=== PATIENT | female | born 1945 | race Caucasian/White ===

== ENCOUNTER 2016-05-06 02:39 | Emergency (ER) | payer OTHER ==
[~2016-05-06] VITALS: Ht 165.1 cm; Wt 82.1 kg
[~2016-05-06 02:39] MED LIST: ASPCH81X PO; BIOT1TAB5 PO; CINN1CAP2 PO; CYAN10005 PO; FLV1 PO; GLC500 PO; INSDGI SC; INSU1INJ7 SC; ISOS60TA25 PO; LISI-729 PO; LPT40 PO; MAGN250T22 PO; METH2.5T PO; METO100T14 PO; MILK150C PO; PLV75 PO; PRD/25 PO; [UNRECOGNIZED DRUG - OTHER] PO
[2016-05-06 02:52] VITALS: TEMP 36.5; Ht 165.1 cm; Wt 82.1 kg
[2016-05-06] MEDS ORDERED: OXYMETAZOLINE HCL 0.05% NA SPR 15 ML BTL ONE (02:58)
[2016-05-06] MEDS ORDERED: SILVER NITR/POTASSIUM NITRATE 10 APPLICATOR PACK ONE (03:01)
--- NOTE | 2016-05-06 05:02 | EMERGENCY ROOM VISIT NOTE ---
History First contact with patient: 02:54 Chief Complaint: NOSE BLEED (MINOR) Stated Complaint: BLOODY NOSE, THROWING UP History of Present Illness The patient is a 70 year old female who presents to the Emergency Room with complaints of left naris epistaxis for the past few hours. Patient is on Plavix. This is a recurrent issue for her. She has not seen ENT in the past. Patient denies chest pain, dyspnea, fever, chills, cough, congestion. Review of Systems See HPI for pertinent positives & negatives. A total of 10 systems reviewed and were otherwise negative. Past Medical/Surgical History Medical Problems: (1) Coronary artery disease (2) History of - coronary artery bypass grafting (3) history of NSTEMI (4) Hypertension Nos (5) RHEUMATOID ARTHRITIS Family History No pertinent family history Social History Smoking Status: Never Smoker Alcohol Use: none Drug Use: none Marital Status: Housing Status: lives with family Current/Historical Medications Scheduled Aspirin (Aspirin Chewable), 81 MG PO DAILY Atorvastatin (Atorvastatin Calcium), 40 MG PO DAILY Biotin (Biotin), 1,000 MCG PO DAILY Cinnamon (Cinnamon), Unknown Dose PO DAILY Clopidogrel Bisulfate (Clopidogrel), 75 MG PO DAILY Cyanocobalamin (Vitamin B-12), 1,500 MCG PO 4XWK Folic Acid (Folvite *), 1 MG PO DAILY EXCEPT MONDAY Insulin Glargine (Lantus), 25 UNITS SC QAM Insulin Glargine (Lantus), 25 UNITS SC QPM Isosorbide Mononitrate Ext Rel (Imdur Ext Rel), 60 MG PO QAM Lisinopril (Zestril), 5 MG PO DAILY Magnesium Oxide (Magnesium), 250 MG PO DAILY Metformin HCL (Glucophage *), 1,000 MG PO BID Methotrexate (Methotrexate), 2 TABS PO FRIDAYS Metoprolol Tartrate (Lopressor) (Lopressor), 100 MG PO BID Milk Thistle (Silybum Marianum (Milk Thistle), Unknown Dose PO DAILY Prednisone (Prednisone), 2.5 TAB PO DAILY [Cromax Plus], 500 MCG PO DAILY Allergies Coded Allergies: No Known Allergies (Verified , `, 05/06/16) Physical Exam Vital Signs Date Time Temp Pulse Resp B/P Pulse Ox O2 Delivery O2 Flow Rate FiO2 05/06/16 04:50 86 18 140/61 97 Room Air 05/06/16 02:52 36.5 79 20 106/69 96 Room Air Physical Exam VITALS: Vitals are noted on the nurse's note and reviewed by myself. Vital signs stable. GENERAL: Pleasant female, in no acute distress, nondiaphoretic, well-developed well-nourished. SKIN: The skin was without rashes, erythema, edema, or bruising. There is no tenting of the skin. Capillary reflex less than 2 seconds. HEAD: Normocephalic atraumatic. EARS: External auditory canals clear, tympanic membranes pearly price without erythema or effusion bilaterally. EYES: Pupils equal round and reactive to light and accommodation. Conjunctivae without injection, sclerae without icterus. Extraocular movements intact. NOSE: Patent, turbinates without inflammation, active bleeding in the Kiesselbach's plexus bilaterally no septal hematoma no sinus tenderness. MOUTH: Mucous membranes moist. No active bleeding in the back of the throat. Pharynx without erythema or exudate. Uvula midline. Airway patent. Tongue does not deviate. NECK: Supple without nuchal rigidity. No lymphadenopathy. No thyromegaly. Cervical spine is nontender. No JVD. HEART: Regular rate and rhythm LUNGS: Clear to auscultation bilaterally without wheezes, rales or rhonchi. No dullness to percussion. No retractions or accessory muscle use. ABDOMEN: Positive bowel sounds x 4. Normal tympanic percussion. Soft, nontender, without masses or organomegaly. Gray sign negative. No guarding or rebound tenderness. MUSCULOSKELETAL: No muscle atrophy, erythema, or edema noted. NEURO: Patient was alert and oriented to person place and time. Normal sensation to light and sharp touch. No focal neurological deficits. Medical Decision & Procedures Medications Administered Medications (Trade) Dose Ordered Sig/Soha Route Start Time Stop Time Status Last Admin Dose Admin Oxymetazoline HCl (Afrin 0.05% Nasal [place]) 75 sprays STK-MED ONCE .ROUTE 05/06/16 02:58 05/06/16 02:59 DC 05/06/16 03:03 75 SPRAYS Procedure Anterior Nasal Packing Indication: left anterior epistaxis Verbal consent obtained. Risks and benefits were explained with the usual customary discussion. A time out was taken. Clots were removed with suction. The left naris was prepped with Afrin and lidocaine. A 5.5-cm nasal balloon was placed in a standard fashion. The patient tolerated this well. Hemostasis was achieved. No complications. ED Course Prior records/ancillary studies reviewed. Triage Nursing notes reviewed. Additional history obtained from family. The patient's history was concerning for epistaxis. Differential diagnosis: Etiologies such as anterior epistaxis, coagulopathy, traumatic injury, fracture , septal hematoma, posterior epistaxis as well as other pathologies were entertained. Physical examination findings: As above. Anterior bleeding source. ER treatment provided: Direct pressure Intranasal phenylephrine Silver nitrate. On reassessment the patient felt better. Diagnostics interpreted by me: This appears to be consistent with anterior epistaxis. Patient was advised follow-up ENT in a few days. She is advised to hold her Plavix for the next few Days. She is advised if rebleeding occurs to apply direct pressure. She is advised to return to the immediate for heavy bleeding, headaches, fevers, confusion, worsening signs or symptoms or as needed. By the evaluation outlined above emergent etiologies such as coagulopathy, traumatic injury, fracture, septal hematoma, posterior epistaxis, as well as others were deemed relatively unlikely. The pt informed about the findings as listed above. All questions were answered and pleased with the treatment. Return instructions were outlined and the patient was discharged in stable condition. Referral: The patient was referred to ENT in 2 days or ER for a recheck of the current condition case reviewed with my Attending Medical Decision as above Impression Primary Impression: Anterior epistaxis Departure Information Dispostion Home / Self-Care Condition GOOD Referrals Aiyana Peck PA-C (PCP) Patient Instructions My [facility] Additional Instructions Hold your Plavix for the next 3 days. Avoid scratching, rubbing, picking, or blowing your nose. The snuff drier your nasal passages the more likely they are to bleed. The following two products are available [id number] at most drug stores/pharmacies. Ashley [place] nasal spray or similar generic saline spray to keep the nose moist 3 to 4 times a day. If bleeding recurs apply direct pressure for an uninterrupted 20 minutes. On and off pressure is much less effective because it will disturb the clots that are forming. If the bleeding is still a problem after 20 minutes or is so heavy despite the pressure return to the emergency department. Continue current medications. For ENT([id number]) follow up call Dr. Kern office at [phone] for an appointment this week. Tell the secretary of state you were referred from the ER. Follow-up family care in 2-3 days.
--- NOTE | 2016-05-06 05:08 | EMERGENCY ROOM VISIT NOTE ---
ED Visit Note First contact with patient: 02:54 I have personally evaluated and examined this patient. I agree with assessment and plan of Chula Gonzales PA-C. Nasal bleed now stopped after cautery. Discussed standard approach to these.
[2016-05-06 05:09] VITALS: BP 140/61; PULSE 86; O2SAT 97
== END 2016-05-06 05:10 | disposition home or self-care (01) ==
LOC: C.EDB 02:40 → C.EDA 05:10
DX: R04.0 Epistaxis (principal); I25.10 Atherosclerotic heart disease of native coronary artery without angina pectoris; I10 Essential (primary) hypertension; M06.9 Rheumatoid arthritis, unspecified; I25.2 Old myocardial infarction; Z95.1 Presence of aortocoronary bypass graft; Z79.82 Long term (current) use of aspirin; Z79.4 Long term (current) use of insulin; Z79.84 Long term (current) use of oral hypoglycemic drugs; Z79.899 Other long term (current) drug therapy

== ENCOUNTER 2016-05-10 01:37 | Observation (INO) | payer OTHER ==
[2016-05-10] VITALS (18 sets, daily range): BP systolic 117–155; BP diastolic 67–84; PULSE 78–92; TEMP 36.5–37.2; O2SAT 91–99; Ht 165.1 cm; Wt 84.4 kg
[~2016-05-10] VITALS: Ht 165.1 cm; Wt 84.4 kg
[2016-05-10 02:13] LABS: BASO % 0.5 %; BASO ABS # 0.02 K/uL (0-0.2); EOS % 1.6 %; HEMATOCRIT 27.7 % (37-47); IG% 0.5 %; LYMPH % 26.1 %; LYMPH ABS # 0.98 K/uL (1.2-3.4); MEAN CELL VOLUME 78.5 fL (80-100); MEAN CORPUSCULAR HEMOGLOBIN 24.6 pg (25-34); MEAN CORPUSCULAR HGB CONC 31.4 g/dl (32-36); MEAN PLATELET VOLUME 10.2 fL (7.4-10.4); MONO % 15.2 %; NEUT % 56.1 %; PLATELET COUNT 234 K/uL (130-400); RED BLOOD COUNT 3.53 M/uL (4.2-5.4); WHITE BLOOD COUNT 3.75 K/uL (4.8-10.8)
--- NOTE | 2016-05-10 02:24 | EMERGENCY ROOM VISIT NOTE ---
History Report prepared by Mariluz: Dena Santana Under the Supervision of: Dr. Courtney Hines D.O. First contact with patient: 01:48 Chief Complaint: CHEST PAIN Stated Complaint: HEART PAIN,LOW HEMOGLOBINS History of Present Illness The patient is a 70 year old female who presents to the Emergency Room with complaints of constant chest pain beginning 1 hour ago. The patient states that she had a bloody nose for 13 hours 3 days ago. They had her stop taking her Plavix. She reports that she began to feel weak and tired over the weekend. Yesterday she went to the doctor she and she had a hemoglobin of 8 and she was told that she would need a transfusion. The patient states that tonight she was asleep and woke up about 1 hour ago with midsternal chest pain. She notes that she had pain like this 4 years ago before her cardiac bypass surgery and stent. She denies any nausea, leg swelling, abdominal pain, sweating, and shortness of breath. The patient states that her chest discomfort is mostly resolved now. She rates her pain as a 1/10 in severity. [facility] 2 [facility] Source of History: patient Onset: 1 hour ago Position: chest Symptom Intensity: 1/10 Timing: constant Associated Symptoms: + SOB, + abdominal pain, + diaphoresis, + weakness, No nausea Note: Pt complains of tiredness. She denies any leg swelling. Review of Systems See HPI for pertinent positives & negatives. A total of 10 systems reviewed and were otherwise negative. Past Medical & Surgical Medical Problems: (1) Blood loss anemia (2) CAD (coronary artery disease) (3) Coronary artery disease (4) History of - coronary artery bypass grafting (5) history of NSTEMI (6) Hypertension Nos (7) RHEUMATOID ARTHRITIS Family History No pertinent family history Social History Smoking Status: Never Smoker Alcohol Use: none Drug Use: none Marital Status: Housing Status: lives with family Current/Historical Medications Scheduled Aspirin (Aspirin Chewable), 81 MG PO DAILY Atorvastatin (Atorvastatin Calcium), 40 MG PO HS Biotin (Biotin), 1,000 MCG PO DAILY Cholecalciferol (Vitamin D3), 1 TAB PO DAILY Cinnamon (Cinnamon), 500 MG PO DAILY Clopidogrel Bisulfate (Clopidogrel), 75 MG PO DAILY Cyanocobalamin (Vitamin B-12), 1,500 MCG PO Q2D Folic Acid (Folvite), 1 MG PO 6XWK Insulin Glargine (Lantus), 25 UNITS SQ BID Isosorbide Mononitrate Ext Rel (Imdur Ext Rel), 60 MG PO QAM Lisinopril (Zestril), 5 MG PO DAILY Magnesium Oxide (Magnesium), 250 MG PO DAILY Metformin Hcl (Glucophage), 1,000 MG PO BID Methotrexate (Methotrexate), 5 MG PO DAILY ON FRIDAYS Metoprolol Tartrate (Lopressor) (Lopressor), 100 MG PO BID Milk Thistle (Silybum Marianum (Milk Thistle), 1 CAP PO DAILY Prednisone (Prednisone), 2.5 MG PO DAILY Allergies Coded Allergies: No Known Allergies (Verified , `, 05/10/16) Physical Exam Vital Signs Date Time Temp Pulse Resp B/P Pulse Ox O2 Delivery O2 Flow Rate FiO2 05/10/16 03:00 75 21 136/78 90 Room Air 05/10/16 02:05 75 20 123/68 91 Room Air 05/10/16 01:54 95 Room Air 05/10/16 01:52 75 05/10/16 01:49 37.0 78 18 144/72 96 Room Air 05/10/16 01:49 94 Room Air Physical Exam HEENT: Head - normocephalic and atraumatic Pupils are equal, round, and reactive to light. Extraocular eye muscles are intact, and sclera are anicteric. Nose - moist nasal mucosa without discharge. Mouth - moist buccal mucosa. Oropharynx is nonerythematous and there is no tonsillar exudate or edema noted. Neck: Supple; no JVD, nuchal rigidity, cervical lymphadenopathy. Heart: Regular rate and rhythm. There is a normal S1 and S2 with no murmurs, clicks, or gallops appreciated. Lungs: Clear to auscultation bilaterally with no wheezes, rales, or rhonchi. Abdomen: Soft, completely nontender, nondistended, with good bowel sounds. There are no palpable pulsatile masses or hepatosplenomegaly. There is no guarding, rigidity, or rebound noted. Extremities: No evidence of cyanosis, clubbing, or edema. There are easily palpable peripheral pulses. Skin: warm and dry with good turgor and no rashes. Medical Decision & Procedures ER Provider Diagnostic Interpretation: X-ray results as stated below per interpretation by me: 2-View Chest: Sternotomy wires noted, there is atelectasis at the left lung base. Laboratory Results 05/10/16 01:55 Red Blood Count 3.53, Mean Corpuscular Volume 78.5, Mean Corpuscular Hemoglobin 24.6, Mean Corpuscular Hemoglobin Concent 31.4, Mean Platelet Volume 10.2, Neutrophils (%) (Auto) 56.1, Lymphocytes (%) (Auto) 26.1, Monocytes (%) (Auto) 15.2, Eosinophils (%) (Auto) 1.6, Basophils (%) (Auto) 0.5, Neutrophils # (Auto ) 2.10, Lymphocytes # (Auto) 0.98, Monocytes # (Auto) 0.57, Eosinophils # (Auto ) 0.06, Basophils # (Auto) 0.02 05/10/16 01:55 Test 05/10/16 01:55 White Blood Count 3.75 K/uL (4.8-10.8) Red Blood Count 3.53 M/uL (4.2-5.4) Hemoglobin 8.7 g/dL (12.0-16.0) Hematocrit 27.7 % (37-47) Mean Corpuscular Volume 78.5 fL (80-100) Mean Corpuscular Hemoglobin 24.6 pg (25-34) Mean Corpuscular Hemoglobin Concent 31.4 g/dl (32-36) Platelet Count 234 K/uL (130-400) Mean Platelet Volume 10.2 fL (7.4-10.4) Neutrophils (%) (Auto) 56.1 % Lymphocytes (%) (Auto) 26.1 % Monocytes (%) (Auto) 15.2 % Eosinophils (%) (Auto) 1.6 % Basophils (%) (Auto) 0.5 % Neutrophils # (Auto) 2.10 K/uL (1.4-6.5) Lymphocytes # (Auto) 0.98 K/uL (1.2-3.4) Monocytes # (Auto) 0.57 K/uL (0.11-0.59) Eosinophils # (Auto) 0.06 K/uL (0-0.5) Basophils # (Auto) 0.02 K/uL (0-0.2) RDW Standard Deviation 44.6 fL (36.4-46.3) RDW Coefficient of Variation 15.5 % (11.5-14.5) Immature Granulocyte % (Auto) 0.5 % Immature Granulocyte # (Auto) 0.02 K/uL (0.00-0.02) Ovalocytes 1+ Prothrombin Time 10.8 SECONDS (9.0-12.0) Prothromb Time International Ratio 1.0 (0.9-1.1) Activated Partial Thromboplast Time 24.2 SECONDS (21.0-31.0) Partial Thromboplastin Ratio 0.9 Anion Gap 11.0 mmol/L (3-11) Est Creatinine Clear Calc Drug Dose 48.1 ml/min Estimated GFR () 53.8 Estimated GFR (Non- 46.4 BUN/Creatinine Ratio 15.9 (10-20) Calcium Level 8.3 mg/dl (8.5-10.1) Total Bilirubin 0.3 mg/dl (0.2-1) Direct Bilirubin 0.1 mg/dl (0-0.2) Aspartate Amino Transf (AST/SGOT) 28 U/L (15-37) Alanine Aminotransferase (ALT/SGPT) 29 U/L (12-78) Alkaline Phosphatase 74 U/L (45-117) Total Creatine Kinase 562 U/L (26-192) Creatine Kinase MB 3.3 ng/ml (0.5-3.6) Creatine Kinase MB Ratio 0.6 (0-3.0) Troponin I 0.025 ng/ml (0-0.045) Total Protein 6.9 gm/dl (6.4-8.2) Albumin 3.1 gm/dl (3.4-5.0) Laboratory results per my review. ECG Indication: chest pain Rate (beats per minute): 74 Rhythm: normal sinus Findings: other (ST segment depressions in inferior leads, 1 in AVL) Comparison ECG Date: 23-DEC-2011 Change: ST segment depressions in inferior leads, 1 in AVL ED Course 0148: Past medical records reviewed. The patient was evaluated in room A10. A complete history and physical exam was performed. A twelve-lead EKG was obtained upon her arrival. An IV lock was initiated and labs were drawn as above. Patient had chest x-ray as described above. 0240: Discussed the patient's case with Dr. Soriano. The patient will be evaluated for further management. 0242: I reevaluated the patient and discussed her test results. She remains chest pain free. 0245: Upon reevaluation, I discussed findings and results with the patient. She verbalized agreement of the treatment plan. I spoke with Dr. Soriano of the [facility]. The patient will be evaluated for further management and care. Medical Decision The patient is a 70 year old female who presents to the ED with chest pain. Differential diagnosis includes cardiac ischemia, GERD, NSTEMI, acute coronary syndrome, anxiety. LABS: Hemoglobin 8.8 Hematocrit 27.7 Platelet Count 22.4 WBC 3.7 BUN 19 Creatinine 1.2 Troponin 0.025 LFT normal Coags are normal This is a 70-year-old female patient who awoke from sleep with midsternal chest pain. The patient was recently diagnosed with anemia secondary to a blood loss from epistaxis. She was typed and screened here in the emergency department. Her blood loss anemia may have lead to her ischemic changes noted on EKG today. She is chest pain-free at this time. She has negative cardiac enzymes I've discussed the case with the [facility]ist and he will evaluate for further management. Consults Time Called: [phone] Consulting Physician: Dr. Christie Overton Returned Call: [phone] Discussed the patient's case with Dr. Soriano. The patient will be evaluated for further management. Impression Primary Impression: Substernal chest pain Additional Impression: Acute electrocardiogram changes Scribe Attestation The scribe's documentation has been prepared under my direction and personally reviewed by me in its entirety. I confirm that the note above accurately reflects all work, treatment, procedures, and medical decision making performed by me. Departure Information Dispostion Being Evaluated By Hospitalist Referrals Lexus Holland DO (PCP) Patient Instructions My [facility] Problem Qualifiers
[2016-05-10 02:30] LABS: PARTIAL THROMBOPLASTIN RATIO 0.9; PROTHROMBIN TIME (PATIENT) 10.8 SECONDS (9.0-12.0)
[2016-05-10 02:31] LABS: BUN/CREATININE RATIO 15.9 (10-20); CALCIUM 8.3 mg/dl (8.5-10.1); CREATININE 1.2 mg/dl (0.60-1.20); POTASSIUM 4.3 mmol/L (3.5-5.1)
[2016-05-10 02:36] LABS: CKMB/CK RATIO 0.6 (0-3.0)
[2016-05-10 02:44] LABS: COMPLETE YES; OVALOCYTES 1+
[2016-05-10] MEDS ORDERED: PRED-301 PO (02:58)
[2016-05-10] MEDS ORDERED: METF-384 PO (02:58)
[2016-05-10] MEDS ORDERED: INSDGI SQ (02:58)
[2016-05-10] MEDS ORDERED: FOLI1TAB7 PO (02:59)
[2016-05-10] MEDS ORDERED: CHOL1000 PO (03:00)
[2016-05-10] MEDS ORDERED: ACETAMINOPHEN 325 MG TAB PO PRN (03:15)
[2016-05-10] MEDS ORDERED: ONDANSETRON INJ 2 MG/ML 2 ML VIAL IV PRN (03:15)
[2016-05-10] MEDS ORDERED: GLUCOSE 10 TABS/TUBE PO PRN (04:00)
[2016-05-10] MEDS ORDERED: DEXTROSE 50% 50 ML SYR IV PRN (04:00)
[2016-05-10] MEDS ORDERED: IV FLUIDS COMPLETED PRN (04:00)
[2016-05-10] MEDS ORDERED: GLUCAGON FOR INJ 1 MG VIAL SQ PRN (04:00)
[2016-05-10] MEDS ORDERED: GLUCOSE 40% GEL 15 GM TUBE PO PRN (04:00)
[2016-05-10] MEDS: HEPARIN SOD 5000 UNIT/0.5 ML CARP SQ SCH ×2 (06:10→13:27)
--- NOTE | 2016-05-10 06:45 | DIAGNOSTIC IMAGING REPORT ---
CHEST 2 VIEWS ROUTINE CLINICAL HISTORY: Atypical chest pain COMPARISON STUDY: November 2011 FINDINGS: There are postsurgical changes of midline sternotomy. The heart is mildly enlarged. Indistinctness left heart border remains unchanged the prior study is felt to be chronic. There are left midlung zone areas of atelectasis/scarring which remain stable. There is no failure. There are no pleural effusions. There is no acute parenchymal consolidation[ IMPRESSION: No active disease in the chest. Electronically signed by: True Nye M.D. 05/10/2016 6:43 AM Dictated Date/Time: 05/10/2016 6:42 AM
--- NOTE | 2016-05-10 06:48 | HISTORY & PHYSICAL EXAMINATION ---
DATE OF ADMISSION: 05/10/2016 PRIMARY CARE PHYSICIAN: Dr. Wilkinson CHIEF COMPLAINT: Woke up with chest pressure around 1 a.m. today. HISTORY OF PRESENT COMPLAINT: She is a 70-year-old female with significant past medical history including type 2 diabetes, CAD status post CABG, history of non-STEMI, hyperlipidemia, history of angioplasty with stent placement, rheumatoid arthritis involving multiple joints with positive rheumatoid factor and also vitamin B12 deficiency. Apparently has had nose bleed on of this month. She was in the ER, she bleed a lot and she is going to see ENT physician for that, but she saw her primary care physician for the nose bleed yesterday and noted to have a hemoglobin of 8.4. She was advised for transfusion because of ongoing heart disease and her Plavix is on hold for the epistaxis. Se had her usual dinner last night and following that she vomited once and she went to sleep, woke up at around 1:00 a.m. with chest pressure/chest pain that lasted half an hour. No associated symptoms of palpitation, sweating, shortness of breath or any radiation of the pain along the jaw or arm. In the ER, she was asymptomatic, but EKG did show new T-wave inversion involving anterolateral leads. From that point, she was admitted to the telemetry unit and also her hemoglobin noted to be 8.7 and she will be transfused. Serial cardiac enzymes and echo and cardiology evaluation. PAST MEDICAL HISTORY: Significant for type 2 diabetes, CAD, status post off-pump CABG x 4 September,, CHEN - LAD, Aorta - OM, Aorta - PDA - PV S/P Angioplasty ALEX of OM1 01/27/12 (SVG to OM occluded on aortogram) diabetes type 2, hyperlipidemia, rheumatoid arthritis with positive rheumatoid factor PAST SURGICAL HISTORY: CABG, coronary angioplasty and total hysterectomy. FAMILY HISTORY: Mother had cirrhosis of liver, but no other significant family history. SOCIAL HISTORY: She is . She has 9 children. She uses alcohol occasionally. She does not smoke and she is reasonably ambulant. ALLERGIES: NKDA. MEDICATIONS: Aspirin 81 mg daily, atorvastatin 40 mg daily, Vitamin D3 1000 units daily, Plavix 75 mg, which is on hold; vitamin B12 1000 mcg daily, folic acid 1 mg daily, insulin Lantus 25 units subQ b.i.d., isosorbide mononitrate 60 mg daily, lisinopril 5 mg daily, metformin 1000 mg b.i.d., methotrexate 5 mg on Fridays, Lopressor 100 mg b.i.d., prednisone 2.5 mg daily, Biotin 1000 mcg daily, senna 500 mcg daily, magnesium oxide 250 mg daily. REVIEW OF SYSTEMS: CENTRAL NERVOUS SYSTEM: No headache, no blurred vision, no numbness or tingling. ENT: Does not have any more epistaxis. RESPIRATORY: No cough or phlegm, shortness of breath. CARDIOVASCULAR: Did have chest pressure/pain, no palpitations. GASTROINTESTINAL: No abdominal pain, nausea, but she vomited once following dinner. GENITOURINARY: No problem with urine and/or bowel habit. MUSCULOSKELETAL: No acute arthritis involving any joint. SKIN: Generally, she did not have any rash. PHYSICAL EXAMINATION: GENERAL: On examination in the Emergency Room, she was not having any acute distress. No chest pain. VITAL SIGNS: Temperature 37.0, pulse is 75, blood pressure 123/68, saturation 91% on room air. HEENT: Unremarkable. NECK: Supple. No JVD, no bruit. CHEST: Clear to auscultation bilaterally. HEART: S1, S2 regular, no murmur. ABDOMEN: Soft, benign, nontender, no organomegaly. Bowel sounds present. EXTREMITIES: Negative for any edema. MUSCULOSKELETAL SYSTEM: Did not show any acute arthritis involving any joint. CENTRAL NERVOUS SYSTEM: She was alert, awake, oriented x3 and no focal sensory and/or motor deficit appreciated. LABORATORY DATA: Noted today white count was 3.75, H\T\H 8.7/27.7, platelet was 234. Sodium 140, potassium 4.3, chloride 104, carbon dioxide 25, BUN 19, creatinine 1.20, random glucose 191. LFTs normal. Total CK was 562, MB 3.3, troponin 0.025, INR 1.0, PTT ratio 0.9. Chest x-ray cardiomegaly, otherwise negative. EKG was in sinus rhythm, rate of 74 per minute and T-wave inversions in I, II, aVL and V4 through V6 compared with prior EKG, the T-wave changes are new on anterolateral leads. IMPRESSION AND PLAN: 1. Chest pain with EKG changes. CAD with s/p CABG and Angioplasty as above S/P negative nuclear stress test in March 2016 Gated SPECT imaging reveals normal myocardial thickening and wall motion. The left ventricular ejection fraction was calculated to be 70%. Will admit to Tele,Serial CE and ECHO No IV Heparin due to Anemia and Epistaxis Cardiology consult 2. Anemia secondary to epistaxis. Her Plavix is on hold. She will get 2 units of blood transfusion for ongoing cardiac symptoms and EKG changes. 3. Diabetes type 2. Continue with her insulin, hold oral hypoglycemic agents, sliding scale coverage while in the hospital. 4. Hypertension. Continue with current medications. 5. Hyperlipidemia. Continue with current medication. 6. Rheumatoid arthritis. No acute arthropathy at this time, continue with usual medication. 7. Gastrointestinal prophylaxis with Protonix. 8. Deep venous thrombosis prophylaxis with subQ heparin. High risk for thrombosis The patient is not having any acute epistaxis at this time. 9. Code status -- She will be full code. In my clinical judgment the beneficiary meets criteria as per CMS for 2 midnight stay in the hospital. [email or web address]
[2016-05-10] MEDS ORDERED: METFORMIN HCL 500 MG TAB PO SCH (08:00)
[2016-05-10] MEDS: INSULIN ASPART 100 UNITS/ML 3 ML PEN SC SCH ×2 (08:47→13:20)
[2016-05-10] MEDS ORDERED: ASPIRIN 81 MG ECTAB PO SCH (09:00)
[2016-05-10] MEDS ORDERED: ISOSORBIDE MONONITRATE 60 MG TABCR PO SCH (09:00)
[2016-05-10] MEDS ORDERED: CYANOCOBALAMIN 500 MCG TAB (VIT B-12) PO SCH (09:00)
[2016-05-10] MEDS ORDERED: MAGNESIUM OXIDE 400 MG TAB PO SCH (09:00)
[2016-05-10] MEDS ORDERED: NON-FORMULARY MEDICATION (Biotin 1,000 MCG) PO SCH (09:00)
[2016-05-10] MEDS ORDERED: METOPROLOL TARTRATE 100 MG TAB PO SCH (09:00)
[2016-05-10] MEDS ORDERED: INSULIN GLARGINE SOLOSTAR 100 UNITS/ML 3 ML PEN SC SCH ×2 (09:00→21:00)
[2016-05-10] MEDS ORDERED: NON-FORMULARY MEDICATION (Cinnamon 500 MG) PO SCH (09:00)
[2016-05-10] MEDS ORDERED: LISINOPRIL 5 MG TAB PO SCH (09:00)
[2016-05-10] MEDS ORDERED: MILK THISTLE PO SCH (09:00)
[2016-05-10] MEDS ORDERED: CHOLECALCIFEROL 1000 INTER.UNIT TAB PO SCH (09:00)
--- NOTE | 2016-05-10 11:28 | CARDIOLOGY CONSULTATION ---
DATE OF CONSULTATION: 05/10/2016 HISTORY OF PRESENT ILLNESS: Francie Baker is a 70-year-old female with a history of rheumatoid arthritis, coronary heart disease, history of CABG as well as PCI to the obtuse marginal, as delineated below. She is seen in cardiology consultation per the request of Dr. Soriano for evaluation of chest discomfort and abnormal EKG. The patient had last been seen by the undersigned as an outpatient in the Fall of 2015 around the when she noted generalized fatigue and symptoms somewhat atypical for angina. She therefore underwent a nuclear stress test on 03/28/2016 during which time she exercised for 4 minutes 50 seconds. She achieved 77% of the age predicted maximum heart rate. It was felt that her heart rate response to exercise was attenuated due to her chronic high dose beta dereje therapy. The patient exercised to a point of near complete exhaustion with the study having been supervised personally by the undersigned. The perfusion study was normal with no evidence of inducible ischemia at the level of exercise achieved. Her medication management was continued including chronic dual antiplatelet therapy with aspirin and clopidogrel due to her significant underlying [place] vessel CAD. The patient reports that 4 days ago on Monday she had a 13-hour nosebleed. This culminated in her going to the Emergency Department and finally receiving treatment there including cauterization with silver nitrate. She was counseled to hold her clopidogrel for 3 days and outpatient follow up with her PCP and ENT was scheduled. In the meantime, she has been off her Plavix, and notes no recurrent bleeding. She had seen her primary care provider yesterday, and was improved. She was referred for blood work; however, and it was noted that she had a newly discovered anemia with hemoglobin of 8.7 yesterday on 05/09/2016, which was down compared to 13.2 grams per deciliter in February 2015. The patient then woke up spontaneously at 1:30 in the morning last night with a brief episode of mild chest discomfort. She came to the Emergency Room and the chest discomfort had persisted. Cardiac enzymes were negative at 1:55 a.m. An EKG performed on presentation on 05/06/2016 at 1:45 a.m. revealed sinus rhythm with ST changes in the inferior and lateral leads with mild ST changes and T-wave, inversions concerning for ischemia. A repeat EKG was performed this morning at 9:25 a.m. per my request and noted normalization of these previously noted ST changes, and she is back to her previous outpatient baseline when compared to the EKG performed on 03/16/2016. At the time of my assessment, the patient was on telemetry. She was feeling well. She had received 1 unit of packed red blood cells, and a second unit was infusing. Her hemoglobin on presentation to the Emergency Room was 11.7, and a repeat is planned after transfusion is completed. The patient notes no recent anginal symptoms other than what occurred last night. PAST MEDICAL HISTORY: 1. CAD, history of type 2 diabetes mellitus. 2. Rheumatoid arthritis. 3. Coronary artery disease came to be recognized in September 2011 when she presented with a non-ST segment elevation myocardial infarction. Coronary angiography at that time demonstrated severe 3-vessel coronary artery disease including a right dominant coronary artery with subtotal stenosis of the mid LAD and a high grade stenosis of the circumflex, obtuse marginal. On followup after her bypass surgery, she had recurrent angina prompting nuclear stress test in 2011 revealing lateral ischemia, repeat cardiac catheterization performed 01/27/2012 revealed the stump occlusion of the vein graft to the obtuse marginal. She therefore underwent PCI with drug-eluting stent deployment to the [place] obtuse marginal 1 with excellent angiographic results. 4. Dyslipidemia. 5. History of epistaxis January 2016 as well as April 2016. PAST SURGICAL HISTORY: 1. Coronary artery bypass grafting x4 in 2011. 2. Cardiac catheterization, prior to CABG, as well as repeat in January 2012 with PCI to the obtuse marginal. FAMILY HISTORY: Father of stroke at age 87. Her mother had a history of liver failure. SOCIAL HISTORY: She is a lifelong nonsmoker. She is and lives with her , [place]. REVIEW OF SYSTEMS: A 10-point review of systems was performed and is negative with the exception of that noted above. HOME MEDICATIONS: 1. Aspirin 81 mg by mouth daily. 2. Atorvastatin 40 mg daily. 3. Isosorbide mononitrate 60 mg by mouth daily. 4. Lantus 25 units subQ 2 times per day. 5. Victoza 0.6 mg subcutaneously daily. 6. Lisinopril 5 mg by mouth daily. 7. Magnesium 200 mg by mouth daily. 8. Metformin 1000 mg by mouth b.i.d. 9. Methotrexate 2.5 mg 2 tablets by mouth once per week. 10. Metoprolol tartrate 100 mg 1 tablet by mouth 2 times per day. 11. Prednisone 5 mg by mouth daily. PHYSICAL EXAMINATION: VITAL SIGNS: Temperature 37.0, heart rate 89, blood pressure 135/75. GENERAL APPEARANCE: Awake and oriented x3, no acute distress. HEENT: Extraocular muscles were intact. Pupils equal and reactive to light. NECK: No bruits or cervical lymphadenopathy. CARDIOVASCULAR: Regular rate. No murmurs, rubs or gallops. ABDOMEN: Positive bowel sounds. Soft, nontender, nondistended. EXTREMITIES: No clubbing, cyanosis or edema. NEUROLOGIC: No focal deficits. PSYCHIATRIC: Appropriate affect and insight. DIAGNOSTIC DATA: EKG as outlined in the HPI. Hemoglobin is as outlined in the HPI. FINAL IMPRESSION: A 70-year-old white female: 1. Significant epistaxis, stating that her nosebleed took place for 13 hours prior to cauterization back on 05/06/2016. 2. Anemia, perhaps due to her recent epistaxis, although other causes may also need to be excluded. 3. Transient EKG abnormalities in the setting of anemia. 4. History of coronary heart disease, with previous coronary artery bypass grafting, and percutaneous coronary intervention to the obtuse marginal. 5. Underlying type 2 diabetes mellitus. 6. Underlying rheumatoid arthritis, on chronic treatment with prednisone and methotrexate. RECOMMENDATIONS: At this time, recommend transfusing the patient to a hemoglobin goal of 10 g per deciliter, given episode of chest discomfort last night and transient EKG changes. Currently, her EKG has returned back to its previous baseline. At this time, I recommend that we proceed of clopidogrel and support her anemia as necessary. MANSOOR
[2016-05-10 11:47] LABS: CKMB/CK RATIO 0.6 (0-3.0)
--- NOTE | 2016-05-10 12:47 | ECHOCARDIOGRAM REPORT ---
*NOTICE TO RECEIVING [employer] [facility] This information is strictly Confidential and protected under [place] law. [place] law prohibits you from making any further disclosure of this information unless further disclosure is expressly permitted by the written consent of the person to whom it pertains or is authorized by law. A general authorization for the release of medical or other information is not sufficient for this purpose. Hospital accepts no responsibility if the information is made available to any other person, INCLUDING THE PATIENT. Interpretation Summary * Name: KANDIS SCOTT Study Date: 05/10/2016 09:59 AM BP: 134/67 mmHg * Patient Location: [facility]\S\N277\S\1 HR: 85 * : 1945 (M/d/yyyy) Gender: Female Height: 65 in * Age: 70 yrs Ethnicity: CA Weight: 186 lb * Ordering Physician: Cy Soriano * Referring Physician: Self, Referred * Performed By: Ivon Mclaughlin RCS * * Reason For Study: CHEST PAIN / CAD * BSA: 1.9 m2 * The study was technically adequate. * -- Conclusions -- * There is severe concentric left ventricular hypertrophy. * The left ventricular cavity is small. * No regional wall motion abnormalities noted. * The calculated left ventricular ejection fraction=61% * The right ventricle is normal in size and function. * There is moderate mitral annular calcification. * Grade I diastolic dysfunction, (abnormal relaxation pattern). Procedure Details * A complete two-dimensional transthoracic echocardiogram was performed (2D, M-mode, Doppler and color flow Doppler). Left Ventricle * The left ventricular cavity is small. * There is severe concentric left ventricular hypertrophy. * Left ventricular systolic function is normal. * The calculated left ventricular ejection fraction=61% * The left ventricular wall motion is normal. * No regional wall motion abnormalities noted. Right Ventricle * The right ventricle is normal in size and function. * The right ventricular systolic function is normal as assessed by tricuspid annular plane systolic excursion (TAPSE) (normal >1.5 cm). Atria * The left atrium is mildly dilated. * Right atrial size is normal. * There is no evidence of atrial septal defect, but resolution does not allow assessment for a patent foramen ovale. Mitral Valve * There is moderate mitral annular calcification. * There is no mitral valve stenosis. * Significant mitral regurgitation is absent. Tricuspid Valve * The tricuspid valve is normal. * There is no tricuspid stenosis. * Significant tricuspid regurgitation is absent. * Doppler findings do not suggest pulmonary hypertension. Aortic Valve * The aortic valve is trileaflet. * Aortic stenosis is absent. * There is no significant aortic regurgitation. Pulmonic Valve * The pulmonary valve is not well seen, but the Doppler examination is normal without significant regurgitation or stenosis. Great Vessels * The aortic root and proximal ascending aorta are normal sized. Pericardium/Pleural * There is no pericardial effusion. Great Vessels * Normal inferior vena cava diameter and respiratory variation suggests normal central venous pressure. * Normal inferior vena cava size and collapsability with sniff indicates a normal right atrial pressure of 3 mmHg Left Ventricular Diastolic Function * Grade I diastolic dysfunction, (abnormal relaxation pattern). MMode 2D Measurements and Calculations IVSd 1.9 cm IVSs 2.1 cm LVIDd 4.2 cm LVIDs 3.0 cm LVPWd 1.3 cm LVPWs 1.4 cm IVS/LVPW 1.5 FS 28.2 % EDV(Teich) 80.0 ml ESV(Teich) 36.2 ml EF(Teich) 54.8 % EDV(cubed) 75.9 ml ESV(cubed) 28.1 ml EF(cubed) 62.9 % % IVS thick 7.4 % % LVPW thick 9.2 % LV mass(C)d 285.0 grams LV mass(C)dI 148.6 grams/m\S\2 LV mass(C)s 210.5 grams LV mass(C)sI 109.8 grams/m\S\2 SV(Teich) 43.9 ml SI(Teich) 22.9 ml/m\S\2 SV(cubed) 47.7 ml SI(cubed) 24.9 ml/m\S\2 Ao root diam 3.5 cm Ao root area 9.4 cm\S\2 LA dimension 3.0 cm LA/Ao 0.88 LVOT diam 1.8 cm LVOT area 2.5 cm\S\2 Doppler Measurements and Calculations MV E max mau 122.5 cm/sec MV A max mau 137.6 cm/sec MV E/A 0.89 MV P1/2t max mau 129.0 cm/sec MV P1/2t 64.3 msec MVA(P1/2t) 3.4 cm\S\2 MV dec slope 587.4 cm/sec\S\2 MV dec time 0.18 sec Ao V2 max 129.0 cm/sec Ao max PG 6.7 mmHg Ao max PG (full) 0.74 mmHg KULDIP(V,A) 2.4 cm\S\2 KULDIP(V,D) 2.4 cm\S\2 LV V1 max PG 5.9 mmHg LV V1 max 121.6 cm/sec PA V2 max 112.7 cm/sec PA max PG 5.1 mmHg
--- NOTE | 2016-05-10 13:50 | Progress Note ---
Subjective Date of Service: May 10, 2016. Subjective Pt evaluation today including: conversation w/ patient, physical exam, lab review, review of studies, review of inpatient medication list Saw/examined the patient in room 277 - doing well, came in to the ER with chest pressure/pain and low Hgb levels due to epistaxis this morning - doing better, no chest pain, s/p transfusion Problem List Medical Problems: (1) Anterior epistaxis Status: Acute (2) Anterior epistaxis Status: Acute (3) Substernal chest pain Status: Acute Review of Systems Constitutional: No chills, No fever Respiratory: No cough, No dyspnea on exertion, No shortness of breath, No sputum, No wheezing Cardiac: No chest pain Heme: No abnormal bleeding/bruising Medications Current Inpatient Medications Medications (Trade) Dose Ordered Sig/Soha Route Start Time Stop Time Status Last Admin Dose Admin Heparin Sodium (Porcine) (Heparin Sq 5000 Unit/0.5ml) 5,000 unit Q8 SQ 05/10/16 06:00 06/09/16 05:59 05/10/16 06:10 5,000 UNIT Acetaminophen (Tylenol Tab) 650 mg Q4H PRN PO 05/10/16 03:15 06/09/16 03:14 Ondansetron HCl (Zofran Inj) 4 mg Q6H PRN IV 05/10/16 03:15 06/09/16 03:14 Aspirin (Ecotrin Tab) 81 mg QAM PO 05/10/16 09:00 06/09/16 08:59 05/10/16 08:39 81 MG Atorvastatin Calcium (Lipitor Tab) 40 mg HS PO 05/10/16 21:00 06/09/16 20:59 Cholecalciferol (Vitamin D Tab) 1,000 inter.unit DAILY PO 05/10/16 09:00 06/09/16 08:59 05/10/16 08:41 1,000 INTER.UNIT Cyanocobalamin (Vitamin B-12 Tab) 1,500 mcg Q2D PO 05/10/16 09:00 06/09/16 08:59 05/10/16 08:41 1,500 MCG Folic Acid (Folvite Tab) 1 mg SuMoTuWeThSa@0900 PO 05/10/16 09:00 06/09/16 08:59 05/10/16 08:40 1 MG Insulin Glargine (Lantus Solostar Pen) 25 unit BID SC 05/10/16 09:00 06/09/16 08:59 05/10/16 08:48 25 UNIT Isosorbide Mononitrate (Imdur Ext Rel Tab) 60 mg QAM PO 05/10/16 09:00 06/09/16 08:59 05/10/16 08:39 60 MG Lisinopril (Zestril Tab) 5 mg DAILY PO 05/10/16 09:00 06/09/16 08:59 05/10/16 08:40 5 MG Metformin HCl (Glucophage Tab) 1,000 mg BIDM PO 05/10/16 08:00 06/09/16 07:59 05/10/16 08:42 1,000 MG Methotrexate (Methotrexate Tab) 5 mg Fr@0900 PO 05/13/16 09:00 06/12/16 08:59 Metoprolol Tartrate (Lopressor Tab) 100 mg BID PO 05/10/16 09:00 06/09/16 08:59 05/10/16 08:40 100 MG Prednisone (PredniSONE TAB) 2.5 mg DAILY PO 05/10/16 09:00 06/09/16 08:59 05/10/16 08:41 2.5 MG Magnesium Oxide (Mag-Ox Tab) 400 mg DAILY PO 05/10/16 09:00 06/09/16 08:59 05/10/16 08:40 400 MG Insulin Aspart (novoLOG ASPART) SLIDING SCALE G... ACHS SC 05/10/16 06:30 06/09/16 06:59 05/10/16 08:47 5 UNITS Glucose (Glucose 40% Gel) 15-30 GRAMS 15 GRAMS... UD PRN PO 05/10/16 04:00 06/09/16 03:59 Glucose (Glucose Chew Tab) 4-8 Tablets 4 Tabl... UD PRN PO 05/10/16 04:00 06/09/16 03:59 Dextrose (Dextrose 50% 50ML Syringe) 25-50ML OF 50% DW IV FOR... UD PRN IV 05/10/16 04:00 06/09/16 03:59 Glucagon (Glucagon Inj) 1 mg UD PRN SQ 05/10/16 04:00 06/09/16 03:59 Miscellaneous (Iv Fluids Completed) 1 ea PRN PRN N/A 05/10/16 04:00 05/10/17 03:59 Objective Vital Signs Date Time Temp Pulse Resp B/P Pulse Ox O2 Delivery O2 Flow Rate FiO2 05/10/16 11:49 36.8 81 138/73 97 05/10/16 09:50 37.0 89 18 135/75 05/10/16 09:20 37.1 85 18 155/67 05/10/16 08:50 36.6 92 18 145/82 05/10/16 08:35 36.8 92 18 143/83 05/10/16 08:19 36.5 91 18 149/84 05/10/16 08:00 92 Room Air 05/10/16 07:15 36.9 82 18 150/83 92 05/10/16 06:45 37.2 82 18 132/81 92 05/10/16 06:15 37.1 78 20 130/79 91 05/10/16 05:45 37.0 81 20 134/67 96 05/10/16 05:30 36.8 78 20 131/75 97 05/10/16 05:15 36.9 78 20 139/70 99 2.0 05/10/16 04:51 37.2 80 20 117/72 97 05/10/16 04:20 97 Nasal Cannula 2.0 05/10/16 04:00 82 24 127/65 97 Nasal Cannula 2.0 05/10/16 03:34 Nasal Cannula 2.0 05/10/16 03:00 75 21 136/78 90 Room Air 05/10/16 02:05 75 20 123/68 91 Room Air 05/10/16 01:54 95 Room Air 05/10/16 01:52 75 05/10/16 01:49 37.0 78 18 144/72 96 Room Air 05/10/16 01:49 94 Room Air Physical Exam General Appearance: no apparent distress Respiratory/Chest: lungs clear, normal breath sounds, no respiratory distress, no accessory muscle use Cardiovascular: regular rate, rhythm, no edema, no murmur Abdomen: normal bowel sounds, non tender, soft Extremities: normal inspection, no pedal edema Neurologic/Psychiatric: no motor/sensory deficits, alert, normal mood/affect Skin: normal color Lymphatic: no adenopathy Laboratory Results Last 24 Hours Test 05/10/16 01:55 05/10/16 07:36 05/10/16 11:03 05/10/16 11:40 White Blood Count 3.75 K/uL Red Blood Count 3.53 M/uL Hemoglobin 8.7 g/dL Hematocrit 27.7 % Mean Corpuscular Volume 78.5 fL Mean Corpuscular Hemoglobin 24.6 pg Mean Corpuscular Hemoglobin Concent 31.4 g/dl Platelet Count 234 K/uL Mean Platelet Volume 10.2 fL Neutrophils (%) (Auto) 56.1 % Lymphocytes (%) (Auto) 26.1 % Monocytes (%) (Auto) 15.2 % Eosinophils (%) (Auto) 1.6 % Basophils (%) (Auto) 0.5 % Neutrophils # (Auto) 2.10 K/uL Lymphocytes # (Auto) 0.98 K/uL Monocytes # (Auto) 0.57 K/uL Eosinophils # (Auto) 0.06 K/uL Basophils # (Auto) 0.02 K/uL RDW Standard Deviation 44.6 fL RDW Coefficient of Variation 15.5 % Immature Granulocyte % (Auto) 0.5 % Immature Granulocyte # (Auto) 0.02 K/uL Ovalocytes 1+ Prothrombin Time 10.8 SECONDS Prothromb Time International Ratio 1.0 Activated Partial Thromboplast Time 24.2 SECONDS Partial Thromboplastin Ratio 0.9 Sodium Level 140 mmol/L Potassium Level 4.3 mmol/L Chloride Level 104 mmol/L Carbon Dioxide Level 25 mmol/L Anion Gap 11.0 mmol/L Blood Urea Nitrogen 19 mg/dl Creatinine 1.20 mg/dl Est Creatinine Clear Calc Drug Dose 48.1 ml/min Estimated GFR () 53.8 Estimated GFR (Non- 46.4 BUN/Creatinine Ratio 15.9 Random Glucose 191 mg/dl Calcium Level 8.3 mg/dl Total Bilirubin 0.3 mg/dl Direct Bilirubin 0.1 mg/dl Aspartate Amino Transf (AST/SGOT) 28 U/L Alanine Aminotransferase (ALT/SGPT) 29 U/L Alkaline Phosphatase 74 U/L Total Creatine Kinase 562 U/L 511 U/L Creatine Kinase MB 3.3 ng/ml 2.9 ng/ml Creatine Kinase MB Ratio 0.6 0.6 Troponin I 0.025 ng/ml 0.021 ng/ml Total Protein 6.9 gm/dl Albumin 3.1 gm/dl Bedside Glucose 169 mg/dl 161 mg/dl Assessment and Plan This is a 70 year old female with PMH of CAD s/p CABG and angioplasty, insulin dependent DM2, HLD, recurrent epistaxis presents to the ER due to low Hgb levels and chest pain/pressure Chest Pain r/o ACS in the setting of CAD * Patient presented with chest pain and transient EKG changes - T wave inversions in lateral leads * EKG changes have resolved * s/p two units PRBCs * symptoms have since resolved * total CK elevated, but no elevation in troponin I levels * echo noted * appreciate cardiology input - keep Hgb > 10 * will restart Plavix on discharge * continue current cardiac medications Anemia secondary to Recurrent Epistaxis * multiple episodes of epistaxis - last one was on Monday, 05/06 * Hgb dropped to 8.4 during visit with PCP; 8.7 on admission here * s/p two units PRBCs * will recheck H/H at 1430; if > 10, will d/c home * has appointment with ENT on May 16 * will set up appointment with PCP Insulin Dependent DM2 * hold oral agents * insulin sliding scale * continue Lantus 25 units BID DVT ppx * subq heparin FULL CODE
[2016-05-10 14:48] LABS: HEMATOCRIT 31.3 % (37-47)
--- NOTE | 2016-05-10 15:50 | Discharge Instructions ---
Discharge Instructions Admission Reason for Admission: Acute Electrocardiograpy Changes, Blood Loss Anemi Discharge Discharge Diagnosis / Problem: Acute Blood Loss Anemia, Epistaxis Discharge Goals Goal(s): Decrease discomfort, Improve function Activity Recommendations Activity Limitations: resume your previous activity . Instructions / Follow-Up Instructions / Follow-Up Please follow-up with Dr. Holland on May 13 @ 12:50PM * Stop taking Plavix * Please follow-up with ENT on May 16 regarding recurrent epistaxis Current Hospital Diet Patient's current hospital diet: Low Sodium Diet (2gm Na) Discharge Diet Recommended Diet: AHA Diet (Heart Healthy) Pending Studies Studies pending at discharge: no Medical Emergencies . Who to Call and When: Medical Emergencies: If at any time you feel your situation is an emergency, please call 911 immediately. . Non-Emergent Contact Non-Emergency issues call your: Primary Care Provider . . "Provider Documentation" section prepared by Bandar Waldron. VTE Core Measure Inpt VTE Proph given/why not?: Unfractionated heparin SQ
--- NOTE | 2016-05-10 15:51 | Discharge Summary ---
Discharge Summary Admission Date: May 10, 2016 at 03:28 Discharge Date: May 10, 2016 Discharge Disposition: Home Principal Diagnosis: Acute Blood Loss Anemia secondary to Epistaxis Medication Reconciliation Continued Medications: Aspirin (Aspirin Chewable) 81 Mg Chew 81 MG PO DAILY, TAB Atorvastatin (Atorvastatin Calcium) 40 Mg Tab 40 MG PO HS Biotin (Biotin) 1,000 Mcg Tab 1000 MCG PO DAILY Cholecalciferol (Vitamin D3) 1,000 Unit Tab 1 TAB PO DAILY for 90 Days, #90 TAB 3 Refills Cinnamon (Cinnamon) 500 Mg Cap 500 MG PO DAILY Cyanocobalamin (Vitamin B-12) 1,000 Mcg Tab 1500 MCG PO Q2D Folic Acid (Folvite) 1 Mg Tab 1 MG PO 6XWK TAKE EVERY DAY BUT FRIDAYS Insulin Glargine (Lantus) 100 Unit/Ml Inj 25 UNITS SQ BID Isosorbide Mononitrate Ext Rel (Imdur Ext Rel) 60 Mg Ertab 60 MG PO QAM, TAB Lisinopril (Zestril) 5 Mg Tab 5 MG PO DAILY, TAB Magnesium Oxide (Magnesium) 250 Mg Tab 250 MG PO DAILY Metformin Hcl (Glucophage) 1,000 Mg Tab 1000 MG PO BID Methotrexate (Methotrexate) 2.5 Mg Tab 5 MG PO DAILY ON FRIDAYS 2 TABLET DOSE Metoprolol Tartrate (Lopressor) (Lopressor) 100 Mg Tab 100 MG PO BID, TAB Milk Thistle (Silybum Marianum (Milk Thistle) Unknown Strength Cap 1 CAP PO DAILY Prednisone (Prednisone) 5 Mg Tab 2.5 MG PO DAILY 1/2 TABLET DOSE Discontinued Medications: Clopidogrel Bisulfate (Clopidogrel) 75 Mg Tab 75 MG PO DAILY, #30 Hospital Course DATE OF ADMISSION: 05/10/2016 PRIMARY CARE PHYSICIAN: Dr. Wilkinson CHIEF COMPLAINT: Woke up with chest pressure around 1 a.m. today. HISTORY OF PRESENT COMPLAINT: She is a 70-year-old female with significant past medical history including type 2 diabetes, CAD status post CABG, history of non-STEMI, hyperlipidemia, history of angioplasty with stent placement, rheumatoid arthritis involving multiple joints with positive rheumatoid factor and also vitamin B12 deficiency. Apparently has had nose bleed on of this month. She was in the ER, she bleed a lot and she is going to see ENT physician for that, but she saw her primary care physician for the nose bleed yesterday and noted to have a hemoglobin of 8.4. She was advised for transfusion because of ongoing heart disease and her Plavix is on hold for the epistaxis. Se had her usual dinner last night and following that she vomited once and she went to sleep, woke up at around 1:00 a.m. with chest pressure/chest pain that lasted half an hour. No associated symptoms of palpitation, sweating, shortness of breath or any radiation of the pain along the jaw or arm. In the ER, she was asymptomatic, but EKG did show new T-wave inversion involving anterolateral leads. From that point, she was admitted to the telemetry unit and also her hemoglobin noted to be 8.7 and she will be transfused. Serial cardiac enzymes and echo and cardiology evaluation. PAST MEDICAL HISTORY: Significant for type 2 diabetes, CAD, status post off-pump CABG x September,, CHEN - LAD, Aorta - OM, Aorta - PDA - PV S/P Angioplasty ALEX of OM1 01/27/12 (SVG to OM occluded on aortogram) diabetes type 2, hyperlipidemia, rheumatoid arthritis with positive rheumatoid factor PAST SURGICAL HISTORY: CABG, coronary angioplasty and total hysterectomy. FAMILY HISTORY: Mother had cirrhosis of liver, but no other significant family history. SOCIAL HISTORY: She is . She has 9 children. She uses alcohol occasionally. She does not smoke and she is reasonably ambulant. ALLERGIES: NKDA. MEDICATIONS: Aspirin 81 mg daily, atorvastatin 40 mg daily, Vitamin D3 1000 units daily, Plavix 75 mg, which is on hold; vitamin B12 1000 mcg daily, folic acid 1 mg daily, insulin Lantus 25 units subQ b.i.d., isosorbide mononitrate 60 mg daily, lisinopril 5 mg daily, metformin 1000 mg b.i.d., methotrexate 5 mg on Fridays, Lopressor 100 mg b.i.d., prednisone 2.5 mg daily, Biotin 1000 mcg daily, senna 500 mcg daily, magnesium oxide 250 mg daily. REVIEW OF SYSTEMS: CENTRAL NERVOUS SYSTEM: No headache, no blurred vision, no numbness or tingling. ENT: Does not have any more epistaxis. RESPIRATORY: No cough or phlegm, shortness of breath. CARDIOVASCULAR: Did have chest pressure/pain, no palpitations. GASTROINTESTINAL: No abdominal pain, nausea, but she vomited once following dinner. GENITOURINARY: No problem with urine and/or bowel habit. MUSCULOSKELETAL: No acute arthritis involving any joint. SKIN: Generally, she did not have any rash. PHYSICAL EXAMINATION: GENERAL: On examination in the Emergency Room, she was not having any acute distress. No chest pain. VITAL SIGNS: Temperature 37.0, pulse is 75, blood pressure 123/68, saturation 91% on room air. HEENT: Unremarkable. NECK: Supple. No JVD, no bruit. CHEST: Clear to auscultation bilaterally. HEART: S1, S2 regular, no murmur. ABDOMEN: Soft, benign, nontender, no organomegaly. Bowel sounds present. EXTREMITIES: Negative for any edema. MUSCULOSKELETAL SYSTEM: Did not show any acute arthritis involving any joint. CENTRAL NERVOUS SYSTEM: She was alert, awake, oriented x3 and no focal sensory and/or motor deficit appreciated. LABORATORY DATA: Noted today white count was 3.75, H\T\H 8.7/27.7, platelet was 234. Sodium 140, potassium 4.3, chloride 104, carbon dioxide 25, BUN 19, creatinine 1.20, random glucose 191. LFTs normal. Total CK was 562, MB 3.3, troponin 0.025, INR 1.0, PTT ratio 0.9. Chest x-ray cardiomegaly, otherwise negative. EKG was in sinus rhythm, rate of 74 per minute and T-wave inversions in I, II, aVL and V4 through V6 compared with prior EKG, the T-wave changes are new on anterolateral leads. IMPRESSION AND PLAN: 1. Chest pain with EKG changes. CAD with s/p CABG and Angioplasty as above S/P negative nuclear stress test in March 2016 Gated SPECT imaging reveals normal myocardial thickening and wall motion. The left ventricular ejection fraction was calculated to be 70%. Will admit to Tele,Serial CE and ECHO No IV Heparin due to Anemia and Epistaxis Cardiology consult 2. Anemia secondary to epistaxis. Her Plavix is on hold. She will get 2 units of blood transfusion for ongoing cardiac symptoms and EKG changes. 3. Diabetes type 2. Continue with her insulin, hold oral hypoglycemic agents, sliding scale coverage while in the hospital. 4. Hypertension. Continue with current medications. 5. Hyperlipidemia. Continue with current medication. 6. Rheumatoid arthritis. No acute arthropathy at this time, continue with usual medication. 7. Gastrointestinal prophylaxis with Protonix. 8. Deep venous thrombosis prophylaxis with subQ heparin. High risk for thrombosis The patient is not having any acute epistaxis at this time. 9. Code status -- She will be full code. In my clinical judgment the beneficiary meets criteria as per CMS for 2 midnight stay in the hospital. Total time spent on discharge = 25 minutes This includes examination of the patient, discharge planning, medication reconciliation, and communication with other providers. Discharge Instructions Please follow-up with Dr. Holland on May 13 @ 12:50PM * Stop taking Plavix * Please follow-up with ENT on May 16 regarding recurrent epistaxis
[2016-05-10 16:18] LABS: CKMB/CK RATIO 0.5 (0-3.0)
[2016-05-10] MEDS ORDERED: ATORVASTATIN 40 MG TAB PO SCH (21:00)
[2016-05-13] MEDS ORDERED: METHOTREXATE 2.5 MG TAB PO SCH (09:00)
== END 2016-05-10 17:22 | disposition home or self-care (01) ==
LOC: ENRESERVDT → ENRESERVTM → C.EDB 01:39 → C.MED 03:28
PROVIDERS: ADMIT Internal Medicine; ATTEND Family Medicine
DX: R07.89 Other chest pain (principal); D62 Acute posthemorrhagic anemia; D64.9 Anemia, unspecified; E11.9 Type 2 diabetes mellitus without complications; E78.5 Hyperlipidemia, unspecified; I10 Essential (primary) hypertension; I25.10 Atherosclerotic heart disease of native coronary artery without angina pectoris; M06.9 Rheumatoid arthritis, unspecified; R04.0 Epistaxis; Z79.4 Long term (current) use of insulin; Z79.82 Long term (current) use of aspirin; Z95.1 Presence of aortocoronary bypass graft; Z98.61 Coronary angioplasty status; R94.31 Abnormal electrocardiogram [ECG] [EKG]; E53.8 Deficiency of other specified B group vitamins

== ENCOUNTER 2016-05-24 06:53 | Emergency (ER) | payer OTHER ==
[~2016-05-24] VITALS: Ht 165.1 cm; Wt 79.2 kg
[~2016-05-24 06:53] MED LIST changes: +CHOL1000 PO; -FLV1 PO; +FOLI1TAB7 PO; -GLC500 PO; -INSDGI SC; +INSDGI SQ; -INSU1INJ7 SC; +METF-384 PO; -PLV75 PO; -PRD/25 PO; +PRED-301 PO; -[UNRECOGNIZED DRUG - OTHER] PO
[2016-05-24 06:55] VITALS: TEMP 36.4; Ht 165.1 cm; Wt 79.2 kg
[2016-05-24] MEDS ORDERED: SILVER NITR/POTASSIUM NITRATE 10 APPLICATOR PACK ONE (07:24)
--- NOTE | 2016-05-24 07:46 | EMERGENCY ROOM VISIT NOTE ---
History First contact with patient: 07:03 Chief Complaint: NOSE BLEED (MINOR) Stated Complaint: BLOODY NOSE 3.5 HOURS History of Present Illness The patient is a 70 year old female who presents to the Emergency Room with complaints of epistaxes. The patient has had recurrent episodes of epistaxis. Most recently, she had epistaxis at the beginning of the month and was treated with cautery with silver nitrate. The patient followed up with otolaryngology, Dr. Comer this week and he felt that the area was healing well. The patient states that last night from 4:30 PM to 7 PM she had a nosebleed and it stopped with pressure. The patient states her nose began to bleed again at 3:30 AM and she has not been able to get it to stop. She states that she is feeling generalized weakness and nausea. She states that after the last episode of epistaxis she did require a transfusion due to blood loss anemia. She denies any chest pain or shortness of breath. She has been off Plavix for the last 2.5 weeks. She does take a daily aspirin. Review of Systems A 10 system review of systems was completed with positives and pertinent negatives listed in the HPI. Past Medical/Surgical History Medical Problems: (1) B12 deficiency (2) CAD (coronary artery disease) (3) Diabetes mellitus, type II (4) Dyslipidemia (5) Rheumatoid arthritis Surgical Problems: (1) History of total hysterectomy (2) Hx of CABG Family History No pertinent family history Social History Smoking Status: Never Smoker Alcohol Use: none Drug Use: none Marital Status: Housing Status: lives with family Current/Historical Medications Scheduled Aspirin (Aspirin Chewable), 81 MG PO DAILY Atorvastatin (Atorvastatin Calcium), 40 MG PO HS Biotin (Biotin), 1,000 MCG PO DAILY Cholecalciferol (Vitamin D3), 1 TAB PO DAILY Cinnamon (Cinnamon), 500 MG PO DAILY Cyanocobalamin (Vitamin B-12), 1,500 MCG PO Q2D Folic Acid (Folvite), 1 MG PO 6XWK Insulin Glargine (Lantus), 25 UNITS SQ BID Isosorbide Mononitrate Ext Rel (Imdur Ext Rel), 60 MG PO QAM Lisinopril (Zestril), 5 MG PO DAILY Magnesium Oxide (Magnesium), 250 MG PO DAILY Metformin Hcl (Glucophage), 1,000 MG PO BID Methotrexate (Methotrexate), 5 MG PO DAILY ON FRIDAYS Metoprolol Tartrate (Lopressor) (Lopressor), 100 MG PO BID Milk Thistle (Silybum Marianum (Milk Thistle), 1 CAP PO DAILY Prednisone (Prednisone), 2.5 MG PO DAILY Allergies Coded Allergies: No Known Allergies (Verified , `, 05/24/16) Physical Exam Vital Signs Date Time Temp Pulse Resp B/P Pulse Ox O2 Delivery O2 Flow Rate FiO2 05/24/16 08:58 71 18 136/61 96 Room Air 05/24/16 06:55 36.4 82 18 148/87 99 Room Air Physical Exam VITALS: Vitals are noted on the nurse's note and reviewed by myself. Vital signs stable. The patient is afebrile. She is not hypotensive or tachycardic. GENERAL: This is a 70-year-old female, in no acute distress, nondiaphoretic, well-developed well-nourished. SKIN: The skin was without rashes, erythema, edema, or bruising. There is no tenting of the skin. Capillary reflex less than 2 seconds. HEAD: Normocephalic atraumatic. EARS: External auditory canals clear, tympanic membranes pearly price without erythema or effusion bilaterally. EYES: Pupils equal round and reactive to light and accommodation. Conjunctivae without injection, sclerae without icterus. Extraocular movements intact. NOSE: There is an active vessel bleeding on the left septum. The turbinates are not inflamed. MOUTH: Mucous membranes moist. Tonsils are not enlarged. Pharynx without erythema or exudate. Uvula midline. Airway patent. Tongue does not deviate. NECK: Supple without nuchal rigidity. No JVD. HEART: Regular rate and rhythm without murmurs gallops or rubs. LUNGS: Clear to auscultation bilaterally without wheezes, rales or rhonchi. No retractions or accessory muscle use. MUSCULOSKELETAL: No muscle atrophy, erythema, or edema noted. Full range of motion in all extremities. Normal gait. Strength 5/5 throughout. NEURO: Patient was alert and oriented to person place and time. No focal neurological deficits. Medical Decision & Procedures Laboratory Results 05/24/16 07:40 Red Blood Count 4.13, Mean Corpuscular Volume 78.5, Mean Corpuscular Hemoglobin 24.7, Mean Corpuscular Hemoglobin Concent 31.5, Mean Platelet Volume 9.7, Neutrophils (%) (Auto) 70.4, Lymphocytes (%) (Auto) 16.6, Monocytes (%) (Auto) 9.2, Eosinophils (%) (Auto) 3.1, Basophils (%) (Auto) 0.5, Neutrophils # (Auto) 4.60, Lymphocytes # (Auto) 1.08, Monocytes # (Auto) 0.60, Eosinophils # (Auto) 0.20, Basophils # (Auto) 0.03 05/24/16 07:40 Test 05/24/16 07:40 White Blood Count 6.52 K/uL (4.8-10.8) Red Blood Count 4.13 M/uL (4.2-5.4) Hemoglobin 10.2 g/dL (12.0-16.0) Hematocrit 32.4 % (37-47) Mean Corpuscular Volume 78.5 fL (80-100) Mean Corpuscular Hemoglobin 24.7 pg (25-34) Mean Corpuscular Hemoglobin Concent 31.5 g/dl (32-36) Platelet Count 237 K/uL (130-400) Mean Platelet Volume 9.7 fL (7.4-10.4) Neutrophils (%) (Auto) 70.4 % Lymphocytes (%) (Auto) 16.6 % Monocytes (%) (Auto) 9.2 % Eosinophils (%) (Auto) 3.1 % Basophils (%) (Auto) 0.5 % Neutrophils # (Auto) 4.60 K/uL (1.4-6.5) Lymphocytes # (Auto) 1.08 K/uL (1.2-3.4) Monocytes # (Auto) 0.60 K/uL (0.11-0.59) Eosinophils # (Auto) 0.20 K/uL (0-0.5) Basophils # (Auto) 0.03 K/uL (0-0.2) RDW Standard Deviation 43.3 fL (36.4-46.3) RDW Coefficient of Variation 15.3 % (11.5-14.5) Immature Granulocyte % (Auto) 0.2 % Immature Granulocyte # (Auto) 0.01 K/uL (0.00-0.02) Prothrombin Time 10.8 SECONDS (9.0-12.0) Prothromb Time International Ratio 1.0 (0.9-1.1) Activated Partial Thromboplast Time 25.5 SECONDS (21.0-31.0) Partial Thromboplastin Ratio 1.0 Anion Gap 11.0 mmol/L (3-11) Est Creatinine Clear Calc Drug Dose 62.2 ml/min Estimated GFR () 76.1 Estimated GFR (Non- 65.7 BUN/Creatinine Ratio 25.9 (10-20) Calcium Level 8.4 mg/dl (8.5-10.1) ED Course The patient was seen and examined. Previous visits were reviewed. The patient has a mild anemia but is actually is stable compared to previous. The patient is very hesitant to have a rapid Rhino placed. She requests attempt at cautery. I was able to visualize of vessel bleeding on the symptom in the left naris. I did use silver nitrate to cauterize the area. The patient was monitored and the bleeding seemed to stop. The patient does see Dr. Comer. I was able to discuss the case with him. He states that he could take the patient to the operating room on if needed. He recommends trying Surgicel if the bleeding does not stop. He recommends that the patient contact the office to begin the paperwork for the OR on . The patient was encouraged to return to the ER if the bleeding returns or worsens. We may try Surgicel if this occurs. Otherwise, she should contact Dr. Comer's office to schedule a follow-up appointment for further evaluation and management. The patient was also seen and examined by who agrees with the assessment and treatment plan. Medical Decision Differential diagnosis includes epistaxis, sinusitis, anemia, among others Impression Primary Impression: Epistaxis, recurrent Departure Information Dispostion Home / Self-Care Condition GOOD Referrals Lexus Holland DO (PCP) Fransisca Comer M.D. Patient Instructions ED Nosebleed, My [place] Additional Instructions Do not blow or pick your nose. Contact Dr. Comer's office to get paperwork started for potential OR Return to the emergency department with any recurrence of bleeding for Surgicell placement
[2016-05-24 07:51] LABS: BASO % 0.5 %; BASO ABS # 0.03 K/uL (0-0.2); COMPLETE YES; EOS % 3.1 %; HEMATOCRIT 32.4 % (37-47); IG% 0.2 %; LYMPH % 16.6 %; LYMPH ABS # 1.08 K/uL (1.2-3.4); MEAN CELL VOLUME 78.5 fL (80-100); MEAN CORPUSCULAR HEMOGLOBIN 24.7 pg (25-34); MEAN CORPUSCULAR HGB CONC 31.5 g/dl (32-36); MEAN PLATELET VOLUME 9.7 fL (7.4-10.4); MONO % 9.2 %; NEUT % 70.4 %; PLATELET COUNT 237 K/uL (130-400); RED BLOOD COUNT 4.13 M/uL (4.2-5.4); WHITE BLOOD COUNT 6.52 K/uL (4.8-10.8)
[2016-05-24 08:02] LABS: BUN/CREATININE RATIO 25.9 (10-20); CALCIUM 8.4 mg/dl (8.5-10.1); CREATININE 0.9 mg/dl (0.60-1.20); POTASSIUM 4.4 mmol/L (3.5-5.1)
[2016-05-24 08:03] LABS: PROTHROMBIN TIME (PATIENT) 10.8 SECONDS (9.0-12.0)
[2016-05-24] MEDS ORDERED: GELATIN SPONGE 12-7MM EXT ONE (08:30)
[2016-05-24 08:58] VITALS: BP 136/61; PULSE 71; O2SAT 96
--- NOTE | 2016-05-25 15:32 | EMERGENCY ROOM VISIT NOTE ---
ED Visit Note First contact with patient: 07:03 I have personally seen and evaluated the patient with the PA. I agree with the diagnosis and management decisions and have been personally involved in the case. Please see [facility] PA-C's notes for further details of the history, physical and visit.
== END 2016-05-24 08:59 | disposition home or self-care (01) ==
LOC: C.EDB 06:55 → C.EDA 08:59
DX: R04.0 Epistaxis (principal); E78.5 Hyperlipidemia, unspecified; I25.10 Atherosclerotic heart disease of native coronary artery without angina pectoris; M06.9 Rheumatoid arthritis, unspecified; Z79.4 Long term (current) use of insulin; Z79.82 Long term (current) use of aspirin; Z95.1 Presence of aortocoronary bypass graft; E53.8 Deficiency of other specified B group vitamins; E11.9 Type 2 diabetes mellitus without complications

== ENCOUNTER 2016-05-26 14:32 | Day surgery (SDC) | payer OTHER ==
[~2016-05-26] VITALS: Ht 165.1 cm; Wt 79.4 kg
[2016-05-26 15:03] VITALS: BP 140/81; PULSE 68; TEMP 36.6; O2SAT 95; Ht 165.1 cm; Wt 79.4 kg
--- NOTE | 2016-05-26 15:26 | History and Physical ---
History & Physical Date May 26, 2016. Chief Complaint nose bleeds History of Present Illness The patient is a 70 year old female with complaints of recurrent nose bleeds Past Medical/Surgical History Medical Problems: (1) B12 deficiency (2) CAD (coronary artery disease) (3) Diabetes mellitus, type II (4) Dyslipidemia (5) Rheumatoid arthritis Surgical Problems: (1) History of total hysterectomy (2) Hx of CABG Additional History Hepatic Disease: No Endocrine Disorder: No Kidney Disease: No Hypertension: Yes Heart Disease: Yes Bleeding Tendencies: Yes Infectious Diseases: No Allergies Coded Allergies: No Known Allergies (Verified , `, 05/26/16) Home Medications Scheduled Aspirin (Aspirin Chewable), 81 MG PO DAILY Atorvastatin (Atorvastatin Calcium), 40 MG PO HS Biotin (Biotin), 1,000 MCG PO DAILY Cholecalciferol (Vitamin D3), 1 TAB PO DAILY Cinnamon (Cinnamon), 500 MG PO DAILY Cyanocobalamin (Vitamin B-12), 1,500 MCG PO Q2D Folic Acid (Folvite), 1 MG PO 6XWK Insulin Glargine (Lantus), 25 UNITS SQ BID Isosorbide Mononitrate Ext Rel (Imdur Ext Rel), 60 MG PO QAM Lisinopril (Zestril), 5 MG PO DAILY Magnesium Oxide (Magnesium), 250 MG PO DAILY Metformin Hcl (Glucophage), 1,000 MG PO BID Methotrexate (Methotrexate), 5 MG PO DAILY ON FRIDAYS Metoprolol Tartrate (Lopressor) (Lopressor), 100 MG PO BID Milk Thistle (Silybum Marianum (Milk Thistle), 1 CAP PO DAILY Prednisone (Prednisone), 2.5 MG PO DAILY Physical Examination Skin: warm/dry, no rash Eyes: normal inspection, EOMI, sclerae normal ENT: normal ENT inspection, pharynx normal Head: normocephalic, atraumatic Neck: supple, no adenopathy, trachea midline Respiratory/Chest: lungs clear, normal breath sounds, no respiratory distress Cardiovascular: regular rate, rhythm, no edema, no murmur Abdomen / GI: normal bowel sounds, non tender Back: normal inspection Extremities: normal inspection, normal range of motion Neurologic/Psych: no motor/sensory deficits, alert, normal reflexes, oriented x 3 Diagnosis epistaxis ASA Classification: ASA Class II Plan of Treatment endoscopic cautery
[2016-05-26] MEDS ORDERED: TETRACAINE HCL EXT ONE (15:45)
[2016-05-26] MEDS ORDERED: TETRACAINE 4% TOPICAL SOLUTION TOP ONE ×2 (16:15)
[2016-05-26 16:21] VITALS: BP 157/80; PULSE 69; TEMP 36.7; O2SAT 97
--- NOTE | 2016-05-26 16:25 | Discharge Instructions ---
Discharge Instructions Admission Reason for Admission: Epistaxis Discharge Discharge Diagnosis / Problem: same Discharge Goals Goal(s): Therapeutic intervention Activity Recommendations Activity Limitations: resume your previous activity . Instructions / Follow-Up Instructions / Follow-Up ACTIVITY RECOMMENDATIONS: * Being up and around is good, but no strenuous activity, heavy lifting or physical exertion for one week. * * Do not blow your nose for 48 hours, sniff back instead.. OVER THE COUNTER MEDICATIONS: * You may use Tylenol * Avoid aspirin or aspirin containing products, e.g. as they may increase bleeding. SPECIAL CARE INSTRUCTIONS: * Expect to have bloody drainage from your nose and/or down your throat for one to three days. Change drip pad as needed. * Begin irrigating your nose with saline solution today, at least six to ten times per day and sniff back to help remove old clots or crust. * You may experience nasal and facial congestion, pain and pressure, this is normal. * Please call with any significant and/or progressive pain, redness, swelling around the eyes, visual changes, fever of 101.5 degrees F, active bleeding or any problems or concerns. * If active bleeding occurs, spray the nose three times at one minute intervals with Afrin spray and call or cell phone: . If unable to reach the doctor, go to the nearest Emergency Department. Special Diet: * Avoid extremely hot fluids. FOLLOW UP VISIT: Follow-up Visit with Dr. Comer If not already scheduled, please call to schedule. Current Hospital Diet Patient's current hospital diet: Discharge Diet Recommended Diet: Regular Diet Pending Studies Studies pending at discharge: no Medical Emergencies . Who to Call and When: Medical Emergencies: If at any time you feel your situation is an emergency, please call 911 immediately. . Non-Emergent Contact Non-Emergency issues call your: Primary Care Provider . "Provider Documentation" section prepared by Fransisca Comer. VTE Core Measure Inpt VTE Proph given/why not?: Treatment not indicated [place] Drug Monitoring Program Search Results: no issues identified
[2016-05-26] MEDS ORDERED: GELATIN SPONGE SZ 100 TOP ONE (16:32)
[2016-05-26] MEDS ORDERED: LIDOCAINE/EPINEPHRINE 2% 1:200,000 20 ML SDV INJ ONE (16:33)
[2016-05-26] MEDS ORDERED: MUPIROCIN 2% TOP ONE (16:34)
[2016-05-26] MEDS ORDERED: BENZOCAINE EXT ONE (16:35)
[2016-05-26] MEDS ORDERED: [UNRECOGNIZED DRUG - OTHER] EXT ONE (16:35)
[2016-05-26] MEDS ORDERED: TETRACAINE EXT ONE (16:35)
[2016-05-26] MEDS ORDERED: BUTAMBEN EXT ONE (16:35)
[2016-05-26 16:50] VITALS: BP 138/66; PULSE 72; TEMP 36.8; O2SAT 97
--- NOTE | 2016-05-27 07:02 | OPERATIVE REPORT ---
DATE OF OPERATION: 05/26/2016 PREOPERATIVE DIAGNOSIS: Posterior epistaxis. POSTOPERATIVE DIAGNOSIS: Same. PROCEDURE: Endoscopic cautery and posterior packing. SURGEON: Dr. Comer. ANESTHESIA: General anesthesia with local. COMPLICATIONS: None. BLOOD LOSS: 2 mL. HISTORY OF PRESENT ILLNESS: This 70-year-old lady presented with recurrent episodes of epistaxis. She needed transfusion of 2 units last month. The Plavix was finally stopped a week ago; however, she again had bleeding this past weekend. DESCRIPTION OF PROCEDURE: The patient was brought to the operating room and placed in supine position. Topical anesthesia of Cetacaine was used on cottonoid pledget, placed in the left nostril. Injection of 1% Xylocaine with 1:100,000 strength epinephrine was used for local anesthesia. The site was then identified on the left mid septum. The scab was peeled off and the bleeding site was cauterized using the suction cautery. Layers of Gelfoam were placed to pack from posteriorly to anteriorly along with Bactroban ointment. The patient tolerated the procedure well and was taken to recovery area in satisfactory condition. I attest to the content of the Intraoperative Record and any orders documented therein. Any exceptio ns are noted below.
== END 2016-05-26 17:00 | disposition home or self-care (01) ==
LOC: C.ACU 14:32
PROVIDERS: ATTEND Otolaryngology
DX: R04.0 Epistaxis (principal); E11.9 Type 2 diabetes mellitus without complications; I25.10 Atherosclerotic heart disease of native coronary artery without angina pectoris; E78.5 Hyperlipidemia, unspecified; Z95.1 Presence of aortocoronary bypass graft; Z90.710 Acquired absence of both cervix and uterus; Z79.4 Long term (current) use of insulin; Z79.82 Long term (current) use of aspirin

== ENCOUNTER 2019-04-28 21:32 | Inpatient (IN) ==
--- OUTSIDE RECORDS SUMMARY | 2019-04-28 21:34 | External Medical Summary | Continuity of Care Document ---
:1945 Author Name Karel Harper, Provider Address Unavailable Unavailable , Care Team Providers Name Role Phone Karel Harper, ObGyn Unavailable [email or web address] PCP, UNKNOWN Unavailable Unavailable Problems Active medical history not documented Allergies and Adverse Reactions Allergy history not documented Medications Medications not documented Procedures Procedures not documented Immunizations Immunizations not documented Plan of Treatment Planned Observations Planned Goals not documented Results No Known Results Results not documented
[2019-04-28 22:04] LABS: Basophils # (auto) 0.02 K/uL (0-0.2); Basophils % (auto) 0.3 %; Eosinophils # (auto) 0.12 K/uL (0-0.5); Eosinophils % (auto) 1.9 %; Hematocrit (blood only) 41.5 % (37-47); Hemoglobin 13.8 g/dL (12.0-16.0); Immature Granulocytes # (auto) 0.01 K/uL (0.00-0.02); Immature Granulocytes % (auto) 0.2 %; Lymphocytes % (auto) 23.4 %; Mean Corpuscular Hemoglobin 27.8 pg (25-34); Mean Corpuscular Hgb Conc 33.3 g/dL (32-36); Mean Corpuscular Volume 83.7 fL (80-100); Mean Platelet Volume 11.1 fL (7.4-10.4); Monocytes # (auto) 0.42 K/uL (0.11-0.59); Monocytes % (auto) 6.5 %; Neutrophils # (auto) 4.35 K/uL (1.4-6.5); Neutrophils % (auto) 67.7 %; Platelet Count 224 K/uL (130-400); RDW Coefficient of Variation 13.5 % (11.5-14.5); RDW Standard Deviation 40.2 fL (36.4-46.3); Red Blood Count 4.96 M/uL (4.2-5.4); White Blood Count 6.42 K/uL (4.8-10.8)
[2019-04-28] MEDS ORDERED: NovoLIN-R INSULIN PER UNIT CHARGE SC STA (22:04)
--- NOTE | 2019-04-28 22:16 | Emergency Department Note ---
History of Present Illness General Chief complaint: Hyperglycemia Stated complaint: HIGH BLOOD SUGAR Time Seen by Provider: 04/28/19 21:59 History of Present Illness This is a 73-year-old female presenting to the emergency department for evaluation of elevated blood sugar over the past 1 to 2 days. The patient is diabetic, and has had diabetes for the past 17 years. She is on Lantus and Victoza. The patient has had nausea, vomiting, and diarrhea the past few days, although this seems to be viral as several family members have had the same. She has been taking her medications, but she is concerned that the Lantus pen is malfunctioning. She intermittently will check her fingerstick glucose, and it was "HIGH" before coming into the ER tonight. The patient does not have any chest pain, chest tightness, or shortness of breath. She has had excessive thirst and large amounts of urination. She rates her current discomfort a 2/10. She does follow with the [facility] team. Home Medications Home Medications Medication Instructions Recorded Confirmed Type aspirin 81 mg PO DAILY 04/28/19 04/28/19 History atorvastatin 40 mg PO DAILY 04/28/19 04/28/19 History biotin 0 mg PO DAILY 04/28/19 04/28/19 History cholecalciferol (vitamin D3) 0 unit PO DAILY 04/28/19 04/28/19 History [Vitamin D3] cinnamon bark [Cinnamon] 0 mg PO DAILY 04/28/19 04/28/19 History coenzyme Q10 [CoQ-10] 0 mg PO DAILY 04/28/19 04/28/19 History cyanocobalamin (vitamin B-12) 0 mcg PO DAILY 04/28/19 04/28/19 History [Vitamin B-12] folic acid 1 mg PO DAILY 04/28/19 04/28/19 History insulin glargine [Basaglar KwikPen 0 unit SUBCUT BID 04/28/19 04/28/19 History U-100 Insulin] isosorbide mononitrate 60 mg PO DAILY 04/28/19 04/28/19 History liraglutide [Victoza 2-Edgar] 0 mg SUBCUT DAILY 04/28/19 04/28/19 History lisinopril 10 mg PO DAILY 04/28/19 04/28/19 History magnesium oxide 0 mg PO DAILY 04/28/19 04/28/19 History metformin 1,000 mg PO BID 04/28/19 04/28/19 History methotrexate sodium 5 mg PO WK 04/28/19 04/28/19 History metoprolol tartrate 100 mg PO BID 04/28/19 04/28/19 History milk thistle 0 mg PO DAILY 04/28/19 04/28/19 History prednisone 2.5 mg PO DAILY 04/28/19 04/28/19 History Allergies Allergy/AdvReac Type Severity Reaction Status Date / Time No Known Allergies Allergy Unknown ` Verified 04/28/19 23:07 Past Med/Surg History Medical History (Updated 04/29/19 @ 00:50 by Berhane Neil MD) CAD (coronary artery disease) (Chronic) Diabetes mellitus, type II (Chronic) Surgical History (Updated 04/28/19 @ 22:15 by Dameon Mojica PA-C) History of total hysterectomy (Resolved) Hx of CABG (Resolved) Social History Preferred Language: Lao Feels Safe at Home: Yes Smoking Status: Never smoker Review of Systems A total of 10 systems reviewed and were otherwise negative Physical Exam Vital Signs Vital Signs - 24 hr 04/28/19 21:34 04/28/19 23:08 04/28/19 23:48 Temperature 36.4 C L Temperature Source Oral Pulse Rate 76 Pulse Rate [Right Finger] 78 67 Pulse Rhythm Regular Pulse Rhythm [Right Finger] Regular Regular Pulse Strength Normal Pulse Strength [Right Finger] Normal Normal Respiratory Rate 20 20 20 Respiratory Effort / Characteristics Non-Labored Spontaneous Non-Labored Spontaneous Non-Labored Spontaneous Respiratory Depth Normal Normal Normal Respiratory Pattern Regular Blood Pressure 191/97 H Blood Pressure [Right Arm] 187/119 H 214/102 H Blood Pressure Mean 128 Blood Pressure Mean [Right Arm] 141 139 Blood Pressure Position Sitting Blood Pressure Position [Right Arm] Pulse Oximetry 98 97 99 Oxygen Delivery Method Room Air Room Air Room Air Sepsis Recent Fever Within 48 Hours No Sepsis Action Taken by Nursing No Action Required 04/29/19 00:12 04/29/19 01:03 Temperature Temperature Source Pulse Rate Pulse Rate [Right Finger] 68 84 Pulse Rhythm Pulse Rhythm [Right Finger] Regular Regular Pulse Strength Pulse Strength [Right Finger] Normal Normal Respiratory Rate 20 20 Respiratory Effort / Characteristics Non-Labored Spontaneous Non-Labored Spontaneous Respiratory Depth Normal Normal Respiratory Pattern Regular Blood Pressure Blood Pressure [Right Arm] 194/89 H 183/100 H Blood Pressure Mean Blood Pressure Mean [Right Arm] 124 127 Blood Pressure Position Blood Pressure Position [Right Arm] Sitting Pulse Oximetry 99 98 Oxygen Delivery Method Room Air Room Air Sepsis Recent Fever Within 48 Hours Sepsis Action Taken by Nursing VITALS: Vitals are noted on the nurse's note and reviewed by myself. Vital signs stable. GENERAL: Well-developed, well-nourished, white female, who is in no acute distress and resting comfortably. Patient is cooperative with the examination. HEAD: Normocephalic atraumatic. EARS: External ear normal. External auditory canals clear, tympanic membranes pearly price without erythema or effusion bilaterally. EYES: Pupils equal round and reactive to light and accommodation. Conjunctivae without injection, sclerae without icterus. Extraocular movements intact. NOSE: Patent, turbinates without inflammation or discharge. MOUTH: Mucous membranes moist. Tonsils are not enlarged. Pharynx without erythema, blood, or exudate. Uvula midline. Airway patent. NECK: Supple without nuchal rigidity. No lymphadenopathy. No thyromegaly. Cervical spine is nontender. HEART: Regular rate and rhythm without murmurs gallops or rubs. LUNGS: Clear to auscultation bilaterally without wheezes, rales or rhonchi. No retractions or accessory muscle use. ABDOMEN: Positive normal bowel sounds x 4. Soft, nontender, without masses or o rganomegaly. No guarding or rebound tenderness. MUSCULOSKELETAL: No muscle atrophy, erythema, or edema noted. Full range of motion in all extremities. NEURO: Patient was alert and oriented to person place and time. CN II through XII grossly intact. SKIN: The skin was without rashes, erythema, edema, or bruising. Capillary refill less than 2 seconds. Course Administered Medications Discontinued Medications Acetaminophen (Tylenol) 650 mg PO NOW STA Stop: 04/29/19 00:26 Last Admin: 04/29/19 00:43 Dose: 650 mg Documented by: [id number] Amlodipine Besylate (Norvasc) 2.5 mg PO NOW ONE Stop: 04/29/19 00:26 Last Admin: 04/29/19 00:43 Dose: 2.5 mg Documented by: [id number] Amlodipine Besylate (Norvasc) Confirm Administered Dose 5 mg .ROUTE .[facility]-MED ONE Stop: 04/29/19 00:42 Last Admin: 04/29/19 00:43 Dose: Not Given Documented by: [id number] Sodium Chloride (Nss 1000ml) 1,000 mls @ 999 mls/hr IV .Q1H1M ADELA Stop: 04/29/19 00:05 Last Admin: 04/28/19 23:39 Dose: 999 mls/hr Documented by: [id number] Infusion: 04/28/19 23:38 Dose: 0 mls/hr Documented by: [id number] Infusion: 04/28/19 23:10 Dose: 0 mls/hr Documented by: [id number] Admin: 04/28/19 22:22 Dose: 999 mls/hr Documented by: [id number] Insulin Glargine (Lantus Solostar Pen) 30 units SC NOW STA Stop: 04/28/19 23:48 Last Admin: 04/29/19 00:10 Dose: 30 units Documented by: [id number] Cosigned by: [id number] Insulin Human Regular (Novolin R U-100 Per Unit) 10 units SC NOW STA Stop: 04/28/19 22:05 Last Admin: 04/28/19 22:23 Dose: 10 units Documented by: [id number] Cosigned by: [id number] Metoprolol Tartrate (Lopressor) 100 mg PO NOW STA Stop: 04/28/19 23:41 Last Admin: 04/29/19 00:00 Dose: Not Given Documented by: [id number] Metoprolol Tartrate (Lopressor) Confirm Administered Dose 100 mg .ROUTE .[facility]-MED ONE Stop: 04/28/19 23:44 Last Admin: 04/28/19 23:45 Dose: 100 mg Documented by: [id number] Medical Decision Making Differential Diagnosis Differential diagnosis: Etiologies such as HH NK, DKA, hyperglycemia and diabetic, gastroenteritis, food borne illness, infections, appendicitis, diverticulitis, inflammatory bowel disease, obstruction, GI bleed, biliary pathology, cardiac process, intracranial process, as well as others were entertained. Laboratory Data Result diagrams: 04/28/19 21:49 04/28/19 22:56 Lab Results 04/28/19 04/28/19 04/28/19 Range/Units 21:36 21:49 21:49 WBC 6.42 (4.8-10.8) K/uL RBC 4.96 (4.2-5.4) M/uL Hgb 13.8 (12.0-16.0) g/dL Hct 41.5 (37-47) % MCV 83.7 (80-100) fL MCH 27.8 (25-34) pg MCHC 33.3 (32-36) g/dL RDW Std Deviation 40.2 (36.4-46.3) fL RDW Coeff of Samson 13.5 (11.5-14.5) % Plt Count 224 (130-400) K/uL MPV 11.1 H (7.4-10.4) fL Immature Gran % (Auto) 0.2 % Neut % (Auto) 67.7 % Lymph % (Auto) 23.4 % [place] % (Auto) 6.5 % Eos % (Auto) 1.9 % Baso % (Auto) 0.3 % Immature Gran # (Auto) 0.01 (0.00-0.02) K/uL Neut # (Auto) 4.35 (1.4-6.5) K/uL Lymph # (Auto) 1.50 (1.2-3.4) K/uL [place] # (Auto) 0.42 (0.11-0.59) K/uL Eos # (Auto) 0.12 (0-0.5) K/uL Baso # (Auto) 0.02 (0-0.2) K/uL VBG pH (7.36-7.41) VBG pCO2 (38-50) mmHg VBG pO2 mmHg VBG HCO3 mmol/L VBG O2 Saturation % VBG Base Excess mEq/L Barometric Pressure mm/Hg Sodium 131 L (136-145) mmol/L Potassium (3.5-5.1) mmol/L Chloride 97 L (98-107) mmol/L Carbon Dioxide 25 (21-32) mmol/L Anion Gap 9.0 (3-11) BUN 27 H (7-18) mg/dl Creatinine 1.76 H (0.6-1.2) mg/dl Est Cr Clr Drug Dosing 29.8 ml/min Est GFR ( Amer) 33.1 Est GFR (Non-Af Amer) 28.6 BUN/Creatinine Ratio 15.2 (10-20) Glucose 551 H* (70-99) mg/dl POC Glucose 531 H* (70-99) Osmolality (280-300) mOsm/kg Calcium 9.4 (8.5-10.1) mg/dl Magnesium (1.8-2.4) mg/dl Total Bilirubin 0.5 (0.2-1) mg/dl AST TNP ALT 47 (12-78) U/L Alkaline Phosphatase 139 H (45-117) U/L Troponin I (0-0.045) ng/ml Total Protein 8.0 (6.4-8.2) gm/dl Albumin 3.5 (3.4-5.0) gm/dl Globulin 4.5 H (2.5-4.0) gm/dl Albumin/Globulin Ratio 0.8 L (0.9-2) Lipase 385 (73-393) U/L Beta-Hydroxybutyric Acd (0.2-2.81) mg/dl TSH (0.300-4.500) uIu/ml Urine Color Urine Appearance (Clear) Urine pH (4.5-7.5) Ur Specific [place] (1.000-1.030) Urine Protein (Negative) Urine Glucose (UA) (Negative) Urine Ketones (Negative) Urine Blood (Negative) Urine Nitrite (Negative) Urine Bilirubin (Negative) Urine Urobilinogen (Negative) Ur Leukocyte Esterase (Negative) Urine WBC (Auto) (0-5) /hpf Urine RBC (Auto) (0-4) /hpf U Hyaline Cast (Auto) (0-5) /lpf U Epithel Cells (Auto) (0-5) /lpf Urine Bacteria (Auto) (Negative) Urine Yeast (None Prsent) 04/28/19 04/28/19 04/28/19 Range/Units 22:04 22:19 22:56 WBC (4.8-10.8) K/uL RBC (4.2-5.4) M/uL Hgb (12.0-16.0) g/dL Hct (37-47) % MCV (80-100) fL MCH (25-34) pg MCHC (32-36) g/dL RDW Std Deviation (36.4-46.3) fL RDW Coeff of Samson (11.5-14.5) % Plt Count (130-400) K/uL MPV (7.4-10.4) fL Immature Gran % (Auto) % Neut % (Auto) % Lymph % (Auto) % [place] % (Auto) % Eos % (Auto) % Baso % (Auto) % Immature Gran # (Auto) (0.00-0.02) K/uL Neut # (Auto) (1.4-6.5) K/uL Lymph # (Auto) (1.2-3.4) K/uL [place] # (Auto) (0.11-0.59) K/uL Eos # (Auto) (0-0.5) K/uL Baso # (Auto) (0-0.2) K/uL VBG pH 7.38 (7.36-7.41) VBG pCO2 45 (38-50) mmHg VBG pO2 39 mmHg VBG HCO3 26 mmol/L VBG O2 Saturation 70.2 % VBG Base Excess 0.4 mEq/L Barometric Pressure 730.1 mm/Hg Sodium (136-145) mmol/L Potassium 4.3 (3.5-5.1) mmol/L Chloride (98-107) mmol/L Carbon Dioxide (21-32) mmol/L Anion Gap (3-11) BUN (7-18) mg/dl Creatinine (0.6-1.2) mg/dl Est Cr Clr Drug Dosing ml/min Est GFR ( Amer) Est GFR (Non-Af Amer) BUN/Creatinine Ratio (10-20) Glucose (70-99) mg/dl POC Glucose (70-99) Osmolality 315 H (280-300) mOsm/kg Calcium (8.5-10.1) mg/dl Magnesium 1.8 (1.8-2.4) mg/dl Total Bilirubin (0.2-1) mg/dl AST 23 ALT (12-78) U/L Alkaline Phosphatase (45-117) U/L Troponin I < 0.015 (0-0.045) ng/ml Total Protein (6.4-8.2) gm/dl Albumin (3.4-5.0) gm/dl Globulin (2.5-4.0) gm/dl Albumin/Globulin Ratio (0.9-2) Lipase (73-393) U/L Beta-Hydroxybutyric Acd 3.00 H (0.2-2.81) mg/dl TSH 0.792 (0.300-4.500) uIu/ml Urine Color Urine Appearance (Clear) Urine pH (4.5-7.5) Ur Specific [place] (1.000-1.030) Urine Protein (Negative) Urine Glucose (UA) (Negative) Urine Ketones (Negative) Urine Blood (Negative) Urine Nitrite (Negative) Urine Bilirubin (Negative) Urine Urobilinogen (Negative) Ur Leukocyte Esterase (Negative) Urine WBC (Auto) (0-5) /hpf Urine RBC (Auto) (0-4) /hpf U Hyaline Cast (Auto) (0-5) /lpf U Epithel Cells (Auto) (0-5) /lpf Urine Bacteria (Auto) (Negative) Urine Yeast (None Prsent) 04/28/19 04/28/19 04/28/19 Range/Units 22:57 23:15 23:47 WBC (4.8-10.8) K/uL RBC (4.2-5.4) M/uL Hgb (12.0-16.0) g/dL Hct (37-47) % MCV (80-100) fL MCH (25-34) pg MCHC (32-36) g/dL RDW Std Deviation (36.4-46.3) fL RDW Coeff of Samson (11.5-14.5) % Plt Count (130-400) K/uL MPV (7.4-10.4) fL Immature Gran % (Auto) % Neut % (Auto) % Lymph % (Auto) % [place] % (Auto) % Eos % (Auto) % Baso % (Auto) % Immature Gran # (Auto) (0.00-0.02) K/uL Neut # (Auto) (1.4-6.5) K/uL Lymph # (Auto) (1.2-3.4) K/uL [place] # (Auto) (0.11-0.59) K/uL Eos # (Auto) (0-0.5) K/uL Baso # (Auto) (0-0.2) K/uL VBG pH (7.36-7.41) VBG pCO2 (38-50) mmHg VBG pO2 mmHg VBG HCO3 mmol/L VBG O2 Saturation % VBG Base Excess mEq/L Barometric Pressure mm/Hg Sodium (136-145) mmol/L Potassium (3.5-5.1) mmol/L Chloride (98-107) mmol/L Carbon Dioxide (21-32) mmol/L Anion Gap (3-11) BUN (7-18) mg/dl Creatinine (0.6-1.2) mg/dl Est Cr Clr Drug Dosing ml/min Est GFR ( Amer) Est GFR (Non-Af Amer) BUN/Creatinine Ratio (10-20) Glucose (70-99) mg/dl POC Glucose 472 H* 376 H* (70-99) Osmolality (280-300) mOsm/kg Calcium (8.5-10.1) mg/dl Magnesium (1.8-2.4) mg/dl Total Bilirubin (0.2-1) mg/dl AST ALT (12-78) U/L Alkaline Phosphatase (45-117) U/L Troponin I (0-0.045) ng/ml Total Protein (6.4-8.2) gm/dl Albumin (3.4-5.0) gm/dl Globulin (2.5-4.0) gm/dl Albumin/Globulin Ratio (0.9-2) Lipase (73-393) U/L Beta-Hydroxybutyric Acd (0.2-2.81) mg/dl TSH (0.300-4.500) uIu/ml Urine Color Yellow Urine Appearance Cloudy A (Clear) Urine pH 5.0 (4.5-7.5) Ur Specific [place] 1.034 H (1.000-1.030) Urine Protein 1+ H (Negative) Urine Glucose (UA) 3+ H (Negative) Urine Ketones Negative (Negative) Urine Blood 1+ H (Negative) Urine Nitrite Negative (Negative) Urine Bilirubin Negative (Negative) Urine Urobilinogen Negative (Negative) Ur Leukocyte Esterase 1+ H (Negative) Urine WBC (Auto) >30 H (0-5) /hpf Urine RBC (Auto) 0-4 (0-4) /hpf U Hyaline Cast (Auto) 1-5 (0-5) /lpf U Epithel Cells (Auto) >30 H (0-5) /lpf Urine Bacteria (Auto) Negative (Negative) Urine Yeast Budding A (None Prsent) 04/29/19 Range/Units 01:02 WBC (4.8-10.8) K/uL RBC (4.2-5.4) M/uL Hgb (12.0-16.0) g/dL Hct (37-47) % MCV (80-100) fL MCH (25-34) pg MCHC (32-36) g/dL RDW Std Deviation (36.4-46.3) fL RDW Coeff of Samson (11.5-14.5) % Plt Count (130-400) K/uL MPV (7.4-10.4) fL Immature Gran % (Auto) % Neut % (Auto) % Lymph % (Auto) % [place] % (Auto) % Eos % (Auto) % Baso % (Auto) % Immature Gran # (Auto) (0.00-0.02) K/uL Neut # (Auto) (1.4-6.5) K/uL Lymph # (Auto) (1.2-3.4) K/uL [place] # (Auto) (0.11-0.59) K/uL Eos # (Auto) (0-0.5) K/uL Baso # (Auto) (0-0.2) K/uL VBG pH (7.36-7.41) VBG pCO2 (38-50) mmHg VBG pO2 mmHg VBG HCO3 mmol/L VBG O2 Saturation % VBG Base Excess mEq/L Barometric Pressure mm/Hg Sodium (136-145) mmol/L Potassium (3.5-5.1) mmol/L Chloride (98-107) mmol/L Carbon Dioxide (21-32) mmol/L Anion Gap (3-11) BUN (7-18) mg/dl Creatinine (0.6-1.2) mg/dl Est Cr Clr Drug Dosing ml/min Est GFR ( Amer) Est GFR (Non-Af Amer) BUN/Creatinine Ratio (10-20) Glucose (70-99) mg/dl POC Glucose 317 H* (70-99) Osmolality (280-300) mOsm/kg Calcium (8.5-10.1) mg/dl Magnesium (1.8-2.4) mg/dl Total Bilirubin (0.2-1) mg/dl AST ALT (12-78) U/L Alkaline Phosphatase (45-117) U/L Troponin I (0-0.045) ng/ml Total Protein (6.4-8.2) gm/dl Albumin (3.4-5.0) gm/dl Globulin (2.5-4.0) gm/dl Albumin/Globulin Ratio (0.9-2) Lipase (73-393) U/L Beta-Hydroxybutyric Acd (0.2-2.81) mg/dl TSH (0.300-4.500) uIu/ml Urine Color Urine Appearance (Clear) Urine pH (4.5-7.5) Ur Specific [place] (1.000-1.030) Urine Protein (Negative) Urine Glucose (UA) (Negative) Urine Ketones (Negative) Urine Blood (Negative) Urine Nitrite (Negative) Urine Bilirubin (Negative) Urine Urobilinogen (Negative) Ur Leukocyte Esterase (Negative) Urine WBC (Auto) (0-5) /hpf Urine RBC (Auto) (0-4) /hpf U Hyaline Cast (Auto) (0-5) /lpf U Epithel Cells (Auto) (0-5) /lpf Urine Bacteria (Auto) (Negative) Urine Yeast (None Prsent) MDM Narrative Physical exam and history were performed. Nursing notes, EMR, and Medication List were personally reviewed. Patient appears to have nausea, vomiting, and elevated blood sugar at home. IV access was established and labs were obtained. Fingerstick glucose shows greater than 500, and 10 units of subcu regular insulin were ordered. The patient was hydrated with 2 L normal saline. She was placed on a monitoring engineer. Patient's blood work is as above and was reviewed. She does not have a significantly elevated white blood cell count or gross anemia. VBG shows normal pH. Lipase and transaminases are not diagnostic. Troponin x1 is negative. Lab glucose is 551 on initial measurement. Urine is with glucose. Her beta hydroxy is elevated. The patient additionally seems to have some acute kidney injury with a creatinine of 1.76, which seems elevated from her baseline. On reevaluation the patient feels somewhat improved after insulin and hydration. Her sugar did improve to 317 after the 10 units. Overall I am concerned about the patient's wellbeing as she seems to be with a significantly elevated glucose, kidney injury, and serum ketones. The case was discussed with the on- call [facility] hospitalist, who agreed to evaluate the patient here in the ER. Please see their dictation for further patient course, plan, and disposition. The chart was completed utilizing [employer] ([place] Speech Voice Recognition Software. Grammatical errors, random word insertions, pronoun errors, and incomplete sentences are an occasional consequence of this system due to software limitations, ambient noise, and hardware issues. Any formal questions or concerns about the content, text, or information contained within the body of this dictation should be directly addressed to the provider for clarification. . Impression & Plan Hyperglycemia due to type 2 diabetes mellitus, Vomiting, Acute dehydration, Acute kidney injury Discharge Plan Visit Data Chief Complaint: Hyperglycemia Stated Complaint: HIGH BLOOD SUGAR ED Provider: Radha Raines ED Midlevel Provider: Dameon Mojica Discharge Problem: Hyperglycemia due to type 2 diabetes mellitus, Vomiting, Acute dehydration, Acute kidney injury Discharge Instructions Interventions: ED Discharge Assessment Last Done: 04/29/19 01:09 Forms Stand Alone Forms: [facility] Prescriptions Prescriptions: No Action atorvastatin 40 mg tablet 40 mg PO DAILY RF: 0 magnesium oxide 420 mg Tablet 0 mg PO DAILY RF: 0 metoprolol tartrate 100 mg tablet 100 mg PO BID RF: 0 prednisone 5 mg tablet 2.5 mg PO DAILY RF: 0 milk thistle 175 mg Tablet 0 mg PO DAILY RF: 0 cyanocobalamin (vitamin B-12) [Vitamin B-12] 1,000 mcg Tablet 0 mcg PO DAILY RF: 0 isosorbide mononitrate 60 mg tablet extended release 24 hr 60 mg PO DAILY RF: 0 methotrexate sodium 2.5 mg tablet 5 mg PO WK RF: 0 metformin 1,000 mg tablet 1,000 mg PO BID RF: 0 lisinopril 10 mg tablet 10 mg PO DAILY RF: 0 aspirin 81 mg Tablet,Chewable 81 mg PO DAILY RF: 0 folic acid 1 mg Tablet 1 mg PO DAILY RF: 0 cinnamon bark [Cinnamon] 500 mg Capsule 0 mg PO DAILY RF: 0 biotin 1 mg Tablet 0 mg PO DAILY RF: 0 Basaglar KwikPen U-100 Insulin 100 unit/mL (3 mL) insulin pen 0 unit SUBCUT BID RF: 0 cholecalciferol (vitamin D3) [Vitamin D3] 1,000 unit Tablet,Chewable 0 unit PO DAILY RF: 0 Victoza 2-Edgar 0.6 mg/0.1 mL (18 mg/3 mL) pen injector 0 mg SUBCUT DAILY RF: 0 coenzyme Q10 [CoQ-10] 30 mg Capsule 0 mg PO DAILY RF: 0 Referrals Referrals: Bear Wilkinson DO [Primary Care Provider] - Discharge Problem: Hyperglycemia due to type 2 diabetes mellitus Qualifiers: 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
[2019-04-28] MEDS: SODIUM CHLORIDE 0.9% 1000ML 1,000 ML IV SCH ×2 (22:22→23:39)
[2019-04-28 22:36] LABS: Base Excess VBG 0.4 mEq/L; Oxygen Saturation VBG 70.2 %; pH VBG 7.38 (7.36-7.41)
[2019-04-28 22:48] LABS: Alanine Aminotransferase 47 U/L (12-78); Albumin Globulin Ratio 0.8 (0.9-2); Albumin Level 3.5 gm/dl (3.4-5.0); Alkaline Phosphatase 139 U/L (45-117); BUN Creatinine Ratio 15.2 (10-20); Bilirubin,Total 0.5 mg/dl (0.2-1); Blood Urea Nitrogen 27 mg/dl (7-18); Calcium 9.4 mg/dl (8.5-10.1); Carbon Dioxide 25 mmol/L (21-32); Chloride 97 mmol/L (98-107); Creatinine Clr Calc Pharmacy 29.8 ml/min; Est GFR (African American) 33.1; Est GFR (Non-African American) 28.6; Globulin 4.5 gm/dl (2.5-4.0); Glucose 551 mg/dl (70-99); Lipase 385 U/L (73-393); Sodium 131 mmol/L (136-145)
[2019-04-28 23:07] LABS: Potassium 4.3 mmol/L (3.5-5.1)
[2019-04-28 23:13] LABS: Aspartate Aminotransferase 23 U/L (15-37)
[2019-04-28] MEDS ORDERED: METOPROLOL TARTRATE 50 MG TAB PO STA (23:40)
[2019-04-28] MEDS ORDERED: METOPROLOL TARTRATE 50 MG TAB ONE (23:43)
[2019-04-28] MEDS ORDERED: INSULIN REGULAR 250 UNITS in SODIUM CHLORIDE 0.9% 247.5 ML IV SCH (23:45)
[2019-04-28] MEDS ORDERED: INSULIN GLARGINE SOLOSTAR 100 UNITS/ML 3 ML PEN SC STA (23:47)
[2019-04-28 23:50] LABS: Magnesium 1.8 mg/dl (1.8-2.4)
--- NOTE | 2019-04-28 23:50 | History & Physical Report ---
Date of Service April 28, 2019 Assessment & Plan (1) Hypertensive crisis: Secondary to viral illness Hyperglycemia secondary to viral illness ? Insulin pen malfunction DM2 insulin requiring, suboptimal control as of recent outpatient hemoglobin A1c of 9.02 March 2019 CAD status post CABG, stent ARF secondary to illness rheumatid arthritis, stable on regimen (methotrexate and prednisone) PCU Continue home beta-dereje and titrate as needed Initiate Norvasc Baseline UA, monitor creatinine sponsor IV fluids, renal ultrasound if without improvement Appropriate to hold home DENICE inhibitor for now until creatinine back to baseline Basal insulin, ISS BG goal [id number], carb count coverage May benefit from pharmacy glycemic control consult. DVT prophylaxis with Heparin subcu Full code History of Present Illness Primary Care Provider: Bear Wilkinson, History obtained from patient, family, and records. Medical history significant for CAD status post CABG, stent, hypertension, DM2 insulin requiring, rheumatid arthritis on chronic immunosuppression therapy (methotrexate and prednisone). Recent confinement April 2016 for acute blood loss secondary to epistaxis. Patient not feeling well the last few days, appetite not so good. Some nausea, no emesis, no diarrhea. People at home with a GI bug. Increased urination and thirst. Blood sugars at home noted to be 600s today kind of unusual. Usually BSG to 100s -250s at home as per patient. Patient thinks insulin pen might be malfunctioning with her having to crank it more. No chest pain, no S OB, no abdominal pain, no diarrhea. Achy headache symptoms. At the ER, BSG noted to be 550s. Patient given 10 units subcutaneous regular insulin at the ER. MEDICAL HISTORY: SURGICAL HISTORY: CABG, ankle surgery, Hysterectomy for some prolapse. FAMILY HISTORY: There is a family history of hypertension, diabetes, and cirrhosis. PERSONAL/ SOCIAL HISTORY: Nonsmoker. No chronic intake of alcoholic beverages. 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 Allergies Allergy/AdvReac Type Severity Reaction Status Date / Time No Known Allergies Allergy Unknown ` Verified 04/28/19 23:07 Home Medications Home Medications Medication Instructions Recorded Confirmed Type aspirin 81 mg PO DAILY 04/28/19 04/28/19 History atorvastatin 40 mg PO DAILY 04/28/19 04/28/19 History biotin 0 mg PO DAILY 04/28/19 04/28/19 History cholecalciferol (vitamin D3) 0 unit PO DAILY 04/28/19 04/28/19 History [Vitamin D3] cinnamon bark [Cinnamon] 0 mg PO DAILY 04/28/19 04/28/19 History coenzyme Q10 [CoQ-10] 0 mg PO DAILY 04/28/19 04/28/19 History cyanocobalamin (vitamin B-12) 0 mcg PO DAILY 04/28/19 04/28/19 History [Vitamin B-12] folic acid 1 mg PO DAILY 04/28/19 04/28/19 History insulin glargine [Basaglar KwikPen 0 unit SUBCUT BID 04/28/19 04/28/19 History U-100 Insulin] isosorbide mononitrate 60 mg PO DAILY 04/28/19 04/28/19 History liraglutide [Victoza 2-Edgar] 0 mg SUBCUT DAILY 04/28/19 04/28/19 History lisinopril 10 mg PO DAILY 04/28/19 04/28/19 History magnesium oxide 0 mg PO DAILY 04/28/19 04/28/19 History metformin 1,000 mg PO BID 04/28/19 04/28/19 History methotrexate sodium 5 mg PO WK 04/28/19 04/28/19 History metoprolol tartrate 100 mg PO BID 04/28/19 04/28/19 History milk thistle 0 mg PO DAILY 04/28/19 04/28/19 History prednisone 2.5 mg PO DAILY 04/28/19 04/28/19 History Past Med/Surg History Medical History (Updated 04/29/19 @ 00:50 by Berhane Neil MD) CAD (coronary artery disease) (Chronic) Diabetes mellitus, type II (Chronic) Surgical History (Updated 04/28/19 @ 22:15 by Dameon Mojica PA-C) History of total hysterectomy (Resolved) Hx of CABG (Resolved) Social History Preferred Language: Ukrainian Feels Safe at Home: Yes Smoking Status: Never smoker Review of Systems Review of Systems: As per HPI, all 10 systems reviewed, all other ROS negative Physical Exam Physical Exam: GENERAL: Comfortable, pleasant, no respiratory distress SKIN: Normal color, warm HEENT: [place] palpebral conjunctivae, no ptosis, dry buccal mucosa NECK : Supple, no tenderness CHEST : CTA, no tenderness HEART : RRR, no obvious murmurs ABDOMEN: Some distention, nontender EXTREMITIES : No LE swelling/tenderness, no other conspicuous deformities noted NEUROLOGIC : Coherent, no facial asymmetry, no other gross focality Results & Data Vital Signs (Past 12 Hours) Vital Signs Temp Pulse Pulse Resp BP BP Pulse Ox 04/28/19 23:48 67 20 214/102 H 99 04/28/19 23:08 78 20 187/119 H 97 04/28/19 21:34 36.4 C L 76 20 191/97 H 98 Laboratory Results Laboratory Results WBC 6.42 K/uL (4.8-10.8) 04/28/19 21:49 RBC 4.96 M/uL (4.2-5.4) 04/28/19 21:49 Hgb 13.8 g/dL (12.0-16.0) 04/28/19 21:49 Hct 41.5 % (37-47) 04/28/19 21:49 MCV 83.7 fL (80-100) 04/28/19 21:49 MCH 27.8 pg (25-34) 04/28/19 21:49 MCHC 33.3 g/dL (32-36) 04/28/19 21:49 RDW Std Deviation 40.2 fL (36.4-46.3) 04/28/19 21:49 RDW Coeff of Samson 13.5 % (11.5-14.5) 04/28/19 21:49 Plt Count 224 K/uL (130-400) 04/28/19 21:49 MPV 11.1 fL (7.4-10.4) H 04/28/19 21:49 Immature Gran % (Auto) 0.2 % 04/28/19 21:49 Neut % (Auto) 67.7 % 04/28/19 21:49 Lymph % (Auto) 23.4 % 04/28/19 21:49 Burke % (Auto) 6.5 % 04/28/19 21:49 Eos % (Auto) 1.9 % 04/28/19 21:49 Baso % (Auto) 0.3 % 04/28/19 21:49 Immature Gran # (Auto) 0.01 K/uL (0.00-0.02) 04/28/19 21:49 Neut # (Auto) 4.35 K/uL (1.4-6.5) 04/28/19 21:49 Lymph # (Auto) 1.50 K/uL (1.2-3.4) 04/28/19 21:49 Burke # (Auto) 0.42 K/uL (0.11-0.59) 04/28/19 21:49 Eos # (Auto) 0.12 K/uL (0-0.5) 04/28/19 21:49 Baso # (Auto) 0.02 K/uL (0-0.2) 04/28/19 21:49 VBG pH 7.38 (7.36-7.41) 04/28/19 22:04 VBG pCO2 45 mmHg (38-50) 04/28/19 22:04 VBG pO2 39 mmHg 04/28/19 22:04 VBG HCO3 26 mmol/L 04/28/19 22:04 VBG O2 Saturation 70.2 % 04/28/19 22:04 VBG Base Excess 0.4 mEq/L 04/28/19 22:04 Barometric Pressure 730.1 mm/Hg 04/28/19 22:04 Sodium 131 mmol/L (136-145) L 04/28/19 21:49 Potassium 4.3 mmol/L (3.5-5.1) 04/28/19 22:56 Chloride 97 mmol/L (98-107) L 04/28/19 21:49 Carbon Dioxide 25 mmol/L (21-32) 04/28/19 21:49 Anion Gap 9.0 (3-11) 04/28/19 21:49 BUN 27 mg/dl (7-18) H 04/28/19 21:49 Creatinine 1.76 mg/dl (0.6-1.2) H 04/28/19 21:49 Est Cr Clr Drug Dosing 29.8 ml/min 04/28/19 21:49 Est GFR ( Amer) 33.1 04/28/19 21:49 Est GFR (Non-Af Amer) 28.6 04/28/19 21:49 BUN/Creatinine Ratio 15.2 (10-20) 04/28/19 21:49 Glucose 551 mg/dl (70-99) H* 04/28/19 21:49 POC Glucose 376 (70-99) H* 04/28/19 23:47 Calcium 9.4 mg/dl (8.5-10.1) 04/28/19 21:49 Total Bilirubin 0.5 mg/dl (0.2-1) 04/28/19 21:49 AST 23 U/L (15-37) 04/28/19 22:56 ALT 47 U/L (12-78) 04/28/19 21:49 Alkaline Phosphatase 139 U/L (45-117) H 04/28/19 21:49 Total Protein 8.0 gm/dl (6.4-8.2) 04/28/19 21:49 Albumin 3.5 gm/dl (3.4-5.0) 04/28/19 21:49 Globulin 4.5 gm/dl (2.5-4.0) H 04/28/19 21:49 Albumin/Globulin Ratio 0.8 (0.9-2) L 04/28/19 21:49 Lipase 385 U/L (73-393) 04/28/19 21:49 Beta-Hydroxybutyric Acd 3.00 mg/dl (0.2-2.81) H 04/28/19 22:56 Diagnostic Findings Chest x-ray as per my interpretation cardiomegaly, atelectasis EKG as per my interpretation : Rate 65, NSR, LAD, LAFB, 1 AVB, T wave flattening inferior leads CT head initial read : no intracranial mass or bleed.
[2019-04-29] MEDS ORDERED: SEVERE STRESS LEVEL STA (00:01)
[2019-04-29] MEDS ORDERED: INSULIN PROTOCOL GOAL RANGE STA (00:01)
[2019-04-29 00:02] LABS: Appearance Urine Cloudy (Clear); Bacteria Urine Automated Negative (Negative); Bilirubin Urine Negative (Negative); Blood Urine 1+ (Negative); Color Urine Yellow; Epithelial Cell Urine Auto >30 /lpf (0-5); Glucose Urine UA 3+ (Negative); Ketones Urine Negative (Negative); Leukocyte Esterase Urine 1+ (Negative); Nitrite Urine Negative (Negative); Protein Urine 1+ (Negative); RBC Urine Automated 0-4 /hpf (0-4); Specific Gravity Urine 1.034 (1.000-1.030); Urobilinogen Urine Negative (Negative); WBC Urine Automated >30 /hpf (0-5)
[2019-04-29 00:08] LABS: Thyroid Stimulating Hormone 0.792 uIu/ml (0.300-4.500); Troponin I < 0.015 ng/ml (0-0.045)
[2019-04-29] MEDS ORDERED: AMLODIPINE BESYLATE 5 MG TAB PO ONE ×2 (00:25→02:43)
[2019-04-29] MEDS ORDERED: ACETAMINOPHEN 325 MG TAB PO STA (00:25)
[2019-04-29] MEDS ORDERED: AMLODIPINE BESYLATE 5 MG TAB ONE (00:41)
[2019-04-29] MEDS ORDERED: CARBOHYDRATES FOR HYPOGLYCEMIA PO PRN (01:38)
[2019-04-29] MEDS ORDERED: DEXTROSE 50% 50 ML SYRINGE IV PRN (01:38)
[2019-04-29] MEDS ORDERED: PROMETHAZINE HCL 12.5 MG in SODIUM CHLORIDE 0.9% 50 ML IV PRN (01:38)
[2019-04-29] MEDS ORDERED: GLUCOSE 10 TABS/TUBE PO PRN (01:38)
[2019-04-29] MEDS ORDERED: GLUCAGON FOR INJ 1 MG VIAL SQ PRN (01:38)
[2019-04-29] MEDS ORDERED: ACETAMINOPHEN 325 MG TAB PO PRN (01:38)
[2019-04-29] MEDS ORDERED: GLUCOSE 40% GEL 15 GM TUBE PO PRN (01:38)
[2019-04-29] MEDS ORDERED: NITROGLYCERIN SL 0.4 MG/TAB TAB SL PRN (01:38)
[2019-04-29] MEDS ORDERED: SODIUM CHLORIDE 0.9% 1000ML 1,000 ML IV ONE (01:38)
[2019-04-29] MEDS ORDERED: TRAMADOL HCL 50 MG TABLET PO PRN (01:38)
[2019-04-29] MEDS: INSULIN ASPART 100 UNITS/ML 3 ML PEN SC SCH ×4 (02:25→17:31)
[2019-04-29 05:44] LABS: Basophils # (auto) 0.02 K/uL (0-0.2); Basophils % (auto) 0.4 %; Eosinophils # (auto) 0.09 K/uL (0-0.5); Eosinophils % (auto) 1.9 %; Hematocrit (blood only) 35.7 % (37-47); Hemoglobin 12.1 g/dL (12.0-16.0); Lymphocytes # (auto) 1.34 K/uL (1.2-3.4); Lymphocytes % (auto) 28.8 %; Mean Corpuscular Hgb Conc 33.9 g/dL (32-36); Mean Corpuscular Volume 82.6 fL (80-100); Mean Platelet Volume 10.2 fL (7.4-10.4); Monocytes # (auto) 0.35 K/uL (0.11-0.59); Monocytes % (auto) 7.5 %; Neutrophils # (auto) 2.85 K/uL (1.4-6.5); Neutrophils % (auto) 61.4 %; Platelet Count 163 K/uL (130-400); RDW Coefficient of Variation 13.3 % (11.5-14.5); RDW Standard Deviation 40.2 fL (36.4-46.3); Red Blood Count 4.32 M/uL (4.2-5.4); White Blood Count 4.65 K/uL (4.8-10.8)
[2019-04-29] MEDS ORDERED: HEPARIN SOD 5,000 UNIT/0.5 ML VIAL SQ SCH (06:00)
[2019-04-29 06:24] LABS: BUN Creatinine Ratio 19.8 (10-20); Calcium 8.5 mg/dl (8.5-10.1); Creatinine Clr Calc Pharmacy 47.4 ml/min; Est GFR (African American) 57.2; Est GFR (Non-African American) 49.4; Potassium 3.5 mmol/L (3.5-5.1)
--- NOTE | 2019-04-29 06:40 | CT Scan Report ---
CT head/brain wo con CLINICAL HISTORY: Headache, hypertension. COMPARISON STUDY: No previous studies for comparison. TECHNIQUE: Axial CT of the brain is performed from the vertex to the skull base. IV contrast was not administered for this examination. A dose lowering technique was utilized adhering to the principles of ALARA. CT DOSE: 614.27 mGy.cm FINDINGS: No intra or extra-axial mass lesions are visualized. There is no CT evidence of acute cortical infarc tion. There is no evidence of midline shift. There is no acute hemorrhage. No calvarial fractures ar e visualized. There are minimal white matter hypodensities likely on a small vessel basis. There is no evidence of pathologic ventricular dilatation. There is no evidence of acute sinusitis IMPRESSION: No acute intracranial findings ACT 112: Negative or not required by law. Electronically signed by: True Nye M.D. 04/29/2019 6:39 AM
--- NOTE | 2019-04-29 07:10 | XRay Report ---
XR chest 1V portable HISTORY: renal failure COMPARISON: Chest 05/10/2016. FINDINGS: The heart remains mildly enlarged. There are poststernotomy changes. A few linear densities within the left lower lobe persists. This favors subsegmental atelectasis or scarring. No new focal lung consolidations to suggest pneumonia. No evidence for pulmonary edema. IMPRESSION: No significant change compared to the prior study. No acute process. Stable left lower lobe scarring/ atelectasis. ACT 112: Negative or not required by law. Electronically signed by: Endy Luz M.D. 04/29/2019 7:09 AM
[2019-04-29] MEDS ORDERED: INSULIN ASPART 100 UNITS/ML 3 ML PEN SC SCH (07:30)
[2019-04-29] MEDS ORDERED: ASPIRIN 81 MG ECTAB PO SCH (09:00)
[2019-04-29] MEDS ORDERED: FOLIC ACID 1 MG TAB PO SCH (09:00)
[2019-04-29] MEDS ORDERED: CYANOCOBALAMIN 500 MCG TABLET (VITAMIN B-12) PO SCH (09:00)
[2019-04-29] MEDS ORDERED: ATORVASTATIN 40 MG TAB PO SCH (09:00)
[2019-04-29] MEDS ORDERED: METOPROLOL TARTRATE 100 MG TAB PO SCH (09:00)
[2019-04-29] MEDS ORDERED: ISOSORBIDE MONO EXTENDED REL 60 MG TABCR PO SCH (09:00)
[2019-04-29] MEDS ORDERED: predniSONE 2.5 MG TAB PO SCH (09:00)
--- NOTE | 2019-04-29 15:08 | Electrocardiogram Report ---
Test Reason : Blood Pressure : / mmHG Vent. Rate : 064 BPM Atrial Rate : 064 BPM P-R Int : 230 ms QRS Dur : 110 ms QT Int : 406 ms P-R-T Axes : 033 000 -40 degrees QTc Int : 418 ms Sinus rhythm with 1st degree A-V block Nonspecific ST abnormality Abnormal ECG When compared with ECG of 10-MAY-2016 09:25, ND interval has increased Nonspecific T wave abnormality, worse in Inferior leads Confirmed by Tereso Lopez ([id number]) on 04/29/2019 3:08:16 PM Referred By: REFERRED SELF Confirmed By:Tereso Lopez
--- NOTE | 2019-04-29 17:53 | Discharge Summary ---
Date of Service April 29, 2019 Admission HPI Per Admitting Provider History obtained from patient, family, and records. Medical history significant for CAD status post CABG, stent, hypertension, DM2 insulin requiring, rheumatid arthritis on chronic immunosuppression therapy (methotrexate and prednisone). Recent confinement April 2016 for acute blood loss secondary to epistaxis. Patient not feeling well the last few days, appetite not so good. Some nausea, no emesis, no diarrhea. People at home with a GI bug. Increased urination and thirst. Blood sugars at home noted to be 600s today kind of unusual. Usually BSG to 100s -250s at home as per patient. Patient thinks insulin pen might be malfunctioning with her having to crank it more. No chest pain, no S OB, no abdominal pain, no diarrhea. Achy headache symptoms. At the ER, BSG noted to be 550s. Patient given 10 units subcutaneous regular insulin at the ER. MEDICAL HISTORY: SURGICAL HISTORY: CABG, ankle surgery, Hysterectomy for some prolapse. FAMILY HISTORY: There is a family history of hypertension, diabetes, and cirrhosis. PERSONAL/ SOCIAL HISTORY: Nonsmoker. No chronic intake of alcoholic beverages. 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 Discharge Data Allergies Allergy/AdvReac Type Severity Reaction Status Date / Time No Known Allergies Allergy Unknown ` Verified 04/28/19 23:07 Consultations 04/28/19 23:25 ED Decision to Admit Stat Ordered Studies 04/29/19 00:24 CT head/brain wo con Urgent Discharge Plan Discharge Items Patient Disposition: Home - Self-Care Reason For Visit: HTN CRISIS, ARF Discharge Diagnosis: Hyperglycemia, due to insulin pen/needles malfunction/lack of proper technique, Acute kidney injury, hypertensive crisis Activity: Resume your previous activity Activity Comment: as tolerated, pace yourself, ask for help as needed Non-emergency contact: Primary Care Provider Call non-emergency contact if: you have any medication questions and your symptoms worsen Follow-up/Referrals: Bear Wilkinson, [Primary Care Provider] - 05/06/19 10:45 am Diet: Carb Consistent or DM2 and Heart Healthy Addtl Attending Provider Instructions: Follow-up at your primary care provider office, on May 06, at 10:45 AM. Prescription for pen needles given to you on discharge. Please make sure to record your blood sugar levels, and bring a log of your values to your primary care doctor appointment. Also record your blood pressure and bring a log of your values to your primary care doctor appointment. You were started on blood pressure medication here called amlodipine/norvcasc, please take it daily. Discuss with your primary doctor or fountain helper if you should continue this medication. Pending Studies at Discharge: No Stand-Alone Forms: My [facility], Smoking Cessation Medications and DC Order Prescriptions: New amlodipine [Norvasc] 5 mg Tablet 5 mg PO QAM 14 Days Qty: 14 RF: 0 Continued atorvastatin 40 mg tablet 40 mg PO DAILY RF: 0 magnesium oxide 420 mg Tablet 0 mg PO DAILY RF: 0 metoprolol tartrate 100 mg tablet 100 mg PO BID RF: 0 prednisone 5 mg tablet 2.5 mg PO DAILY RF: 0 milk thistle 175 mg Tablet 0 mg PO DAILY RF: 0 cyanocobalamin (vitamin B-12) [Vitamin B-12] 1,000 mcg Tablet 0 mcg PO DAILY RF: 0 isosorbide mononitrate 60 mg tablet extended release 24 hr 60 mg PO DAILY RF: 0 methotrexate sodium 2.5 mg tablet 5 mg PO WK RF: 0 metformin 1,000 mg tablet 1,000 mg PO BID RF: 0 lisinopril 10 mg tablet 10 mg PO DAILY RF: 0 aspirin 81 mg Tablet,Chewable 81 mg PO DAILY RF: 0 folic acid 1 mg Tablet 1 mg PO DAILY RF: 0 cinnamon bark [Cinnamon] 500 mg Capsule 0 mg PO DAILY RF: 0 biotin 1 mg Tablet 0 mg PO DAILY RF: 0 Basaglar KwikPen U-100 Insulin 100 unit/mL (3 mL) insulin pen 50 unit SUBCUT DAILY RF: 0 cholecalciferol (vitamin D3) [Vitamin D3] 1,000 unit Tablet,Chewable 0 unit PO DAILY RF: 0 Victoza 2-Edgar 0.6 mg/0.1 mL (18 mg/3 mL) pen injector 1.2 mg SUBCUT DAILY RF: 0 coenzyme Q10 [CoQ-10] 30 mg Capsule 0 mg PO DAILY RF: 0 Discharge Orders: Discharge Order (Routine); Ordered 04/29/19 Ordered By: Danny Arriaga/Other Patient Handouts: Diabetes Healthy Meals, Injection Pens Dc, Diabetes Meal Planning Admission Data Admit Date/Time: 04/28/19 23:53 Attending Provider: Knab,Danny F. Admit Provider: Berhane Neil Primary Care Provider: Bear Wilkinson Other Providers: Berhane Neil
[2019-04-29] MEDS ORDERED: INSULIN GLARGINE SOLOSTAR 100 UNITS/ML 3 ML PEN SC SCH (21:00)
[2019-04-30] MEDS ORDERED: AMLODIPINE BESYLATE 5 MG TAB PO SCH ×2 (09:00)
== END 2019-04-29 18:30 | disposition home or self-care (01) | DRG 683 ==
LOC: ED 21:32 → 2E 04-29 00:54

== ENCOUNTER 2023-11-26 09:35 | Inpatient (IN) ==
--- NOTE | 2023-11-26 09:55 | Emergency Department Note ---
Impression & Plan Acute alteration in mental status, Word finding difficulty, Elevated troponin, Hypertensive urgency, Ischemic stroke of frontal lobe ED Provider Note Name: KANDIS SCOTT Age: 78 Sex: Female Arrives Via: Walk-In Informant: Patient, ED Provider: Dejon Chandra MD Chief Complaint: Altered mental status Impression: As per impressions above Medical Decision Making: Pleasant 78-year-old female arrives for evaluation of acute alteration in mental status. Patient was her normal self last evening until roughly around 3 AM last known well. returned from a trip this morning and noted patient to be confused not talking and altered. She was taken to the ER where on arrival she apparently was minimally responsive not talking in triage room but by the time she got to room before complete resolution. I was called emergently to patient's bedside and evaluated her. She is answering all questions. She is having slight word finding difficulty and may be a bit of confusion but is NIH 0 at this time. No focal neurologic deficits. While stroke is considered she is not a TNKase candidate given this has been ongoing since last known well of 3 AM. She furthermore has no LVO findings by examination. Patient was worked up for altered mental status exam as well including CT of the head, extensive laboratory workup and EKG. She is currently in normal sinus rhythm and not in A-fib. She is on aspirin 81 mg daily. Laboratory workup is unremarkable. CT of the head is unremarkable. Given patient's known renal disease CTA was not emergently obtained given risk of causing worsening renal failure along with the fact there is no large focal neurologic deficit consistent with LVO at this time. Patient is quite hypertensive and increasing while here. She was thus given 10 mg IV labetalol with blood pressure improvement significantly. When her blood pressure was significantly higher she reportedly was a bit more. She furthermore has an elevated troponin of uncertain etiology. Patient will clearly need to come in for further workup and evaluation to rule out stroke, hypertensive emergency, ACS amongst many others. At this time I do not feel patient is septic. Hospitalist consulted for further evaluation workup. Several hours after admission I received call from hospitalist asking that I get in touch with neurology to further evaluate patient. The MRI that was obtained does show some anterior/frontal infarct. I discussed the case emerg[facility]. She evaluated the patient via video. Advises rectal aspirin, p.o. Brilinta, urgent MRA. These were relayed to Dr. Murrieta of the [facility]. I did rediscuss the case with the family making them aware of findings and the continued plan for hospitalization along with plan for further imaging of vessels to see if other interventions will be necessary. Triage/Nursing Notes reviewed by Me Differential:Infection, dehydration, metabolic abnormality, hypo/hyperglycemia, electrolyte disturbance, anemia, hypoxia, cardiac sources, intracerebral event, toxicologic, neurologic, as well as other pathologies. Vital Signs: reviewed and remarkable for hypertension Interventions: Labetalol 10 mg IV, aspirin 300 mg rectally Labs:ED labs Reviewed by me and remarkable for elevated troponin Imaging: CT of the head without contrast as per my informal interpretation no intracranial hemorrhage or mass effect. Confirmed by radiologist. 1 view chest x-ray as per my interpretation no infiltrate or effusion appreciated. EKG:As per my interpretation. Indication altered mental status. Sinus rhythm 82 bpm with PVCs noted. No ischemia. Right bundle branch block noted. When compared to EKG February 01, 2023 no significant change other than new PVCs. Cardiac/Tele Monitoring: Cardiac Monitoring: An Order was placed for continuous cardiac monitoring. The monitor shows a rate of 80 with a normal sinus rhythm. Consults:Discussed with [facility], Dr Murrieta, who will bring in for further altered mental status workup. Discussed with Dr. Rivera of [facility] who advised obtaining MRA along with giving rectal aspirin and p.o. Brilinta. Plan: Disposition:Hospitalization. Condition: Fair History of Present Illness: 78-year-old female arrives for evaluation of altered mental status. Patient was last seen last evening around 3 AM. Patient's had to leave early in the morning. On his return home around 9 AM patient was confused altered not speaking. Diffuse generalized weakness. No focal deficits appreciated. Brought in to ER for further evaluation. Patient did not speak and was altered for nursing staff thus prior to patient and I was called emergently to bedside. On my arrival patient is awake talking no distress moving all extremities. Patient denies any headache, chest pain, shortness of breath or other concerning signs or symptoms. She does note she think she might of had a fall yesterday but cannot specifically remember when. She denies any blood thinner use other than aspirin 81 mg daily. According to and patient patient may have had a fall yesterday at some point and patient states her symptoms started sometime around then though does believe she was normal at 3 AM when he talked with her. Past Medical History: A-fib, CKD, hypertension, dyslipidemia, CAD status post CABG, type 2 diabetes, right bundle branch block Home Medications:See Below Allergies: Macrobid, Bactrim Vitals:Blood Pressure: 184/86, Pulse 85, RR 16, T 36.8C, O2 97% on RA Physical Exam: GENERAL: Patient is tired appearing and in no distress. RESPIRATORY: No dyspnea. Clear to auscultation and equal bilaterally. CARDIOVASCULAR: Regular rate and rhythm.No murmur appreciated. GASTROINTESTINAL: Abdomen soft, non-tender, no peritonitis. EXTREMITIES: Normal motion all extremities, no cyanosis, no edema. NEUROLOGIC: Alert and oriented. No focal neurologic deficits appreciated other than periodic word finding difficulty and a slightly odd affect SKIN: No rash, no jaundice, no diaphoresis. PSYCH: Appropriate with slightly odd affect. GCS: 15 ED Course: Times/Reassessments: Multiple repeat evaluations patient throughout her stay. Other than the periodic word finding difficulty no acute alterations in mental status. Dejon Chandra MD Past Med/Surg History Problem List (Updated 11/26/23 @ 17:55 by Dejon Chandra MD) Ischemic stroke of frontal lobe (Acute) Hypertensive urgency (Acute) Elevated troponin (Acute) Word finding difficulty (Acute) Acute alteration in mental status (Acute) Elevated troponin Abnormal urinalysis Altered mental status Premature supraventricular beats Frequent ventricular premature beats Right bundle branch block First degree AV block Presence of drug-eluting stent in left circumflex coronary artery Atrial fibrillation CKD (chronic kidney disease), stage III Hypertension Dyslipidemia (Chronic) Hx of CABG (Chronic) 2012 at [facility] [place] CHEN- LAD;SVG-OM; SVG - PDA/PL BR. Subsequent documentation of occlusion of vein graft to marginal December 2011 . Subsequent drug-eluting stent left circumflex marginal. CAD (coronary artery disease) (Chronic) Diabetes mellitus, type II (Chronic) Medical History Rheumatoid arthritis Thyroid nodule PCP MONITORS "SMALL" Retinopathy RECIEVES SHOTS TO TREAT Myocardial Infarction 10 YEARS AGO Hyperlipidemia History of COVID-19 04/2021>CONGESTION/FATIGUE *RESOLVED Left radial head fracture Acute kidney injury Rheumatoid arthritis Surgical History History of ankle surgery RT History of colonoscopy History of tooth extraction History of heart artery stent 5 MONTHS AFTER CABG>HEART CATH WITH 1 STENT PLACED History of cardiac cath NO STENTS/BEFORE CABG Family History Grandmother (Maternal) Family history of diabetes mellitus Other No family history of adverse response to anesthesia Social History Smoking Status: Never smoker Second Hand Exposure: Yes ( A CHILD); Hx Alcohol Use: Yes Hx Substance Use: No Preferred Language: Cambodian Communication Ability: Effective Visual Impairment: No Limitations Hearing Ability: Normal Travel Agent Required: No Beliefs That Will Affect Care: Spiritual marital status: Single Current Living Situation: Spouse current occupational status: retired Feels Safe at Home: Yes Diet: regular Physical Activity Frequency: Does not Exercise Seatbelt Use: always Assistive Devices: Glasses and Hearing Aid - Bilateral Allergies Allergies Allergy/AdvReac Type Severity Reaction Status Date / Time nitrofurantoin Allergy Hives Verified 11/20/23 10:39 [From Macrobid] sulfamethoxazole AdvReac RENETTA Verified 11/20/23 10:39 [From Bactrim] trimethoprim [From Bactrim] AdvReac RENETTA Verified 11/20/23 10:39 Home Meds Home Medications Medication Instructions Recorded Confirmed amlodipine 5 mg tablet 5 mg PO HS 01/04/23 11/26/23 aspirin 81 mg chewable tablet 81 mg PO DAILY 01/04/23 11/26/23 atorvastatin 40 mg tablet 40 mg PO HS 01/04/23 11/26/23 biotin 1 mg tablet 1 mg PO DAILY 01/04/23 11/26/23 cinnamon bark 500 mg capsule 500 mg PO DAILY 01/04/23 11/26/23 (Cinnamon) coenzyme Q10 100 mg capsule 100 mg PO DAILY 01/04/23 11/26/23 (CoQ-10) cyanocobalamin (vitamin B-12) 1,000 mcg PO DAILY 01/04/23 11/26/23 1,000 mcg tablet (Vitamin B-12) faricimab-svoa 6 mg/0.05 mL 6 mg intravitreal DIRECTED PRN 01/04/23 11/26/23 intravitreal solution Macular Edema insulin glargine 100 unit/mL (3 42 unit subcut QAM 01/04/23 11/26/23 mL) subcutaneous pen (Basaglar KwikPen U-100 Insulin) isosorbide mononitrate 60 mg 60 mg PO DAILY 01/04/23 11/26/23 tablet,extended release 24 hr milk thistle 175 mg tablet 175 mg PO DAILY 01/04/23 11/26/23 prednisone 5 mg tablet 2.5 mg PO DAILY 01/04/23 11/26/23 vit C 250 mg-vit E 90 mg-zinc 40 1 tab PO DAILY 01/04/23 11/26/23 mg-copper 1 [id number] capsule (PreserVision AREDS-2) insulin aspart U-100 100 unit/mL 8 unit subcut TID 06/07/23 11/26/23 subcutaneous solution (Novolog U-100 Insulin aspart) cholecalciferol (vitamin D3) 10 20 mcg PO DAILY 11/20/23 11/26/23 mcg (400 unit) tablet (Vitamin D3) albuterol sulfate 90 mcg/actuation 1 inh inhalation Q4H PRN Shortness 11/26/23 11/26/23 aerosol inhaler Of Breath Or Wheezing Previous Rx's Medication Instructions Recorded lisinopril 10 mg tablet 10 mg PO DAILY #90 tabs 10/05/23 calcitriol 0.25 mcg capsule 0.25 mcg PO .COMPLEX #24 caps 11/20/23 Results & Data (ED) Vital Signs Vital Signs - 24 hr 11/26/23 09:43 11/26/23 10:47 11/26/23 10:49 Temperature 36.8 C Temperature Source Temporal Artery Scan Pulse Rate 85 Pulse Rate [Apical] 18 L Respiratory Rate 16 18 Respiratory Effort / Characteristics Non-Labored Spontaneous Respiratory Depth Normal Blood Pressure 184/86 H Blood Pressure [Right Arm] 167/107 H Blood Pressure Mean 118 Blood Pressure Mean [Right Arm] 127 Blood Pressure Position [Right Arm] Pulse Oximetry 97 97 96 Oxygen Delivery Method Room Air Room Air Sepsis Recent Fever Within 48 Hours No Sepsis New/Unexplained Change in Mental Status N/A Sepsis Action Taken by Nursing No Action Required 11/26/23 12:00 11/26/23 12:21 11/26/23 12:41 Temperature Temperature Source Pulse Rate 86 78 Pulse Rate [Apical] 94 H Respiratory Rate 18 Respiratory Effort / Characteristics Non-Labored Spontaneous Respiratory Depth Normal Blood Pressure 217/97 H Blood Pressure [Right Arm] 217/97 H Blood Pressure Mean Blood Pressure Mean [Right Arm] 137 Blood Pressure Position [Right Arm] Semi-fowlers Pulse Oximetry 97 Oxygen Delivery Method Room Air Sepsis Recent Fever Within 48 Hours Sepsis New/Unexplained Change in Mental Status Sepsis Action Taken by Nursing 11/26/23 13:00 11/26/23 13:30 Temperature Temperature Source Pulse Rate 84 Pulse Rate [Apical] 83 Respiratory Rate 18 Respiratory Effort / Characteristics Non-Labored Spontaneous Respiratory Depth Normal Blood Pressure 150/88 H Blood Pressure [Right Arm] 156/88 H Blood Pressure Mean Blood Pressure Mean [Right Arm] 110 Blood Pressure Position [Right Arm] Semi-fowlers Pulse Oximetry 93 Oxygen Delivery Method Room Air Sepsis Recent Fever Within 48 Hours Sepsis New/Unexplained Change in Mental Status Sepsis Action Taken by Nursing Laboratory Data 11/26/23 09:56 11/26/23 09:56 Lab Results 11/26/23 11/26/23 11/26/23 Range/Units 09:54 09:56 10:03 WBC 12.27 H (4.8-10.8) K/ul RBC 4.37 (4.20-5.40) M/uL Hgb 11.7 L (12.0-16.0) g/dl POC Hgb 12.2 (12.0-16.0) g/dl Hct 37.3 (37.0-47.0) % POC Hct 36 L (37-47) % MCV 85.4 (80.0-100.0) fL MCH 26.8 (25.0-34.0) pg MCHC 31.4 L (32.0-36.0) g/dL RDW Std Deviation 40.7 (36.4-46.3) fL RDW Coeff of Samson 13.2 (11.5-14.5) % Plt Count 237 (130-400) K/uL MPV 10.7 (9.4-12.4) fL Immature Gran % (Auto) 0.4 % Neut % (Auto) 85.0 % Lymph % (Auto) 7.7 % [place] % (Auto) 5.7 % Eos % (Auto) 0.7 % Baso % (Auto) 0.5 % Neut # (Auto) 10.42 H (1.40-6.50) K/uL Lymph # (Auto) 0.95 L (1.20-3.40) K/uL [place] # (Auto) 0.70 H (0.11-0.59) K/uL Eos # (Auto) 0.09 (0.00-0.50) K/uL Baso # (Auto) 0.06 (0.00-0.20) K/uL Immature Gran # (Auto) 0.05 (0.01-0.20) K/uL RBC Morphology Unremarkable POC Sodium 139 (135-144) mmol/L Sodium 138 (136-145) mmol/L POC Potassium 4.9 (3.3-5.0) mmol/L Potassium 4.8 (3.5-5.1) mmol/L POC Chloride 108 (101-112) mmol/L Chloride 105 (98-107) mmol/L Carbon Dioxide 23 (21-32) mmol/L POC Total CO2 24 (24-31) mmol/L Anion Gap 10 (3-11) POC Anion Gap 13.0 L (16-25) mmol/L POC BUN 42 H (7-18) mg/dl BUN 41 H (6-23) mg/dl Creatinine 2.56 H (0.6-1.2) mg/dl POC Creatinine 2.9 H (0.6-1.3) mg/dl Est Cr Clr Drug Dosing Not Reportable Est GFR ( Amer) 20.3 ml/min Est GFR (Non-Af Amer) 17.6 ml/min BUN/Creatinine Ratio 16.0 (10-20) Glucose 177 H (70-99(Fasting)) mg/dl POC Glucose 181 H (70-99) mg/dl POC Glucose (other) 175 H (70-99) mg/dl Calcium 9.3 (8.6-10.3) mg/dl POC Ioniz Calcium Radha 1.17 (1.12-1.32) mmol/l Magnesium 1.9 (1.7-2.4) mg/dl Total Bilirubin 0.4 (0.2-1.0) mg/dl Direct Bilirubin 0.1 (0-0.2) mg/dl AST 19 (13-39) U/L ALT 14 (7-52) U/L Alkaline Phosphatase 97 (34-104) U/L Ammonia (18-72) umol/L Troponin I High Sens 34.6 H (0-14) pg/ml Total Protein 7.6 (6.0-8.3) gm/dl Albumin 3.8 (3.4-5.0) gm/dl Procalcitonin 0.02 (0-0.5) ng/ml TSH 1.432 (0.300-4.500) uIu/ml Urine Color Urine Appearance (Clear) Urine pH (4.5-7.5) Ur Specific Sasser (1.000-1.030) Urine Protein (Negative) Urine Glucose (UA) (Negative) Urine Ketones (Negative) Urine Blood (Negative) Urine Nitrite (Negative) Urine Bilirubin (Negative) Urine Urobilinogen (Negative) Ur Leukocyte Esterase (Negative) Urine WBC (Auto) (0-5) /hpf Urine RBC (Auto) (0-2) /hpf U Hyaline Cast (Auto) (0-2) /lpf U Epithel Cells (Auto) (0-2) /hpf Urine Bacteria (Auto) (None Seen) Urine Opiates Screen (Neg) Ur Methadone, Qual (Neg) Urine Fentanyl Screen (Neg) Urine Barbiturates (Neg) Ur Phencyclidine (PCP) (Neg) U Amphetamin/Meth Scrn (Neg) MDMA (Ecstasy) Screen (Neg) U Benzodiazepines Scrn (Neg) Ur Cocaine Metabolite (Neg) U Marijuana (THC) Screen (Neg) Ethyl Alcohol mg/dL < 10.0 (<10.0) mg/dl 11/26/23 11/26/23 11/26/23 Range/Units 10:21 11:48 11:52 WBC (4.8-10.8) K/ul RBC (4.20-5.40) M/uL Hgb (12.0-16.0) g/dl POC Hgb (12.0-16.0) g/dl Hct (37.0-47.0) % POC Hct (37-47) % MCV (80.0-100.0) fL MCH (25.0-34.0) pg MCHC (32.0-36.0) g/dL RDW Std Deviation (36.4-46.3) fL RDW Coeff of Samson (11.5-14.5) % Plt Count (130-400) K/uL MPV (9.4-12.4) fL Immature Gran % (Auto) % Neut % (Auto) % Lymph % (Auto) % [place] % (Auto) % Eos % (Auto) % Baso % (Auto) % Neut # (Auto) (1.40-6.50) K/uL Lymph # (Auto) (1.20-3.40) K/uL [place] # (Auto) (0.11-0.59) K/uL Eos # (Auto) (0.00-0.50) K/uL Baso # (Auto) (0.00-0.20) K/uL Immature Gran # (Auto) (0.01-0.20) K/uL RBC Morphology POC Sodium (135-144) mmol/L Sodium (136-145) mmol/L POC Potassium (3.3-5.0) mmol/L Potassium (3.5-5.1) mmol/L POC Chloride (101-112) mmol/L Chloride (98-107) mmol/L Carbon Dioxide (21-32) mmol/L POC Total CO2 (24-31) mmol/L Anion Gap (3-11) POC Anion Gap (16-25) mmol/L POC BUN (7-18) mg/dl BUN (6-23) mg/dl Creatinine (0.6-1.2) mg/dl POC Creatinine (0.6-1.3) mg/dl Est Cr Clr Drug Dosing Est GFR ( Amer) ml/min Est GFR (Non-Af Amer) ml/min BUN/Creatinine Ratio (10-20) Glucose (70-99(Fasting)) mg/dl POC Glucose (70-99) mg/dl POC Glucose (other) (70-99) mg/dl Calcium (8.6-10.3) mg/dl POC Ioniz Calcium Radha (1.12-1.32) mmol/l Magnesium (1.7-2.4) mg/dl Total Bilirubin (0.2-1.0) mg/dl Direct Bilirubin (0-0.2) mg/dl AST (13-39) U/L ALT (7-52) U/L Alkaline Phosphatase (34-104) U/L Ammonia 10.0 L (18-72) umol/L Troponin I High Sens 53.2 H* D (0-14) pg/ml Total Protein (6.0-8.3) gm/dl Albumin (3.4-5.0) gm/dl Procalcitonin (0-0.5) ng/ml TSH (0.300-4.500) uIu/ml Urine Color Yellow Urine Appearance Cloudy A (Clear) Urine pH 5.5 (4.5-7.5) Ur Specific Sasser 1.014 (1.000-1.030) Urine Protein 3+ H (Negative) Urine Glucose (UA) Negative (Negative) Urine Ketones Trace H (Negative) Urine Blood 2+ H (Negative) Urine Nitrite Negative (Negative) Urine Bilirubin Negative (Negative) Urine Urobilinogen Negative (Negative) Ur Leukocyte Esterase Trace H (Negative) Urine WBC (Auto) 6-10 H (0-5) /hpf Urine RBC (Auto) 0-2 (0-2) /hpf U Hyaline Cast (Auto) 3-5 H (0-2) /lpf U Epithel Cells (Auto) 6-10 H (0-2) /hpf Urine Bacteria (Auto) None Seen (None Seen) Urine Opiates Screen Neg (Neg) Ur Methadone, Qual Neg (Neg) Urine Fentanyl Screen Neg (Neg) Urine Barbiturates Neg (Neg) Ur Phencyclidine (PCP) Neg (Neg) U Amphetamin/Meth Scrn Neg (Neg) MDMA (Ecstasy) Screen Neg (Neg) U Benzodiazepines Scrn Neg (Neg) Ur Cocaine Metabolite Neg (Neg) U Marijuana (THC) Screen Neg (Neg) Ethyl Alcohol mg/dL (<10.0) mg/dl Administered Medications Sodium Chloride (Nss) 1,000 mls @ 80 mls/hr IV .[id number] ADELA Stop: 12/26/23 15:29 Last Admin: 11/26/23 15:35 Dose: 80 mls/hr Documented By: SNS Ceftriaxone Sodium (Rocephin) 2,000 mg in 50 mls @ 100 mls/hr IV Q24H ADELA Stop: 12/06/23 15:59 Last Infusion: 11/26/23 16:20 Dose: Infused Documented By: Admin: 11/26/23 15:35 Dose: 100 mls/hr Documented By: NADIA Insulin Aspart (Insulin Aspart Per Unit Charge) 0 units SC ACHS ADELA Stop: 12/26/23 16:29 Last Admin: 11/26/23 17:43 Dose: 4 units Documented By: NADIA Co-signed By: CC Discontinued Medications Aspirin (Aspirin 300 Mg Supp) 300 mg VT ONE ONE Stop: 11/26/23 16:41 Last Admin: 11/26/23 17:11 Dose: 300 mg Documented By: NADIA Atorvastatin Calcium (Atorvastatin 40 Mg Tab) 80 mg PO NOW STA Stop: 11/26/23 17:35 Last Admin: 11/26/23 17:43 Dose: 80 mg Documented By: NADIA Sodium Chloride (Nss) 500 mls @ 999 mls/hr IV .Q31M ONE Stop: 11/26/23 10:22 Last Infusion: 11/26/23 12:27 Dose: Infused Documented By: Admin: 11/26/23 10:31 Dose: 999 mls/hr Documented By: ERICK Sodium Chloride (Nss) 1,000 mls @ 100 mls/hr IV .Q10H ADELA Stop: 11/26/23 23:29 Last Infusion: 11/26/23 15:36 Dose: 0 mls/hr Documented By: Admin: 11/26/23 13:47 Dose: 100 mls/hr Documented By: NADIA Ceftriaxone Sodium (Rocephin) 2,000 mg in 50 mls @ 100 mls/hr IV NOW STA Stop: 11/26/23 14:26 Last Admin: 11/26/23 15:00 Dose: Not Given Documented By: ERICK Labetalol HCl (Labetalol Hcl Iv 5 Mg/Ml 20ml) 10 mg IV NOW STA Stop: 11/26/23 12:13 Last Admin: 11/26/23 12:21 Dose: 10 mg Documented By: ERICK Ticagrelor (Ticagrelor 90 Mg Tab) 90 mg PO NOW STA Stop: 11/26/23 17:36 Last Admin: 11/26/23 17:37 Dose: 90 mg Documented By: NADIA Imaging Data Radiologist's Impression: Head CT 11/26/23 09:[address] DOSE: 625.8 mGy.cm HISTORY: Altered mental status. TECHNIQUE: Multiaxial CT images of the head were performed without the use of intravenous contrast. Automated exposure control was utilized for this study. A dose lowering technique was utilized adhering to the principles of ALARA. Comparison: Head CT 04/29/2019. Findings: Mild mucosal thickening within the ethmoid air cells and maxillary sinuses. The right mastoid air cells are clear. The calvarium and skull base are intact. There is no mass, hematoma, midline shift, acute infarct. White matter hypodensity is nonspecific but suggestive of microvascular ischemic change. The ventricles and sulci demonstrate mild age-related involutional changes. Impression: No acute intracranial abnormality. ACT 112: Negative or not required by law. Electronically signed by: Endy Luz M.D. 11/26/2023 10:27 AM Chest X-Ray 11/26/23 09:53 XR chest 1V portable HISTORY: Altered mental status. COMPARISON: Chest 01/04/2023. FINDINGS: No pneumothorax. No pleural effusions. The heart remains enlarged. There are poststernotomy changes. Calcifications within the aortic knob. Linear scarlike densities within the left lung base persist. No new focal lung consolidations to suggest a pneumonia. No evidence for pulmonary edema. No acute fractures. IMPRESSION: No significant change compared to the prior study. No acute process. ACT 112: Negative or not required by law. Electronically signed by: Endy Luz M.D. 11/26/2023 10:18 AM Brain MRI 11/26/23 13:24 Brain MRI WITHOUT CONTRAST HISTORY: Altered mental status. Stroke symptoms. TECHNIQUE: Multiplanar multisequence MRI of the brain was performed without the use of contrast. COMPARISON STUDY: Head CT 11/26/2023. FINDINGS: Multiple small foci of restricted diffusion seen within the left frontal lobe primarily involving the left superior frontal gyrus. Dominant focus on image 19 measures 18 mm. This is consistent with an acute left CHARLES territory infarct. No acute hemorrhage or midline shift. The midline structures are intact. Mild atrophy and mild microvascular ischemic changes are noted. There is mild edema associated with the acute left frontal lobe infarcts. The major vascular flow voids at the skull base are maintained. The orbits demonstrate bilateral lens replacement. The mastoid air cells are clear. Mild mucosal thickening within the ethmoid air cells and maxillary sinuses. No intracranial mass identified. Atrophy and mild microvascular ischemic changes are noted. 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 IMPRESSION: 1. Multiple small foci of restricted diffusion seen within the left frontal lobe primarily involving the left superior frontal gyrus. This is consistent with an acute left CHARLES territory infarct. 2. 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 ACT 112: Negative or not required by law. Electronically signed by: Endy Luz M.D. 11/26/2023 3:08 PM Discharge Plan Visit Data Chief Complaint: Altered Mental Status Stated Complaint: ALTERED MENTAL STATUS, LETHARGIC ED Provider: Dejon Chandra Discharge Problem: Acute alteration in mental status, Word finding difficulty, Elevated troponin, Hypertensive urgency, Ischemic stroke of frontal lobe Discharge Instructions Interventions: ED Discharge Assessment Last Done: 11/26/23 15:21
[2023-11-26 10:16] LABS: iSTAT Creatinine 2.9 mg/dl (0.6-1.3); iSTAT Hemoglobin 12.2 g/dl (12.0-16.0); iSTAT Ionized Calcium 1.17 mmol/l (1.12-1.32); iSTAT Potassium 4.9 mmol/L (3.3-5.0)
--- NOTE | 2023-11-26 10:19 | XRay Report ---
XR chest 1V portable HISTORY: Altered mental status. COMPARISON: Chest 01/04/2023. FINDINGS: No pneumothorax. No pleural effusions. The heart remains enlarged. There are poststernotomy changes. Calcifications within the aortic knob. Linear scarlike densities within the left lung base persist. No new focal lung consolidations to suggest a pneumonia. No evidence for pulmonary edema. No acute fractures. IMPRESSION: No significant change compared to the prior study. No acute process. ACT 112: Negative or not required by law. Electronically signed by: Endy Luz M.D. 11/26/2023 10:18 AM
[2023-11-26 10:28] LABS: Alanine Aminotransferase 14 U/L (7-52); Albumin Level 3.8 gm/dl (3.4-5.0); Alkaline Phosphatase 97 U/L (34-104); Anion Gap 10 (3-11); Aspartate Aminotransferase 19 U/L (13-39); Bilirubin Direct 0.1 mg/dl (0-0.2); Bilirubin,Total 0.4 mg/dl (0.2-1.0); Blood Urea Nitrogen 41 mg/dl (6-23); Calcium 9.3 mg/dl (8.6-10.3); Carbon Dioxide 23 mmol/L (21-32); Chloride 105 mmol/L (98-107); Est GFR (African American) 20.3 ml/min; Est GFR (Non-African American) 17.6 ml/min; Glucose 177 mg/dl (70-99(Fasting)); Magnesium 1.9 mg/dl (1.7-2.4); Potassium 4.8 mmol/L (3.5-5.1); Sodium 138 mmol/L (136-145); Total Protein 7.6 gm/dl (6.0-8.3)
--- NOTE | 2023-11-26 10:29 | CT Scan Report ---
HEAD CT NONCONTRAST CT DOSE: 625.8 mGy.cm HISTORY: Altered mental status. TECHNIQUE: Multiaxial CT images of the head were performed without the use of intravenous contrast. A utomated exposure control was utilized for this study. A dose lowering technique was utilized adheri ng to the principles of ALARA. Comparison: Head CT 04/29/2019. Findings: Mild mucosal thickening within the ethmoid air cells and maxillary sinuses. The right masto id air cells are clear. The calvarium and skull base are intact. There is no mass, hematoma, midline shift, acute infarct. White matter hypodensity is nonspecific but suggestive of microvascular ischemi c change. The ventricles and sulci demonstrate mild age-related involutional changes. Impression: No acute intracranial abnormality. ACT 112: Negative or not required by law. Electronically signed by: Endy Luz M.D. 11/26/2023 10:27 AM
[2023-11-26] MEDS: SODIUM CHLORIDE 0.9% 500 ML IV ONE (10:31)
[2023-11-26 10:33] LABS: Basophils # (auto) 0.06 K/uL (0.00-0.20); Basophils % (auto) 0.5 %; Eosinophils # (auto) 0.09 K/uL (0.00-0.50); Eosinophils % (auto) 0.7 %; Hematocrit (blood only) 37.3 % (37.0-47.0); Hemoglobin 11.7 g/dl (12.0-16.0); Immature Granulocytes # (auto) 0.05 K/uL (0.01-0.20); Immature Granulocytes % (auto) 0.4 %; Lymphocytes # (auto) 0.95 K/uL (1.20-3.40); Lymphocytes % (auto) 7.7 %; Mean Corpuscular Hemoglobin 26.8 pg (25.0-34.0); Mean Corpuscular Hgb Conc 31.4 g/dL (32.0-36.0); Mean Corpuscular Volume 85.4 fL (80.0-100.0); Mean Platelet Volume 10.7 fL (9.4-12.4); Monocytes % (auto) 5.7 %; Neutrophils # (auto) 10.42 K/uL (1.40-6.50); Platelet Count 237 K/uL (130-400); RBC Morphology Unremarkable; RDW Coefficient of Variation 13.2 % (11.5-14.5); RDW Standard Deviation 40.7 fL (36.4-46.3); Red Blood Count 4.37 M/uL (4.20-5.40); Troponin I High Sensitivity 34.6 pg/ml (0-14); White Blood Count 12.27 K/ul (4.8-10.8)
[2023-11-26 10:43] LABS: Thyroid Stimulating Hormone 1.432 uIu/ml (0.300-4.500)
[2023-11-26 12:00] LABS: Appearance Urine Cloudy (Clear); Bacteria Urine Automated None Seen (None Seen); Bilirubin Urine Negative (Negative); Blood Urine 2+ (Negative); Color Urine Yellow; Glucose Urine UA Negative (Negative); Ketones Urine Trace (Negative); Leukocyte Esterase Urine Trace (Negative); Nitrite Urine Negative (Negative); Protein Urine 3+ (Negative); RBC Urine Automated 0-2 /hpf (0-2); Specific Gravity Urine 1.014 (1.000-1.030); Urobilinogen Urine Negative (Negative); pH Urine 5.5 (4.5-7.5)
--- NOTE | 2023-11-26 12:13 | Electrocardiogram Report ---
Test Reason : Blood Pressure : / mmHG Vent. Rate : 082 BPM Atrial Rate : 082 BPM P-R Int : 260 ms QRS Dur : 140 ms QT Int : 434 ms P-R-T Axes : 061 -28 006 degrees QTc Int : 507 ms Sinus rhythm with 1st degree A-V block with frequent Premature ventricular complexes Right bundle branch block Minimal voltage criteria for LVH, may be normal variant T wave abnormality, consider anterior ischemia Abnormal ECG When compared with ECG of 01-FEB-2023 13:16, (unconfirmed) Premature ventricular complexes are now Present Confirmed by Toby Vallejo ([id number]) on 11/26/2023 12:12:33 PM Referred By: REFERRED SELF Confirmed By:Dallin Vallejo
[2023-11-26] MEDS: LABETALOL HCL IV 5 MG/ML 20ML IV STA (12:21)
[2023-11-26 12:24] LABS: Amphetamines+Metham, Urine Neg (Neg); Barbiturates, Urine Neg (Neg); Benzodiazepine, Urine Neg (Neg); Cocaine, Urine Neg (Neg); Fentanyl, Urine Neg (Neg); MDMA (Ecstacy), Urine Neg (Neg); Marijuana, Urine Neg (Neg); Methadone, Urine Neg (Neg); Opiate, Urine Neg (Neg); Phencyclidine, Urine Neg (Neg)
--- NOTE | 2023-11-26 12:48 | History & Physical Report ---
Date of Service November 26, 2023 Assessment & Plan (1) Altered mental status: (2) Abnormal urinalysis: (3) Elevated troponin: (4) CKD (chronic kidney disease), stage III: (5) Hypertension: (6) Dyslipidemia: (7) Hx of CABG: (8) Diabetes mellitus, type II: Admission and Anticipated Discharge Date Admission Date: Francie Baker is a 78y/o F with PMHx of DM type II, diabetic retinopathy both eyes and macular edema, dyslipidemia, history of thyroid nodule, CAD s/p CABG x 4, HTN, persistent atrial fibrillation, CKD stage III, rheumatoid arthritis on chronic steroid therapy, chronic anemia, history of myocardial infarction and other problems listed below who presented to the ED for evaluation secondary to altered mental status. Altered mental status- Acute encephalopathy of unclear origin r/o metabolic or ischemic vascular event but this would be very atypical. AAOx1, but no aphasia. Rest neuro exam unremarkable. Last well known time around 3 am and out of tPA window and NIH score would be 0. CT head unremarkable. WBC mildly elevated but afebrile. Procal negative, TSH normal. UA abnormal could be UTI. UDS negative. Alc level negative. No hypoglycemia. Trop mildly elevated in setting of CKD but denies any chest pain. No hypoxia. Ammonia normal, Electrolytes normal.Will check ABG, serial troponin, get MRI brain, EEG, neuro eval. Will continue gentle ivf, iv rocephin and monitor closely. Elevated troponin- denies chest pain. H/o CAD s/p CABG. Will trend trop and monitor on tele Abnormal UA- continue empiric ceftriaxone pending final urine clx DM-2 uncontrolled with diabetic retinopathy- BG reasonable here. Continue lantus, humalog. Adjust as indicated CKD4- Cr elevated from baseline, currently 2.56. Continue amlodipine. Hold lisinopril for now. Will have iv hlz prn. HTN- BP elevated on presentation and received labetalol and BP improved to 150/88 during our encounter. Continue amlodipine, lisinopril. IV HLZ prn. DVT ppx- sc heparin Dispo- Medsurg tele Full code per family Updated family at bedside who had multiple questions and concerns and they were answered. 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 History obtained from patient, family at bedside and associated chart review. Per ED provider, patient's last known well was around approximately 3 AM this morning. Patient's found her at home around 9 AM and she was confused an d not speaking appropriately. Therefore, she was brought into the ED for further evaluation. Patient was not speaking and seemed altered to nursing staff in the ED - however, patient was alert and talking in no acute distress. No focal deficits were appreciated by ED provider. Patient was hypertensive in the ED with a systolic BP in the 220s and she was given 10 mg of IV labetalol at the time of sign out. Appears she is having some word finding difficulty according to Dr. Chandra. Patient seen at bedside with Dr. Murrieta. Patient able to state her full name and date of . According to family, she is typically "very sharp." Son saw her this morning and mentioned that the patient was standing at the kitchen counter and was acting somewhat disoriented and altered. woke her up t his morning around 3AM and she was acting very disoriented, not acting herself. Patient took some of her medications this morning - but she is unsure of which ones. Family reports that she is significantly weaker and "wobbly" on her feet. Was very unsteady on her feet in the ED when going to the bathroom. Patient's father has had a stroke. She does not smoke or consume alcohol. She did not eat anything this morning. reports that she was "perfectly fine" yesterday. Patient had some sinus congestion the other day, but that has since completely resolved today. Allergies Allergy/AdvReac Type Severity Reaction Status Date / Time nitrofurantoin Allergy Hives Verified 11/20/23 10:39 [From Macrobid] sulfamethoxazole AdvReac RENETTA Verified 11/20/23 10:39 [From Bactrim] trimethoprim [From Bactrim] AdvReac RENETTA Verified 11/20/23 10:39 Home Medications Medication Instructions Recorded Confirmed Type amlodipine 5 mg tablet 5 mg PO HS 01/04/23 11/26/23 History aspirin 81 mg chewable tablet 81 mg PO DAILY 01/04/23 11/26/23 History atorvastatin 40 mg tablet 40 mg PO HS 01/04/23 11/26/23 History biotin 1 mg tablet 1 mg PO DAILY 01/04/23 11/26/23 History cinnamon bark 500 mg capsule 500 mg PO DAILY 01/04/23 11/26/23 History (Cinnamon) coenzyme Q10 100 mg capsule 100 mg PO DAILY 01/04/23 11/26/23 History (CoQ-10) cyanocobalamin (vitamin B-12) 1,000 mcg PO DAILY 01/04/23 11/26/23 History 1,000 mcg tablet (Vitamin B-12) faricimab-svoa 6 mg/0.05 mL 6 mg intravitreal DIRECTED PRN 01/04/23 11/26/23 History intravitreal solution Macular Edema insulin glargine 100 unit/mL (3 42 unit subcut QAM 01/04/23 11/26/23 History mL) subcutaneous pen (Basaglar KwikPen U-100 Insulin) isosorbide mononitrate 60 mg 60 mg PO DAILY 01/04/23 11/26/23 History tablet,extended release 24 hr milk thistle 175 mg tablet 175 mg PO DAILY 01/04/23 11/26/23 History prednisone 5 mg tablet 2.5 mg PO DAILY 01/04/23 11/26/23 History vit C 250 mg-vit E 90 mg-zinc 40 1 tab PO DAILY 01/04/23 11/26/23 History mg-copper 1 [id number] capsule (PreserVision AREDS-2) insulin aspart U-100 100 unit/mL 8 unit subcut TID 06/07/23 11/26/23 History subcutaneous solution (Novolog U-100 Insulin aspart) lisinopril 10 mg tablet 10 mg PO DAILY #90 tabs 10/05/23 11/26/23 Rx calcitriol 0.25 mcg capsule 0.25 mcg PO .COMPLEX #24 caps 11/20/23 11/26/23 Rx cholecalciferol (vitamin D3) 10 20 mcg PO DAILY 11/20/23 11/26/23 History mcg (400 unit) tablet (Vitamin D3) albuterol sulfate 90 mcg/actuation 1 inh inhalation Q4H PRN Shortness 11/26/23 11/26/23 History aerosol inhaler Of Breath Or Wheezing Past Med/Surg History Problem List Elevated troponin Abnormal urinalysis Altered mental status Premature supraventricular beats Frequent ventricular premature beats Right bundle branch block First degree AV block Presence of drug-eluting stent in left circumflex coronary artery Atrial fibrillation CKD (chronic kidney disease), stage III Hypertension Dyslipidemia (Chronic) Hx of CABG (Chronic) 2012 at [facility] [place] CHEN- LAD;SVG-OM; SVG - PDA/PL BR. Subsequent documentation of occlusion of vein graft to marginal December 2011 . Subsequent drug-eluting stent left circumflex marginal. CAD (coronary artery disease) (Chronic) Diabetes mellitus, type II (Chronic) Medical History Rheumatoid arthritis Thyroid nodule PCP MONITORS "SMALL" Retinopathy RECIEVES SHOTS TO TREAT Myocardial Infarction 10 YEARS AGO Hyperlipidemia History of COVID-19 04/2021>CONGESTION/FATIGUE *RESOLVED Left radial head fracture Acute kidney injury Rheumatoid arthritis Surgical History History of ankle surgery RT History of colonoscopy History of tooth extraction History of heart artery stent 5 MONTHS AFTER CABG>HEART CATH WITH 1 STENT PLACED History of cardiac cath NO STENTS/BEFORE CABG Family History Grandmother (Maternal) Family history of diabetes mellitus Other No family history of adverse response to anesthesia Social History Smoking Status: Never smoker Second Hand Exposure: Yes ( A CHILD); Hx Alcohol Use: Yes Hx Substance Use: No Preferred Language: Sami Communication Ability: Effective Visual Impairment: No Limitations Hearing Ability: Normal Technology Education Teacher Required: No Beliefs That Will Affect Care: Spiritual marital status: Single Current Living Situation: Spouse current occupational status: retired Feels Safe at Home: Yes Diet: regular Physical Activity Frequency: Does not Exercise Seatbelt Use: always Assistive Devices: Glasses and Hearing Aid - Bilateral Review of Systems Review of Systems: At least ten systems reviewed and negative, except as noted in the HPI. Physical Exam Physical Exam: Pleaser refer to Dr. Murrieta's addendum for physical examination findings. Results & Data Results & Data Vital Signs (Past 12 Hours) Vital Signs Temp Pulse Pulse Resp BP BP Pulse Ox 11/26/23 12:41 78 11/26/23 12:21 86 217/97 H 11/26/23 12:00 94 H 18 217/97 H 97 11/26/23 10:49 96 11/26/23 10:47 18 L 18 167/107 H 97 11/26/23 09:43 36.8 C 85 16 184/86 H 97 O2 Del Method 11/26/23 12:41 11/26/23 12:21 11/26/23 12:00 Room Air 11/26/23 10:49 Room Air 11/26/23 10:47 Room Air 11/26/23 09:43 Laboratory Results Short CBC 11/26/23 Range/Units 09:56 WBC 12.27 H (4.8-10.8) K/ul Hgb 11.7 L (12.0-16.0) g/dl Hct 37.3 (37.0-47.0) % Plt Count 237 (130-400) K/uL BMP 11/26/23 09:56 Sodium 138 Potassium 4.8 Chloride 105 Carbon Dioxide 23 BUN 41 H Creatinine 2.56 H Glucose 177 H Calcium 9.3 Liver Function 11/26/23 Range/Units 09:56 Total Bilirubin 0.4 (0.2-1.0) mg/dl Direct Bilirubin 0.1 (0-0.2) mg/dl AST 19 (13-39) U/L ALT 14 (7-52) U/L Alkaline Phosphatase 97 (34-104) U/L Albumin 3.8 (3.4-5.0) gm/dl Urine 11/26/23 Range/Units 11:48 Urine Color Yellow Urine Appearance Cloudy A (Clear) Urine pH 5.5 (4.5-7.5) Ur Specific [place] 1.014 (1.000-1.030) Urine Protein 3+ H (Negative) Urine Glucose (UA) Negative (Negative) Diagnostic Findings Head CT 11/26/23 09:[address] DOSE: 625.8 mGy.cm HISTORY: Altered mental status. TECHNIQUE: Multiaxial CT images of the head were performed without the use of intravenous contrast. Automated exposure control was utilized for this study. A dose lowering technique was utilized adhering to the principles of ALARA. Comparison: Head CT 04/29/2019. Findings: Mild mucosal thickening within the ethmoid air cells and maxillary sinuses. The right mastoid air cells are clear. The calvarium and skull base are intact. There is no mass, hematoma, midline shift, acute infarct. White matter hypodensity is nonspecific but suggestive of microvascular ischemic change. The ventricles and sulci demonstrate mild age-related involutional changes. Impression: No acute intracranial abnormality. ACT 112: Negative or not required by law. Electronically signed by: Endy Luz M.D. 11/26/2023 10:27 AM Chest X-Ray 11/26/23 09:53 XR chest 1V portable HISTORY: Altered mental status. COMPARISON: Chest 01/04/2023. FINDINGS: No pneumothorax. No pleural effusions. The heart remains enlarged. There are poststernotomy changes. Calcifications within the aortic knob. Linear scarlike densities within the left lung base persist. No new focal lung consolidations to suggest a pneumonia. No evidence for pulmonary edema. No acute fractures. IMPRESSION: No significant change compared to the prior study. No acute process. ACT 112: Negative or not required by law. Electronically signed by: Endy Luz M.D. 11/26/2023 10:18 AM Medications Administered Discontinued Medications Sodium Chloride (Nss) 500 mls @ 999 mls/hr IV .Q31M ONE Stop: 11/26/23 10:22 Last Infusion: 11/26/23 12:27 Dose: Infused Documented By: Admin: 11/26/23 10:31 Dose: 999 mls/hr Documented By: ERICK Labetalol HCl (Labetalol Hcl Iv 5 Mg/Ml 20ml) 10 mg IV NOW STA Stop: 11/26/23 12:13 Last Admin: 11/26/23 12:21 Dose: 10 mg Documented By: AMS Code Status & VTE Plan Code Status FULL CODE Supervising Physician Co-Signing Physician Notes Patient was seen and examined with Dorothy POLO at bedside. Chart reviewed. Case discussed with Dorothy POLO and agree with the documentation above and made appropriate changes wherever necessary. On exam- General: Sitting comfortably in bed, not in distress, on room air HEENT: EOMI, ELPIDIO, MMM Chest: Clear breath sounds bilaterally, no wheezes or crackles CVS: Regular rate and rhythm, normal heart sounds, no murmur Abdomen: Soft, non tender, not distended, normal bowel sounds Neuro: Awake, alert, oriented to self. No pronator drift. CN grossly intact. Strength 5/5 on all extremities. Finger nose test intact bilaterally. Speech fluent. Gait not checked. Extremities: No cyanosis, clubbing or edema MSK: No tenderness (1) Altered mental status Altered mental status type: unspecified Qualified Code(s): R41.82 - Altered mental status, unspecified
[2023-11-26] MEDS: SODIUM CHLORIDE 0.9% 1,000 ML IV SCH ×2 (13:47→15:35)
[2023-11-26 14:23] LABS: Base Excess VBG -3.9 mEq/L; HCO3 VBG 22 mmol/L; Oxygen Saturation VBG 67.2 %; PCO2 VBG 40 mmHg (38-50); PO2 VBG 37 mmHg; pH VBG 7.34 (7.36-7.41)
[2023-11-26 14:48] LABS: Adenovirus PCR Not Detected (NotDetected); Bordetella parapertussis PCR Not Detected (NotDetected); Bordetella pertussis PCR Not Detected (NotDetected); Chlamydia pneumoniae PCR Not Detected (NotDetected); Coronavirus 229E PCR Not Detected (NotDetected); Coronavirus CoV-2 (COVID19)PCR Not Detected (NotDetected); Coronavirus HKU1 PCR Not Detected (NotDetected); Coronavirus NL63 PCR Not Detected (NotDetected); Coronavirus OC43PCR Not Detected (NotDetected); Human Metapneumovirus PCR Not Detected (NotDetected); Influenza A PCR Not Detected (NotDetected); Influenza B PCR Not Detected (NotDetected); Mycoplasma pneumoniae PCR Not Detected (NotDetected); Parainfluenza Virus 1 PCR Not Detected (NotDetected); Parainfluenza Virus 2 PCR Not Detected (NotDetected); Parainfluenza Virus 3 PCR Not Detected (NotDetected); Parainfluenza Virus 4 PCR Not Detected (NotDetected); Respiratory Syncytial VirusPCR Not Detected (NotDetected); Rhinovirus/Enterovirus PCR DETECTED (NotDetected)
[2023-11-26] MEDS: cefTRIAXone SODIUM 2,000 MG/50 ML BAG IV STA (15:00)
--- NOTE | 2023-11-26 15:10 | Magnetic Resonance Report ---
Brain MRI WITHOUT CONTRAST HISTORY: Altered mental status. Stroke symptoms. TECHNIQUE: Multiplanar multisequence MRI of the brain was performed without the use of contrast. COMPARISON STUDY: Head CT 11/26/2023. FINDINGS: Multiple small foci of restricted diffusion seen within the left frontal lobe primarily inv olving the left superior frontal gyrus. Dominant focus on image 19 measures 18 mm. This is consistent with an acute left CHARLES territory infarct. No acute hemorrhage or midline shift. The midline structur es are intact. Mild atrophy and mild microvascular ischemic changes are noted. There is mild edema as sociated with the acute left frontal lobe infarcts. The major vascular flow voids at the skull base a re maintained. The orbits demonstrate bilateral lens replacement. The mastoid air cells are clear. Mi ld mucosal thickening within the ethmoid air cells and maxillary sinuses. No intracranial mass identi fied. Atrophy and mild microvascular ischemic changes are noted. There is an old small left cerebella r infarct. IMPRESSION: 1. Multiple small foci of restricted diffusion seen within the left frontal lobe primarily involving the left superior frontal gyrus. This is consistent with an acute left CHARLES territory infarct. 2. 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 ACT 112: Negative or not required by law. Electronically signed by: Endy Luz M.D. 11/26/2023 3:08 PM
[2023-11-26] MEDS ORDERED: ACETAMINOPHEN 325 MG TAB PO PRN (15:19)
[2023-11-26] MEDS ORDERED: CARBOHYDRATES FOR HYPOGLYCEMIA PO PRN (15:19)
[2023-11-26] MEDS ORDERED: GLUCOSE 40% GEL 15 GM TUBE PO PRN (15:19)
[2023-11-26] MEDS ORDERED: GLUCAGON FOR INJ 1 MG VIAL SQ PRN (15:19)
[2023-11-26] MEDS ORDERED: hydrALAZINE HCL 20 MG/ML VIAL IV PRN (15:19)
[2023-11-26] MEDS ORDERED: POLYETHYLENE (MIRALAX) 17 GM PACK PO PRN (15:19)
[2023-11-26] MEDS ORDERED: ALBUTEROL HFA 8 GM INHALER INH PRN (15:19)
[2023-11-26] MEDS ORDERED: DEXTROSE 50% 50 ML SYRINGE IV PRN (15:19)
[2023-11-26] MEDS ORDERED: PROMETHAZINE HCL 6.25 MG in SODIUM CHLORIDE 0.9% 50 ML IV PRN (15:19)
[2023-11-26] MEDS ORDERED: GLUCOSE 10 TAB/TUBE PO PRN (15:19)
[2023-11-26] MEDS: cefTRIAXone SODIUM 2,000 MG/50 ML BAG IV SCH (15:35)
[2023-11-26] MEDS ORDERED: PHARMACIST DISCHARGE MED REC CONSULT PRN (15:57)
[2023-11-26] MEDS ORDERED: LABETALOL HCL IV 5 MG/ML 20ML IV PRN (16:13)
[2023-11-26] MEDS: ASPIRIN 300 MG SUPP PR ONE (17:11)
[2023-11-26] MEDS: TICAGRELOR 90 MG TAB PO STA ×2 (17:37→20:45)
[2023-11-26] MEDS: INSULIN ASPART PER UNIT CHARGE SC SCH (17:43)
[2023-11-26] MEDS: ATORVASTATIN 40 MG TAB PO STA (17:43)
[2023-11-26] MEDS ORDERED: Nursing to Pharmacy Communication SCH (17:45)
[2023-11-26] MEDS: ONDANSETRON INJ 2 MG/ML 2 ML VIAL ONE (19:15)
[2023-11-26] MEDS: ONDANSETRON INJ 2 MG/ML 2 ML VIAL IV STA (19:19)
--- NOTE | 2023-11-26 20:09 | Magnetic Resonance Report ---
NECK MRA without contrast HISTORY: acute stroke TECHNIQUE: [id number] MRA of the neck was performed without contrast according to standard [facility] protocol. All measurements were calculated based on NASCET criteria. COMPARISON STUDY: None. FINDINGS: The aortic arch and proximal great vessels are suboptimally assessed due to the motion roshni fact but likely patent. There is no significant stenosis, occlusion, or dissection identified within the bilateral common carotid, internal carotid, or vertebral arteries. There is a hypoplastic right vertebral artery. IMPRESSION: No significant stenosis, occlusion, or dissection identified within the carotid or vertebral arteries . ACT 112: Negative or not required by law. Electronically signed by: Endy Luz M.D. 11/26/2023 8:08 PM
--- NOTE | 2023-11-26 20:09 | Magnetic Resonance Report ---
Brain MRA HISTORY: Stroke symptoms. TECHNIQUE: 3-D [id number] MRA of the brain was performed without contrast. COMPARISON STUDY: None. FINDINGS: Visualized intracranial internal carotid arteries, distal vertebral arteries, and basilar a rtery are widely patent. There is no significant stenosis, occlusion, or aneurysm seen within the nuria ateral MCAs or shaft headman. There is a hypoplastic distal right vertebral artery. Incidental note is made of a persistent right posterior circulation. Possible occlusion versus motion artifact within a d istal branch of the left CHARLES best seen on image 20 of series 3. This may correspond to the left CHARLES t erritory infarct. The right CHARLES is widely patent. IMPRESSION: Possible occlusion versus motion artifact within a distal branch of the left CHARLES which may correspond to the left CHARLES territory infarct. ACT 112: Negative or not required by law. Electronically signed by: Endy Luz M.D. 11/26/2023 8:08 PM
[2023-11-26] MEDS ORDERED: ATORVASTATIN 40 MG TAB PO SCH ×2 (21:00)
[2023-11-26] MEDS ORDERED: amLODIPine BESYLATE 5 MG TAB PO SCH (21:00)
[2023-11-26] MEDS ORDERED: TICAGRELOR 90 MG TAB PO SCH (21:00)
--- NOTE | 2023-11-26 23:25 | CT Scan Report ---
Exam(s): CT HEAD Without Contrast EXAM: CT Head Without Intravenous Contrast CLINICAL HISTORY: Reason for exam: stroke. TECHNIQUE: Axial computed tomography images of the head/brain without intravenous contrast. CTDI is 37.42 mGy and DLP is 546.36 mGy-cm. Automated exposure control was utilized for the study. A dose lowering technique was utilized adhering to the principles of ALARA. COMPARISON: Prior brain MRI from November 26, 2023. FINDINGS: Brain: There is a small area of edema in the left frontal lobe. No hemorrhage. No significant white matter disease. No edema. Ventricles: Moderate ventriculomegaly. Bones/joints: Unremarkable. No acute fracture. Soft tissues: Unremarkable. Sinuses: Chronic ethmoid sinusitis. No acute sinusitis. Mastoid air cells: Unremarkable as visualized. No mastoid effusion. IMPRESSION: Findings concerning for acute ischemic injury in the left frontal lobe without evidence of hemorrhagic transformation. Electronically signed by: Christine Wilkerson MD 11/26/23 23:24 PM
--- NOTE | 2023-11-27 01:19 | CT Scan Report ---
Exam(s): CT HEAD Without Contrast EXAM: CT Head Without Intravenous Contrast CLINICAL HISTORY: Reason for exam: worsening acute stroke. TECHNIQUE: Axial computed tomography images of the head/brain without intravenous contrast. CTDI is 34.3 mGy and DLP is 546.36 mGy-cm. Automated exposure control was utilized for the study. A dose lowering technique was utilized adhering to the principles of ALARA. COMPARISON: Prior brain MRI from November 26, 2023. FINDINGS: Brain: There is mild edema in the left frontal lobe. No hemorrhage. No significant white matter disease. Ventricles: Moderate ventriculomegaly. Bones/joints: Unremarkable. No acute fracture. Soft tissues: Unremarkable. Sinuses: Chronic ethmoid sinusitis. No acute sinusitis. Mastoid air cells: Unremarkable as visualized. No mastoid effusion. IMPRESSION: Expected interval evolution of left frontal lobe ischemic injury without evidence of hemorrhagic transformation. Electronically signed by: Christine Wilkerson MD 11/27/23 01:19 AM
[2023-11-27] MEDS: INSULIN ASPART PER UNIT CHARGE SC SCH ×2 (06:09→16:45)
[2023-11-27 06:30] LABS: Basophils # (auto) 0.05 K/uL (0.00-0.20); Basophils % (auto) 0.7 %; Eosinophils # (auto) 0.13 K/uL (0.00-0.50); Eosinophils % (auto) 1.7 %; Hematocrit (blood only) 32.9 % (37.0-47.0); Hemoglobin 10.5 g/dl (12.0-16.0); Immature Granulocytes # (auto) 0.02 K/uL (0.01-0.20); Immature Granulocytes % (auto) 0.3 %; Lymphocytes # (auto) 0.89 K/uL (1.20-3.40); Lymphocytes % (auto) 11.7 %; Mean Corpuscular Hemoglobin 26.9 pg (25.0-34.0); Mean Corpuscular Hgb Conc 31.9 g/dL (32.0-36.0); Mean Corpuscular Volume 84.4 fL (80.0-100.0); Mean Platelet Volume 10.4 fL (9.4-12.4); Monocytes % (auto) 7.9 %; Neutrophils # (auto) 5.92 K/uL (1.40-6.50); Neutrophils % (auto) 77.7 %; Platelet Count 220 K/uL (130-400); RDW Coefficient of Variation 13.4 % (11.5-14.5); RDW Standard Deviation 41.1 fL (36.4-46.3); White Blood Count 7.61 K/ul (4.8-10.8)
[2023-11-27 06:43] LABS: Albumin Level 3.1 gm/dl (3.4-5.0); BUN Creatinine Ratio 15.3 (10-20); Bilirubin,Total 0.5 mg/dl (0.2-1.0); Calcium 8.5 mg/dl (8.6-10.3); Creatinine Clr Calc Pharmacy 22.9 ml/min; Est GFR (Non-African American) 22.4 ml/min; Globulin 3.2 gm/dl (2.5-4.0); Magnesium 1.8 mg/dl (1.7-2.4); Phosphorus 3.8 mg/dl (2.5-4.9); Potassium 4.2 mmol/L (3.5-5.1); Total Protein 6.3 gm/dl (6.0-8.3)
[2023-11-27 07:16] LABS: Estimated Average Glucose 223 mg/dl; Hemoglobin A1C 9.4 % (4.5-5.6)
--- NOTE | 2023-11-27 07:24 | Electrocardiogram Report ---
Test Reason : Blood Pressure : / mmHG Vent. Rate : 085 BPM Atrial Rate : 085 BPM P-R Int : 254 ms QRS Dur : 142 ms QT Int : 420 ms P-R-T Axes : 078 -33 001 degrees QTc Int : 499 ms Sinus rhythm with 1st degree A-V block with Premature atrial complexes with Aberrant conduction Left axis deviation Right bundle branch block Abnormal ECG When compared with ECG of 26-NOV-2023 09:58, Premature ventricular complexes are no longer Present Aberrant conduction is now Present Right bundle branch block has replaced Non-specific intra-ventricular conduction block Confirmed by Toby Vallejo ([id number]) on 11/27/2023 7:24:13 AM Referred By: REFERRED SELF Confirmed By:Dallin Vallejo
--- NOTE | 2023-11-27 08:04 | Hospitalist Progress Note ---
Date of Service November 27, 2023 Assessment & Plan (1) Altered mental status: (2) Abnormal urinalysis: (3) Elevated troponin: (4) CKD (chronic kidney disease), stage III: (5) Hypertension: (6) Dyslipidemia: (7) Hx of CABG: (8) Diabetes mellitus, type II: Plan Ms. Francie Baker is a 78y/o F with PMHx of DM type II, diabetic retinopathy both eyes and macular edema, dyslipidemia, history of thyroid nodule, CAD s/p CABG x 4, HTN, persistent atrial fibrillation, CKD stage III, rheumatoid arthritis on chronic steroid therapy, chronic anemia, history of myocardial infarction and other problems listed below who is admitted for acute encephalopathy and left charles stroke with marked RUE/RLE hemiplegia As of 11/26, hemiplegia seems resolved and patient conversational and pleasant. Concern for questionable vegetation on mitral valve per Cardiology. #Acute left CHARLES infarct c/b cerebral edema #Right hemiplegia resolved #Chronic right facial droop MRI brain 1. Multiple small foci of restricted diffusion seen within the left frontal lobe primarily involving the left superior frontal gyrus. This is consistent with an acute left CHARLES territory infarct. 2. 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 Cards consult for further recommendations Continue DAPT and statin #Hypertensive urgency #Hypertension, blood pressure above goal s/p IV management with pressures in acute range >200s Will reintroduce oral therapy for targeted control -Lisinopril 10mg qam -Resume qhs amlodipine 5mg #Dyslipidemia continue statin #Rheumatoid arthritis continue prednisone #Abnormal UA continue empiric ceftriaxone pending final urine clx #DM-2 uncontrolled with diabetic retinopathy- A1C 9.4% nutrition educator consulted Continue lantus, humalog. Adjust as indicated #CKD4- Cr elevated from baseline, currently 2.56. Resume lisinopril for now Resume amlodipine Will have iv hlz prn. DVT ppx- sc heparin Dispo- Medsurg tele Full code per family Admission and Anticipated Discharge Date Admission Date: November 26, 2023 Subjective Tele reviewed rates 70-80s, sinus with PVCs Patient ambulating with assistance in room, at bedside & daughter on phone Patient states she has felt a bit under the weather, but does not recall the last day She states today she is without chest pain, headache, subjective fever or chills and otherwise feels well. She is alert to self, place, and location/year right facial droop present however, chronic per at bedside reports some sensation of dizziness with ambulation, but other states she felt fairly steady on her feet Physical Exam Constitutional: WD/WN, vitals as above Respiratory: normal respiratory effort, lungs clear to auscultation Cardiovascular: RRR, no murmur, no edema Gastrointestinal (Abdomen): normal bowel sounds, soft, nontender, no hepatosplenomegaly Neurologic: right nasolabial fold flattening otherwise cranial nerves intact, strength 5/5 in all extremities Results & Data Results & Data Vital Signs (Past 12 Hours) Vital Signs Temp Pulse Pulse Resp BP BP Pulse Ox 11/27/23 07:44 80 11/27/23 03:30 36.7 C 80 18 177/84 H 95 11/26/23 23:49 36.5 C 83 18 172/84 H 95 11/26/23 22:01 175/87 H 11/26/23 21:41 79 11/26/23 20:44 36.8 C 85 16 176/101 H 98 11/26/23 20:29 89 11/26/23 20:05 83 18 172/105 H 94 O2 Del Method 11/27/23 07:44 11/27/23 03:30 Room Air 11/26/23 23:49 Room Air 11/26/23 22:01 11/26/23 21:41 11/26/23 20:44 Room Air 11/26/23 20:29 11/26/23 20:05 Room Air Laboratory Results Short CBC 11/27/23 Range/Units 06:05 WBC 7.61 (4.8-10.8) K/ul Hgb 10.5 L (12.0-16.0) g/dl Hct 32.9 L (37.0-47.0) % Plt Count 220 (130-400) K/uL BMP 11/27/23 06:06 Sodium 140 Potassium 4.2 Chloride 110 H Carbon Dioxide 25 BUN 32 H Creatinine 2.09 H D Glucose 163 H Calcium 8.5 L Liver Function 11/27/23 Range/Units 06:06 Total Bilirubin 0.5 (0.2-1.0) mg/dl AST 23 (13-39) U/L ALT 13 (7-52) U/L Alkaline Phosphatase 80 (34-104) U/L Albumin 3.1 L (3.4-5.0) gm/dl Urine 11/26/23 Range/Units 11:48 Urine Color Yellow Urine Appearance Cloudy A (Clear) Urine pH 5.5 (4.5-7.5) Ur Specific [place] 1.014 (1.000-1.030) Urine Protein 3+ H (Negative) Urine Glucose (UA) Negative (Negative) Medications Administered Home Medications Medication Instructions Recorded Confirmed Last Taken amlodipine 5 mg tablet 5 mg PO HS 01/04/23 11/26/23 Unknown aspirin 81 mg chewable tablet 81 mg PO DAILY 01/04/23 11/26/23 Unknown atorvastatin 40 mg tablet 40 mg PO HS 01/04/23 11/26/23 Unknown biotin 1 mg tablet 1 mg PO DAILY 01/04/23 11/26/23 Unknown cinnamon bark 500 mg capsule 500 mg PO DAILY 01/04/23 11/26/23 Unknown (Cinnamon) coenzyme Q10 100 mg capsule 100 mg PO DAILY 01/04/23 11/26/23 Unknown (CoQ-10) cyanocobalamin (vitamin B-12) 1,000 mcg PO DAILY 01/04/23 11/26/23 Unknown 1,000 mcg tablet (Vitamin B-12) faricimab-svoa 6 mg/0.05 mL 6 mg intravitreal DIRECTED PRN 01/04/23 11/26/23 Unknown intravitreal solution Macular Edema insulin glargine 100 unit/mL (3 42 unit subcut QAM 01/04/23 11/26/23 01/04/23 08:00 mL) subcutaneous pen (Basaglar KwikPen U-100 Insulin) isosorbide mononitrate 60 mg 60 mg PO DAILY 01/04/23 11/26/23 01/04/23 tablet,extended release 24 hr milk thistle 175 mg tablet 175 mg PO DAILY 01/04/23 11/26/23 Unknown prednisone 5 mg tablet 2.5 mg PO DAILY 01/04/23 11/26/23 01/04/23 vit C 250 mg-vit E 90 mg-zinc 40 1 tab PO DAILY 01/04/23 11/26/23 Unknown mg-copper 1 [id number] capsule (PreserVision AREDS-2) insulin aspart U-100 100 unit/mL 8 unit subcut TID 06/07/23 11/26/23 Unknown subcutaneous solution (Novolog U-100 Insulin aspart) lisinopril 10 mg tablet 10 mg PO DAILY #90 tabs 10/05/23 11/26/23 Unknown calcitriol 0.25 mcg capsule 0.25 mcg PO .COMPLEX #24 caps 11/20/23 11/26/23 Unknown cholecalciferol (vitamin D3) 10 20 mcg PO DAILY 11/20/23 11/26/23 Unknown mcg (400 unit) tablet (Vitamin D3) albuterol sulfate 90 mcg/actuation 1 inh inhalation Q4H PRN Shortness 11/26/23 11/26/23 Unknown aerosol inhaler Of Breath Or Wheezing Active Medications Generic Name Dose Route Start Last Admin Trade Name Freq PRN Reason Stop Dose Admin Aspirin 81 mg 11/27/23 09:00 11/27/23 08:12 Aspirin 81 Mg Chew PO 12/27/23 08:59 81 mg DAILY ADELA Administration Calcitriol 0.25 mcg 11/27/23 09:00 11/27/23 08:12 Calcitriol 0.25 Mcg Capsule PO 12/27/23 08:59 0.25 mcg MoFr@0900 ADELA Administration Sodium Chloride 1,000 mls @ 80 mls/hr 11/26/23 15:30 11/27/23 04:13 Nss IV 12/26/23 15:29 80 mls/hr .[id number] ADELA Administration Ceftriaxone Sodium 2,000 mg in 50 mls @ 100 mls/hr 11/26/23 16:00 11/26/23 16:20 Rocephin IV 12/06/23 15:59 Infused Q24H ADELA Infusion Insulin Aspart 0 units 11/27/23 06:00 11/27/23 06:09 Insulin Aspart Per Unit Charge SC 12/27/23 05:59 Not Given Q6 ADELA Insulin Glargine 30 units 11/27/23 09:00 11/27/23 08:36 Lantus Per Unit Charge SQ 12/27/23 08:59 30 units QAM ADELA Administration Isosorbide Mononitrate 60 mg 11/27/23 09:00 11/27/23 08:13 Isosorbide [place] Extended Rel 60 Mg Tabcr PO 12/27/23 08:59 60 mg DAILY ADELA Administration Lisinopril 10 mg 11/27/23 09:00 11/27/23 08:37 Lisinopril 10 Mg Tab PO 12/27/23 08:59 10 mg DAILY ADELA Administration Multivitamins/Minerals 1 tab 11/27/23 09:00 11/27/23 08:14 Cerovite Adv Formula Tab PO 12/27/23 08:59 1 tab DAILY ADELA Administration Prednisone 2.5 mg 11/27/23 09:00 11/27/23 08:14 Prednisone 2.5 Mg Tab PO 12/27/23 08:59 2.5 mg DAILY ADELA Administration Ticagrelor 90 mg 11/27/23 09:00 11/27/23 08:36 Ticagrelor 90 Mg Tab PO 12/27/23 08:59 90 mg BID ADELA Administration Vitamin D 20 mcg 11/27/23 09:00 11/27/23 08:13 Cholecalciferol 10 Mcg (400 Units) Tab PO 12/27/23 08:59 20 mcg DAILY ADELA Administration (1) Altered mental status Altered mental status type: unspecified Qualified Code(s): R41.82 - Altered mental status, unspecified
[2023-11-27] MEDS: ASPIRIN 81 MG CHEW PO SCH (08:12)
[2023-11-27] MEDS: CALCITRIOL 0.25 MCG CAPSULE PO SCH (08:12)
[2023-11-27] MEDS: ISOSORBIDE MONO EXTENDED REL 60 MG TABCR PO SCH (08:13)
[2023-11-27] MEDS: CHOLECALCIFEROL 10 MCG (400 UNITS) TAB PO SCH (08:13)
[2023-11-27] MEDS: predniSONE 2.5 MG TAB PO SCH (08:14)
[2023-11-27] MEDS: CEROVITE ADV FORMULA TAB PO SCH (08:14)
[2023-11-27] MEDS: LANTUS PER UNIT CHARGE SQ SCH (08:36)
[2023-11-27] MEDS: TICAGRELOR 90 MG TAB PO SCH (08:36)
[2023-11-27] MEDS: lisinopril 10 MG TAB PO SCH (08:37)
--- NOTE | 2023-11-27 10:27 | Cardiology Consultation ---
Date of Consultation November 27, 2023 Assessment & Plan (1) Ischemic stroke of frontal lobe: (2) Hypertensive urgency: Plan Although among the patient's outpatient problems listed in her [facility] chart includes persistent atrial fibrillation, she actually had lone atrial fibrillation noted at the time of her bypass surgery in 2011 without recurrence. She has not been anticoagulation in the meantime, and presents today in sinus rhythm. Patient with findings on MRI of the brain suggestive of possible cardioembolic stroke. Fortunately her mental status has improved back to baseline and her blood pressure although still elevated has trended down. Her prior to hospital treatment amlodipine is on hold to allow some degree of permissive hypertension, but I would likely err on the side of resuming this with her planned evening dose. She has already received her prior to hospital treatment with lisinopril and isosorbide mononitrate today. With regards to her mild elevation in troponin, I do not think this is suggestive of an acute coronary syndrome, it is not surprising given her findings of stroke, moderate concentric left ventricular hypertrophy and significant hypertension and is likely related to myocardial strain in the setting of fixed coronary heart disease. The patient was found to have a 0.6 cm rubbery 0.75 cm mobile echodensity on the left ventricular aspect of the mitral valve apparatus suggestive of mobile calcification of the use of mitral valve apparatus versus vegetation. The patient is immunocompromised as she is on chronic prednisone therapy for rheumatoid arthritis and also has diabetes. Recommend evaluation with blood cultures. Agree with plans for dual antiplatelet therapy with aspirin and Brilinta, ongoing treatment with atorvastatin 80 mg daily. Of note, patient previously been treated with carvedilol but this was discontinued at the time of her December, admission to [facility] for acute renal insufficiency due to findings of bradycardia at that time. If necessary, can consider resuming beta-dereje with low-dose metoprolol succinate however at present, heart rate is stable without tachycardia. DVT prophylaxis: Agree with plans for subcutaneous heparin. History of Present Illness Attending Physician: Mi Warren MD History of Present Illness Francie Baker is a 78 year old female seen in cardiology consultation per the request of Dr Murrieta for the evaluation of elevation in troponin, change in mental status and stroke. Patient well known to the undersigned as I follow her as an outpatient. Her , , was present during my assessment. Patient initially presented due to family having observed her to have a change in mental status. Initial noncontrast CT of the brain was negative for acute stroke. CT angiogram not performed due to concerns of renal insufficiency. MRI of the brain and an MRA of the head and neck vessels ultimately performed revealing evidence of multiple small foci of restricted diffusion within the left frontal lobe primarily involving the left superior frontal gyrus consistent with an acute left CHARLES territory infarct. Old small left cerebellar infarct also noted no significant stenosis occlusion or dissection identified within the carotid or vertebral arteries. A possible occlusion versus motion artifact was noted at the distal branch of the left CHARLES which corresponded to the left CHARLES territory infarct. A code purple alert was initiated on the patient last evening at 1845 for worsening confusion, blood pressure at that time was 221/97. At present the blood pressure has improved down to 172/92. Her mental status has improved significantly. Is back to her usual baseline per her . No focal deficits noted on neurologic exam at present. Cardiology problem list: 1.Chronic coronary heart disease status post off pump CABG x4 in September 2011 with CHEN to LAD, SVG to OM, sequential graft to the PDA and right posterolateral branch 2.Recurrent angina with circumflex territory ischemia on nuclear stress testing leading to PCI, drug-eluting stent of the obtuse marginal 1 in January 2012, the SVG to OM was occluded at that time 3.Nonischemic nuclear stress test 2015 4.Hypertension, blood pressure above goal 5.Dyslipidemia 6.Rheumatoid arthritis 7.Uncontrolled type 2 diabetes mellitus Allergies Allergy/AdvReac Type Severity Reaction Status Date / Time nitrofurantoin Allergy Hives Verified 11/20/23 10:39 [From Macrobid] sulfamethoxazole AdvReac RENETTA Verified 11/20/23 10:39 [From Bactrim] trimethoprim [From Bactrim] AdvReac RENETTA Verified 11/20/23 10:39 Home Medications Medication Instructions Recorded Confirmed Type amlodipine 5 mg tablet 5 mg PO HS 01/04/23 11/26/23 History aspirin 81 mg chewable tablet 81 mg PO DAILY 01/04/23 11/26/23 History atorvastatin 40 mg tablet 40 mg PO HS 01/04/23 11/26/23 History biotin 1 mg tablet 1 mg PO DAILY 01/04/23 11/26/23 History cinnamon bark 500 mg capsule 500 mg PO DAILY 01/04/23 11/26/23 History (Cinnamon) coenzyme Q10 100 mg capsule 100 mg PO DAILY 01/04/23 11/26/23 History (CoQ-10) cyanocobalamin (vitamin B-12) 1,000 mcg PO DAILY 01/04/23 11/26/23 History 1,000 mcg tablet (Vitamin B-12) faricimab-svoa 6 mg/0.05 mL 6 mg intravitreal DIRECTED PRN 01/04/23 11/26/23 History intravitreal solution Macular Edema insulin glargine 100 unit/mL (3 42 unit subcut QAM 01/04/23 11/26/23 History mL) subcutaneous pen (Basaglar KwikPen U-100 Insulin) isosorbide mononitrate 60 mg 60 mg PO DAILY 01/04/23 11/26/23 History tablet,extended release 24 hr milk thistle 175 mg tablet 175 mg PO DAILY 01/04/23 11/26/23 History prednisone 5 mg tablet 2.5 mg PO DAILY 01/04/23 11/26/23 History vit C 250 mg-vit E 90 mg-zinc 40 1 tab PO DAILY 01/04/23 11/26/23 History mg-copper 1 [id number] capsule (PreserVision AREDS-2) insulin aspart U-100 100 unit/mL 8 unit subcut TID 06/07/23 11/26/23 History subcutaneous solution (Novolog U-100 Insulin aspart) lisinopril 10 mg tablet 10 mg PO DAILY #90 tabs 10/05/23 11/26/23 Rx calcitriol 0.25 mcg capsule 0.25 mcg PO .COMPLEX #24 caps 11/20/23 11/26/23 Rx cholecalciferol (vitamin D3) 10 20 mcg PO DAILY 11/20/23 11/26/23 History mcg (400 unit) tablet (Vitamin D3) albuterol sulfate 90 mcg/actuation 1 inh inhalation Q4H PRN Shortness 11/26/23 11/26/23 History aerosol inhaler Of Breath Or Wheezing Patient History Medical History Rheumatoid arthritis Thyroid nodule PCP MONITORS "SMALL" Retinopathy RECIEVES SHOTS TO TREAT Myocardial Infarction 10 YEARS AGO Hyperlipidemia History of COVID-19 04/2021>CONGESTION/FATIGUE *RESOLVED Left radial head fracture Acute kidney injury Rheumatoid arthritis Surgical History History of ankle surgery RT History of colonoscopy History of tooth extraction History of heart artery stent 5 MONTHS AFTER CABG>HEART CATH WITH 1 STENT PLACED History of cardiac cath NO STENTS/BEFORE CABG Family History Grandmother (Maternal) Family history of diabetes mellitus Other No family history of adverse response to anesthesia Social History Smoking Status: Never smoker Second Hand Exposure: Yes (childhood); Do You Dip or Chew Tobacco: No; Tobacco Cessation Education Requested by Patient: No Hx Alcohol Use: No Hx Substance Use: No Preferred Language: Kiswahili Communication Ability: Impaired Communication Ability Comment: change mental status, slurred speach Visual Impairment: No Limitations Hearing Ability: Normal Knobber Required: No Beliefs That Will Affect Care: None marital status: Single Current Living Situation: Spouse current occupational status: retired Feels Safe at Home: Yes Safety Concerns: Feels Safe At This Time Diet: regular Physical Activity Frequency: Does not Exercise Seatbelt Use: always Assistive Devices: None Review of Systems Review of Systems: All systems reviewed & are unremarkable except as noted in HPI & below Physical Exam Constitutional: WD/WN, vitals as above Eyes: PERRL, conjunctivae normal, anicteric sclerae Respiratory: normal respiratory effort, lungs clear to auscultation Cardiovascular: RRR, no murmur, no edema Gastrointestinal (Abdomen): normal bowel sounds, soft, nontender, no hepatosplenomegaly Neurologic: PERRL, EOMI, accommodation nl, no face palsy, no dysarthria Psychiatric: A+Ox3, euthymic affect Results & Data Vital Signs (Past 12 Hours) Vital Signs Temp Pulse Pulse Resp BP Pulse Ox O2 Del Method 11/27/23 08:02 Room Air 11/27/23 07:44 80 11/27/23 03:30 36.7 C 80 18 177/84 H 95 Room Air 11/26/23 23:49 36.5 C 83 18 172/84 H 95 Room Air Laboratory Results Cardiac Enzymes 11/26/23 11/27/23 11/27/23 Range/Units 17:51 00:28 06:06 AST 23 (13-39) U/L Troponin I High Sens 122.5 H* D 217.1 H* D 232.7 H* (0-14) pg/ml Lipids 11/27/23 Range/Units 06:06 Triglycerides 160 H (0-150) mg/dl Cholesterol 159 (0-200) mg/dl HDL Cholesterol 40 mg/dl Cholesterol/HDL Ratio 4.0 (0-5) CBC 11/27/23 Range/Units 06:05 WBC 7.61 (4.8-10.8) K/ul RBC 3.90 L (4.20-5.40) M/uL Hgb 10.5 L (12.0-16.0) g/dl Hct 32.9 L (37.0-47.0) % Plt Count 220 (130-400) K/uL Neut # (Auto) 5.92 (1.40-6.50) K/uL Lymph # (Auto) 0.89 L (1.20-3.40) K/uL [place] # (Auto) 0.60 H (0.11-0.59) K/uL Eos # (Auto) 0.13 (0.00-0.50) K/uL Baso # (Auto) 0.05 (0.00-0.20) K/uL Comprehensive Metabolic Panel 11/27/23 Range/Units 06:06 Sodium 140 (136-145) mmol/L Potassium 4.2 (3.5-5.1) mmol/L Chloride 110 H (98-107) mmol/L Carbon Dioxide 25 (21-32) mmol/L BUN 32 H (6-23) mg/dl Creatinine 2.09 H D (0.6-1.2) mg/dl Glucose 163 H (70-99(Fasting)) mg/dl Calcium 8.5 L (8.6-10.3) mg/dl AST 23 (13-39) U/L ALT 13 (7-52) U/L Alkaline Phosphatase 80 (34-104) U/L Total Protein 6.3 (6.0-8.3) gm/dl Albumin 3.1 L (3.4-5.0) gm/dl Intake and Output 11/26/23 11/27/23 11/27/23 22:59 06:59 14:59 Intake Total 170 / 2070 1400 / 0 1064.667 / 1064.667 Balance 2069 / 2069 1064.667 / 1064.667 Intake: IV 170 / 1670 1000 / 1670 674.667 / 674.667 Sodium Chloride 0.9% 1,000 ml @ 120 / 1120 1000 / 1120 674.667 / 674.667 80 mls/hr IV .[id number] ADELA Rx#: [id number] SODIUM 2,000 mg In 50 / 50 50 ml @ 100 mls/hr IV Q24H ADELA Rx#:[id number] Oral 400 / 400 390 / 390 Other: # Unmeasured Voids 2 1 Weight 80.1 kg Weight Measurement Method Built in [facility] Diagnostic Findings EKG tracings performed on arrival on 11/26/2023 and again today reviewed independently revealing sinus rhythm in the 80s with first-degree AV block, righ t bundle branch block, occasional PVCs. EKG is relatively unchanged compared to previous baseline with no significant repolarization abnormalities to suggest ischemia. Telemetry reveals sinus rhythm. Echocardiogram performed today 11/27/2023 and interpreted independently: Sinus rhythm was present during echocardiogram. Moderate concentric left ventricular hypertrophy present, LVEF in the range of 55 to 60% with no regional wall motion abnormalities. Severe mitral annular calcification is present. Mild to moderate mitral regurgitation is present. There is no mitral stenosis There is a 0.6 cm x 0.75 cm mobile echodensity on the ventricular aspect of the mitral valve adjacent to an area of focal severe mitral annular calcification that is suggestive of a possible vegetation versus mobile calcification of the mitral valve apparatus. Compared to the report of the previous echocardiogram study performed at [facility] in December, severe mitral antitussive occasion was noted at that time. Due to technical limitation, the images obtained at the time of the 2022 study cannot be reviewed direct comparison at present.
[2023-11-27] MEDS ORDERED: cefTRIAXone SODIUM 2,000 MG/50 ML BAG IV SCH (14:00)
[2023-11-27] MEDS ORDERED: Nursing to Pharmacy Communication SCH (16:30)
--- NOTE | 2023-11-27 18:30 | Neurology Consultation ---
Date of Consultation November 27, 2023 Assessment & Plan (1) Ischemic stroke of frontal lobe: left CHARLES and MCA distribution stroke likely cardioembolic , due to endcarditis Plan Discontinue Brilinta if okay with cardiology for the risk of hemorrhagic conversion. Continue aspirin 81 mg daily. Plan cardiology consultation. Broad-spectrum antibiotic coverage for endocarditis. Identify and treat as possible source. Repeat stat CT of the head for any changes in mental status. Long-term the patient will need to be on anticoagulation, this would be safe. She is after obtaining a CTA of the head 2 weeks after positive blood cultures Telehealth Consultation Telehealth Information Telehealth Information: I performed this visit using a real-time telehealth connection between my location and the patients location ([facility]). After connecting through interactive tele-video, patient was identified by name and date of and/or wristband check.Patient (or authorized healthcare patient portal representative) was informed that this was a telemedicine visit and it was being conducted confidentially over secure lines. My office door was closed and no one else was present in the room with me.Patient (or authorized healthcare patient portal representative) provided consent to proceed with the visit, expressed an understanding of privacy and security of the telemedicine visit, and gave permission to have a hospital patient portal representative in the room in order to assist with the visit and to conduct portions of the visit, as needed. I informed the patient (or authorized healthcare patient portal representative) that I reviewed their record and presented the opportunity for them to ask any questions regarding the visit today. The patient agreed to participate. History of Present Illness Reason for Consultation: acute ischemic stroke Requesting Physician: Mi Warren MD Attending Physician: Mi Warren MD History of Present Illness Francie Baker is a 78-year-old female patient with a PMH of obesity, uncontrolled diabetes, coronary artery disease status post PCI, A-fib, CKD, HTN, history of CABG, coronary artery disease, DM. The patient presented to the emergency room with acute onset of confusion and slurred speech, noticed by family, initially attributed to uncontrolled diabetes or hypoglycemia. The patient has been getting over an upper respiratory illness with cough and possible fever although not measured. The patient did have weakness on the right side however this improved, also rare word finding difficulty and confusion seem to have improved in the hospital Allergies Allergy/AdvReac Type Severity Reaction Status Date / Time nitrofurantoin Allergy Hives Verified 11/20/23 10:39 [From Macrobid] sulfamethoxazole AdvReac RENETTA Verified 11/20/23 10:39 [From Bactrim] trimethoprim [From Bactrim] AdvReac RENETTA Verified 11/20/23 10:39 Home Medications Medication Instructions Recorded Confirmed Type amlodipine 5 mg tablet 5 mg PO HS 01/04/23 11/26/23 History aspirin 81 mg chewable tablet 81 mg PO DAILY 01/04/23 11/26/23 History atorvastatin 40 mg tablet 40 mg PO HS 01/04/23 11/26/23 History biotin 1 mg tablet 1 mg PO DAILY 01/04/23 11/26/23 History cinnamon bark 500 mg capsule 500 mg PO DAILY 01/04/23 11/26/23 History (Cinnamon) coenzyme Q10 100 mg capsule 100 mg PO DAILY 01/04/23 11/26/23 History (CoQ-10) cyanocobalamin (vitamin B-12) 1,000 mcg PO DAILY 01/04/23 11/26/23 History 1,000 mcg tablet (Vitamin B-12) faricimab-svoa 6 mg/0.05 mL 6 mg intravitreal DIRECTED PRN 01/04/23 11/26/23 History intravitreal solution Macular Edema insulin glargine 100 unit/mL (3 42 unit subcut QAM 01/04/23 11/26/23 History mL) subcutaneous pen (Basaglar KwikPen U-100 Insulin) isosorbide mononitrate 60 mg 60 mg PO DAILY 01/04/23 11/26/23 History tablet,extended release 24 hr milk thistle 175 mg tablet 175 mg PO DAILY 01/04/23 11/26/23 History prednisone 5 mg tablet 2.5 mg PO DAILY 01/04/23 11/26/23 History vit C 250 mg-vit E 90 mg-zinc 40 1 tab PO DAILY 01/04/23 11/26/23 History mg-copper 1 [id number] capsule (PreserVision AREDS-2) insulin aspart U-100 100 unit/mL 8 unit subcut TID 06/07/23 11/26/23 History subcutaneous solution (Novolog U-100 Insulin aspart) lisinopril 10 mg tablet 10 mg PO DAILY #90 tabs 10/05/23 11/26/23 Rx calcitriol 0.25 mcg capsule 0.25 mcg PO .COMPLEX #24 caps 11/20/23 11/26/23 Rx cholecalciferol (vitamin D3) 10 20 mcg PO DAILY 11/20/23 11/26/23 History mcg (400 unit) tablet (Vitamin D3) albuterol sulfate 90 mcg/actuation 1 inh inhalation Q4H PRN Shortness 11/26/23 11/26/23 History aerosol inhaler Of Breath Or Wheezing Patient History Medical History Rheumatoid arthritis Thyroid nodule PCP MONITORS "SMALL" Retinopathy RECIEVES SHOTS TO TREAT Myocardial Infarction 10 YEARS AGO Hyperlipidemia History of COVID-19 04/2021>CONGESTION/FATIGUE *RESOLVED Left radial head fracture Acute kidney injury Rheumatoid arthritis Surgical History History of ankle surgery RT History of colonoscopy History of tooth extraction History of heart artery stent 5 MONTHS AFTER CABG>HEART CATH WITH 1 STENT PLACED History of cardiac cath NO STENTS/BEFORE CABG Family History Grandmother (Maternal) Family history of diabetes mellitus Other No family history of adverse response to anesthesia Social History Smoking Status: Never smoker Second Hand Exposure: Yes (childhood); Do You Dip or Chew Tobacco: No; Tobacco Cessation Education Requested by Patient: No Hx Alcohol Use: No Hx Substance Use: No Preferred Language: Slovenian Communication Ability: Impaired Communication Ability Comment: change mental status, slurred speach Visual Impairment: No Limitations Hearing Ability: Normal Customer Complaint Service Supervisor Required: No Beliefs That Will Affect Care: None marital status: Single Current Living Situation: Spouse current occupational status: retired Feels Safe at Home: Yes Safety Concerns: Feels Safe At This Time Diet: regular Physical Activity Frequency: Does not Exercise Seatbelt Use: always Assistive Devices: None Review of Systems Constitutional: Patient denies weight loss, fever, had some chills, and night sweats Eyes: Patient denies change in vision, tearing, pain, and redness ENT: Patient denies pain, bleeding, she has cough Cardiovascular: Patient denies chest pain, palpitation, dyspnea at rest, and dyspnea with exertion Respiratory: Patient denies shortness of breath, cough, wheezing, and productive cough GI: Patient denies reflux, pain, constipation, and diarrhea Skin: Patient denies rash, dryness, and itching Allergies/Immune System: Patient denies rhinorrhea, seasonal allergies, reaction to current MEDS, and joint swelling Endocrine: Patient denies weight loss, weight gain, temperature intolerance, and excessive thirst Neurological: All negative unless mentioned in the HPI Physical Exam General Constitutional: Appearance normally developed Head and face: normocephalic and atraumatic Eyes: no ptosis, no anisocoria, and no dysconjugate gaze Respiratory: normal effort Cardiovascular: regular rhythm and regular rate Abdomen: non distended Skin: no rashes, lesions, or ulcers noted Psychiatric: normal judgement and insight, normal mood, and normal affect NEUROLOGIC EXAMINATION: Mental Status:alert, oriented to time, place, person, normal recent memory, normal remote memory, normal attention span, normal concentration, normal language and normal fund of knowledge Cranial Nerves: CN 2 - no visual defect on confrontation and pupils round, equal, reactive to light CN 3, 4, 6 - extra-ocular movements intact and no nystagmus CN 5 - facial sensation intact CN 7 - no facial asymmetry CN 8 - intact hearing CN 9, 10 - palate symmetric, normal gag CN 11 - good shoulder shrug CN 12 - tongue midline MOTOR: Strength was at least antigravity throughout, Pronator drift was absent and There were no abnormal movements SENSATION: intact and symmetric to pinprick, light touch, vibration and joint position GAIT: stable, no ataxia and can perform tandem walking COORDINATION: no ataxia with finger to nose testing and heel to marcos testing REFLEXES: cannot assess over telemedicine NIH Stroke Scale: 1a. Level of Consciousness: alert = 0 1b. LOC Questions: (month, age): both correct = 0 1c. LOC Commands (open and close eyes, make fist and let go using non-paretic hand): obeys both correctly = 0 2. Best Gaze (eyes open and patient follows examiner's finger or face): normal = 0 3. Visual (visual threat or finger counting in each quadrant): no loss = 0 4. Facial Palsy (show teeth, raise eye brows and squeeze eyes shut, or grimace symmetry in a comatose patient): normal = 0 5a. Motor Arm (extend arm (palms down) to 90 degrees and score drift/movement (10 seconds) - Left: no drift = 0 5b. Motor Arm: (extend arm (palms down) to 90 degrees and score drift/movement (10 seconds) - Right: no drift = 0 6a. Motor Leg (elevate leg 30 degrees and score drift/ movement (5 seconds) - Left: no drift = 0 6b. Motor Leg (elevate leg 30 degrees and score drift/ movement (5 seconds) - Right: no drift = 0 7. Limb Ataxia (finger to nose, heel down marcos): absent = 0 8. Sensory (pin prick to face, arm, trunk and leg, compare side to side): normal = 0 9. Best Language: no aphasia = 0 10. Dysarthria (evaluate speech clarity by patient repeating listed words): normal articulation = 0 11. Extinction and Inattention: no neglect = 0 Total: 0 Results & Data Vital Signs (Past 12 Hours) Vital Signs Temp Pulse Pulse Resp BP Pulse Ox O2 Del Method 11/27/23 16:00 81 11/27/23 15:25 36.8 C 67 17 176/82 H 95 Room Air 11/27/23 11:07 36.7 C 78 18 172/92 H 91 Room Air 11/27/23 08:02 Room Air 11/27/23 07:44 80 Laboratory Results Abnormal lab results 11/26/23 11/26/23 11/26/23 Range/Units 17:51 18:52 20:45 RBC (4.20-5.40) M/uL Hgb (12.0-16.0) g/dl Hct (37.0-47.0) % MCHC (32.0-36.0) g/dL Lymph # (Auto) (1.20-3.40) K/uL Sac # (Auto) (0.11-0.59) K/uL Chloride (98-107) mmol/L BUN (6-23) mg/dl Creatinine (0.6-1.2) mg/dl Glucose (70-99(Fasting)) mg/dl POC Glucose 189 H 147 H (70-99) mg/dl Hemoglobin A1c (4.5-5.6) % Calcium (8.6-10.3) mg/dl Troponin I High Sens 122.5 H* D (0-14) pg/ml Albumin (3.4-5.0) gm/dl Triglycerides (0-150) mg/dl VLDL Cholesterol, Calc (0-30) mg/dl 11/27/23 11/27/23 11/27/23 Range/Units 00:28 05:58 06:05 RBC 3.90 L (4.20-5.40) M/uL Hgb 10.5 L (12.0-16.0) g/dl Hct 32.9 L (37.0-47.0) % MCHC 31.9 L (32.0-36.0) g/dL Lymph # (Auto) 0.89 L (1.20-3.40) K/uL Sac # (Auto) 0.60 H (0.11-0.59) K/uL Chloride (98-107) mmol/L BUN (6-23) mg/dl Creatinine (0.6-1.2) mg/dl Glucose (70-99(Fasting)) mg/dl POC Glucose 154 H (70-99) mg/dl Hemoglobin A1c 9.4 H (4.5-5.6) % Calcium (8.6-10.3) mg/dl Troponin I High Sens 217.1 H* D (0-14) pg/ml Albumin (3.4-5.0) gm/dl Triglycerides (0-150) mg/dl VLDL Cholesterol, Calc (0-30) mg/dl 11/27/23 11/27/23 11/27/23 Range/Units 06:06 07:10 11:26 RBC (4.20-5.40) M/uL Hgb (12.0-16.0) g/dl Hct (37.0-47.0) % MCHC (32.0-36.0) g/dL Lymph # (Auto) (1.20-3.40) K/uL Sac # (Auto) (0.11-0.59) K/uL Chloride 110 H (98-107) mmol/L BUN 32 H (6-23) mg/dl Creatinine 2.09 H D (0.6-1.2) mg/dl Glucose 163 H (70-99(Fasting)) mg/dl POC Glucose 150 H 163 H (70-99) mg/dl Hemoglobin A1c (4.5-5.6) % Calcium 8.5 L (8.6-10.3) mg/dl Troponin I High Sens 232.7 H* (0-14) pg/ml Albumin 3.1 L (3.4-5.0) gm/dl Triglycerides 160 H (0-150) mg/dl VLDL Cholesterol, Calc 32 H (0-30) mg/dl 11/27/23 Range/Units 16:14 RBC (4.20-5.40) M/uL Hgb (12.0-16.0) g/dl Hct (37.0-47.0) % MCHC (32.0-36.0) g/dL Lymph # (Auto) (1.20-3.40) K/uL Sac # (Auto) (0.11-0.59) K/uL Chloride (98-107) mmol/L BUN (6-23) mg/dl Creatinine (0.6-1.2) mg/dl Glucose (70-99(Fasting)) mg/dl POC Glucose 107 H (70-99) mg/dl Hemoglobin A1c (4.5-5.6) % Calcium (8.6-10.3) mg/dl Troponin I High Sens (0-14) pg/ml Albumin (3.4-5.0) gm/dl Triglycerides (0-150) mg/dl VLDL Cholesterol, Calc (0-30) mg/dl Diagnostic Findings Echocardiogram:EF 55 to 60%, severe mitral annular calcification, mild to moderate mitral regurgitation, 0.6 x 0.75 m echodensity on the ventricular aspect of the mitral valve concerning for vegetation Neck MRA 11/26/23 17:53 NECK MRA without contrast HISTORY: acute stroke TECHNIQUE: [id number] MRA of the neck was performed without contrast according to standard departmental protocol. All measurements were calculated based on NASCET criteria. COMPARISON STUDY: None. FINDINGS: The aortic arch and proximal great vessels are suboptimally assessed due to the motion artifact but likely patent. There is no significant stenosis, occlusion, or dissection identified within the bilateral common carotid, internal carotid, or vertebral arteries. There is a hypoplastic right vertebral artery. IMPRESSION: No significant stenosis, occlusion, or dissection identified within the carotid or vertebral arteries. ACT 112: Negative or not required by law. Electronically signed by: Endy Luz M.D. 11/26/2023 8:08 PM Head MRA 11/26/23 18:00 Brain MRA HISTORY: Stroke symptoms. TECHNIQUE: 3-D [id number] MRA of the brain was performed without contrast. COMPARISON STUDY: None. FINDINGS: Visualized intracranial internal carotid arteries, distal vertebral arteries, and basilar artery are widely patent. There is no significant stenosis, occlusion, or aneurysm seen within the bilateral MCAs or athletic training internship. There is a hypoplastic distal right vertebral artery. Incidental note is made of a persistent right posterior circulation. Possible occlusion versus motion artifact within a distal branch of the left CHARLES best seen on image 20 of series 3. This may correspond to the left CHARLES territory infarct. The right CHARLES is widely patent. IMPRESSION: Possible occlusion versus motion artifact within a distal branch of the left CHARLES which may correspond to the left CHARLES territory infarct. ACT 112: Negative or not required by law. Electronically signed by: Endy Luz M.D. 11/26/2023 8:[address] 11/26/23 19:02 Exam(s): CT HEAD Without Contrast EXAM: CT Head Without Intravenous Contrast CLINICAL HISTORY: Reason for exam: stroke. TECHNIQUE: Axial computed tomography images of the head/brain without intravenous contrast. CTDI is 37.42 mGy and DLP is 546.36 mGy-cm. Automated exposure control was utilized for the study. A dose lowering technique was utilized adhering to the principles of ALARA. COMPARISON: Prior brain MRI from November 26, 2023. FINDINGS: Brain: There is a small area of edema in the left frontal lobe. No hemorrhage. No significant white matter disease. No edema. Ventricles: Moderate ventriculomegaly. Bones/joints: Unremarkable. No acute fracture. Soft tissues: Unremarkable. Sinuses: Chronic ethmoid sinusitis. No acute sinusitis. Mastoid air cells: Unremarkable as visualized. No mastoid effusion. IMPRESSION: Findings concerning for acute ischemic injury in the left frontal lobe without evidence of hemorrhagic transformation. Electronically signed by: Christine Wilkerson MD 11/26/23 23:[address] 11/26/23 22:04 Exam(s): CT HEAD Without Contrast EXAM: CT Head Without Intravenous Contrast CLINICAL HISTORY: Reason for exam: worsening acute stroke. TECHNIQUE: Axial computed tomography images of the head/brain without intravenous contrast. CTDI is 34.3 mGy and DLP is 546.36 mGy-cm. Automated exposure control was utilized for the study. A dose lowering technique was utilized adhering to the principles of ALARA. COMPARISON: Prior brain MRI from November 26, 2023. FINDINGS: Brain: There is mild edema in the left frontal lobe. No hemorrhage. No significant white matter disease. Ventricles: Moderate ventriculomegaly. Bones/joints: Unremarkable. No acute fracture. Soft tissues: Unremarkable. Sinuses: Chronic ethmoid sinusitis. No acute sinusitis. Mastoid air cells: Unremarkable as visualized. No mastoid effusion. IMPRESSION: Expected interval evolution of left frontal lobe ischemic injury without evidence of hemorrhagic transformation. Electronically signed by: Christine Wilkerson MD 11/27/23 01:19 AM Medications Administered Home Medications Medication Instructions Recorded Confirmed Last Taken amlodipine 5 mg tablet 5 mg PO HS 01/04/23 11/26/23 Unknown aspirin 81 mg chewable tablet 81 mg PO DAILY 01/04/23 11/26/23 Unknown atorvastatin 40 mg tablet 40 mg PO HS 01/04/23 11/26/23 Unknown biotin 1 mg tablet 1 mg PO DAILY 01/04/23 11/26/23 Unknown cinnamon bark 500 mg capsule 500 mg PO DAILY 01/04/23 11/26/23 Unknown (Cinnamon) coenzyme Q10 100 mg capsule 100 mg PO DAILY 01/04/23 11/26/23 Unknown (CoQ-10) cyanocobalamin (vitamin B-12) 1,000 mcg PO DAILY 01/04/23 11/26/23 Unknown 1,000 mcg tablet (Vitamin B-12) faricimab-svoa 6 mg/0.05 mL 6 mg intravitreal DIRECTED PRN 01/04/23 11/26/23 Unknown intravitreal solution Macular Edema insulin glargine 100 unit/mL (3 42 unit subcut QAM 01/04/23 11/26/23 01/04/23 08:00 mL) subcutaneous pen (Chris Chu U-100 Insulin) isosorbide mononitrate 60 mg 60 mg PO DAILY 01/04/23 11/26/23 01/04/23 tablet,extended release 24 hr milk thistle 175 mg tablet 175 mg PO DAILY 01/04/23 11/26/23 Unknown prednisone 5 mg tablet 2.5 mg PO DAILY 01/04/23 11/26/23 01/04/23 vit C 250 mg-vit E 90 mg-zinc 40 1 tab PO DAILY 01/04/23 11/26/23 Unknown mg-copper 1 [id number]-celakh-pfiwoy capsule (PreserVision AREDS-2) insulin aspart U-100 100 unit/mL 8 unit subcut TID 06/07/23 11/26/23 Unknown subcutaneous solution (Novolog U-100 Insulin aspart) lisinopril 10 mg tablet 10 mg PO DAILY #90 tabs 10/05/23 11/26/23 Unknown calcitriol 0.25 mcg capsule 0.25 mcg PO .COMPLEX #24 caps 11/20/23 11/26/23 Unknown cholecalciferol (vitamin D3) 10 20 mcg PO DAILY 11/20/23 11/26/23 Unknown mcg (400 unit) tablet (Vitamin D3) albuterol sulfate 90 mcg/actuation 1 inh inhalation Q4H PRN Shortness 11/26/23 11/26/23 Unknown aerosol inhaler Of Breath Or Wheezing Active Medications Generic Name Dose Route Start Last Admin Trade Name Freq PRN Reason Stop Dose Admin Aspirin 81 mg 11/27/23 09:00 11/27/23 08:12 Aspirin 81 Mg Chew PO 12/27/23 08:59 81 mg DAILY ADELA Administration Calcitriol 0.25 mcg 11/27/23 09:00 11/27/23 08:12 Calcitriol 0.25 Mcg Capsule PO 12/27/23 08:59 0.25 mcg MoFr@0900 ADELA Administration Ceftriaxone Sodium 2,000 mg in 50 mls @ 100 mls/hr 11/26/23 16:00 11/27/23 17:38 Rocephin IV 12/06/23 15:59 Infused Q24H [facility] Infusion Insulin Aspart 0 units 11/27/23 16:30 11/27/23 16:45 Insulin Aspart Per Unit Charge SC 12/27/23 05:59 Not Given ACHS ADELA Insulin Glargine 30 units 11/27/23 09:00 11/27/23 08:36 Lantus Per Unit Charge SQ 12/27/23 08:59 30 units QAM ADELA Administration Isosorbide Mononitrate 60 mg 11/27/23 09:00 11/27/23 08:13 Isosorbide Sac Extended Rel 60 Mg Tabcr PO 09/04/24 08:59 60 mg DAILY ADELA Administration Lisinopril 10 mg 11/27/23 09:00 11/27/23 08:37 Lisinopril 10 Mg Tab PO 12/27/23 08:59 10 mg DAILY ADELA Administration Multivitamins/Minerals 1 tab 11/27/23 09:00 11/27/23 08:14 Cerovite Adv Formula Tab PO 12/27/23 08:59 1 tab DAILY ADELA Administration Prednisone 2.5 mg 11/27/23 09:00 11/27/23 08:14 Prednisone 2.5 Mg Tab PO 12/27/23 08:59 2.5 mg DAILY ADELA Administration Ticagrelor 90 mg 11/27/23 09:00 11/27/23 08:36 Ticagrelor 90 Mg Tab PO 12/27/23 08:59 90 mg BID ADELA Administration Vitamin D 20 mcg 11/27/23 09:00 11/27/23 08:13 Cholecalciferol 10 Mcg (400 Units) Tab PO 12/27/23 08:59 20 mcg DAILY ADELA Administration
--- NOTE | 2023-11-27 19:26 | Communication Note ---
Date of Service: November 27, 2023 Brilinta discontinued to reduce risk of hemorrhagic conversion, especially given echocardiogram abnormality suggestive of possible endocarditis.
[2023-11-27] MEDS: amLODIPine BESYLATE 5 MG TAB PO SCH (19:34)
[2023-11-27] MEDS: ATORVASTATIN 40 MG TAB PO SCH (20:26)
--- NOTE | 2023-11-28 07:46 | Hospitalist Progress Note ---
Date of Service November 28, 2023 Assessment & Plan (1) Altered mental status: (2) Abnormal urinalysis: (3) Elevated troponin: (4) CKD (chronic kidney disease), stage III: (5) Hypertension: (6) Dyslipidemia: (7) Hx of CABG: (8) Diabetes mellitus, type II: Plan Ms. Francie Baker is a 78y/o F with PMHx of DM type II, diabetic retinopathy both eyes and macular edema, dyslipidemia, history of thyroid nodule, CAD s/p CABG x 4, HTN, persistent atrial fibrillation, CKD stage III, rheumatoid arthritis on chronic steroid therapy, chronic anemia, history of myocardial infarction and other problems listed below who is admitted for acute encephalopathy and left charles stroke with marked RUE/RLE hemiplegia As of 11/26, hemiplegia seems resolved and patient conversational and pleasant. Concern for questionable vegetation on mitral valve per Cardiology. Neurology with concern for potential for hemorrhagic conversion--Brilinta discontinued. Given concern for endocarditis, empiric abx started for coverage of presumptive endocarditis Plan for better HTN control and blood glucose control given A1C 9.4% #Acute left CHARLES infarct c/b cerebral edema #Right hemiplegia resolved #Chronic right facial droop MRI brain 1. Multiple small foci of restricted diffusion seen within the left frontal lobe primarily involving the left superior frontal gyrus. This is consistent with an acute left CHARLES territory infarct. 2. 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 ECHO with small mobile echodensity suggestive of vegetation - Speech: easy to chew,, aspiration precautions, repeat eval to follow -PT/OT ordered -Discontinued brilinta given concern for hemorrhagic conversion -ASA continued Increase BP control -Plan for nephrology consult for hypertensive control -Given Lisinopril 20mg this morning, will hold on continued escalation iso CKD and defer to Nephrology -Reportedly wanted amlodipine discontinued previously and is on ACEi with Cr. 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 #Severe Mitral annular calcification #Singular episode of post-operative a fib 2011 remains NSR Blood cultures pending: NGTD 11/26 UA pending NGTD 11/26 Vanc and cefepime/flagyl while cultures pend #Rhinovirus symptomatic management droplet precautions #chronic normocytic anemia baseline 9-10, anemia labs in am #Chronic coronary heart disease status post off pump CABG x4 09/2011 #Chronic angina s/p ALEX to OM1 01/2012 #Elevated troponin likely iso demand as above Uptrending tropinin in the 230s iso CKD IV and uncontrolled HTN yesterday Remains sinus and stable on tele, new/chronic infarcts raise concern fo a fib? 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 Continue lantus, humalog basal bolus Enrique freestyle senor sent to pharmacy Patient needs follow up with MTM, reports of fluctuating glucose at home, only takes basaglar at home 44Uqam #CKD4- seems at baseline Continue lisinopril and amlodipine Will discuss with Nephrology for tighter BP control iso CKDIV DVT ppx- sc heparin Dispo- Medsurg tele Full code per family Admission and Anticipated Discharge Date Admission Date: November 26, 2023 Subjective Patient feeling well today but still something "off" Denies night sweats, subjective fevers, chills, mouth swelling/pain, abdominal symptoms Reports some constipation but otherwise normal bowels Denies any chances to urinary volume Denies chest pain or palpitations Endorses sensation of imbalance while ambulating and poor appetite--nothing sounds good at this time despite liberalized diet Physical Exam Constitutional: WD/WN, vitals as above Cardiovascular: RRR, no murmur, no edema Gastrointestinal (Abdomen): normal bowel sounds, soft, nontender, no hepatosplenomegaly Neurologic: BUE/BLE strength 5/5, sensation intact, stable right nasolabial fold flattening No other focal deficits noted Results & Data Results & Data Vital Signs (Past 12 Hours) Vital Signs Temp Pulse Pulse Resp BP Pulse Ox O2 Del Method 11/28/23 07:24 36.4 C L 86 18 182/84 H 96 Room Air 11/28/23 02:51 36.7 C 90 16 156/83 H 95 Room Air 11/27/23 23:46 87 164/89 H 98 Room Air 11/27/23 23:34 36.7 C 79 17 191/110 H 96 Room Air 11/27/23 23:22 76 11/27/23 20:23 177/72 H Laboratory Results Short CBC 11/28/23 Range/Units 07:14 WBC 6.80 (4.8-10.8) K/ul Hgb 10.6 L (12.0-16.0) g/dl Hct 33.4 L (37.0-47.0) % Plt Count 215 (130-400) K/uL BMP 11/28/23 07:14 Sodium 142 Potassium 4.0 Chloride 111 H Carbon Dioxide 24 BUN 30 H Creatinine 2.25 H Glucose 108 H Calcium 8.7 Medications Administered Home Medications Medication Instructions Recorded Confirmed Last Taken amlodipine 5 mg tablet 5 mg PO HS 01/04/23 11/26/23 Unknown aspirin 81 mg chewable tablet 81 mg PO DAILY 01/04/23 11/26/23 Unknown atorvastatin 40 mg tablet 40 mg PO HS 01/04/23 11/26/23 Unknown biotin 1 mg tablet 1 mg PO DAILY 01/04/23 11/26/23 Unknown cinnamon bark 500 mg capsule 500 mg PO DAILY 01/04/23 11/26/23 Unknown (Cinnamon) coenzyme Q10 100 mg capsule 100 mg PO DAILY 01/04/23 11/26/23 Unknown (CoQ-10) cyanocobalamin (vitamin B-12) 1,000 mcg PO DAILY 01/04/23 11/26/23 Unknown 1,000 mcg tablet (Vitamin B-12) faricimab-svoa 6 mg/0.05 mL 6 mg intravitreal DIRECTED PRN 01/04/23 11/26/23 Unknown intravitreal solution Macular Edema insulin glargine 100 unit/mL (3 42 unit subcut QAM 01/04/23 11/26/23 01/04/23 08:00 mL) subcutaneous pen (Basaglar KwmauricioPen U-100 Insulin) isosorbide mononitrate 60 mg 60 mg PO DAILY 01/04/23 11/26/23 01/04/23 tablet,extended release 24 hr milk thistle 175 mg tablet 175 mg PO DAILY 01/04/23 11/26/23 Unknown prednisone 5 mg tablet 2.5 mg PO DAILY 01/04/23 11/26/23 01/04/23 vit C 250 mg-vit E 90 mg-zinc 40 1 tab PO DAILY 01/04/23 11/26/23 Unknown mg-copper 1 nl-yvevxa-ssfjjc capsule (PreserVision AREDS-2) insulin aspart U-100 100 unit/mL 8 unit subcut TID 06/07/23 11/26/23 Unknown subcutaneous solution (Novolog U-100 Insulin aspart) lisinopril 10 mg tablet 10 mg PO DAILY #90 tabs 10/05/23 11/26/23 Unknown calcitriol 0.25 mcg capsule 0.25 mcg PO .COMPLEX #24 caps 11/20/23 11/26/23 Unknown cholecalciferol (vitamin D3) 10 20 mcg PO DAILY 11/20/23 11/26/23 Unknown mcg (400 unit) tablet (Vitamin D3) albuterol sulfate 90 mcg/actuation 1 inh inhalation Q4H PRN Shortness 11/26/23 11/26/23 Unknown aerosol inhaler Of Breath Or Wheezing blood-glucose sensor (FreeStyle #1 ea 11/28/23 Unknown Enrique 3 Sensor device) Active Medications Generic Name Dose Route Start Last Admin Trade Name Freq PRN Reason Stop Dose Admin Amlodipine Besylate 5 mg 11/27/23 21:00 11/27/23 19:34 Amlodipine Besylate 5 Mg Tab PO 12/27/23 20:59 5 mg HS ADELA Administration Aspirin 81 mg 11/27/23 09:00 11/28/23 08:19 Aspirin 81 Mg Chew PO 12/27/23 08:59 81 mg DAILY ADELA Administration Atorvastatin Calcium 80 mg 11/27/23 21:00 11/27/23 20:26 Atorvastatin 40 Mg Tab PO 12/27/23 20:59 80 mg HS ADELA Administration Calcitriol 0.25 mcg 11/27/23 09:00 11/27/23 08:12 Calcitriol 0.25 Mcg Capsule PO 12/27/23 08:59 0.25 mcg MoFr@0900 ADELA Administration Metronidazole 500 mg in 100 mls @ 100 mls/hr 11/28/23 08:00 11/28/23 08:24 Flagyl IV 11/30/23 07:59 100 mls/hr Q8H ADELA Administration Protocol Insulin Aspart 0 units 11/27/23 16:30 11/28/23 08:13 Insulin Aspart Per Unit Charge SC 12/27/23 05:59 Not Given ACHS ADELA Insulin Glargine 30 units 11/27/23 09:00 11/28/23 08:19 Lantus Per Unit Charge SQ 12/27/23 08:59 30 units QAM ADELA Administration Isosorbide Mononitrate 60 mg 11/27/23 09:00 11/28/23 08:14 Isosorbide [place] Extended Rel 60 Mg Tabcr PO 12/27/23 08:59 60 mg DAILY ADELA Administration Multivitamins/Minerals 1 tab 11/27/23 09:00 11/28/23 08:14 Cerovite Adv Formula Tab PO 12/27/23 08:59 1 tab DAILY ADELA Administration Prednisone 2.5 mg 11/27/23 09:00 11/28/23 08:14 Prednisone 2.5 Mg Tab PO 12/27/23 08:59 2.5 mg DAILY ADELA Administration Vitamin D 20 mcg 11/27/23 09:00 11/28/23 08:14 Cholecalciferol 10 Mcg (400 Units) Tab PO 12/27/23 08:59 20 mcg DAILY ADELA Administration (1) Altered mental status Altered mental status type: unspecified Qualified Code(s): R41.82 - Altered mental status, unspecified
[2023-11-28] MEDS ORDERED: VANCOMYCIN CONSULT ACTIVE PRN (07:49)
[2023-11-28 07:56] LABS: Hematocrit (blood only) 33.4 % (37.0-47.0); Hemoglobin 10.6 g/dl (12.0-16.0); Mean Corpuscular Hemoglobin 26.8 pg (25.0-34.0); Mean Corpuscular Hgb Conc 31.7 g/dL (32.0-36.0); Mean Corpuscular Volume 84.6 fL (80.0-100.0); Mean Platelet Volume 10.2 fL (9.4-12.4); Platelet Count 215 K/uL (130-400); RDW Coefficient of Variation 13.4 % (11.5-14.5); RDW Standard Deviation 41.3 fL (36.4-46.3); Red Blood Count 3.95 M/uL (4.20-5.40)
[2023-11-28] MEDS ORDERED: VANCOMYCIN HCL 1,250 MG in SODIUM CHLORIDE 0.9% 500 ML IV SCH (08:00)
[2023-11-28] MEDS ORDERED: CEFEPIME 2,000 MG in SYRINGE 0 ML IV SCH (08:00)
[2023-11-28 08:13] LABS: BUN Creatinine Ratio 13.3 (10-20); Calcium 8.7 mg/dl (8.6-10.3); Creatinine Clr Calc Pharmacy 22.3 ml/min; Est GFR (African American) 23.8 ml/min; Est GFR (Non-African American) 20.5 ml/min; Magnesium 1.8 mg/dl (1.7-2.4); Phosphorus 3.4 mg/dl (2.5-4.9)
[2023-11-28] MEDS: lisinopril 20 MG TAB PO SCH (08:14)
[2023-11-28] MEDS: METOPROLOL TARTRATE 25 MG TAB PO ONE (08:19)
[2023-11-28] MEDS: metroNIDAZOLE 500 MG/100 ML BAG IV SCH (08:24)
[2023-11-28 08:33] LABS: Ferritin 69.1 ng/ml (8-388)
[2023-11-28] MEDS: lisinopril 10 MG TAB PO SCH (08:37)
--- NOTE | 2023-11-28 08:54 | Pharmacy Report ---
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 TTE performed on 11/27/23 and revealed findings suggestive of mitral valve vegetation. Pertinent microbiologic data includes: blood and urine cultures (11/26) both pending at this time. Pertinent PMH includes T2DM, CKD, and rheumatoid arthritis (on chronic prednisone). Renal function is poor, but appears to be at/near baseline. Day # 1 of antimicrobial therapy. Plan Vancomycin * Loading dose: 1750 mg IV x 1 * Will order random level in the morning on 11/29/23 to guide maintenance dosing Pharmacy will continue to follow and will adjust dose/frequency as necessary. Thank you. Pharmacy has transitioned to AUC monitoring for vancomycin. AUC/KVNG is the preferred PK/PD target and is associated with decreased risk of nephrotoxicity compared to traditional trough targets.
[2023-11-28 08:58] LABS: Folate (Folic Acid),Ser orPlas > 22.30 ng/ml (>5.38)
[2023-11-28 08:59] LABS: Vitamin B12 515 pg/ml (180-914)
[2023-11-28] MEDS: CEFEPIME 2,000 MG in SYRINGE 0 ML IV STA (09:17)
[2023-11-28] MEDS: VANCOMYCIN HCL 1,750 MG in SODIUM CHLORIDE 0.9% 500 ML IV ONE (09:17)
--- NOTE | 2023-11-28 10:16 | Electrocardiogram Report ---
Test Reason : Blood Pressure : */* mmHG Vent. Rate : 87 BPM Atrial Rate : 87 BPM P-R Int : 250 ms QRS Dur : 138 ms QT Int : 416 ms P-R-T Axes : 61 -32 -4 degrees QTcB Int : 500 ms Sinus rhythm with 1st degree A-V block with occasional Premature ventricular complexes Left axis deviation Right bundle branch block Abnormal ECG When compared with ECG of 27-Nov-2023 05:28, Premature ventricular complexes are now Present Aberrant conduction is no longer Present Confirmed by Toby Vallejo ([id number]) on 11/28/2023 10:16:27 AM Referred By: REFERRED SELF Confirmed By: Toby Vallejo
--- NOTE | 2023-11-28 11:32 | Cardiology Progress Note ---
Date of Service November 28, 2023 Assessment & Plan (1) Ischemic stroke of frontal lobe: (2) Hypertensive urgency: Plan Although among the patient's outpatient problems listed in her [facility] chart includes persistent atrial fibrillation. She actually had lone atrial fibrillation noted at the time of her bypass surgery in 2011 without recurrence. She has not been anticoagulation in the meantime, and presents today in sinus rhythm. Patient with findings on MRI of the brain suggestive of possible cardioembolic stroke. The patient was found to have a 0.6 cm x 0.75 cm mobile echodensity on the left ventricular aspect of the mitral valve apparatus suggestive of mobile calcifi cation of the use of mitral valve apparatus versus vegetation. The patient is immunocompromised as she is on chronic prednisone therapy for rheumatoid arthritis and also has diabetes. Blood cultures drawn on 11/26. No growth thus far. Brilinta discontinued given possible vegetation on echo in an effort to reduce risk of hemorrhagic conversion. Continue aspirin and atorvastatin. Permitting some degree of hypertension early after stroke, however SBP was at high at 180 yesterday which is above my goal for her. Continue lisinopril 10 mg , Imdur, amlodipine. Low dose metoprolol added. Coreg previously stopped due to bradycardia on prior admission to [facility] in 2022. DVT prophylaxis: Agree with plans for subcutaneous heparin. Admission and Anticipated Discharge Date Admission Date: November 26, 2023 Subjective Patient seen in cardiology follow up. Mentation is normal. No complaints. , , at the bedside. Telemetry reveals SR. Physical Exam Constitutional: WD/WN, vitals as above Respiratory: normal respiratory effort, lungs clear to auscultation Cardiovascular: RRR, no murmur, no edema Gastrointestinal (Abdomen): normal bowel sounds, soft, nontender, no hepatosplenomegaly Neurologic: PERRL, EOMI, accommodation nl, no face palsy, no dysarthria Results & Data Vital Signs (Past 12 Hours) Vital Signs Temp Pulse Pulse Pulse Resp BP Pulse Ox 11/28/23 11:01 36.6 C 70 18 164/78 H 95 11/28/23 09:47 73 186/81 H 11/28/23 08:00 11/28/23 08:00 75 11/28/23 07:24 36.4 C L 86 18 182/84 H 96 11/28/23 02:51 36.7 C 90 16 156/83 H 95 11/27/23 23:46 87 164/89 H 98 11/27/23 23:34 36.7 C 79 17 191/110 H 96 O2 Del Method 11/28/23 11:01 Room Air 11/28/23 09:47 11/28/23 08:00 Room Air 11/28/23 08:00 11/28/23 07:24 Room Air 11/28/23 02:51 Room Air 11/27/23 23:46 Room Air 11/27/23 23:34 Room Air
--- NOTE | 2023-11-28 12:09 | Nephrology Consultation ---
Date of Consultation November 28, 2023 Assessment & Plan (1) Hypertensive urgency: * Several drug intolerances: Carvedilol->weak, amlodipine->low blood pressure, HCTZ->hypoglycemia * Currently tolerating low-dose lisinopril and amlodipine * Agree with increasing lisinopril to 20 mg each morning, continue amlodipine 5 mg each evening * Cardiology has added low-dose metoprolol * Continue close monitoring of blood pressure. If further antihypertensive therapy needed patient may benefit from the addition of a diuretic (2) CKD stage 4 due to type 2 diabetes mellitus: * Baseline creatinine has been 2.22.4 w/ eGFR 20 cc/minute. MACR > 3.7. Mrs. 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 Her symptoms have resolved. History of Present Illness Reason for Consultation: Hypertension Attending Physician: Mi Warren MD History of Present Illness Mrs. Baker is a 78-year-old white female who is seen at the request of the [facility] hospitalist service to assist with blood pressure management. Information for the HPI is obtained from direct patient interview and review of the EMR. HPI summarized as follows: Mrs. Baker has CKD stage G4/A3 (advanced impairment). Baseline creatinine has been 2.22.4 w/ eGFR 20 cc/minute. 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 Gama Willis. Mrs. 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 Her medical history is also significant for hypertension. This has been complicated by several relative drug intolerances: Carvedilol->weak, amlodipine->low blood pressure, HCTZ->hypoglycemia. Her current antihypertensive regimen has consisted solely of lisinopril 10 mg once daily. Mrs. Baker presented to [facility] [address] 11/26/2023 for evaluation of mental status changes and hypertensive urgency. Systolic blood pressure was 220 mmHg. Brain MRI revealed acute left anterior cerebral artery territory infarct. Initially Mrs. Baker suffered right sided weakness, however she reports this morning that this has resolved. Respiratory panel was positive for rhinovirus. Since admission systolic blood pressure has remained 170-190 mmHg. Hospitalist service has continued lisinopril 10 mg once each day and reintroduced amlodipine 5 mg at bedtime. They question whether lisinopril dose can be titrated in light of patient's CKD. Allergies Allergy/AdvReac Type Severity Reaction Status Date / Time nitrofurantoin Allergy Hives Verified 11/20/23 10:39 [From Macrobid] sulfamethoxazole AdvReac RENETTA Verified 11/20/23 10:39 [From Bactrim] trimethoprim [From Bactrim] AdvReac RENETTA Verified 11/20/23 10:39 Home Medications Medication Instructions Recorded Confirmed Type amlodipine 5 mg tablet 5 mg PO HS 01/04/23 11/26/23 History aspirin 81 mg chewable tablet 81 mg PO DAILY 01/04/23 11/26/23 History atorvastatin 40 mg tablet 40 mg PO HS 01/04/23 11/26/23 History biotin 1 mg tablet 1 mg PO DAILY 01/04/23 11/26/23 History cinnamon bark 500 mg capsule 500 mg PO DAILY 01/04/23 11/26/23 History (Cinnamon) coenzyme Q10 100 mg capsule 100 mg PO DAILY 01/04/23 11/26/23 History (CoQ-10) cyanocobalamin (vitamin B-12) 1,000 mcg PO DAILY 01/04/23 11/26/23 History 1,000 mcg tablet (Vitamin B-12) faricimab-svoa 6 mg/0.05 mL 6 mg intravitreal DIRECTED PRN 01/04/23 11/26/23 History intravitreal solution Macular Edema insulin glargine 100 unit/mL (3 42 unit subcut QAM 01/04/23 11/26/23 History mL) subcutaneous pen (Basaglar KwikPen U-100 Insulin) isosorbide mononitrate 60 mg 60 mg PO DAILY 01/04/23 11/26/23 History tablet,extended release 24 hr milk thistle 175 mg tablet 175 mg PO DAILY 01/04/23 11/26/23 History prednisone 5 mg tablet 2.5 mg PO DAILY 01/04/23 11/26/23 History vit C 250 mg-vit E 90 mg-zinc 40 1 tab PO DAILY 01/04/23 11/26/23 History mg-copper 1 iy-uweilo-molnjb capsule (PreserVision AREDS-2) insulin aspart U-100 100 unit/mL 8 unit subcut TID 06/07/23 11/26/23 History subcutaneous solution (Novolog U-100 Insulin aspart) lisinopril 10 mg tablet 10 mg PO DAILY #90 tabs 10/05/23 11/26/23 Rx calcitriol 0.25 mcg capsule 0.25 mcg PO .COMPLEX #24 caps 11/20/23 11/26/23 Rx cholecalciferol (vitamin D3) 10 20 mcg PO DAILY 11/20/23 11/26/23 History mcg (400 unit) tablet (Vitamin D3) albuterol sulfate 90 mcg/actuation 1 inh inhalation Q4H PRN Shortness 11/26/23 11/26/23 History aerosol inhaler Of Breath Or Wheezing blood-glucose sensor (FreeStyle #1 ea 11/28/23 Rx Enrique 3 Sensor device) Patient History Medical History Rheumatoid arthritis Thyroid nodule PCP MONITORS "SMALL" Retinopathy RECIEVES SHOTS TO TREAT Myocardial Infarction 10 YEARS AGO Hyperlipidemia History of COVID-19 04/2021>CONGESTION/FATIGUE *RESOLVED Left radial head fracture Acute kidney injury Rheumatoid arthritis Surgical History History of ankle surgery RT History of colonoscopy History of tooth extraction History of heart artery stent 5 MONTHS AFTER CABG>HEART CATH WITH 1 STENT PLACED History of cardiac cath NO STENTS/BEFORE CABG Family History Grandmother (Maternal) Family history of diabetes mellitus Other No family history of adverse response to anesthesia Social History Smoking Status: Never smoker Second Hand Exposure: Yes (childhood); Do You Dip or Chew Tobacco: No; Tobacco Cessation Education Requested by Patient: No Hx Alcohol Use: No Hx Substance Use: No Preferred Language: Slovenian Communication Ability: Impaired Communication Ability Comment: change mental status, slurred speach Visual Impairment: No Limitations Hearing Ability: Normal Tint Layer Required: No Beliefs That Will Affect Care: None marital status: Single Current Living Situation: Spouse current occupational status: retired Feels Safe at Home: Yes Safety Concerns: Feels Safe At This Time Diet: regular Physical Activity Frequency: Does not Exercise Seatbelt Use: always Assistive Devices: None Review of Systems Constitutional: no fever Eyes: no problem reported Ear, Nose, Mouth, Throat: no problem reported Respiratory: no cough and no dyspnea Cardiovascular: no chest pain Gastrointestinal: no abdominal pain, no nausea, no vomiting and no diarrhea/loose stools Genitourinary: no dysuria Integumentary: no rash Neurologic: no localized weakness and no headache(s) Physical Exam Constitutional: not in distress Eyes: PERRL, conjunctivae normal, anicteric sclerae ENMT: external ear and nose normal, oropharynx normal Neck: trachea midline, no thyromegaly Respiratory: normal respiratory effort, lungs clear to auscultation Cardiovascular: RRR, no murmur, no edema Gastrointestinal (Abdomen): normal bowel sounds, soft, nontender, no hepatosplenomegaly Skin: no rashes, warm and dry Neurologic: Speech / Cognition: normal speech and normal cognition Results & Data Vital Signs (Past 12 Hours) Vital Signs Temp Pulse Pulse Pulse Resp BP Pulse Ox 11/28/23 11:01 36.6 C 70 18 164/78 H 95 11/28/23 09:47 73 186/81 H 11/28/23 08:00 11/28/23 08:00 75 11/28/23 07:24 36.4 C L 86 18 182/84 H 96 11/28/23 02:51 36.7 C 90 16 156/83 H 95 O2 Del Method 11/28/23 11:01 Room Air 11/28/23 09:47 11/28/23 08:00 Room Air 11/28/23 08:00 11/28/23 07:24 Room Air 11/28/23 02:51 Room Air Laboratory Results Laboratory Results WBC 6.80 K/ul (4.8-10.8) 11/28/23 07:14 RBC 3.95 M/uL (4.20-5.40) L 11/28/23 07:14 Hgb 10.6 g/dl (12.0-16.0) L 11/28/23 07:14 POC Hgb 12.2 g/dl (12.0-16.0) 11/26/23 10:03 Hct 33.4 % (37.0-47.0) L 11/28/23 07:14 POC Hct 36 % (37-47) L 11/26/23 10:03 MCV 84.6 fL (80.0-100.0) 11/28/23 07:14 MCH 26.8 pg (25.0-34.0) 11/28/23 07:14 MCHC 31.7 g/dL (32.0-36.0) L 11/28/23 07:14 RDW Std Deviation 41.3 fL (36.4-46.3) 11/28/23 07:14 RDW Coeff of Samson 13.4 % (11.5-14.5) 11/28/23 07:14 Plt Count 215 K/uL (130-400) 11/28/23 07:14 MPV 10.2 fL (9.4-12.4) 11/28/23 07:14 Immature Gran % (Auto) 0.3 % 11/27/23 06:05 Neut % (Auto) 77.7 % 11/27/23 06:05 Lymph % (Auto) 11.7 % 11/27/23 06:05 O[place] % (Auto) 7.9 % 11/27/23 06:05 Eos % (Auto) 1.7 % 11/27/23 06:05 Baso % (Auto) 0.7 % 11/27/23 06:05 Neut # (Auto) 5.92 K/uL (1.40-6.50) 11/27/23 06:05 Lymph # (Auto) 0.89 K/uL (1.20-3.40) L 11/27/23 06:05 [place] # (Auto) 0.60 K/uL (0.11-0.59) H 11/27/23 06:05 Eos # (Auto) 0.13 K/uL (0.00-0.50) 11/27/23 06:05 Baso # (Auto) 0.05 K/uL (0.00-0.20) 11/27/23 06:05 Immature Gran # (Auto) 0.02 K/uL (0.01-0.20) 11/27/23 06:05 RBC Morphology Unremarkable 11/26/23 09:56 VBG pH 7.34 (7.36-7.41) L 11/26/23 14:15 VBG pCO2 40 mmHg (38-50) 11/26/23 14:15 VBG pO2 37 mmHg 11/26/23 14:15 VBG HCO3 22 mmol/L 11/26/23 14:15 VBG O2 Saturation 67.2 % 11/26/23 14:15 VBG Base Excess -3.9 mEq/L 11/26/23 14:15 POC Sodium 139 mmol/L (135-144) 11/26/23 10:03 Sodium 142 mmol/L (136-145) 11/28/23 07:14 POC Potassium 4.9 mmol/L (3.3-5.0) 11/26/23 10:03 Potassium 4.0 mmol/L (3.5-5.1) 11/28/23 07:14 POC Chloride 108 mmol/L (101-112) 11/26/23 10:03 Chloride 111 mmol/L (98-107) H 11/28/23 07:14 Carbon Dioxide 24 mmol/L (21-32) 11/28/23 07:14 POC Total CO2 24 mmol/L (24-31) 11/26/23 10:03 Anion Gap 7 (3-11) 11/28/23 07:14 POC Anion Gap 13.0 mmol/L (16-25) L 11/26/23 10:03 POC BUN 42 mg/dl (7-18) H 11/26/23 10:03 BUN 30 mg/dl (6-23) H 11/28/23 07:14 Creatinine 2.25 mg/dl (0.6-1.2) H 11/28/23 07:14 POC Creatinine 2.9 mg/dl (0.6-1.3) H 11/26/23 10:03 Est Cr Clr Drug Dosing 22.3 ml/min 11/28/23 07:14 Est GFR ( Amer) 23.8 ml/min 11/28/23 07:14 Est GFR (Non-Af Amer) 20.5 ml/min 11/28/23 07:14 BUN/Creatinine Ratio 13.3 (10-20) 11/28/23 07:14 Glucose 108 mg/dl (70-99(Fasting)) H 11/28/23 07:14 POC Glucose 208 mg/dl (70-99) H 11/28/23 10:57 POC Glucose (other) 175 mg/dl (70-99) H 11/26/23 10:03 Estimat Average Glucose 223 mg/dl 11/27/23 06:05 Hemoglobin A1c 9.4 % (4.5-5.6) H 11/27/23 06:05 Calcium 8.7 mg/dl (8.6-10.3) 11/28/23 07:14 POC Ioniz Calcium Radha 1.17 mmol/l (1.12-1.32) 11/26/23 10:03 Phosphorus 3.4 mg/dl (2.5-4.9) 11/28/23 07:14 Magnesium 1.8 mg/dl (1.7-2.4) 11/28/23 07:14 Iron 24 mcg/dl (35-150) L 11/28/23 07:14 TIBC 198 mcg/dl (250-450) L 11/28/23 07:14 Unsaturated IBC 174 mcg/dl (155-355) 11/28/23 07:14 Transferrin % Sat 12 % (15-50) L 11/28/23 07:14 Ferritin 69.1 ng/ml (8-388) 11/28/23 07:14 Total Bilirubin 0.5 mg/dl (0.2-1.0) 11/27/23 06:06 Direct Bilirubin 0.1 mg/dl (0-0.2) 11/26/23 09:56 AST 23 U/L (13-39) 11/27/23 06:06 ALT 13 U/L (7-52) 11/27/23 06:06 Alkaline Phosphatase 80 U/L (34-104) 11/27/23 06:06 Ammonia 10.0 umol/L (18-72) L 11/26/23 10:21 Troponin I High Sens 232.7 pg/ml (0-14) H* 11/27/23 06:06 Total Protein 6.3 gm/dl (6.0-8.3) 11/27/23 06:06 Albumin 3.1 gm/dl (3.4-5.0) L 11/27/23 06:06 Globulin 3.2 gm/dl (2.5-4.0) 11/27/23 06:06 Albumin/Globulin Ratio 1.0 (0.9-2) 11/27/23 06:06 Triglycerides 160 mg/dl (0-150) H 11/27/23 06:06 Cholesterol 159 mg/dl (0-200) 11/27/23 06:06 LDL Cholesterol, Calc 87 mg/dl 11/27/23 06:06 VLDL Cholesterol, Calc 32 mg/dl (0-30) H 11/27/23 06:06 HDL Cholesterol 40 mg/dl 11/27/23 06:06 Cholesterol/HDL Ratio 4.0 (0-5) 11/27/23 06:06 Vitamin B12 515 pg/ml (180-914) 11/28/23 07:14 Folate > 22.30 ng/ml (>5.38) 11/28/23 07:14 Procalcitonin 0.02 ng/ml (0-0.5) 11/26/23 09:56 TSH 1.432 uIu/ml (0.300-4.500) 11/26/23 09:56 Urine Color Yellow 11/26/23 11:48 Urine Appearance Cloudy (Clear) A 11/26/23 11:48 Urine pH 5.5 (4.5-7.5) 11/26/23 11:48 Ur Specific [place] 1.014 (1.000-1.030) 11/26/23 11:48 Urine Protein 3+ (Negative) H 11/26/23 11:48 Urine Glucose (UA) Negative (Negative) 11/26/23 11:48 Urine Ketones Trace (Negative) H 11/26/23 11:48 Urine Blood 2+ (Negative) H 11/26/23 11:48 Urine Nitrite Negative (Negative) 11/26/23 11:48 Urine Bilirubin Negative (Negative) 11/26/23 11:48 Urine Urobilinogen Negative (Negative) 11/26/23 11:48 Ur Leukocyte Esterase Trace (Negative) H 11/26/23 11:48 Urine WBC (Auto) 6-10 /hpf (0-5) H 11/26/23 11:48 Urine RBC (Auto) 0-2 /hpf (0-2) 11/26/23 11:48 U Hyaline Cast (Auto) 3-5 /lpf (0-2) H 11/26/23 11:48 U Epithel Cells (Auto) 6-10 /hpf (0-2) H 11/26/23 11:48 Urine Bacteria (Auto) None Seen (None Seen) 11/26/23 11:48 Urine Opiates Screen Neg (Neg) 11/26/23 11:48 Ur Methadone, Qual Neg (Neg) 11/26/23 11:48 Urine Fentanyl Screen Neg (Neg) 11/26/23 11:48 Urine Barbiturates Neg (Neg) 11/26/23 11:48 Ur Phencyclidine (PCP) Neg (Neg) 11/26/23 11:48 U Amphetamin/Meth Scrn Neg (Neg) 11/26/23 11:48 MDMA (Ecstasy) Screen Neg (Neg) 11/26/23 11:48 U Benzodiazepines Scrn Neg (Neg) 11/26/23 11:48 Ur Cocaine Metabolite Neg (Neg) 11/26/23 11:48 U Marijuana (THC) Screen Neg (Neg) 11/26/23 11:48 Ethyl Alcohol mg/dL < 10.0 mg/dl (<10.0) 11/26/23 09:56 Adenovirus (PCR) Not Detected (NotDetected) 11/26/23 13:45 B. pertussis DNA (PCR) Not Detected (NotDetected) 11/26/23 13:45 B.parapertussis DNA PCR Not Detected (NotDetected) 11/26/23 13:45 C. pneumoniae DNA (PCR) Not Detected (NotDetected) 11/26/23 13:45 Coronavirus OC43 (PCR) Not Detected (NotDetected) 11/26/23 13:45 Coronavirus HKU1 (PCR) Not Detected (NotDetected) 11/26/23 13:45 Coronavirus 229E (PCR) Not Detected (NotDetected) 11/26/23 13:45 SARS-CoV-2 (PCR) Not Detected (NotDetected) 11/26/23 13:45 Coronavirus NL63 (PCR) Not Detected (NotDetected) 11/26/23 13:45 Human Metapneumovir PCR Not Detected (NotDetected) 11/26/23 13:45 Influenza Type A (PCR) Not Detected (NotDetected) 11/26/23 13:45 Influenza Type B (PCR) Not Detected (NotDetected) 11/26/23 13:45 M. pneumoniae (PCR) Not Detected (NotDetected) 11/26/23 13:45 Parainfluenza 1 (PCR) Not Detected (NotDetected) 11/26/23 13:45 Parainfluenza 2 (PCR) Not Detected (NotDetected) 11/26/23 13:45 Parainfluenza 3 (PCR) Not Detected (NotDetected) 11/26/23 13:45 Parainfluenza 4 (PCR) Not Detected (NotDetected) 11/26/23 13:45 RSV (PCR) Not Detected (NotDetected) 11/26/23 13:45 Entero/Rhino (PCR) DETECTED (NotDetected) A 11/26/23 13:45 Impressions Chest X-Ray 11/26/23 09:53 XR chest 1V portable HISTORY: Altered mental status. COMPARISON: Chest 01/04/2023. FINDINGS: No pneumothorax. No pleural effusions. The heart remains enlarged. There are poststernotomy changes. Calcifications within the aortic knob. Linear scarlike densities within the left lung base persist. No new focal lung consolidations to suggest a pneumonia. No evidence for pulmonary edema. No acute fractures. IMPRESSION: No significant change compared to the prior study. No acute process. ACT 112: Negative or not required by law. Electronically signed by: Endy Luz M.D. 11/26/2023 10:18 AM Brain MRI 11/26/23 13:24 Brain MRI WITHOUT CONTRAST HISTORY: Altered mental status. Stroke symptoms. TECHNIQUE: Multiplanar multisequence MRI of the brain was performed without the use of contrast. COMPARISON STUDY: Head CT 11/26/2023. FINDINGS: Multiple small foci of restricted diffusion seen within the left frontal lobe primarily involving the left superior frontal gyrus. Dominant focus on image 19 measures 18 mm. This is consistent with an acute left CHARLES territory infarct. No acute hemorrhage or midline shift. The midline structures are intact. Mild atrophy and mild microvascular ischemic changes are noted. There is mild edema associated with the acute left frontal lobe infarcts. The major vascular flow voids at the skull base are maintained. The orbits demonstrate bilateral lens replacement. The mastoid air cells are clear. Mild mucosal thickening within the ethmoid air cells and maxillary sinuses. No intracranial mass identified. Atrophy and mild microvascular ischemic changes are noted. 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 IMPRESSION: 1. Multiple small foci of restricted diffusion seen within the left frontal lobe primarily involving the left superior frontal gyrus. This is consistent with an acute left CHARLES territory infarct. 2. 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 ACT 112: Negative or not required by law. Electronically signed by: Endy Luz M.D. 11/26/2023 3:08 PM Neck MRA 11/26/23 17:53 NECK MRA without contrast HISTORY: acute stroke TECHNIQUE: Ctcq-on-lasdue MRA of the neck was performed without contrast according to standard departmental protocol. All measurements were calculated based on NASCET criteria. COMPARISON STUDY: None. FINDINGS: The aortic arch and proximal great vessels are suboptimally assessed due to the motion artifact but likely patent. There is no significant stenosis, occlusion, or dissection identified within the bilateral common carotid, internal carotid, or vertebral arteries. There is a hypoplastic right vertebral artery. IMPRESSION: No significant stenosis, occlusion, or dissection identified within the carotid or vertebral arteries. ACT 112: Negative or not required by law. Electronically signed by: Endy Luz M.D. 11/26/2023 8:08 PM Head MRA 11/26/23 18:00 Brain MRA HISTORY: Stroke symptoms. TECHNIQUE: 3-D [id number] MRA of the brain was performed without contrast. COMPARISON STUDY: None. FINDINGS: Visualized intracranial internal carotid arteries, distal vertebral arteries, and basilar artery are widely patent. There is no significant stenosis, occlusion, or aneurysm seen within the bilateral MCAs or remote sensing technician. There is a hypoplastic distal right vertebral artery. Incidental note is made of a persistent right posterior circulation. Possible occlusion versus motion artifact within a distal branch of the left CHARLES best seen on image 20 of series 3. This may correspond to the left CHARLES territory infarct. The right CHARLES is widely patent. IMPRESSION: Possible occlusion versus motion artifact within a distal branch of the left CHARLES which may correspond to the left CHARLES territory infarct. ACT 112: Negative or not required by law. Electronically signed by: Endy Luz M.D. 11/26/2023 8:[address] 11/26/23 22:04 Exam(s): CT HEAD Without Contrast EXAM: CT Head Without Intravenous Contrast CLINICAL HISTORY: Reason for exam: worsening acute stroke. TECHNIQUE: Axial computed tomography images of the head/brain without intravenous contrast. CTDI is 34.3 mGy and DLP is 546.36 mGy-cm. Automated exposure control was utilized for the study. A dose lowering technique was utilized adhering to the principles of ALARA. COMPARISON: Prior brain MRI from November 26, 2023. FINDINGS: Brain: There is mild edema in the left frontal lobe. No hemorrhage. No significant white matter disease. Ventricles: Moderate ventriculomegaly. Bones/joints: Unremarkable. No acute fracture. Soft tissues: Unremarkable. Sinuses: Chronic ethmoid sinusitis. No acute sinusitis. Mastoid air cells: Unremarkable as visualized. No mastoid effusion. IMPRESSION: Expected interval evolution of left frontal lobe ischemic injury without evidence of hemorrhagic transformation. Electronically signed by: Christine Wilkerson MD 11/27/23 01:19 AM PG Care Time/CCT Total # of Minutes Spent Total Time Spent with Patient: Total time spent is greater than 50% in coordination of care (as documented) at patient's floor/unit and/or counseling patient: Coding Level of Care Code 40412 IN/OBS CONSULT LVL 5,80M Diagnoses Hypertensive urgency I16.0 CKD stage 4 due to type 2 diabetes mellitus E11.22; N18.4 Diabetes mellitus, type II E11.9 Ischemic stroke of frontal lobe I63.9
[2023-11-28 17:52] LABS: Appearance Urine Cloudy (Clear); Bacteria Urine Automated None Seen (None Seen); Bilirubin Urine Negative (Negative); Blood Urine 2+ (Negative); Color Urine Yellow; Epithelial Cell Urine Auto >20 /hpf (0-2); Glucose Urine UA 3+ (Negative); Ketones Urine Trace (Negative); Leukocyte Esterase Urine Negative (Negative); Nitrite Urine Negative (Negative); Protein Urine 4+ (Negative); RBC Urine Automated 0-2 /hpf (0-2); Specific Gravity Urine 1.027 (1.000-1.030); Urobilinogen Urine Negative (Negative); pH Urine 5.5 (4.5-7.5)
[2023-11-28 18:09] LABS: Creatinine Urine Random 129.2 mg/dl; Protein Creatinine Ratio Urine 6.3 (0-0.2); Total Protein Urine Random 818.9 mg/dl (0-11.9)
[2023-11-28] MEDS: carvediloL 3.125 MG TAB PO SCH (20:45)
[2023-11-28] MEDS: HEPARIN SOD 5,000 UNIT/0.5 ML VIAL SQ SCH (20:46)
[2023-11-28] MEDS: CEFEPIME 1,000 MG in SYRINGE 0 ML IV SCH (20:50)
[2023-11-28] MEDS ORDERED: METOPROLOL TARTRATE 25 MG TAB PO SCH (21:00)
[2023-11-29 06:04] LABS: Hematocrit (blood only) 31.2 % (37.0-47.0); Hemoglobin 9.9 g/dl (12.0-16.0); Mean Corpuscular Hemoglobin 26.7 pg (25.0-34.0); Mean Corpuscular Hgb Conc 31.7 g/dL (32.0-36.0); Mean Corpuscular Volume 84.1 fL (80.0-100.0); Mean Platelet Volume 10.5 fL (9.4-12.4); Platelet Count 202 K/uL (130-400); RDW Coefficient of Variation 13.2 % (11.5-14.5); RDW Standard Deviation 40.5 fL (36.4-46.3); Red Blood Count 3.71 M/uL (4.20-5.40); White Blood Count 6.81 K/ul (4.8-10.8)
[2023-11-29 06:15] LABS: Albumin Globulin Ratio 0.9 (0.9-2); BUN Creatinine Ratio 17.3 (10-20); Bilirubin,Total 0.5 mg/dl (0.2-1.0); Calcium 8.4 mg/dl (8.6-10.3); Creatinine Clr Calc Pharmacy 22.2 ml/min; Est GFR (African American) 23.6 ml/min; Est GFR (Non-African American) 20.4 ml/min; Globulin 3.3 gm/dl (2.5-4.0); Magnesium 1.7 mg/dl (1.7-2.4); Phosphorus 3.3 mg/dl (2.5-4.9); Potassium 4.1 mmol/L (3.5-5.1); Total Protein 6.3 gm/dl (6.0-8.3)
[2023-11-29] MEDS: lisinopril 20 MG TAB PO SCH (07:53)
[2023-11-29] MEDS: PROMETHAZINE 6.25 MG/50.25 ML BAG IV PRN (08:14)
[2023-11-29] MEDS: VANCOMYCIN HCL 750 MG in SODIUM CHLORIDE 0.9% 250 ML IV ONE (08:14)
--- NOTE | 2023-11-29 08:46 | Hospitalist Progress Note ---
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 Now with recurrent symptoms this morning per . Stat CTA of the head. Give IV hydration for dye load and renal dysfunction. Communication with cardiology and neurology for further input and evaluation, Communication with cardiology, low suspicion for findings on mitral valve being a thrombus. May need PAT. Mental status definitely altered when compared to yesterday. Consult infectious disease for recommendations on antibiotics Continue with therapies Nephrology consultation noted, continue to monitor renal function, assisting with BP management and daughter reassured at bedside Continue to adjust insulin for glucose control Discontinue metronidazole, cefepime and vancomycin provides adequate empiric treatment for endocarditis. Metronidazole could be contributing to some of patient's nausea and even confusion 55 minutes spent in coordination of care, review of diagnostic studies, communication with specialist, family and nursing Admission and Anticipated Discharge Date Admission Date: November 26, 2023 Subjective Called urgently to bedside this morning. concerned that patient exhibiting similar symptoms to what she had when she presented. He states that she was confused and not answering questions appropriately earlier this morning. Patient denies any chest pain, no shortness of breath. No slurred speech noted. No poor coordination noted. She states she may feel just a little bit nauseated. Physical Exam Physical Exam: Constitutional: Alert, sitting on edge of bed HEENT: Mucous membranes moist. Lungs: Clear to auscultation, decreased, no wheezes rales or rhonchi CV: S1-S2, regular Abdomen: Soft, nontender, nondistended Extremities: No significant edema Neuro: No focal deficits, oriented, able to identify her and daughter at bedside. Psych: Cooperative, normal mood Results & Data Results & Data Vital Signs (Past 12 Hours) Vital Signs Temp Pulse Pulse Resp BP Pulse Ox O2 Del Method 11/29/23 07:18 36.7 C 82 18 165/78 H 94 Room Air 11/29/23 02:32 36.8 C 88 18 165/74 H 95 Room Air 11/28/23 22:30 36.8 C 89 18 160/72 H 93 Room Air 11/28/23 22:00 83 Laboratory Results Reviewed imaging, laboratory and diagnostic studies. Pertinent findings as below. Hemoglobin 9.9, essentially stable Creatinine 2.26, Stable
--- NOTE | 2023-11-29 08:54 | Nephrology Progress Note ---
Date of Service November 29, 2023 Assessment & Plan (1) Hypertensive urgency: Plan: * Several drug intolerances: Carvedilol->weak, amlodipine->low blood pressure, HCTZ->hypoglycemia * SBP improved from 220 to mid 160's * Currently tolerating low-dose lisinopril and amlodipine * Continue amlodipine, metoprolol and isosorbide as directed by Cardiology * Patient has already received Lisinopril 20 mg po x1 this am. Will reduce dose to 10 mg daily due to IV contrast and recent addition of metoprolol * Continue close monitoring of blood pressure. Await head CTA results (2) CKD stage 4 due to type 2 diabetes mellitus: Plan: * Baseline creatinine has been 2.22.4 w/ eGFR 20 cc/minute. MACR > 3.7. Mrs. Baker'mulugeta CKD has been attributed to CKD and arterionephrosclerosis (3) Diabetes mellitus, type II: Plan: * Managed with insulin therapy (4) Ischemic stroke of frontal lobe: Plan: * 11/26/23 Brain MRI revealed acute left anterior cerebral artery territory infarct * Initially patient presented with mental status changes and right-sided weakness. Her symptoms have resolved. Admission and Anticipated Discharge Date Admission Date: November 26, 2023 Subjective Mrs. Baker was evaluated in her hospital room this morning. She suffered an episode of confusion and dysarthria this morning. She is currently receiving IVF and is awaiting CTA of the brain Review of Systems Constitutional: no fever Eyes: no problem reported Ear, Nose, Mouth, Throat: no problem reported Respiratory: no cough and no dyspnea Cardiovascular: no chest pain Gastrointestinal: no abdominal pain, no nausea, no vomiting and no diarrhea/loose stools Genitourinary: no dysuria Integumentary: no rash Neurologic: no localized weakness and no headache(s) Physical Exam Constitutional: not in distress Eyes: PERRL, conjunctivae normal, anicteric sclerae ENMT: external ear and nose normal, oropharynx normal Neck: trachea midline, no thyromegaly Respiratory: normal respiratory effort, lungs clear to auscultation Cardiovascular: RRR, no murmur, no edema Gastrointestinal (Abdomen): normal bowel sounds, soft, nontender, no hepatosplenomegaly Skin: no rashes, warm and dry Neurologic: Speech / Cognition: normal speech and normal cognition Results & Data Vital Signs (Past 12 Hours) Vital Signs Temp Pulse Pulse Resp BP Pulse Ox O2 Del Method 11/29/23 07:18 36.7 C 82 18 165/78 H 94 Room Air 11/29/23 02:32 36.8 C 88 18 165/74 H 95 Room Air 11/28/23 22:30 36.8 C 89 18 160/72 H 93 Room Air 11/28/23 22:00 83 Laboratory Results Laboratory Results - last 24 hr 11/27/23 11/28/23 11/28/23 06:06 07:14 10:57 WBC RBC Hgb Hct MCV MCH MCHC RDW Std Deviation RDW Coeff of Samson Plt Count MPV Sodium Potassium Chloride Carbon Dioxide Anion Gap BUN Creatinine Est Cr Clr Drug Dosing Est GFR ( Amer) Est GFR (Non-Af Amer) BUN/Creatinine Ratio Glucose POC Glucose 208 H Calcium Phosphorus Magnesium Total Bilirubin AST ALT Alkaline Phosphatase Total Protein Albumin Globulin Albumin/Globulin Ratio Vitamin B12 515 Folate > 22.30 Homocysteine 9.6 Urine Color Urine Appearance Urine pH Ur Specific [place] Urine Protein Urine Glucose (UA) Urine Ketones Urine Blood Urine Nitrite Urine Bilirubin Urine Urobilinogen Ur Leukocyte Esterase Urine WBC (Auto) Urine RBC (Auto) U Hyaline Cast (Auto) U Epithel Cells (Auto) Urine Bacteria (Auto) Ur Random Creatinine U Random Total Protein Protein/Creatinin Ratio Random Vancomycin 11/28/23 11/28/23 11/28/23 16:17 20:17 Unknown WBC RBC Hgb Hct MCV MCH MCHC RDW Std Deviation RDW Coeff of Samson Plt Count MPV Sodium Potassium Chloride Carbon Dioxide Anion Gap BUN Creatinine Est Cr Clr Drug Dosing Est GFR ( Amer) Est GFR (Non-Af Amer) BUN/Creatinine Ratio Glucose POC Glucose 275 H 229 H Calcium Phosphorus Magnesium Total Bilirubin AST ALT Alkaline Phosphatase Total Protein Albumin Globulin Albumin/Globulin Ratio Vitamin B12 Folate Homocysteine Urine Color Yellow Urine Appearance Cloudy A Urine pH 5.5 Ur Specific [place] 1.027 Urine Protein 4+ H Urine Glucose (UA) 3+ H Urine Ketones Trace H Urine Blood 2+ H Urine Nitrite Negative Urine Bilirubin Negative Urine Urobilinogen Negative Ur Leukocyte Esterase Negative Urine WBC (Auto) 6-10 H Urine RBC (Auto) 0-2 U Hyaline Cast (Auto) 11-20 H U Epithel Cells (Auto) >20 H Urine Bacteria (Auto) None Seen Ur Random Creatinine 129.2 U Random Total Protein 818.9 H Protein/Creatinin Ratio 6.3 H Random Vancomycin 11/29/23 11/29/23 05:28 07:16 WBC 6.81 RBC 3.71 L Hgb 9.9 L Hct 31.2 L MCV 84.1 MCH 26.7 MCHC 31.7 L RDW Std Deviation 40.5 RDW Coeff of Samson 13.2 Plt Count 202 MPV 10.5 Sodium 140 Potassium 4.1 Chloride 112 H Carbon Dioxide 22 Anion Gap 6 BUN 39 H Creatinine 2.26 H Est Cr Clr Drug Dosing 22.2 Est GFR ( Amer) 23.6 Est GFR (Non-Af Amer) 20.4 BUN/Creatinine Ratio 17.3 Glucose 139 H POC Glucose 148 H Calcium 8.4 L Phosphorus 3.3 Magnesium 1.7 Total Bilirubin 0.5 AST 23 ALT 14 Alkaline Phosphatase 81 Total Protein 6.3 Albumin 3.0 L Globulin 3.3 Albumin/Globulin Ratio 0.9 Vitamin B12 Folate Homocysteine Urine Color Urine Appearance Urine pH Ur Specific [place] Urine Protein Urine Glucose (UA) Urine Ketones Urine Blood Urine Nitrite Urine Bilirubin Urine Urobilinogen Ur Leukocyte Esterase Urine WBC (Auto) Urine RBC (Auto) U Hyaline Cast (Auto) U Epithel Cells (Auto) Urine Bacteria (Auto) Ur Random Creatinine U Random Total Protein Protein/Creatinin Ratio Random Vancomycin 12.9 PG Care Time/CCT Total # of Minutes Spent Total Time Spent with Patient: Total time spent is greater than 50% in coordination of care (as documented) at patient's floor/unit and/or counseling patient: Coding Level of Care Code 85653 SUB INP/OBS CARE 3/50MIN Diagnoses Hypertensive urgency I16.0 CKD stage 4 due to type 2 diabetes mellitus E11.22; N18.4 Diabetes mellitus, type II E11.9 Ischemic stroke of frontal lobe I63.9
[2023-11-29] MEDS ORDERED: lisinopril 10 MG TAB PO SCH (09:00)
--- NOTE | 2023-11-29 09:40 | Pharmacy Report ---
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 TTE performed on 11/27/23 and revealed findings suggestive of mitral valve vegetation. Pertinent microbiologic data includes: blood culture (11/26) shows no growth at 24 hours. Pertinent PMH includes T2DM, CKD, and rheumatoid arthritis (on chronic prednisone). Renal function is poor, but appears to be at/near baseline. ID consulted. Day # 2 of antimicrobial therapy. Plan Vancomycin * Loading dose of 1750 mg IV x 1 yesterday morning * Random level obtained 11/29/23 resulted as 12.9 mcg/mL. * Maintenance dose of 750 mg IV q24h * Predicted AUC at steady state: > 600 mg/L.hr * Will Repeat random level tomorrow AM (11/30/23) due to elevated predicted AUC and poor renal function Pharmacy will continue to follow and will adjust dose/frequency as necessary. Thank you. Pharmacy has transitioned to AUC monitoring for vancomycin. AUC/KVNG is the preferred PK/PD target and is associated with decreased risk of nephrotoxicity compared to traditional trough targets.
[2023-11-29] MEDS: SODIUM CHLORIDE 0.9% 500 ML IV SCH (09:59)
--- NOTE | 2023-11-29 10:40 | Pharmacy Report ---
- Date of Service November 29, 2023 - Pharmacy CVA/TIA Medication Review Medications to Prevent Stroke handout has been added to the patients discharge packet. Antiplatelet(s) * aspirin 81 mg PO daily * holding ticagrelor at this time due to vegetation on echo (decrease risk of hemorrhagic transformation) Cholesterol * High intensity statin: atorvastatin 80 mg daily DVT Prophylaxis * Heparin SQ Therapeutic Anticoagulation * History of Afib/Aflutter noted, but reportedly lone incident in 2011 w/o recurrence per cardiology Type 2 Diabetes * Patient has T2DM, but per Dr. Randall, a diabetes medication with proven CVD benefit will be deferred to their outpatient provider due to familiarity with risks/benefits of such therapies. "Medications to prevent stroke" handout has already been added to the patient's discharge packet, which instructs the patient to follow up with their outpatient provider to evaluate which diabetes medication with proven CVD benefit is best for them
--- NOTE | 2023-11-29 10:48 | Cardiology Progress Note ---
Date of Service November 29, 2023 Assessment & Plan (1) Ischemic stroke of frontal lobe: (2) Hypertensive urgency: Plan Although among the patient's outpatient problems listed in her [facility] chart includes persistent atrial fibrillation. She actually had lone atrial fibrillation noted at the time of her bypass surgery in 2011 without recurrence. She has not been anticoagulation in the meantime, and presents today in sinus rhythm. Patient with findings on MRI of the brain suggestive of possible cardioembolic stroke. The patient was found to have a 0.6 cm x 0.75 cm mobile echodensity on the left ventricular aspect of the mitral valve apparatus suggestive of mobile calcifi cation of the use of mitral valve apparatus versus vegetation. The patient is immunocompromised as she is on chronic prednisone therapy for rheumatoid arthritis and also has diabetes. Blood cultures drawn on 11/26. No growth thus far. Brilinta discontinued given possible vegetation on echo in an effort to reduce risk of hemorrhagic conversion. Continue aspirin and atorvastatin. 11/29/2023: Patient to have repeat noncontrast CT of the head, CT angiogram. Agree with reducing lisinopril back to 10 mg, hydration with CT to allow for contrast given CKD. Patient tolerating low-dose carvedilol thus far without significant bradycardia. Blood pressure trending toward improvement. May need transesophageal echocardiogram for further characterization of her valvular disease, would prefer to do this when her mental status is more clear. DVT prophylaxis: Agree with plans for subcutaneous heparin. Admission and Anticipated Discharge Date Admission Date: November 26, 2023 Subjective Patient seen in cardiology follow-up. , , at bedside. This morning at about 8:00, patient had a change in mental status, with generalized confusion noted when she is using the bathroom, symptoms similar to those that prompted her initial presentation to the hospital. She is now back in bed. Her mental status is improved, but not as good as it was yesterday. No focal deficits noted on exam. Telemetry reviewed revealing sinus rhythm in the 60s with occasional PVCs, t ransient bradycardia noted at 7:53 AM, heart rate down to 40 bpm just momentarily. Physical Exam Constitutional: WD/WN, vitals as above Eyes: PERRL, conjunctivae normal, anicteric sclerae Respiratory: normal respiratory effort, lungs clear to auscultation Cardiovascular: RRR, no murmur, no edema Gastrointestinal (Abdomen): normal bowel sounds, soft, nontender, no hepatosplenomegaly Neurologic: PERRL, EOMI, accommodation nl, no face palsy, no dysarthria Psychiatric: A+Ox3, euthymic affect Results & Data Vital Signs (Past 12 Hours) Vital Signs Temp Pulse Resp BP Pulse Ox O2 Del Method 11/29/23 07:18 36.7 C 82 18 165/78 H 94 Room Air 11/29/23 02:32 36.8 C 88 18 165/74 H 95 Room Air Laboratory Results Cardiac Enzymes 11/29/23 Range/Units 05:28 AST 23 (13-39) U/L CBC 11/29/23 Range/Units 05:28 WBC 6.81 (4.8-10.8) K/ul RBC 3.71 L (4.20-5.40) M/uL Hgb 9.9 L (12.0-16.0) g/dl Hct 31.2 L (37.0-47.0) % Plt Count 202 (130-400) K/uL Comprehensive Metabolic Panel 11/29/23 Range/Units 05:28 Sodium 140 (136-145) mmol/L Potassium 4.1 (3.5-5.1) mmol/L Chloride 112 H (98-107) mmol/L Carbon Dioxide 22 (21-32) mmol/L BUN 39 H (6-23) mg/dl Creatinine 2.26 H (0.6-1.2) mg/dl Glucose 139 H (70-99(Fasting)) mg/dl Calcium 8.4 L (8.6-10.3) mg/dl AST 23 (13-39) U/L ALT 14 (7-52) U/L Alkaline Phosphatase 81 (34-104) U/L Total Protein 6.3 (6.0-8.3) gm/dl Albumin 3.0 L (3.4-5.0) gm/dl Intake and Output 11/28/23 11/29/23 11/29/23 22:59 06:59 14:59 Intake Total 100 / 955 220 / 955 415.25 / 415.25 Output Total 150 / 300 150 / 300 Balance -50 / 655 70 / 655 415.25 / 415.25 Intake: IV 100 / 835 100 / 835 415.25 / 415.25 Promethazine 6.25 mg In 50.25 50.25 / 50.25 ml @ 201 mls/hr IV Q6H PRN Rx#: [id number] Vancomycin HCl 750 mg In Sodium 265 / 265 Chloride 0.9% 250 ml @ 200 mls /hr IV ONE ONE Rx#:[id number] metroNIDAZOLE 500 mg In 100 ml 100 / 300 100 / 300 100 / 100 @ 100 mls/hr IV Q8H [facility] Rx#: [id number] Oral 120 / 120 Output: Urine 150 / 300 150 / 300 Other: Weight 80.7 kg Weight Measurement Method Built in [facility]
--- NOTE | 2023-11-29 15:35 | Communication Note ---
Date of Service: November 29, 2023 Patient reassessed at 1400: Mental status was back to normal per patient and family. As of , patient is yet to have the CT angiogram of the chest, as she is being hydrated for renal protective purposes. I discussed case with Dr. Randall and we are both of the opinion that she has had enough fluid to proceed with a CT angiogram, and I therefore communicated to the patient's nurse to agreements to take her for the CT as soon as possible. Patient is tenably scheduled for a transesophageal echocardiogram tomorrow for evaluation of cardiac source of cerebral embolism. Kenzie Hurley DO
[2023-11-29] MEDS: OPTIRAY 320 125ml IV ONE (15:48)
--- NOTE | 2023-11-29 15:52 | Infectious Disease Consult ---
Date of Service November 29, 2023 Telehealth Information I performed this visit using a real-time telehealth connection between my location and the patients location ([facility]). After connecting through interactive tele-video, patient was identified by name and date of and/or wristband check.Patient (or authorized healthcare route service representative) was informed that this was a telemedicine visit and it was being conducted confidentially over secure lines. My office door was closed and no on e else was present in the room with me.Patient (or authorized healthcare route service representative) provided consent to proceed with the visit, expressed an understanding of privacy and security of the telemedicine visit, and gave permission to have a hospital route service representative in the room in order to assist with the visit and to conduct portions of the visit, as needed. I informed the patient (or authorized healthcare route service representative) that I reviewed their record and presented the opportunity for them to ask any questions regarding the visit today. The patient agreed to participate. Assessment & Plan (1) Ischemic stroke of frontal lobe: (2) Acute alteration in mental status: (3) Vegetation of heart valve: Plan Given the fact that the blood culture has been negative and she has been afebrile without any illness preceding her acute encephalopathy and neurological changes, I have low concerns for infective endocarditis. Nonetheless, given the high concerns for septic emboli to the brain, I would recommend keeping on broad-spectrum antibiotics including cefepime and vancomycin for now. Please obtain transesophageal echo to further investigate the mitral valve vegetation. If the vegetation was more suggestive of a fibrous trend rather than infection, I would recommend stopping all antibiotics. Thank you for consulting Infectious Disease. We will continue to follow. History of Present Illness History of Present Illness Ms. Baker is a 78-year-old woman with medical history of CAD status post CABG, HTN, dyslipidemia, type 2 diabetes, CKD and atrial fibrillation who was admitted to [facility] on 11/26/2023 because of acute encephalopathy. Apparently, after her returned from a trip in the community development officer of 11/25, he found his confused and unable to communicate which prompted him to bring her to the emergency department. On presentation, she was afebrile, but hypertensive at 184/86 and the rest of the vitals were within normal limits. Initial workup was impressive for leukocytosis of 12 (ANC 10.4), RENETTA on CKD, elevated troponin, UA with 6-10 pyuria, toxicology screen negative, respiratory viral panel positive for enterovirus/rhinovirus. MRI of the brain showed multiple small foci of restricted diffusion within the left frontal lobe consistent with acute left CHARLES infarct with old small left cerebellar infarcts. An echocardiogram was performed which showed a 0.6 x 0.75 echodensity on the ventricular aspect of the mitral valve suggestive of vegetation. Id team was consulted for further recommendations and to help guide antibiotic treatment. Allergies Allergy/AdvReac Type Severity Reaction Status Date / Time nitrofurantoin Allergy Hives Verified 11/20/23 10:39 [From Macrobid] sulfamethoxazole AdvReac RENETTA Verified 11/20/23 10:39 [From Bactrim] trimethoprim [From Bactrim] AdvReac RENETTA Verified 11/20/23 10:39 Home Medications Medication Instructions Recorded Confirmed Type amlodipine 5 mg tablet 5 mg PO HS 01/04/23 11/26/23 History aspirin 81 mg chewable tablet 81 mg PO DAILY 01/04/23 11/26/23 History atorvastatin 40 mg tablet 40 mg PO HS 01/04/23 11/26/23 History biotin 1 mg tablet 1 mg PO DAILY 01/04/23 11/26/23 History cinnamon bark 500 mg capsule 500 mg PO DAILY 01/04/23 11/26/23 History (Cinnamon) coenzyme Q10 100 mg capsule 100 mg PO DAILY 01/04/23 11/26/23 History (CoQ-10) cyanocobalamin (vitamin B-12) 1,000 mcg PO DAILY 01/04/23 11/26/23 History 1,000 mcg tablet (Vitamin B-12) faricimab-svoa 6 mg/0.05 mL 6 mg intravitreal DIRECTED PRN 01/04/23 11/26/23 History intravitreal solution Macular Edema insulin glargine 100 unit/mL (3 42 unit subcut QAM 01/04/23 11/26/23 History mL) subcutaneous pen (Basaglar Kimberley U-100 Insulin) isosorbide mononitrate 60 mg 60 mg PO DAILY 01/04/23 11/26/23 History tablet,extended release 24 hr milk thistle 175 mg tablet 175 mg PO DAILY 01/04/23 11/26/23 History prednisone 5 mg tablet 2.5 mg PO DAILY 01/04/23 11/26/23 History vit C 250 mg-vit E 90 mg-zinc 40 1 tab PO DAILY 01/04/23 11/26/23 History mg-copper 1 fy-qqammc-rtzifx capsule (PreserVision AREDS-2) insulin aspart U-100 100 unit/mL 8 unit subcut TID 06/07/23 11/26/23 History subcutaneous solution (Novolog U-100 Insulin aspart) lisinopril 10 mg tablet 10 mg PO DAILY #90 tabs 10/05/23 11/26/23 Rx calcitriol 0.25 mcg capsule 0.25 mcg PO .COMPLEX #24 caps 11/20/23 11/26/23 Rx cholecalciferol (vitamin D3) 10 20 mcg PO DAILY 11/20/23 11/26/23 History mcg (400 unit) tablet (Vitamin D3) albuterol sulfate 90 mcg/actuation 1 inh inhalation Q4H PRN Shortness 11/26/23 11/26/23 History aerosol inhaler Of Breath Or Wheezing blood-glucose sensor (FreeStyle #1 ea 11/28/23 Rx Enrique 3 Sensor device) Patient History Medical History Rheumatoid arthritis Thyroid nodule PCP MONITORS "SMALL" Retinopathy RECIEVES SHOTS TO TREAT Myocardial Infarction 10 YEARS AGO Hyperlipidemia History of COVID-19 04/2021>CONGESTION/FATIGUE *RESOLVED Left radial head fracture Acute kidney injury Rheumatoid arthritis Surgical History History of ankle surgery RT History of colonoscopy History of tooth extraction History of heart artery stent 5 MONTHS AFTER CABG>HEART CATH WITH 1 STENT PLACED History of cardiac cath NO STENTS/BEFORE CABG Family History Grandmother (Maternal) Family history of diabetes mellitus Other No family history of adverse response to anesthesia Social History Smoking Status: Never smoker Second Hand Exposure: Yes (childhood); Do You Dip or Chew Tobacco: No; Tobacco Cessation Education Requested by Patient: No Hx Alcohol Use: No Hx Substance Use: No Preferred Language: Irish Communication Ability: Effective Communication Ability Comment: change mental status, slurred speach Visual Impairment: No Limitations Hearing Ability: Normal Staffing Coordinator Required: No Beliefs That Will Affect Care: None marital status: Single Current Living Situation: Spouse current occupational status: retired Feels Safe at Home: Yes Safety Concerns: Feels Safe At This Time Diet: regular Physical Activity Frequency: Does not Exercise Seatbelt Use: always Assistive Devices: None Review of Systems Negative except for what was mentioned in the H&P. Physical Exam Could not be performed as the encounter was conducted via TeleMed. Results & Data Vital Signs (Past 12 Hours) Vital Signs Temp Pulse Resp BP Pulse Ox O2 Del Method 11/29/23 11:22 36.7 C 81 18 175/80 H 95 Room Air 11/29/23 07:18 36.7 C 82 18 165/78 H 94 Room Air Laboratory Results Microbiology: 11/26: 1 set of blood culture negative to date 11/26: Urine culture with 3 times of organisms present likely skin janet Diagnostic Findings Brain MRI performed on 11/25: 1. Multiple small foci of restricted diffusion seen within the left frontal lobe primarily involving the left superior frontal gyrus. This is consistent with an acute left CHARLES territory infarct. 2. 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
--- NOTE | 2023-11-29 16:28 | CT Scan Report ---
CT ANGIOGRAM OF THE BRAIN COMBO CLINICAL HISTORY: Stroke like symptoms. COMPARISON STUDY: CT of the brain dated 11/26/2023. MR angiogram of the brain dated 11/26/2023. TECHNIQUE: Unenhanced axial CT scan of the brain is performed. Subsequently, following the IV adminis tration of 119 cc of Optiray 320, CT angiogram of the brain was performed from the skull base to the vertex. Images are reviewed in the axial, sagittal, and coronal planes. 3-D MIPS images are created a nd assessed. IV contrast was administered without complication. A dose lowering technique was utiliz ed adhering to the principles of ALARA. CT DOSE: 785.4 mGy.cm FINDINGS: Brain parenchyma: There is age related involutional change noting mild to moderate subcortical and pe riventricular microangiopathic disease. There is a subacute/evolving left anterior cerebral artery te rritory infarct, with loss of price-white matter differentiation in the left frontal lobe. No hemorrha ge or midline shift is identified. There is no evidence of enhancing mass lesion on the angiogram pha se images. No extra-axial fluid collection is seen. Ventricles, sulci, and cisterns: Prominent secondary to involutional change. CT angiogram of the brain: There is atherosclerotic calcification of the cavernous carotid and verteb ral arteries. The internal carotid arteries are widely patent, as are the right anterior cerebral art kalee and both middle cerebral arteries. The proximal pended portions of the left anterior cerebral art kalee are widely patent. There is likely a peripheral branch occlusion of the left anterior cerebral ar priscilla seen on axial image #176. The vertebrobasilar system and posterior cerebral arteries are widely patent. The left vertebral artery is dominant. There is origin of the right posterior cerebral artery. No aneurysm is seen throughout the intracranial circulation. Dural sinuses: Clear as visualized. Orbits: The bony orbits are intact. The orbital contents are normal as visualized noting bilateral oc ular lens implants. Sinuses and mastoids: There are is moderate mucosal thickening within the ethmoid sinuses. Mild mucos al thickening is seen within the maxillary antra, and there is trace mucosal thickening in the fronta l and sphenoid sinuses. The mastoid air cells are well pneumatized. Calvarium: Unremarkable. IMPRESSION: 1. There is a subacute/evolving left CHARLES territory infarct. 2. There is no hemorrhage or mass effect. 3. There is likely a peripheral branch occlusion within the left anterior cerebral artery. 4. Otherwise unremarkable CT angiogram of the brain. ACT 112: Negative or not required by law. Electronically signed by: Errol Gamino M.D. 11/29/2023 4:25 PM
--- NOTE | 2023-11-29 16:38 | Neurology Progress Note ---
Date of Service November 29, 2023 Assessment & Plan (1) Embolic stroke: The patient had a transient change in mental status today that improved towards the evening. She has been receiving cefepime and vancomycin for coverage of subacute bacterial endocarditis. CT scan of the head that was done showed no acute changes, expected evolution of her infarcts. CTA head and neck again shows no large vessel occlusion. Plan Unsure about the nature of the event, however cefepime is neurotoxic and can precipitate seizures, consider changing to another antibiotic in hide that this will be discontinued. . PAT scheduled for tomorrow if this lesion proves to be noninfectious will consider anticoagulation. Recommend continuing aspirin for stroke prevention for now . Dr. Burnham from [place] recommended ceftriaxone 2 g daily instead of cefepime Subjective Telehealth Information I performed this visit using a real-time telehealth connection between my location and the patients location ([facility]). After connecting through interactive tele-video, patient was identified by name and date of and/or wristband check.Patient (or authorized healthcare rental sales representative) was informed that this was a telemedicine visit and it was being conducted confidentially over secure lines. My office door was closed and no one else was present in the room with me.Patient (or authorized healthcare rental sales representative) provided consent to proceed with the visit, expressed an understanding of privacy and security of the telemedicine visit, and gave permission to have a hospital rental sales representative in the room in order to assist with the visit and to conduct portions of the visit, as needed. I informed the patient (or authorized healthcare rental sales representative) that I reviewed their record and presented the opportunity for them to ask any questions regarding the visit today. The patient agreed to participate. 78-year-old lady was been hospitalized for changes in mentation and was found to have bilateral embolic appearing strokes with echocardiogram showing a lesion suspicious for endocarditis, with negative blood cultures. The patient was noted to be confused earlier today was not making sense, and was disoriented, there has been no reports of worsening facial droop or motor weakness. This started to improve around noon and has completely resolved towards the afternoon Review of Systems Otherwise is negative Physical Exam General Constitutional: Appearance normally developed Head and face: normocephalic and atraumatic Eyes: no ptosis, no anisocoria, and no dysconjugate gaze Respiratory: normal effort Cardiovascular: regular rhythm and regular rate Abdomen: non distended Skin: no rashes, lesions, or ulcers noted Psychiatric: normal judgement and insight, normal mood, and normal affect NEUROLOGIC EXAMINATION: Mental Status:alert, oriented to time, place, person, normal recent memory, normal remote memory, normal attention span, normal concentration, normal language and normal fund of knowledge Cranial Nerves: CN 2 - no visual defect on confrontation and pupils round, equal, reactive to light CN 3, 4, 6 - extra-ocular movements intact and no nystagmus CN 5 - facial sensation intact CN 7 - no facial asymmetry CN 8 - intact hearing CN 9, 10 - palate symmetric, normal gag CN 11 - good shoulder shrug CN 12 - tongue midline MOTOR: Strength was at least antigravity throughout, Pronator drift was absent and There were no abnormal movements SENSATION: intact and symmetric to pinprick, light touch, vibration and joint position GAIT: stable, no ataxia and can perform tandem walking COORDINATION: no ataxia with finger to nose testing and heel to marcos testing REFLEXES: cannot assess over telemedicine Results & Data Vital Signs (Past 12 Hours) Vital Signs Temp Pulse Resp BP Pulse Ox O2 Del Method 11/29/23 16:29 36.6 C 73 18 163/113 H 93 Room Air 11/29/23 11:22 36.7 C 81 18 175/80 H 95 Room Air 11/29/23 07:18 36.7 C 82 18 165/78 H 94 Room Air Laboratory Results Abnormal lab results 11/28/23 11/28/23 11/29/23 Range/Units 20:17 Unknown 05:28 RBC 3.71 L (4.20-5.40) M/uL Hgb 9.9 L (12.0-16.0) g/dl Hct 31.2 L (37.0-47.0) % MCHC 31.7 L (32.0-36.0) g/dL Chloride 112 H (98-107) mmol/L BUN 39 H (6-23) mg/dl Creatinine 2.26 H (0.6-1.2) mg/dl Glucose 139 H (70-99(Fasting)) mg/dl POC Glucose 229 H (70-99) mg/dl Calcium 8.4 L (8.6-10.3) mg/dl Albumin 3.0 L (3.4-5.0) gm/dl Urine Appearance Cloudy A (Clear) Urine Protein 4+ H (Negative) Urine Glucose (UA) 3+ H (Negative) Urine Ketones Trace H (Negative) Urine Blood 2+ H (Negative) Urine WBC (Auto) 6-10 H (0-5) /hpf U Hyaline Cast (Auto) 11-20 H (0-2) /lpf U Epithel Cells (Auto) >20 H (0-2) /hpf U Random Total Protein 818.9 H (0-11.9) mg/dl Protein/Creatinin Ratio 6.3 H (0-0.2) 11/29/23 11/29/23 11/29/23 Range/Units 07:16 11:18 16:21 RBC (4.20-5.40) M/uL Hgb (12.0-16.0) g/dl Hct (37.0-47.0) % MCHC (32.0-36.0) g/dL Chloride (98-107) mmol/L BUN (6-23) mg/dl Creatinine (0.6-1.2) mg/dl Glucose (70-99(Fasting)) mg/dl POC Glucose 148 H 197 H 213 H (70-99) mg/dl Calcium (8.6-10.3) mg/dl Albumin (3.4-5.0) gm/dl Urine Appearance (Clear) Urine Protein (Negative) Urine Glucose (UA) (Negative) Urine Ketones (Negative) Urine Blood (Negative) Urine WBC (Auto) (0-5) /hpf U Hyaline Cast (Auto) (0-2) /lpf U Epithel Cells (Auto) (0-2) /hpf U Random Total Protein (0-11.9) mg/dl Protein/Creatinin Ratio (0-0.2) Diagnostic Findings Head CTA 11/29/23 08:23 CT ANGIOGRAM OF THE BRAIN COMBO CLINICAL HISTORY: Stroke like symptoms. COMPARISON STUDY: CT of the brain dated 11/26/2023. MR angiogram of the brain dated 11/26/2023. TECHNIQUE: Unenhanced axial CT scan of the brain is performed. Subsequently, following the IV administration of 119 cc of Optiray 320, CT angiogram of the brain was performed from the skull base to the vertex. Images are reviewed in the axial, sagittal, and coronal planes. 3-D MIPS images are created and assessed. IV contrast was administered without complication. A dose lowering technique was utilized adhering to the principles of ALARA. CT DOSE: 785.4 mGy.cm FINDINGS: Brain parenchyma: There is age related involutional change noting mild to moderate subcortical and periventricular microangiopathic disease. There is a subacute/evolving left anterior cerebral artery territory infarct, with loss of price-white matter differentiation in the left frontal lobe. No hemorrhage or midline shift is identified. There is no evidence of enhancing mass lesion on the angiogram phase images. No extra-axial fluid collection is seen. Ventricles, sulci, and cisterns: Prominent secondary to involutional change. CT angiogram of the brain: There is atherosclerotic calcification of the cavernous carotid and vertebral arteries. The internal carotid arteries are widely patent, as are the right anterior cerebral artery and both middle cerebral arteries. The proximal pended portions of the left anterior cerebral artery are widely patent. There is likely a peripheral branch occlusion of the left anterior cerebral artery seen on axial image #176. The vertebrobasilar system and posterior cerebral arteries are widely patent. The left vertebral artery is dominant. There is origin of the right posterior cerebral artery. No aneurysm is seen throughout the intracranial circulation. Dural sinuses: Clear as visualized. Orbits: The bony orbits are intact. The orbital contents are normal as visualized noting bilateral ocular lens implants. Sinuses and mastoids: There are is moderate mucosal thickening within the ethmoid sinuses. Mild mucosal thickening is seen within the maxillary antra, and there is trace mucosal thickening in the frontal and sphenoid sinuses. The mastoid air cells are well pneumatized. Calvarium: Unremarkable. IMPRESSION: 1. There is a subacute/evolving left CHARLES territory infarct. 2. There is no hemorrhage or mass effect. 3. There is likely a peripheral branch occlusion within the left anterior cerebral artery. 4. Otherwise unremarkable CT angiogram of the brain. ACT 112: Negative or not required by law. Electronically signed by: Errol Gamino M.D. 11/29/2023 4:25 PM Medications Administered Home Medications Medication Instructions Recorded Confirmed Last Taken amlodipine 5 mg tablet 5 mg PO HS 01/04/23 11/26/23 Unknown aspirin 81 mg chewable tablet 81 mg PO DAILY 01/04/23 11/26/23 Unknown atorvastatin 40 mg tablet 40 mg PO HS 01/04/23 11/26/23 Unknown biotin 1 mg tablet 1 mg PO DAILY 01/04/23 11/26/23 Unknown cinnamon bark 500 mg capsule 500 mg PO DAILY 01/04/23 11/26/23 Unknown (Cinnamon) coenzyme Q10 100 mg capsule 100 mg PO DAILY 01/04/23 11/26/23 Unknown (CoQ-10) cyanocobalamin (vitamin B-12) 1,000 mcg PO DAILY 01/04/23 11/26/23 Unknown 1,000 mcg tablet (Vitamin B-12) faricimab-svoa 6 mg/0.05 mL 6 mg intravitreal DIRECTED PRN 01/04/23 11/26/23 Unknown intravitreal solution Macular Edema insulin glargine 100 unit/mL (3 42 unit subcut QAM 01/04/23 11/26/23 01/04/23 08:00 mL) subcutaneous pen (Basaglar KwikPen U-100 Insulin) isosorbide mononitrate 60 mg 60 mg PO DAILY 01/04/23 11/26/23 01/04/23 tablet,extended release 24 hr milk thistle 175 mg tablet 175 mg PO DAILY 01/04/23 11/26/23 Unknown prednisone 5 mg tablet 2.5 mg PO DAILY 01/04/23 11/26/23 01/04/23 vit C 250 mg-vit E 90 mg-zinc 40 1 tab PO DAILY 01/04/23 11/26/23 Unknown mg-copper 1 [id number] capsule (PreserVision AREDS-2) insulin aspart U-100 100 unit/mL 8 unit subcut TID 06/07/23 11/26/23 Unknown subcutaneous solution (Novolog U-100 Insulin aspart) lisinopril 10 mg tablet 10 mg PO DAILY #90 tabs 10/05/23 11/26/23 Unknown calcitriol 0.25 mcg capsule 0.25 mcg PO .COMPLEX #24 caps 11/20/23 11/26/23 Unknown cholecalciferol (vitamin D3) 10 20 mcg PO DAILY 11/20/23 11/26/23 Unknown mcg (400 unit) tablet (Vitamin D3) albuterol sulfate 90 mcg/actuation 1 inh inhalation Q4H PRN Shortness 11/26/23 11/26/23 Unknown aerosol inhaler Of Breath Or Wheezing blood-glucose sensor (FreeStyle #1 ea 11/28/23 Unknown Enrique 3 Sensor device) Active Medications Generic Name Dose Route Start Last Admin Trade Name Lavell PRN Reason Stop Dose Admin Amlodipine Besylate 5 mg 11/27/23 21:00 11/28/23 20:46 Amlodipine Besylate 5 Mg Tab PO 12/27/23 20:59 5 mg HS ADELA Administration Aspirin 81 mg 11/27/23 09:00 11/29/23 08:14 Aspirin 81 Mg Chew PO 12/27/23 08:59 81 mg DAILY ADELA Administration Atorvastatin Calcium 80 mg 11/27/23 21:00 11/28/23 20:50 Atorvastatin 40 Mg Tab PO 12/27/23 20:59 80 mg HS ADELA Administration Calcitriol 0.25 mcg 11/27/23 09:00 11/27/23 08:12 Calcitriol 0.25 Mcg Capsule PO 12/27/23 08:59 0.25 mcg MoFr@0900 ADELA Administration Carvedilol 3.125 mg 11/28/23 21:00 11/29/23 08:03 Carvedilol 3.125 Mg Tab PO 12/28/23 20:59 3.125 mg BID ADELA Administration Heparin Sodium (Porcine) 5,000 units 11/26/23 21:00 11/29/23 08:03 Heparin Sod 5,000 Unit/0.5 Ml Vial SQ 12/26/23 20:59 5,000 units Q12 ADELA Administration Sodium Chloride 500 mls @ 80 mls/hr 11/29/23 09:00 11/29/23 16:28 Nss IV 12/29/23 08:59 80 mls/hr .Q6H15M ADELA Administration Insulin Aspart 0 units 11/27/23 16:30 11/29/23 12:03 Insulin Aspart Per Unit Charge SC 12/27/23 05:59 4 units ACHS ADELA Administration Insulin Glargine 30 units 11/27/23 09:00 11/29/23 08:03 Lantus Per Unit Charge SQ 12/27/23 08:59 Not Given QAM ADELA Isosorbide Mononitrate 60 mg 11/27/23 09:00 11/29/23 07:52 Isosorbide [place] Extended Rel 60 Mg Tabcr PO 12/27/23 08:59 60 mg DAILY ADELA Administration Multivitamins/Minerals 1 tab 11/27/23 09:00 11/29/23 07:52 Cerovite Adv Formula Tab PO 12/27/23 08:59 1 tab DAILY ADELA Administration Prednisone 2.5 mg 11/27/23 09:00 11/29/23 07:52 Prednisone 2.5 Mg Tab PO 12/27/23 08:59 2.5 mg DAILY ADELA Administration Vitamin D 20 mcg 11/27/23 09:00 11/29/23 07:52 Cholecalciferol 10 Mcg (400 Units) Tab PO 12/27/23 08:59 20 mcg DAILY ADELA Administration
[2023-11-29] MEDS: cefTRIAXone SODIUM 2,000 MG/50 ML BAG IV SCH (17:21)
[2023-11-30] MEDS: SODIUM CHLORIDE 0.9% 1,000 ML IV SCH (01:03)
[2023-11-30 06:54] LABS: Basophils # (auto) 0.07 K/uL (0.00-0.20); Eosinophils # (auto) 0.28 K/uL (0.00-0.50); Eosinophils % (auto) 4.2 %; Hematocrit (blood only) 33.2 % (37.0-47.0); Hemoglobin 10.4 g/dl (12.0-16.0); Immature Granulocytes # (auto) 0.04 K/uL (0.01-0.20); Immature Granulocytes % (auto) 0.6 %; Lymphocytes # (auto) 1.14 K/uL (1.20-3.40); Mean Corpuscular Hemoglobin 26.8 pg (25.0-34.0); Mean Corpuscular Hgb Conc 31.3 g/dL (32.0-36.0); Mean Corpuscular Volume 85.6 fL (80.0-100.0); Mean Platelet Volume 10.4 fL (9.4-12.4); Monocytes # (auto) 0.58 K/uL (0.11-0.59); Monocytes % (auto) 8.7 %; Neutrophils # (auto) 4.58 K/uL (1.40-6.50); Neutrophils % (auto) 68.5 %; Platelet Count 215 K/uL (130-400); RDW Coefficient of Variation 13.2 % (11.5-14.5); RDW Standard Deviation 41.2 fL (36.4-46.3); Red Blood Count 3.88 M/uL (4.20-5.40); White Blood Count 6.69 K/ul (4.8-10.8)
[2023-11-30] MEDS ORDERED: PROPOFOL IV EMULSION 10 MG/ML 20 ML VIAL IV ONE (06:59)
[2023-11-30 07:19] LABS: BUN Creatinine Ratio 15.5 (10-20); Calcium 8.6 mg/dl (8.6-10.3); Creatinine Clr Calc Pharmacy 23.6 ml/min; Est GFR (African American) 25.4 ml/min; Est GFR (Non-African American) 21.9 ml/min; Magnesium 1.7 mg/dl (1.7-2.4); Potassium 4.1 mmol/L (3.5-5.1)
--- NOTE | 2023-11-30 07:34 | History & Physical Bridge Note ---
Date of Service November 30, 2023 History & Physical Bridge Note I have examined the patient, reviewed the History & Physical and in the interval since the performance of the History & Physical I have noted the following changes of clinical significance: no changes noted. Repeat CT/CT angiogram performed yesterday afternoon revealed evolving left CHARLES territory stroke, same stroke is what had been seen on the MRI earlier this hospital stay. Transesophageal echocardiogram to be performed for evaluation of cardiac source of cerebral embolism as well as assessment of endocarditis as a cardiac source of the cerebral embolism. Patient nauseous when she was transferred from the progressive care unit to the heart center. Symptoms have resolved spontaneously. Mental status is appropriate. No focal deficits on exam. Blood pressure on arrival to the unit is high with systolic blood pressure greater than 200 mmHg. Informed consent for PAT obtained. Patient elects to proceed. At this time, I do not think that her nauseousness is a sign of progressive cerebral ischemia. Will treat her blood pressure accordingly for the procedure.
--- NOTE | 2023-11-30 07:54 | Anesthesiology Consultation ---
Date of Service November 30, 2023 Assessment & Plan Chart Review Chart Review: Acceptable Risk for Surgery and Patient NOT seen in Pre Admission Testing Consults Requested none ASA ASA4 Proposed Anesthesia Anesthesia Type: MAC Risk / Benefits Reviewed With: PT / POA / Parent / Guardian, Accepts Plan and Informed Consent Obtained History Surgery Operation Date: 11/30/23 07:45 Proposed Procedures p Transesophageal Echo w/Anesthesia - Dameon Hurley, Height/Weight Height: 5 ft 5 in Weight: 80.7 kg Allergies Allergy/AdvReac Type Severity Reaction Status Date / Time nitrofurantoin Allergy Hives Verified 11/20/23 10:39 [From Macrobid] sulfamethoxazole AdvReac RENETTA Verified 11/20/23 10:39 [From Bactrim] trimethoprim [From Bactrim] AdvReac RENETTA Verified 11/20/23 10:39 Medications Home Medications Medication Instructions Recorded Confirmed Last Taken amlodipine 5 mg tablet 5 mg PO HS 01/04/23 11/26/23 Unknown aspirin 81 mg chewable tablet 81 mg PO DAILY 01/04/23 11/26/23 Unknown atorvastatin 40 mg tablet 40 mg PO HS 01/04/23 11/26/23 Unknown biotin 1 mg tablet 1 mg PO DAILY 01/04/23 11/26/23 Unknown cinnamon bark 500 mg capsule 500 mg PO DAILY 01/04/23 11/26/23 Unknown (Cinnamon) coenzyme Q10 100 mg capsule 100 mg PO DAILY 01/04/23 11/26/23 Unknown (CoQ-10) cyanocobalamin (vitamin B-12) 1,000 mcg PO DAILY 01/04/23 11/26/23 Unknown 1,000 mcg tablet (Vitamin B-12) faricimab-svoa 6 mg/0.05 mL 6 mg intravitreal DIRECTED PRN 01/04/23 11/26/23 Unknown intravitreal solution Macular Edema insulin glargine 100 unit/mL (3 42 unit subcut QAM 01/04/23 11/26/23 01/04/23 08:00 mL) subcutaneous pen (Chris Chu U-100 Insulin) isosorbide mononitrate 60 mg 60 mg PO DAILY 01/04/23 11/26/23 01/04/23 tablet,extended release 24 hr milk thistle 175 mg tablet 175 mg PO DAILY 01/04/23 11/26/23 Unknown prednisone 5 mg tablet 2.5 mg PO DAILY 01/04/23 11/26/23 01/04/23 vit C 250 mg-vit E 90 mg-zinc 40 1 tab PO DAILY 01/04/23 11/26/23 Unknown mg-copper 1 [id number] capsule (PreserVision AREDS-2) insulin aspart U-100 100 unit/mL 8 unit subcut TID 06/07/23 11/26/23 Unknown subcutaneous solution (Novolog U-100 Insulin aspart) lisinopril 10 mg tablet 10 mg PO DAILY #90 tabs 10/05/23 11/26/23 Unknown calcitriol 0.25 mcg capsule 0.25 mcg PO .COMPLEX #24 caps 11/20/23 11/26/23 Unknown cholecalciferol (vitamin D3) 10 20 mcg PO DAILY 11/20/23 11/26/23 Unknown mcg (400 unit) tablet (Vitamin D3) albuterol sulfate 90 mcg/actuation 1 inh inhalation Q4H PRN Shortness 11/26/23 11/26/23 Unknown aerosol inhaler Of Breath Or Wheezing blood-glucose sensor (FreeStyle #1 ea 11/28/23 Unknown Enrique 3 Sensor device) Active Medications Generic Name Dose Route Start Last Admin Trade Name Freq PRN Reason Stop Dose Admin Amlodipine Besylate 5 mg 11/27/23 21:00 11/29/23 21:04 Amlodipine Besylate 5 Mg Tab PO 12/27/23 20:59 5 mg HS ADELA Administration Aspirin 81 mg 11/27/23 09:00 11/29/23 08:14 Aspirin 81 Mg Chew PO 12/27/23 08:59 81 mg DAILY ADELA Administration Atorvastatin Calcium 80 mg 11/27/23 21:00 11/29/23 21:03 Atorvastatin 40 Mg Tab PO 12/27/23 20:59 80 mg HS ADELA Administration Calcitriol 0.25 mcg 11/27/23 09:00 11/27/23 08:12 Calcitriol 0.25 Mcg Capsule PO 12/27/23 08:59 0.25 mcg MoFr@0900 ADELA Administration Carvedilol 3.125 mg 11/28/23 21:00 11/29/23 21:03 Carvedilol 3.125 Mg Tab PO 12/28/23 20:59 3.125 mg BID ADELA Administration Heparin Sodium (Porcine) 5,000 units 11/26/23 21:00 11/29/23 21:04 Heparin Sod 5,000 Unit/0.5 Ml Vial SQ 12/26/23 20:59 5,000 units Q12 ADELA Administration Ceftriaxone Sodium 2,000 mg in 50 mls @ 100 mls/hr 11/29/23 17:00 11/29/23 18:20 Rocephin IV 01/10/24 16:59 Infused Q24H ADELA Infusion Sodium Chloride 1,000 mls @ 80 mls/hr 11/30/23 00:45 11/30/23 01:03 Nss IV 12/30/23 00:44 80 mls/hr .[id number] ADELA Administration Insulin Aspart 0 units 11/27/23 16:30 11/29/23 21:00 Insulin Aspart Per Unit Charge SC 12/27/23 05:59 3 units ACHS ADELA Administration Insulin Glargine 30 units 11/27/23 09:00 11/29/23 08:03 Lantus Per Unit Charge SQ 12/27/23 08:59 Not Given QAM ADELA Isosorbide Mononitrate 60 mg 11/27/23 09:00 11/29/23 07:52 Isosorbide [place] Extended Rel 60 Mg Tabcr PO 12/27/23 08:59 60 mg DAILY ADELA Administration Multivitamins/Minerals 1 tab 11/27/23 09:00 11/29/23 07:52 Cerovite Adv Formula Tab PO 12/27/23 08:59 1 tab DAILY ADELA Administration Prednisone 2.5 mg 11/27/23 09:00 11/29/23 07:52 Prednisone 2.5 Mg Tab PO 12/27/23 08:59 2.5 mg DAILY ADELA Administration Vitamin D 20 mcg 11/27/23 09:00 11/29/23 07:52 Cholecalciferol 10 Mcg (400 Units) Tab PO 12/27/23 08:59 20 mcg DAILY ADELA Administration NPO Date Last Intake of Fluids: 11/29/23 Date Last Intake of Solids: 11/29/23 Past Medical History Medical History Rheumatoid arthritis Thyroid nodule PCP MONITORS "SMALL" Retinopathy RECIEVES SHOTS TO TREAT Myocardial Infarction 10 YEARS AGO Hyperlipidemia History of COVID-19 04/2021>CONGESTION/FATIGUE *RESOLVED Left radial head fracture Acute kidney injury Rheumatoid arthritis Exercise / Class Metabolic Activity III < 4 Walking/Shop/Light housework Past Family History Family History Grandmother (Maternal) Family history of diabetes mellitus Other No family history of adverse response to anesthesia Past Surgical History Surgical History History of ankle surgery RT History of colonoscopy History of tooth extraction History of heart artery stent 5 MONTHS AFTER CABG>HEART CATH WITH 1 STENT PLACED History of cardiac cath NO STENTS/BEFORE CABG Past Anesthesia History No Hx of Anesthesia Complications and No Family Hx of Anesthesia Complications History of PONV No Hx of PONV and No Hx of Motion Sickness Social History Smoking Status: Never smoker Do You Dip or Chew Tobacco: No Hx Alcohol Use: No alcohol intake frequency: holidays/special occasions only Hx Substance Use: No substance use type: does not use Review of Systems ROS Unobtainable: All systems reviewed & are unremarkable except as noted in HPI & below Constitutional: as per Subjective / HPI Physical Exam Vital Signs Last Vital Signs Temp 36.5 C 11/30/23 02:48 Pulse 81 11/30/23 07:33 Resp 16 11/30/23 07:33 BP 215/11 H 11/30/23 07:33 Pulse Ox 94 11/30/23 07:33 O2 Del Method Room Air 11/30/23 07:33 ENMT Mouth: no TMJ abnormality Thyromental Distance: > or= 3.5 Finger Breadths Mallampati Class: II Neck normal visual inspection and trachea midline; neck extension not limited Respiratory normal respiratory effort Auscultation: lungs clear to auscultation bilaterally Cardiovascular Rate/Rhythm: regular rate and regular rhythm Heart Sounds: no murmur Musculoskeletal Spine: normal cervical ROM Extremities: full ROM of extremities Neurologic moves all extremities Psychiatric Orientation: alert and oriented x 3 Testing Laboratory Results 11/30/23 06:04 11/30/23 06:04 Hemoglobin A1c 9.4 % (4.5-5.6) H 11/27/23 06:05 Urine Color Yellow 11/28/23 Unknown Urine Appearance Cloudy (Clear) A 11/28/23 Unknown Urine pH 5.5 (4.5-7.5) 11/28/23 Unknown Ur Specific [place] 1.027 (1.000-1.030) 11/28/23 Unknown Urine Protein 4+ (Negative) H 11/28/23 Unknown Urine Glucose (UA) 3+ (Negative) H 11/28/23 Unknown Urine Ketones Trace (Negative) H 11/28/23 Unknown Urine Nitrite Negative (Negative) 11/28/23 Unknown Ur Leukocyte Esterase Negative (Negative) 11/28/23 Unknown Urine WBC (Auto) 6-10 /hpf (0-5) H 11/28/23 Unknown Urine RBC (Auto) 0-2 /hpf (0-2) 11/28/23 Unknown U Hyaline Cast (Auto) 11-20 /lpf (0-2) H 11/28/23 Unknown U Epithel Cells (Auto) >20 /hpf (0-2) H 11/28/23 Unknown Urine Bacteria (Auto) None Seen (None Seen) 11/28/23 Unknown 11/27/23 11:25 Aerobic Blood Culture - Preliminary Blood No growth in Aerobic bottle after 48 hours. Anaerobic Blood Culture - Preliminary No growth in Anaerobic bottle after 48 hours. 11/27/23 Unknown Urine Culture - Final Urine,Clean Catch More than three types of organisms present, all moderate counts mixed probable skin janet. No further identifications or sensitivities to follow. 11/29/23 20:18 POC Glucose 203 H Electrocardiogram Date: 11/27/23 Findings: + NSR @ and + RBBB 1st degree AV block, PVCs Echocardiogram Date: 11/27/23 EF: 55-60 LV Function: normal severe mitral calcification, no stenosis
[2023-11-30] MEDS: BENZOCAINE/TETRACAIN/BUTAM 50 APPLN/5 GM CAN EXT ONE (08:21)
--- NOTE | 2023-11-30 08:38 | Nephrology Progress Note ---
Date of Service November 30, 2023 Assessment & Plan (1) Hypertensive urgency: Plan: * Several drug intolerances: Carvedilol->weak, amlodipine->low blood pressure, HCTZ->hypoglycemia * SBP improved from 220 to mid 150's * Currently tolerating low-dose lisinopril and amlodipine * Continue amlodipine, metoprolol and isosorbide as directed by Cardiology * Continue close monitoring of blood pressure. Await head PAT results (2) CKD stage 4 due to type 2 diabetes mellitus: Plan: * Baseline creatinine has been 2.22.4 w/ eGFR 20 cc/minute. MACR > 3.7. Mrs. Baker's CKD has been attributed to CKD and arterionephrosclerosis (3) Diabetes mellitus, type II: Plan: * Managed with insulin therapy (4) Ischemic stroke of frontal lobe: Plan: * 11/26/23 Brain MRI revealed acute left anterior cerebral artery territory infarct * Initially patient presented with mental status changes and right-sided weakness. Her symptoms have resolved. * Await results of 11/30/23 PAT Admission and Anticipated Discharge Date Admission Date: November 26, 2023 Subjective Mrs. Baker was evaluated in her hospital room this morning. She had just returned from PAT. BP has been labile overnight Review of Systems Constitutional: no fever Eyes: no problem reported Ear, Nose, Mouth, Throat: no problem reported Respiratory: no cough and no dyspnea Cardiovascular: no chest pain Gastrointestinal: no abdominal pain, no nausea, no vomiting and no diarrhea/loose stools Genitourinary: no dysuria Integumentary: no rash Neurologic: no localized weakness and no headache(s) Physical Exam Constitutional: not in distress Eyes: PERRL, conjunctivae normal, anicteric sclerae ENMT: external ear and nose normal, oropharynx normal Neck: trachea midline, no thyromegaly Respiratory: normal respiratory effort, lungs clear to auscultation Cardiovascular: RRR, no murmur, no edema Gastrointestinal (Abdomen): normal bowel sounds, soft, nontender, no hepatosplenomegaly Skin: no rashes, warm and dry Neurologic: Speech / Cognition: normal speech and normal cognition Results & Data Vital Signs (Past 12 Hours) Vital Signs Temp Pulse Pulse Resp BP Pulse Ox O2 Del Method 11/30/23 07:33 81 16 215/11 H 94 Room Air 11/30/23 02:48 36.5 C 72 18 174/84 H 94 Room Air 11/29/23 23:00 76 11/29/23 22:50 36.3 C L 72 18 177/80 H 95 Room Air Laboratory Results Laboratory Results WBC 6.69 K/ul (4.8-10.8) 11/30/23 06:04 RBC 3.88 M/uL (4.20-5.40) L 11/30/23 06:04 Hgb 10.4 g/dl (12.0-16.0) L 11/30/23 06:04 POC Hgb 12.2 g/dl (12.0-16.0) 11/26/23 10:03 Hct 33.2 % (37.0-47.0) L 11/30/23 06:04 POC Hct 36 % (37-47) L 11/26/23 10:03 MCV 85.6 fL (80.0-100.0) 11/30/23 06:04 MCH 26.8 pg (25.0-34.0) 11/30/23 06:04 MCHC 31.3 g/dL (32.0-36.0) L 11/30/23 06:04 RDW Std Deviation 41.2 fL (36.4-46.3) 11/30/23 06:04 RDW Coeff of Samson 13.2 % (11.5-14.5) 11/30/23 06:04 Plt Count 215 K/uL (130-400) 11/30/23 06:04 MPV 10.4 fL (9.4-12.4) 11/30/23 06:04 Immature Gran % (Auto) 0.6 % 11/30/23 06:04 Neut % (Auto) 68.5 % 11/30/23 06:04 Lymph % (Auto) 17.0 % 11/30/23 06:04 [place] % (Auto) 8.7 % 11/30/23 06:04 Eos % (Auto) 4.2 % 11/30/23 06:04 Baso % (Auto) 1.0 % 11/30/23 06:04 Neut # (Auto) 4.58 K/uL (1.40-6.50) 11/30/23 06:04 Lymph # (Auto) 1.14 K/uL (1.20-3.40) L 11/30/23 06:04 [place] # (Auto) 0.58 K/uL (0.11-0.59) 11/30/23 06:04 Eos # (Auto) 0.28 K/uL (0.00-0.50) 11/30/23 06:04 Baso # (Auto) 0.07 K/uL (0.00-0.20) 11/30/23 06:04 Immature Gran # (Auto) 0.04 K/uL (0.01-0.20) 11/30/23 06:04 RBC Morphology Unremarkable 11/26/23 09:56 VBG pH 7.34 (7.36-7.41) L 11/26/23 14:15 VBG pCO2 40 mmHg (38-50) 11/26/23 14:15 VBG pO2 37 mmHg 11/26/23 14:15 VBG HCO3 22 mmol/L 11/26/23 14:15 VBG O2 Saturation 67.2 % 11/26/23 14:15 VBG Base Excess -3.9 mEq/L 11/26/23 14:15 POC Sodium 139 mmol/L (135-144) 11/26/23 10:03 Sodium 141 mmol/L (136-145) 11/30/23 06:04 POC Potassium 4.9 mmol/L (3.3-5.0) 11/26/23 10:03 Potassium 4.1 mmol/L (3.5-5.1) 11/30/23 06:04 POC Chloride 108 mmol/L (101-112) 11/26/23 10:03 Chloride 112 mmol/L (98-107) H 11/30/23 06:04 Carbon Dioxide 21 mmol/L (21-32) 11/30/23 06:04 POC Total CO2 24 mmol/L (24-31) 11/26/23 10:03 Anion Gap 8 (3-11) 11/30/23 06:04 POC Anion Gap 13.0 mmol/L (16-25) L 11/26/23 10:03 POC BUN 42 mg/dl (7-18) H 11/26/23 10:03 BUN 33 mg/dl (6-23) H 11/30/23 06:04 Creatinine 2.13 mg/dl (0.6-1.2) H 11/30/23 06:04 POC Creatinine 2.9 mg/dl (0.6-1.3) H 11/26/23 10:03 Est Cr Clr Drug Dosing 23.6 ml/min 11/30/23 06:04 Est GFR ( Amer) 25.4 ml/min 11/30/23 06:04 Est GFR (Non-Af Amer) 21.9 ml/min 11/30/23 06:04 BUN/Creatinine Ratio 15.5 (10-20) 11/30/23 06:04 Glucose 127 mg/dl (70-99(Fasting)) H 11/30/23 06:04 POC Glucose 203 mg/dl (70-99) H 11/29/23 20:18 POC Glucose (other) 175 mg/dl (70-99) H 11/26/23 10:03 Estimat Average Glucose 223 mg/dl 11/27/23 06:05 Hemoglobin A1c 9.4 % (4.5-5.6) H 11/27/23 06:05 Calcium 8.6 mg/dl (8.6-10.3) 11/30/23 06:04 POC Ioniz Calcium Radha 1.17 mmol/l (1.12-1.32) 11/26/23 10:03 Phosphorus 3.3 mg/dl (2.5-4.9) 11/29/23 05:28 Magnesium 1.7 mg/dl (1.7-2.4) 11/30/23 06:04 Iron 24 mcg/dl (35-150) L 11/28/23 07:14 TIBC 198 mcg/dl (250-450) L 11/28/23 07:14 Unsaturated IBC 174 mcg/dl (155-355) 11/28/23 07:14 Transferrin % Sat 12 % (15-50) L 11/28/23 07:14 Ferritin 69.1 ng/ml (8-388) 11/28/23 07:14 Total Bilirubin 0.5 mg/dl (0.2-1.0) 11/29/23 05:28 Direct Bilirubin 0.1 mg/dl (0-0.2) 11/26/23 09:56 AST 23 U/L (13-39) 11/29/23 05:28 ALT 14 U/L (7-52) 11/29/23 05:28 Alkaline Phosphatase 81 U/L (34-104) 11/29/23 05:28 Ammonia 10.0 umol/L (18-72) L 11/26/23 10:21 Troponin I High Sens 232.7 pg/ml (0-14) H* 11/27/23 06:06 Total Protein 6.3 gm/dl (6.0-8.3) 11/29/23 05:28 Albumin 3.0 gm/dl (3.4-5.0) L 11/29/23 05:28 Globulin 3.3 gm/dl (2.5-4.0) 11/29/23 05:28 Albumin/Globulin Ratio 0.9 (0.9-2) 11/29/23 05:28 Triglycerides 160 mg/dl (0-150) H 11/27/23 06:06 Cholesterol 159 mg/dl (0-200) 11/27/23 06:06 LDL Cholesterol, Calc 87 mg/dl 11/27/23 06:06 VLDL Cholesterol, Calc 32 mg/dl (0-30) H 11/27/23 06:06 HDL Cholesterol 40 mg/dl 11/27/23 06:06 Cholesterol/HDL Ratio 4.0 (0-5) 11/27/23 06:06 Vitamin B12 515 pg/ml (180-914) 11/28/23 07:14 Folate > 22.30 ng/ml (>5.38) 11/28/23 07:14 Homocysteine 9.6 umol/L (<10.4) 11/27/23 06:06 Procalcitonin 0.02 ng/ml (0-0.5) 11/26/23 09:56 TSH 1.432 uIu/ml (0.300-4.500) 11/26/23 09:56 Urine Color Yellow 11/28/23 Unknown Urine Appearance Cloudy (Clear) A 11/28/23 Unknown Urine pH 5.5 (4.5-7.5) 11/28/23 Unknown Ur Specific [place] 1.027 (1.000-1.030) 11/28/23 Unknown Urine Protein 4+ (Negative) H 11/28/23 Unknown Urine Glucose (UA) 3+ (Negative) H 11/28/23 Unknown Urine Ketones Trace (Negative) H 11/28/23 Unknown Urine Blood 2+ (Negative) H 11/28/23 Unknown Urine Nitrite Negative (Negative) 11/28/23 Unknown Urine Bilirubin Negative (Negative) 11/28/23 Unknown Urine Urobilinogen Negative (Negative) 11/28/23 Unknown Ur Leukocyte Esterase Negative (Negative) 11/28/23 Unknown Urine WBC (Auto) 6-10 /hpf (0-5) H 11/28/23 Unknown Urine RBC (Auto) 0-2 /hpf (0-2) 11/28/23 Unknown U Hyaline Cast (Auto) 11-20 /lpf (0-2) H 11/28/23 Unknown U Epithel Cells (Auto) >20 /hpf (0-2) H 11/28/23 Unknown Urine Bacteria (Auto) None Seen (None Seen) 11/28/23 Unknown Ur Random Creatinine 129.2 mg/dl 11/28/23 Unknown U Random Total Protein 818.9 mg/dl (0-11.9) H 11/28/23 Unknown Protein/Creatinin Ratio 6.3 (0-0.2) H 11/28/23 Unknown Random Vancomycin 14.2 mcg/ml (10-20) 11/30/23 06:04 Urine Opiates Screen Neg (Neg) 11/26/23 11:48 Ur Methadone, Qual Neg (Neg) 11/26/23 11:48 Urine Fentanyl Screen Neg (Neg) 11/26/23 11:48 Urine Barbiturates Neg (Neg) 11/26/23 11:48 Ur Phencyclidine (PCP) Neg (Neg) 11/26/23 11:48 U Amphetamin/Meth Scrn Neg (Neg) 11/26/23 11:48 MDMA (Ecstasy) Screen Neg (Neg) 11/26/23 11:48 U Benzodiazepines Scrn Neg (Neg) 11/26/23 11:48 Ur Cocaine Metabolite Neg (Neg) 11/26/23 11:48 U Marijuana (THC) Screen Neg (Neg) 11/26/23 11:48 Ethyl Alcohol mg/dL < 10.0 mg/dl (<10.0) 11/26/23 09:56 Adenovirus (PCR) Not Detected (NotDetected) 11/26/23 13:45 B. pertussis DNA (PCR) Not Detected (NotDetected) 11/26/23 13:45 B.parapertussis DNA PCR Not Detected (NotDetected) 11/26/23 13:45 C. pneumoniae DNA (PCR) Not Detected (NotDetected) 11/26/23 13:45 Coronavirus OC43 (PCR) Not Detected (NotDetected) 11/26/23 13:45 Coronavirus HKU1 (PCR) Not Detected (NotDetected) 11/26/23 13:45 Coronavirus 229E (PCR) Not Detected (NotDetected) 11/26/23 13:45 SARS-CoV-2 (PCR) Not Detected (NotDetected) 11/26/23 13:45 Coronavirus NL63 (PCR) Not Detected (NotDetected) 11/26/23 13:45 Human Metapneumovir PCR Not Detected (NotDetected) 11/26/23 13:45 Influenza Type A (PCR) Not Detected (NotDetected) 11/26/23 13:45 Influenza Type B (PCR) Not Detected (NotDetected) 11/26/23 13:45 M. pneumoniae (PCR) Not Detected (NotDetected) 11/26/23 13:45 Parainfluenza 1 (PCR) Not Detected (NotDetected) 11/26/23 13:45 Parainfluenza 2 (PCR) Not Detected (NotDetected) 11/26/23 13:45 Parainfluenza 3 (PCR) Not Detected (NotDetected) 11/26/23 13:45 Parainfluenza 4 (PCR) Not Detected (NotDetected) 11/26/23 13:45 RSV (PCR) Not Detected (NotDetected) 11/26/23 13:45 Entero/Rhino (PCR) DETECTED (NotDetected) A 11/26/23 13:45 Impressions Chest X-Ray 11/26/23 09:53 XR chest 1V portable HISTORY: Altered mental status. COMPARISON: Chest 01/04/2023. FINDINGS: No pneumothorax. No pleural effusions. The heart remains enlarged. There are poststernotomy changes. Calcifications within the aortic knob. Linear scarlike densities within the left lung base persist. No new focal lung consolidations to suggest a pneumonia. No evidence for pulmonary edema. No acute fractures. IMPRESSION: No significant change compared to the prior study. No acute process. ACT 112: Negative or not required by law. Electronically signed by: Endy Luz M.D. 11/26/2023 10:18 AM Brain MRI 11/26/23 13:24 Brain MRI WITHOUT CONTRAST HISTORY: Altered mental status. Stroke symptoms. TECHNIQUE: Multiplanar multisequence MRI of the brain was performed without the use of contrast. COMPARISON STUDY: Head CT 11/26/2023. FINDINGS: Multiple small foci of restricted diffusion seen within the left frontal lobe primarily involving the left superior frontal gyrus. Dominant focus on image 19 measures 18 mm. This is consistent with an acute left CHARLES territory infarct. No acute hemorrhage or midline shift. The midline structures are intact. Mild atrophy and mild microvascular ischemic changes are noted. There is mild edema associated with the acute left frontal lobe infarcts. The major vascular flow voids at the skull base are maintained. The orbits demonstrate bilateral lens replacement. The mastoid air cells are clear. Mild mucosal thickening within the ethmoid air cells and maxillary sinuses. No intracranial mass identified. Atrophy and mild microvascular ischemic changes are noted. Th ere is an old small left cerebellar infarct. IMPRESSION: 1. Multiple small foci of restricted diffusion seen within the left frontal lobe primarily involving the left superior frontal gyrus. This is consistent with an acute left CHARLES territory infarct. 2. 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 ACT 112: Negative or not required by law. Electronically signed by: Endy Luz M.D. 11/26/2023 3:08 PM Neck MRA 11/26/23 17:53 NECK MRA without contrast HISTORY: acute stroke TECHNIQUE: [id number] MRA of the neck was performed without contrast acco rding to standard departmental protocol. All measurements were calculated based on NASCET criteria. COMPARISON STUDY: None. FINDINGS: The aortic arch and proximal great vessels are suboptimally assessed due to the motion artifact but likely patent. There is no significant stenosis, occlusion, or dissection identified within the bilateral common carotid, internal carotid, or vertebral arteries. There is a hypoplastic right vertebral artery. IMPRESSION: No significant stenosis, occlusion, or dissection identified within the carotid or vertebral arteries. ACT 112: Negative or not required by law. Electronically signed by: Endy Luz M.D. 11/26/2023 8:08 PM Head MRA 11/26/23 18:00 Brain MRA HISTORY: Stroke symptoms. TECHNIQUE: 3-D [id number] MRA of the brain was performed without contrast. COMPARISON STUDY: None. FINDINGS: Visualized intracranial internal carotid arteries, distal vertebral arteries, and basilar artery are widely patent. There is no significant stenosis, occlusion, or aneurysm seen within the bilateral MCAs or health aid. There is a hypoplastic distal right vertebral artery. Incidental note is made of a pe rsistent right posterior circulation. Possible occlusion versus motion artifact within a distal branch of the left CHARLES best seen on image 20 of series 3. This may correspond to the left CHARLES territory infarct. The right CHARLES is widely patent. IMPRESSION: Possible occlusion versus motion artifact within a distal branch of the left CHARLES which may correspond to the left CHARLES territory infarct. ACT 112: Negative or not required by law. Electronically signed by: Endy Luz M.D. 11/26/2023 8:[address] 11/26/23 22:04 Exam(s): CT HEAD Without Contrast EXAM: CT Head Without Intravenous Contrast CLINICAL HISTORY: Reason for exam: worsening acute stroke. TECHNIQUE: Axial computed tomography images of the head/brain without intravenous contrast. CTDI is 34.3 mGy and DLP is 546.36 mGy-cm. Automated exposure control was utilized for the study. A dose lowering technique was utilized adhering to the principles of ALARA. COMPARISON: Prior brain MRI from November 26, 2023. FINDINGS: Brain: There is mild edema in the left frontal lobe. No hemorrhage. No significant white matter disease. Ventricles: Moderate ventriculomegaly. Bones/joints: Unremarkable. No acute fracture. Soft tissues: Unremarkable. Sinuses: Chronic ethmoid sinusitis. No acute sinusitis. Mastoid air cells: Unremarkable as visualized. No mastoid effusion. IMPRESSION: Expected interval evolution of left frontal lobe ischemic injury without evidence of hemorrhagic transformation. Electronically signed by: Christine Wilkerson MD 11/27/23 01:19 AM Head CTA 11/29/23 08:23 CT ANGIOGRAM OF THE BRAIN COMBO CLINICAL HISTORY: Stroke like symptoms. COMPARISON STUDY: CT of the brain dated 11/26/2023. MR angiogram of the brain dated 11/26/2023. TECHNIQUE: Unenhanced axial CT scan of the brain is performed. Subsequently, following the IV administration of 119 cc of Optiray 320, CT angiogram of the brain was performed from the skull base to the vertex. Images are reviewed in the axial, sagittal, and coronal planes. 3-D MIPS images are created and assessed. IV contrast was administered without complication. A dose lowering technique was utilized adhering to the principles of ALARA. CT DOSE: 785.4 mGy.cm FINDINGS: Brain parenchyma: There is age related involutional change noting mild to moderate subcortical and periventricular microangiopathic disease. There is a subacute/evolving left anterior cerebral artery territory infarct, with loss of price-white matter differentiation in the left frontal lobe. No hemorrhage or midline shift is identified. There is no evidence of enhancing mass lesion on the angiogram phase images. No extra-axial fluid collection is seen. Ventricles, sulci, and cisterns: Prominent secondary to involutional change. CT angiogram of the brain: There is atherosclerotic calcification of the cavernous carotid and vertebral arteries. The internal carotid arteries are widely patent, as are the right anterior cerebral artery and both middle cerebral arteries. The proximal pended portions of the left anterior cerebral artery are widely patent. There is likely a peripheral branch occlusion of the left anterior cerebral artery seen on axial image #176. The vertebrobasilar system and posterior cerebral arteries are widely patent. The left vertebral artery is dominant. There is origin of the right posterior cerebral artery. No aneurysm is seen throughout the intracranial circulation. Dural sinuses: Clear as visualized. Orbits: The bony orbits are intact. The orbital contents are normal as visualized noting bilateral ocular lens implants. Sinuses and mastoids: There are is moderate mucosal thickening within the ethmoid sinuses. Mild mucosal thickening is seen within the maxillary antra, and there is trace mucosal thickening in the frontal and sphenoid sinuses. The mastoid air cells are well pneumatized. Calvarium: Unremarkable. IMPRESSION: 1. There is a subacute/evolving left CHARLES territory infarct. 2. There is no hemorrhage or mass effect. 3. There is likely a peripheral branch occlusion within the left anterior cerebral artery. 4. Otherwise unremarkable CT angiogram of the brain. ACT 112: Negative or not required by law. Electronically signed by: Errol Gamino M.D. 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
--- NOTE | 2023-11-30 09:00 | Post Operative Brief Note ---
Cardiology Brief Post Op Date of Surgery November 30, 2023 Pre & Post Diagnosis Operation Date: 11/30/23 07:45 Procedure Preprocedure diagnosis: Stroke, assess for cardiac source of cerebral embolism Postprocedure diagnosis: Calcification of the mitral valve annulus, submitral valve apparatus, focal aortic valve calcification, otherwise no cardiac source history of problem with some identified Transesophageal echocardiogram procedure: Patient's vital signs were monitored via the standard fashion. After informed consent was obtained and a timeout was performed the patient was sedated with the assistance of the anesthesia service. Transesophageal echocardiogram revealed calcification of the mitral valve annulus, submitral valve apparatus. There is focal mobile calcification in the aortic valve. The left atrial appendage had no thrombus. The interatrial septum was intact without evidence of interatrial shunt. 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
[2023-11-30] MEDS: lisinopril 10 MG TAB PO SCH (09:21)
[2023-11-30] MEDS: VANCOMYCIN HCL 750 MG in SODIUM CHLORIDE 0.9% 250 ML IV SCH (09:21)
--- NOTE | 2023-11-30 09:21 | Anesthesiology Progress Note ---
Date of Service November 30, 2023 Anesthesia Post Procedure Vital Signs Vital Signs: Temp Pulse Pulse Pulse Resp BP Pulse Ox 11/30/23 08:45 74 16 175/100 H 93 11/30/23 08:30 76 16 172/75 H 93 11/30/23 07:33 81 16 215/11 H 94 11/30/23 02:48 36.5 C 72 18 174/84 H 94 11/29/23 23:00 76 11/29/23 22:50 36.3 C L 72 18 177/80 H 95 11/29/23 20:00 11/29/23 19:40 36.5 C 79 20 172/78 H 95 11/29/23 17:26 74 18 182/81 H 97 11/29/23 16:29 36.6 C 73 18 163/113 H 93 11/29/23 11:22 36.7 C 81 18 175/80 H 95 O2 Del Method 11/30/23 08:45 Room Air 11/30/23 08:30 Room Air 11/30/23 07:33 Room Air 11/30/23 02:48 Room Air 11/29/23 23:00 11/29/23 22:50 Room Air 11/29/23 20:00 Room Air 11/29/23 19:40 Room Air 11/29/23 17:26 Room Air 11/29/23 16:29 Room Air 11/29/23 11:22 Room Air Transfer of Care Handoff Completed per policy Notes Mental Status: alert / awake / arousable Patient Amnestic to Procedure: Yes Nausea / Vomiting: adequately controlled Pain: adequately controlled Airway Patency, RR, SpO2: stable & adequate BP & HR: stable & adequate Hydration State: stable & adequate Anesthetic Complications: no major complications apparent and Pt Satisfied with anesthetic care
--- NOTE | 2023-11-30 09:23 | Pharmacy Report ---
Pharmacy PK ABX Note - Date of Service November 30, 2023 - Assessment and Plan Assessment 11/30/23: * Vanco level resulted at 14.2 mcg/mL this morning. Current AUC is at goal, however, predictions continue to indicate patient will exceed goal AUC at steady state. Will continue current dose for now. Close monitoring warranted in the setting of aggressive regimen and renal impairment. 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 TTE performed on 11/27/23 and revealed findings suggestive of mitral valve vegetation. Pertinent microbiologic data includes: blood culture (11/26) shows no growth at 24 hours. Pertinent PMH includes T2DM, CKD, and rheumatoid arthritis (on chronic prednisone). Renal function is poor, but appears to be at/near baseline. ID consulted. Day # 2 of antimicrobial therapy. Plan Vancomycin * Continue current regimen: 750 mg IV every 24 hours * Regimen predicted to achieve target AUC/KVNG of 400-600 mg/L.hr * Predicted AUC at steady state is > 600 mg/L.hr - expected to exceed target around dose #8 * If vanco is continued, will repeat vanco level 8/10 AM Pharmacy will continue to follow and will adjust dose/frequency as necessary. Thank you.
[2023-11-30] MEDS: LIDOCAINE 2% 2 ML VIAL/AMP(20MG/ML) INFIL ONE (09:33)
[2023-11-30] MEDS: VANCOMYCIN LEVEL ONE (09:33)
--- NOTE | 2023-11-30 10:56 | Hospitalist Progress Note ---
Date of Service November 30, 2023 Assessment & Plan (1) Embolic stroke involving left anterior cerebral artery: (2) Mitral annular calcification: (3) Vegetation of heart valve: (4) CKD stage 4 due to type 2 diabetes mellitus: (5) Uncontrolled diabetes mellitus with hyperglycemia, with long-term current use of insulin: (6) Hypertension, uncontrolled: Plan Patient status post PAT this morning showing calcific vegetation of the chordae tendon and mitral valve. This is most likely the cause of patient's embolic stroke. Infective endocarditis has been ruled out. Discontinue all IV antibiotics as recommended by infectious disease Start Eliquis for full anticoagulation with evidence of likely embolic stroke Communication with cardiology, reviewed PAT results and plan for anticoagulation with Eliquis Continue to adjust antihypertensive medications per nephrology guidance Kidney function has improved today, discontinue IV fluids, continue to monitor renal function Continue current treatment for diabetes Encourage activity and therapies today Family at bedside and updated to plan of care Anticipate probable discharge tomorrow home if patient tolerates activity and new medications. Admission and Anticipated Discharge Date Admission Date: November 26, 2023 Subjective Patient seen after PAT. Doing well. Talking on the phone when I entered the room. Family at bedside reports she is much closer to her usual self Physical Exam Physical Exam: Constitutional: Alert HEENT: Mucous membranes moist. Lungs: Clear to auscultation, decreased, no wheezes rales or rhonchi CV: S1-S2, regular Abdomen: Soft, nontender, nondistended Extremities: No significant edema Neuro: No focal deficits Psych: Cooperative, normal mood Results & Data Results & Data Vital Signs (Past 12 Hours) Vital Signs Temp Pulse Pulse Pulse Resp BP Pulse Ox 11/30/23 10:00 36.7 C 78 18 162/71 H 97 11/30/23 09:45 36.7 C 77 18 154/69 H 99 11/30/23 09:30 36.6 C 68 16 166/73 H 97 11/30/23 09:15 36.6 C 71 16 165/82 H 96 11/30/23 09:00 36.6 C 69 72 16 171/91 H 94 11/30/23 08:45 74 16 175/100 H 93 11/30/23 08:30 76 16 172/75 H 93 11/30/23 07:33 81 16 215/11 H 94 11/30/23 02:48 36.5 C 72 18 174/84 H 94 11/29/23 23:00 76 11/29/23 22:50 36.3 C L 72 18 177/80 H 95 O2 Del Method 11/30/23 10:00 Room Air 11/30/23 09:45 Room Air 11/30/23 09:30 Room Air 11/30/23 09:15 Room Air 11/30/23 09:00 Room Air 11/30/23 08:45 Room Air 11/30/23 08:30 Room Air 11/30/23 07:33 Room Air 11/30/23 02:48 Room Air 11/29/23 23:00 11/29/23 22:50 Room Air Diagnostic Findings Reviewed imaging, laboratory and diagnostic studies. Pertinent findings as below. Creatinine 2.13, improved Hemoglobin 10.4, stable PAT report reviewed, severe mitral calcification and calcification of the chordal apparatus, no evidence of infective vegetation
[2023-11-30] MEDS: APIXABAN 5 MG TABLET PO SCH (11:26)
[2023-12-01] MEDS: ONDANSETRON INJ 2 MG/ML 2 ML VIAL IV PRN (05:53)
[2023-12-01 07:06] VITALS: RESP 19; TEMP 97.9; O2SAT 92
[2023-12-01 07:22] LABS: Hematocrit (blood only) 30.4 % (37.0-47.0); Hemoglobin 9.6 g/dl (12.0-16.0); Mean Corpuscular Hemoglobin 26.9 pg (25.0-34.0); Mean Corpuscular Hgb Conc 31.6 g/dL (32.0-36.0); Mean Corpuscular Volume 85.2 fL (80.0-100.0); Mean Platelet Volume 10.2 fL (9.4-12.4); Platelet Count 210 K/uL (130-400); RDW Coefficient of Variation 13.2 % (11.5-14.5); RDW Standard Deviation 40.6 fL (36.4-46.3); Red Blood Count 3.57 M/uL (4.20-5.40); White Blood Count 6.69 K/ul (4.8-10.8)
[2023-12-01 07:37] LABS: BUN Creatinine Ratio 16.3 (10-20); Calcium 8.4 mg/dl (8.6-10.3); Creatinine Clr Calc Pharmacy 22.1 ml/min; Est GFR (African American) 23.5 ml/min; Est GFR (Non-African American) 20.3 ml/min; Potassium 4.4 mmol/L (3.5-5.1)
[2023-12-01] MEDS: LANTUS PER UNIT CHARGE SQ SCH (08:12)
--- NOTE | 2023-12-01 08:51 | Nephrology Progress Note ---
Date of Service December 01, 2023 Assessment & Plan (1) Hypertensive urgency: Plan: * Several drug intolerances: Carvedilol->weak, amlodipine->low blood pressure, HCTZ->hypoglycemia * SBP improved from 220 to 160 mm Hg * Continue amlodipine, metoprolol and isosorbide as directed by Cardiology * Will increase lisinopril to 20 mg qAM * In preparation for discharge, I have asked my sailing officer staff to schedule nephrology outpatient follow up w/ Dr. Willis in 7-14 days. Orders have been placed in outpatient EMR for BMP, CBC to be completed 1 day prior to OV (2) CKD stage 4 due to type 2 diabetes mellitus: Plan: * Baseline creatinine has been 2.22.4 w/ eGFR 20 cc/minute. MACR > 3.7. Mrs. 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 Baker was evaluated in her hospital room this morning. She was A&O x3. S he denied MATSON, angina, dyspnea or focal weakness Review of Systems Constitutional: no fever Eyes: no problem reported Ear, Nose, Mouth, Throat: no problem reported Respiratory: no cough and no dyspnea Cardiovascular: no chest pain Gastrointestinal: no abdominal pain, no nausea, no vomiting and no diarrhea/loose stools Genitourinary: no dysuria Integumentary: no rash Neurologic: no localized weakness and no headache(s) Physical Exam Constitutional: not in distress Eyes: PERRL, conjunctivae normal, anicteric sclerae ENMT: external ear and nose normal, oropharynx normal Neck: trachea midline, no thyromegaly Respiratory: normal respiratory effort, lungs clear to auscultation Cardiovascular: RRR, no murmur, no edema Gastrointestinal (Abdomen): normal bowel sounds, soft, nontender, no hepatosplenomegaly Skin: no rashes, warm and dry Neurologic: Speech / Cognition: normal speech and normal cognition Results & Data Vital Signs (Past 12 Hours) Vital Signs Temp Pulse Pulse Resp BP Pulse Ox O2 Del Method 12/01/23 07:05 36.6 C 84 19 166/66 H 92 Room Air 12/01/23 03:18 36.8 C 75 14 148/74 H 93 Room Air 11/30/23 23:00 74 11/30/23 22:30 36.7 C 74 18 165/65 H 97 Room Air Laboratory Results Laboratory Results WBC 6.69 K/ul (4.8-10.8) 12/01/23 07:06 RBC 3.57 M/uL (4.20-5.40) L 12/01/23 07:06 Hgb 9.6 g/dl (12.0-16.0) L 12/01/23 07:06 POC Hgb 12.2 g/dl (12.0-16.0) 11/26/23 10:03 Hct 30.4 % (37.0-47.0) L 12/01/23 07:06 POC Hct 36 % (37-47) L 11/26/23 10:03 MCV 85.2 fL (80.0-100.0) 12/01/23 07:06 MCH 26.9 pg (25.0-34.0) 12/01/23 07:06 MCHC 31.6 g/dL (32.0-36.0) L 12/01/23 07:06 RDW Std Deviation 40.6 fL (36.4-46.3) 12/01/23 07:06 RDW Coeff of Samson 13.2 % (11.5-14.5) 12/01/23 07:06 Plt Count 210 K/uL (130-400) 12/01/23 07:06 MPV 10.2 fL (9.4-12.4) 12/01/23 07:06 Immature Gran % (Auto) 0.6 % 11/30/23 06:04 Neut % (Auto) 68.5 % 11/30/23 06:04 Lymph % (Auto) 17.0 % 11/30/23 06:04 [place] % (Auto) 8.7 % 11/30/23 06:04 Eos % (Auto) 4.2 % 11/30/23 06:04 Baso % (Auto) 1.0 % 11/30/23 06:04 Neut # (Auto) 4.58 K/uL (1.40-6.50) 11/30/23 06:04 Lymph # (Auto) 1.14 K/uL (1.20-3.40) L 11/30/23 06:04 [place] # (Auto) 0.58 K/uL (0.11-0.59) 11/30/23 06:04 Eos # (Auto) 0.28 K/uL (0.00-0.50) 11/30/23 06:04 Baso # (Auto) 0.07 K/uL (0.00-0.20) 11/30/23 06:04 Immature Gran # (Auto) 0.04 K/uL (0.01-0.20) 11/30/23 06:04 RBC Morphology Unremarkable 11/26/23 09:56 VBG pH 7.34 (7.36-7.41) L 11/26/23 14:15 VBG pCO2 40 mmHg (38-50) 11/26/23 14:15 VBG pO2 37 mmHg 11/26/23 14:15 VBG HCO3 22 mmol/L 11/26/23 14:15 VBG O2 Saturation 67.2 % 11/26/23 14:15 VBG Base Excess -3.9 mEq/L 11/26/23 14:15 POC Sodium 139 mmol/L (135-144) 11/26/23 10:03 Sodium 140 mmol/L (136-145) 12/01/23 07:06 POC Potassium 4.9 mmol/L (3.3-5.0) 11/26/23 10:03 Potassium 4.4 mmol/L (3.5-5.1) 12/01/23 07:06 POC Chloride 108 mmol/L (101-112) 11/26/23 10:03 Chloride 112 mmol/L (98-107) H 12/01/23 07:06 Carbon Dioxide 22 mmol/L (21-32) 12/01/23 07:06 POC Total CO2 24 mmol/L (24-31) 11/26/23 10:03 Anion Gap 6 (3-11) 12/01/23 07:06 POC Anion Gap 13.0 mmol/L (16-25) L 11/26/23 10:03 POC BUN 42 mg/dl (7-18) H 11/26/23 10:03 BUN 37 mg/dl (6-23) H 12/01/23 07:06 Creatinine 2.27 mg/dl (0.6-1.2) H 12/01/23 07:06 POC Creatinine 2.9 mg/dl (0.6-1.3) H 11/26/23 10:03 Est Cr Clr Drug Dosing 22.1 ml/min 12/01/23 07:06 Est GFR ( Amer) 23.5 ml/min 12/01/23 07:06 Est GFR (Non-Af Amer) 20.3 ml/min 12/01/23 07:06 BUN/Creatinine Ratio 16.3 (10-20) 12/01/23 07:06 Glucose 160 mg/dl (70-99(Fasting)) H 12/01/23 07:06 POC Glucose 170 mg/dl (70-99) H 12/01/23 07:03 POC Glucose (other) 175 mg/dl (70-99) H 11/26/23 10:03 Estimat Average Glucose 223 mg/dl 11/27/23 06:05 Hemoglobin A1c 9.4 % (4.5-5.6) H 11/27/23 06:05 Calcium 8.4 mg/dl (8.6-10.3) L 12/01/23 07:06 POC Ioniz Calcium Radha 1.17 mmol/l (1.12-1.32) 11/26/23 10:03 Phosphorus 3.3 mg/dl (2.5-4.9) 11/29/23 05:28 Magnesium 1.7 mg/dl (1.7-2.4) 11/30/23 06:04 Iron 24 mcg/dl (35-150) L 11/28/23 07:14 TIBC 198 mcg/dl (250-450) L 11/28/23 07:14 Unsaturated IBC 174 mcg/dl (155-355) 11/28/23 07:14 Transferrin % Sat 12 % (15-50) L 11/28/23 07:14 Ferritin 69.1 ng/ml (8-388) 11/28/23 07:14 Total Bilirubin 0.5 mg/dl (0.2-1.0) 11/29/23 05:28 Direct Bilirubin 0.1 mg/dl (0-0.2) 11/26/23 09:56 AST 23 U/L (13-39) 11/29/23 05:28 ALT 14 U/L (7-52) 11/29/23 05:28 Alkaline Phosphatase 81 U/L (34-104) 11/29/23 05:28 Ammonia 10.0 umol/L (18-72) L 11/26/23 10:21 Troponin I High Sens 232.7 pg/ml (0-14) H* 11/27/23 06:06 Total Protein 6.3 gm/dl (6.0-8.3) 11/29/23 05:28 Albumin 3.0 gm/dl (3.4-5.0) L 11/29/23 05:28 Globulin 3.3 gm/dl (2.5-4.0) 11/29/23 05:28 Albumin/Globulin Ratio 0.9 (0.9-2) 11/29/23 05:28 Triglycerides 160 mg/dl (0-150) H 11/27/23 06:06 Cholesterol 159 mg/dl (0-200) 11/27/23 06:06 LDL Cholesterol, Calc 87 mg/dl 11/27/23 06:06 VLDL Cholesterol, Calc 32 mg/dl (0-30) H 11/27/23 06:06 HDL Cholesterol 40 mg/dl 11/27/23 06:06 Cholesterol/HDL Ratio 4.0 (0-5) 11/27/23 06:06 Vitamin B12 515 pg/ml (180-914) 11/28/23 07:14 Folate > 22.30 ng/ml (>5.38) 11/28/23 07:14 Homocysteine 9.6 umol/L (<10.4) 11/27/23 06:06 Procalcitonin 0.02 ng/ml (0-0.5) 11/26/23 09:56 TSH 1.432 uIu/ml (0.300-4.500) 11/26/23 09:56 Urine Color Yellow 11/28/23 Unknown Urine Appearance Cloudy (Clear) A 11/28/23 Unknown Urine pH 5.5 (4.5-7.5) 11/28/23 Unknown Ur Specific [place] 1.027 (1.000-1.030) 11/28/23 Unknown Urine Protein 4+ (Negative) H 11/28/23 Unknown Urine Glucose (UA) 3+ (Negative) H 11/28/23 Unknown Urine Ketones Trace (Negative) H 11/28/23 Unknown Urine Blood 2+ (Negative) H 11/28/23 Unknown Urine Nitrite Negative (Negative) 11/28/23 Unknown Urine Bilirubin Negative (Negative) 11/28/23 Unknown Urine Urobilinogen Negative (Negative) 11/28/23 Unknown Ur Leukocyte Esterase Negative (Negative) 11/28/23 Unknown Urine WBC (Auto) 6-10 /hpf (0-5) H 11/28/23 Unknown Urine RBC (Auto) 0-2 /hpf (0-2) 11/28/23 Unknown U Hyaline Cast (Auto) 11-20 /lpf (0-2) H 11/28/23 Unknown U Epithel Cells (Auto) >20 /hpf (0-2) H 11/28/23 Unknown Urine Bacteria (Auto) None Seen (None Seen) 11/28/23 Unknown Ur Random Creatinine 129.2 mg/dl 11/28/23 Unknown U Random Total Protein 818.9 mg/dl (0-11.9) H 11/28/23 Unknown Protein/Creatinin Ratio 6.3 (0-0.2) H 11/28/23 Unknown Random Vancomycin 14.2 mcg/ml (10-20) 11/30/23 06:04 Urine Opiates Screen Neg (Neg) 11/26/23 11:48 Ur Methadone, Qual Neg (Neg) 11/26/23 11:48 Urine Fentanyl Screen Neg (Neg) 11/26/23 11:48 Urine Barbiturates Neg (Neg) 11/26/23 11:48 Ur Phencyclidine (PCP) Neg (Neg) 11/26/23 11:48 U Amphetamin/Meth Scrn Neg (Neg) 11/26/23 11:48 MDMA (Ecstasy) Screen Neg (Neg) 11/26/23 11:48 U Benzodiazepines Scrn Neg (Neg) 11/26/23 11:48 Ur Cocaine Metabolite Neg (Neg) 11/26/23 11:48 U Marijuana (THC) Screen Neg (Neg) 11/26/23 11:48 Ethyl Alcohol mg/dL < 10.0 mg/dl (<10.0) 11/26/23 09:56 Adenovirus (PCR) Not Detected (NotDetected) 11/26/23 13:45 B. pertussis DNA (PCR) Not Detected (NotDetected) 11/26/23 13:45 B.parapertussis DNA PCR Not Detected (NotDetected) 11/26/23 13:45 C. pneumoniae DNA (PCR) Not Detected (NotDetected) 11/26/23 13:45 Coronavirus OC43 (PCR) Not Detected (NotDetected) 11/26/23 13:45 Coronavirus HKU1 (PCR) Not Detected (NotDetected) 11/26/23 13:45 Coronavirus 229E (PCR) Not Detected (NotDetected) 11/26/23 13:45 SARS-CoV-2 (PCR) Not Detected (NotDetected) 11/26/23 13:45 Coronavirus NL63 (PCR) Not Detected (NotDetected) 11/26/23 13:45 Human Metapneumovir PCR Not Detected (NotDetected) 11/26/23 13:45 Influenza Type A (PCR) Not Detected (NotDetected) 11/26/23 13:45 Influenza Type B (PCR) Not Detected (NotDetected) 11/26/23 13:45 M. pneumoniae (PCR) Not Detected (NotDetected) 11/26/23 13:45 Parainfluenza 1 (PCR) Not Detected (NotDetected) 11/26/23 13:45 Parainfluenza 2 (PCR) Not Detected (NotDetected) 11/26/23 13:45 Parainfluenza 3 (PCR) Not Detected (NotDetected) 11/26/23 13:45 Parainfluenza 4 (PCR) Not Detected (NotDetected) 11/26/23 13:45 RSV (PCR) Not Detected (NotDetected) 11/26/23 13:45 Entero/Rhino (PCR) DETECTED (NotDetected) A 11/26/23 13:45 Impressions Chest X-Ray 11/26/23 09:53 XR chest 1V portable HISTORY: Altered mental status. COMPARISON: Chest 01/04/2023. FINDINGS: No pneumothorax. No pleural effusions. The heart remains enlarged. There are poststernotomy changes. Calcifications within the aortic knob. Linear scarlike densities within the left lung base persist. No new focal lung consolidations to suggest a pneumonia. No evidence for pulmonary edema. No acute fractures. IMPRESSION: No significant change compared to the prior study. No acute process. ACT 112: Negative or not required by law. Electronically signed by: Endy Luz M.D. 11/26/2023 10:18 AM Brain MRI 11/26/23 13:24 Brain MRI WITHOUT CONTRAST HISTORY: Altered mental status. Stroke symptoms. TECHNIQUE: Multiplanar multisequence MRI of the brain was performed without the use of contrast. COMPARISON STUDY: Head CT 11/26/2023. FINDINGS: Multiple small foci of restricted diffusion seen within the left frontal lobe primarily involving the left superior frontal gyrus. Dominant focus on image 19 measures 18 mm. This is consistent with an acute left CHARLES territory infarct. No acute hemorrhage or midline shift. The midline structures are intact. Mild atrophy and mild microvascular ischemic changes are noted. There is mild edema associated with the acute left frontal lobe infarcts. The major vascular flow voids at the skull base are maintained. The orbits demonstrate bilateral lens replacement. The mastoid air cells are clear. Mild mucosal thickening within the ethmoid air cells and maxillary sinuses. No intracranial mass identified. Atrophy and mild microvascular ischemic changes are noted. 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 IMPRESSION: 1. Multiple small foci of restricted diffusion seen within the left frontal lobe primarily involving the left superior frontal gyrus. This is consistent with an acute left CHARLES territory infarct. 2. 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 ACT 112: Negative or not required by law. Electronically signed by: Endy Luz M.D. 11/26/2023 3:08 PM Neck MRA 11/26/23 17:53 NECK MRA without contrast HISTORY: acute stroke TECHNIQUE: [id number] MRA of the neck was performed without contrast according to standard departmental protocol. All measurements were calculated based on NASCET criteria. COMPARISON STUDY: None. FINDINGS: The aortic arch and proximal great vessels are suboptimally assessed due to the motion artifact but likely patent. There is no significant stenosis, occlusion, or dissection identified within the bilateral common carotid, internal carotid, or vertebral arteries. There is a hypoplastic right vertebral artery. IMPRESSION: No significant stenosis, occlusion, or dissection identified within the carotid or vertebral arteries. ACT 112: Negative or not required by law. Electronically signed by: Endy Luz M.D. 11/26/2023 8:08 PM Head MRA 11/26/23 18:00 Brain MRA HISTORY: Stroke symptoms. TECHNIQUE: 3-D [id number] MRA of the brain was performed without contrast. COMPARISON STUDY: None. FINDINGS: Visualized intracranial internal carotid arteries, distal vertebral arteries, and basilar artery are widely patent. There is no significant stenosis, occlusion, or aneurysm seen within the bilateral MCAs or master dyer. There is a hypoplastic distal right vertebral artery. Incidental note is made of a persistent right posterior circulation. Possible occlusion versus motion artifact within a distal branch of the left CHARLES best seen on image 20 of series 3. This may correspond to the left CHARLES territory infarct. The right CHARLES is widely patent. IMPRESSION: Possible occlusion versus motion artifact within a distal branch of the left CHARLES which may correspond to the left CHARLES territory infarct. ACT 112: Negative or not required by law. Electronically signed by: Endy Luz M.D. 11/26/2023 8:[address] 11/26/23 22:04 Exam(s): CT HEAD Without Contrast EXAM: CT Head Without Intravenous Contrast CLINICAL HISTORY: Reason for exam: worsening acute stroke. TECHNIQUE: Axial computed tomography images of the head/brain without intravenous contrast. CTDI is 34.3 mGy and DLP is 546.36 mGy-cm. Automated exposure control was utilized for the study. A dose lowering technique was utilized adhering to the principles of ALARA. COMPARISON: Prior brain MRI from November 26, 2023. FINDINGS: Brain: There is mild edema in the left frontal lobe. No hemorrhage. No significant white matter disease. Ventricles: Moderate ventriculomegaly. Bones/joints: Unremarkable. No acute fracture. Soft tissues: Unremarkable. Sinuses: Chronic ethmoid sinusitis. No acute sinusitis. Mastoid air cells: Unremarkable as visualized. No mastoid effusion. IMPRESSION: Expected interval evolution of left frontal lobe ischemic injury without evidence of hemorrhagic transformation. Electronically signed by: Christine Wilkerson MD 11/27/23 01:19 AM Head CTA 11/29/23 08:23 CT ANGIOGRAM OF THE BRAIN COMBO CLINICAL HISTORY: Stroke like symptoms. COMPARISON STUDY: CT of the brain dated 11/26/2023. MR angiogram of the brain dated 11/26/2023. TECHNIQUE: Unenhanced axial CT scan of the brain is performed. Subsequently, following the IV administration of 119 cc of Optiray 320, CT angiogram of the brain was performed from the skull base to the vertex. Images are reviewed in the axial, sagittal, and coronal planes. 3-D MIPS images are created and assessed. IV contrast was administered without complication. A dose lowering technique was utilized adhering to the principles of ALARA. CT DOSE: 785.4 mGy.cm FINDINGS: Brain parenchyma: There is age related involutional change noting mild to moderate subcortical and periventricular microangiopathic disease. There is a subacute/evolving left anterior cerebral artery territory infarct, with loss of price-white matter differentiation in the left frontal lobe. No hemorrhage or midline shift is identified. There is no evidence of enhancing mass lesion on the angiogram phase images. No extra-axial fluid collection is seen. Ventricles, sulci, and cisterns: Prominent secondary to involutional change. CT angiogram of the brain: There is atherosclerotic calcification of the cavernous carotid and vertebral arteries. The internal carotid arteries are widely patent, as are the right anterior cerebral artery and both middle cerebral arteries. The proximal pended portions of the left anterior cerebral artery are widely patent. There is likely a peripheral branch occlusion of the left anterior cerebral artery seen on axial image #176. The vertebrobasilar system and posterior cerebral arteries are widely patent. The left vertebral artery is dominant. There is origin of the right posterior cerebral artery. No aneurysm is seen throughout the intracranial circulation. Dural sinuses: Clear as visualized. Orbits: The bony orbits are intact. The orbital contents are normal as visualized noting bilateral ocular lens implants. Sinuses and mastoids: There are is moderate mucosal thickening within the ethmoid sinuses. Mild mucosal thickening is seen within the maxillary antra, and there is trace mucosal thickening in the frontal and sphenoid sinuses. The mastoid air cells are well pneumatized. Calvarium: Unremarkable. IMPRESSION: 1. There is a subacute/evolving left CHARLES territory infarct. 2. There is no hemorrhage or mass effect. 3. There is likely a peripheral branch occlusion within the left anterior cerebral artery. 4. Otherwise unremarkable CT angiogram of the brain. ACT 112: Negative or not required by law. Electronically signed by: Errol Gamino M.D. 11/29/2023 4:25 PM PG Care Time/CCT Total # of Minutes Spent Total Time Spent with Patient: Total time spent is greater than 50% in coordination of care (as documented) at patient's floor/unit and/or counseling patient: Coding Level of Care Code 06565 SUB INP/OBS CARE 3/50MIN Diagnoses Hypertensive urgency I16.0 CKD stage 4 due to type 2 diabetes mellitus E11.22; N18.4 Diabetes mellitus, type II E11.9
[2023-12-01] MEDS: lisinopril 20 MG TAB PO SCH (09:44)
--- NOTE | 2023-12-01 09:47 | Discharge Summary ---
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 Cardiology and neurology and nephrology consultations were obtained. Imaging of the brain was consistent with left frontal stroke. Echocardiogram revealed possible vegetation. She was started on empiric antibiotics for possible endocarditis. Blood cultures remain sterile. She had no other symptoms of infection. Infectious disease consultation was obtained due to concern of possible infectious endocarditis. After communication with cardiology, nephrology neurology is recommended patient undergo PAT. Patient underwent PAT and vegetation on mitral valve appeared to be calcific and not infectious. Antibiotics were discontinued. She was started on oral Eliquis for full anticoagulation due to presumptive embolic stroke from this calcific vegetation. Through the course of her hospitalization patient's symptoms significantly improved. She had some intermittent nausea in the mornings which would resolve as she got up and moved around a bit more. Her renal function improved slightly but essentially is establishing a new baseline. Nephrology was involved and assisted cardiology with management of her antihypertensive medications. There was no arrhythmias noted on telemetry monitoring. Through the course of her hospitalization her diabetes was managed. She had multiple imaging of the brain which did not show any recurrent new findings after the initial imaging. The morning of discharge family is at her bedside. She is up and ambulatory. She had some minimal residual weakness in the right leg. Her speech was clear and back to normal. She be discharged to outpatient follow-up Notes For Next Care Provider May need further titration of antihypertensive medications Follow-up with cardiology Follow-up with nephrology May need outpatient therapies Medication Changes From Visit Lisinopril increased Eliquis added for anticoagulation Coreg added for blood pressure control Admission HPI Per Admitting Provider Francie Baker is a 78y/o F with PMHx of DM type II, diabetic retinopathy both eyes and macular edema, dyslipidemia, history of thyroid nodule, CAD s/p CABG x 4, HTN, persistent atrial fibrillation, CKD stage III, rheumatoid arthritis on chronic steroid therapy, chronic anemia, history of myocardial infarction and other problems listed below who presented to the ED for evaluation secondary to altered mental status. History obtained from patient, family at bedside and associated chart review. Per ED provider, patient's last known well was around approximately 3 AM this morning. Patient's found her at home around 9 AM and she was confused and not speaking appropriately. Therefore, she was brought into the ED for further evaluation. Patient was not speaking and seemed altered to nursing staff in the ED - however, patient was alert and talking in no acute distress. No focal deficits were appreciated by ED provider. Patient was hypertensive in the ED with a systolic BP in the 220s and she was given 10 mg of IV labetalol at the time of sign out. Appears she is having some word finding difficulty according to Dr. Chandra. Patient seen at bedside with Dr. Murrieta. Patient able to state her full name and date of . According to family, she is typically "very sharp." Son saw her this morning and mentioned that the patient was standing at the kitchen counter and was acting somewhat disoriented and altered. woke her up this morning around 3AM and she was acting very disoriented, not acting herself. Patient took some of her medications this morning - but she is unsure of which ones. Family reports that she is significantly weaker and "wobbly" on her feet. Was very unsteady on her feet in the ED when going to the bathroom. Patient's father has had a stroke. She does not smoke or consume alcohol. She did not eat anything this morning. reports that she was "perfectly fine" yesterday. Patient had some sinus congestion the other day, but that has since completely resolved today. Admission Exam Per Admitting Provider See H&P Discharge Exam Constitutional: Alert HEENT: Mucous membranes moist. Lungs: Clear to auscultation, decreased, no wheezes rales or rhonchi CV: S1-S2, regular Abdomen: Soft, nontender, nondistended Extremities: No significant edema Neuro: NIH stroke scale equals 1, some right leg weakness Psych: Cooperative, normal mood Updated Medication List Medication Instructions Recorded Confirmed Type amlodipine 5 mg tablet 5 mg PO HS 01/04/23 11/26/23 History aspirin 81 mg chewable tablet 81 mg PO DAILY 01/04/23 11/26/23 History atorvastatin 40 mg tablet 40 mg PO HS 01/04/23 11/26/23 History biotin 1 mg tablet 1 mg PO DAILY 01/04/23 11/26/23 History cinnamon bark 500 mg capsule 500 mg PO DAILY 01/04/23 11/26/23 History (Cinnamon) coenzyme Q10 100 mg capsule 100 mg PO DAILY 01/04/23 11/26/23 History (CoQ-10) cyanocobalamin (vitamin B-12) 1,000 mcg PO DAILY 01/04/23 11/26/23 History 1,000 mcg tablet (Vitamin B-12) faricimab-svoa 6 mg/0.05 mL 6 mg intravitreal DIRECTED PRN 01/04/23 11/26/23 History intravitreal solution Macular Edema insulin glargine 100 unit/mL (3 42 unit subcut QAM 01/04/23 11/26/23 History mL) subcutaneous pen (Basaglar KwikPen U-100 Insulin) isosorbide mononitrate 60 mg 60 mg PO DAILY 01/04/23 11/26/23 History tablet,extended release 24 hr milk thistle 175 mg tablet 175 mg PO DAILY 01/04/23 11/26/23 History prednisone 5 mg tablet 2.5 mg PO DAILY 01/04/23 11/26/23 History vit C 250 mg-vit E 90 mg-zinc 40 1 tab PO DAILY 01/04/23 11/26/23 History mg-copper 1 [id number] capsule (PreserVision AREDS-2) insulin aspart U-100 100 unit/mL 8 unit subcut TID 06/07/23 11/26/23 History subcutaneous solution (Novolog U-100 Insulin aspart) lisinopril 10 mg tablet 10 mg PO DAILY #90 tabs 10/05/23 11/26/23 Rx calcitriol 0.25 mcg capsule 0.25 mcg PO .COMPLEX #24 caps 11/20/23 11/26/23 Rx cholecalciferol (vitamin D3) 10 20 mcg PO DAILY 11/20/23 11/26/23 History mcg (400 unit) tablet (Vitamin D3) albuterol sulfate 90 mcg/actuation 1 inh inhalation Q4H PRN Shortness 11/26/23 11/26/23 History aerosol inhaler Of Breath Or Wheezing blood-glucose sensor (FreeStyle #1 ea 11/28/23 Rx Enrique 3 Sensor device) amlodipine 5 mg tablet (Norvasc) 7.5 mg (1.5 x 5 mg) PO HS 30 days 12/01/23 Rx #45 tabs apixaban 5 mg tablet (Eliquis) 5 mg PO BID 30 days #60 tabs 12/01/23 Rx atorvastatin 40 mg tablet 80 mg (2 x 40 mg) PO HS 30 days 12/01/23 Rx #60 tabs carvedilol 3.125 mg tablet 3.125 mg PO BID 30 days #60 tabs 12/01/23 Rx lisinopril 20 mg tablet 20 mg PO DAILY 30 days #30 tabs 12/01/23 Rx ondansetron 4 mg disintegrating 4 mg PO Q6H PRN nausea and 12/01/23 Rx tablet vomiting #30 tabs Hospital Stay Data Consultations 11/26/23 12:45 ED Decision to Admit Stat 11/26/23 13:52 Consult Neurology Routine 11/27/23 08:00 Consult Cardiology Routine 11/28/23 08:28 Consult Nephrology Routine 11/29/23 08:26 Consult Infectious Diseases Routine 11/29/23 14:17 Consult Anesthesiology Routine Procedures Performed Operation Date: 11/30/23 07:45 Actual Procedures p Echo Transesophageal - Dameon Hurley DO s Echo Doppler Complete - Dameon Hurley DO s Echo Color Flow - Dameon Hurley DO Diagnostic Imagining Performed Reviewed imaging, laboratory and diagnostic studies. Pertinent findings as below. PAT shows calcific vegetation on mitral valve, no evidence of infective endocarditis MRI of the brain showed multiple small foci of acute infarct in left frontal lobe consistent with acute left CHARLES territory infarction, also old small left cerebellar infarcts were noted CTA of the head showed chronic occlusion of small branch of left CHARLES Creatinine 2.27 Hemoglobin 9.6 TSH 1.4 11/26/23 09:52 CT head/brain wo con Stat 11/26/23 13:24 MRI Brain [MR brain wo con] Stat 11/26/23 17:53 MR angio neck wo con Stat 11/26/23 18:00 MR angio head wo con Stat 11/26/23 19:02 CT head/brain wo con Stat 11/26/23 22:04 CT head/brain wo con Stat 11/29/23 08:23 CTA head wo/w [CT angio head wo/w] Stat Pending Results Patient Have Any Pending Studies at Discharge: No Discharge Instructions Given to Patient (Per Discharging Provider) Follow-up with outpatient providers as coordinated Total Time Total Time Spent Total Time Spent (In Minutes): 42
[2023-12-01 11:05] VITALS: BP 172/105; PULSE 69
== END 2023-12-01 12:33 | disposition home or self-care (01) | DRG 64 ==
LOC: ED 09:35 → SUATTDRO 13:42 → EDINP 13:42 → 2S 20:50

== ENCOUNTER 2024-02-19 13:17 | Observation (INO) ==
[2024-02-19 13:40] LABS: Basophils # (auto) 0.05 K/uL (0.00-0.20); Basophils % (auto) 0.8 %; Eosinophils # (auto) 0.11 K/uL (0.00-0.50); Eosinophils % (auto) 1.8 %; Hematocrit (blood only) 28.9 % (37.0-47.0); Hemoglobin 9.2 g/dl (12.0-16.0); Immature Granulocytes # (auto) 0.02 K/uL (0.01-0.20); Immature Granulocytes % (auto) 0.3 %; Lymphocytes # (auto) 1.13 K/uL (1.20-3.40); Lymphocytes % (auto) 18.3 %; Mean Corpuscular Hemoglobin 26.1 pg (25.0-34.0); Mean Corpuscular Hgb Conc 31.8 g/dL (32.0-36.0); Mean Corpuscular Volume 82.1 fL (80.0-100.0); Mean Platelet Volume 10.6 fL (9.4-12.4); Monocytes # (auto) 0.39 K/uL (0.11-0.59); Monocytes % (auto) 6.3 %; Neutrophils # (auto) 4.47 K/uL (1.40-6.50); Neutrophils % (auto) 72.5 %; Platelet Count 189 K/uL (130-400); RDW Coefficient of Variation 13.9 % (11.5-14.5); Red Blood Count 3.52 M/uL (4.20-5.40); White Blood Count 6.17 K/ul (4.8-10.8)
--- NOTE | 2024-02-19 13:54 | XRay Report ---
XR chest 1V portable HISTORY: 78 years-old Female weakness COMPARISON: 11/26/2023 TECHNIQUE: AP view of the chest FINDINGS: Cardiac silhouette is enlarged. Median sternotomy with surgical clips within the mediastinum. Atheros clerosis of the aorta. There is no pneumothorax, pleural effusion or overt pulmonary edema. Mild clinical pathologist dexter interstitial coarsening. Bones appear grossly intact. IMPRESSION: Cardiomegaly without acute process. ACT 112: Negative or not required by law. The above report was generated using voice recognition software. It may contain grammatical, syntax o r spelling errors. Electronically signed by: Andrew Bran M.D. 02/19/2024 1:52 PM
--- NOTE | 2024-02-19 13:56 | Emergency Department Note ---
Impression & Plan Syncope, Junctional escape rhythm, CKD (chronic kidney disease) requiring chronic dialysis, Hyperkalemia ED Provider Note NAME: KANDIS SCOTT AGE: 78 SEX: F : 1945 ARRIVES VIA: Ambulance INFORMANT: Patient, ED PROVIDER(S): Emiliano Beyer MD CHIEF COMPLAINT: Dizziness, syncope MEDICAL DECISION MAKING: Patient presents for the above. IV was established and blood work was obtained along with an EKG. patient's EKG may show a junctional versus ventricular escape rhythm. Patient is asymptomatic and blood pressures in the 130s systolic. Blood work shows a normal white count hemoglobin 9.2 relatively chronic and stable. Patient also with CKD with baseline creat in the twos to currently at 2.4. Potassium 5.7. Patient's blood sugar 232 with calcium of 8.3. Patient did have a chest x-ray shows cardiomegaly but no acute process. Given this concern for the ventricular escape rhythm I did speak with the on-call administrative associate Dr. Vallejo who did come down and evaluate the patient. I did speak with one of the Tian administrative associate Dr. Parker who is familiar with the patient and there was some concern that the patient may have restarted Coreg which may be contributory. Discussion w/ other healthcare providers: Dr. Vallejo cardiology Colby Joseph PA-C and Dr. Christie Overton inpatient service Prior /Outside records reviewed: I reviewed part of a cardiology visit from [facility] from January 15, 2024. Known history of CAD CABG drug-eluting stent to left circumflex A-fib dyslipidemia hypertension CKD. Patient with 1 prior history of documented A-fib thought to be related hyperkalemia but was admitted for stroke recently but due to concern for arrhythmia as possible cause of embolic stroke the patient was started on Eliquis 5 twice daily. Differential diagnosis: Vasovagal event, dehydration, infection, hypoglycemia, electrolyte abnormalities, arrhythmia, pulmonary embolism, seizure among others were considered. Diagnostics, as interpreted by me: ECG: Possible junctional rhythm, rate of 52, no obvious P waves, wide QRS right bundle branch block pattern, normal axis no STEMI, T wave version in lead III. Cardiac monitoring: An order was placed for continuous cardiac monitoring. The monitor shows a rate of 52 with regular rhythm. Patient was placed on pulse oximetry Medical decision rules: None Imaging studies: I informally interpreted the patient's chest x-ray does not show obvious pneumonia or pneumothorax with formal report to follow. HPI: Patient presents due to concern for lightheadedness and dizziness along with syncope. This occurred just prior to arrival while she was shopping at [employer]. The patient reports that prior to this the patient was shopping at [employer] and did feel lightheaded and dizzy. Patient denies any chest pains or shortness of breath no nausea or vomiting. The patient denies any head neck chest back or abdominal pain. Prior history of CVA and the patient states she is on Eliquis. She did take her morning medications. Patient denies any chest back or abdominal pain no head or neck pain the patient has no extremity pains. PAST MEDICAL HISTORY: See Below PAST SURGICAL HISTORY: See Below SOCIAL HISTORY: See Below HOME MEDICATIONS: See Below ALLERGIES: See Below VITALS: See Below PHYSICAL EXAMINATION: GENERAL: NAD, non-toxic. EYE EXAM: Normal conjunctiva. PERRL, no anisocoria and EOM's grossly intact w/o pain. Head: Normocephalic atraumatic. OROPHARYNX: Moist mucus membranes, grossly normal dentition. NECK: Trachea midline, no stridor. No midline C-spine TTP. LUNGS: Clear to auscultation. Normal chest wall mechanics. HEART: Bradycardic and regular, no MRG. ABDOMEN: Abdomen soft, non-tender, no masses, no rebound or guarding. BACK: No CVA TTP. SKIN: No rashes and no bruising. UPPER EXTREMITIES: Upper extremities are grossly normal. No TTP or deformity. LOWER EXTREMITIES: Grossly normal, no edema. No TTP or deformity. NEURO EXAM: A&O x3, cranial nerves II-XII grossly intact with exception of talking more out of the right side of her mouth compared to the left, normal speech, moves all 4 extremities. 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 Embolic stroke Vegetation of heart valve Hypertension, uncontrolled CKD stage 4 due to type 2 diabetes mellitus Uncontrolled diabetes mellitus with hyperglycemia, with long-term current use of insulin Hypertensive urgency (Acute) Elevated troponin (Acute) Word finding difficulty (Acute) Acute alteration in mental status (Acute) Elevated troponin Abnormal urinalysis Altered mental status Premature supraventricular beats Frequent ventricular premature beats Right bundle branch block First degree AV block Presence of drug-eluting stent in left circumflex coronary artery Atrial fibrillation CKD (chronic kidney disease), stage III Hypertension Dyslipidemia (Chronic) Hx of CABG (Chronic) 2011 at [facility]: CHEN- LAD;SVG-OM; SVG - PDA/PL BR. Subsequent documentation of occlusion of vein graft to marginal December 2011 . Subsequent drug-eluting stent left circumflex marginal. CAD (coronary artery disease) (Chronic) Diabetes mellitus, type II (Chronic) Medical History Rheumatoid arthritis Thyroid nodule PCP MONITORS "SMALL" Retinopathy RECIEVES SHOTS TO TREAT Myocardial Infarction 10 YEARS AGO Hyperlipidemia History of COVID-19 04/2021>CONGESTION/FATIGUE *RESOLVED Left radial head fracture Acute kidney injury Rheumatoid arthritis Surgical History History of ankle surgery RT History of colonoscopy History of tooth extraction History of heart artery stent 5 MONTHS AFTER CABG>HEART CATH WITH 1 STENT PLACED History of cardiac cath NO STENTS/BEFORE CABG Family History Grandmother (Maternal) Family history of diabetes mellitus Other No family history of adverse response to anesthesia Social History Smoking Status: Never smoker Second Hand Exposure: Yes (childhood); Do You Dip or Chew Tobacco: No; Hx Alcohol Use: No Hx Substance Use: No Preferred Language: Macedonian Communication Ability: Effective Communication Ability Comment: change mental status, slurred speach Visual Impairment: No Limitations Hearing Ability: Normal Hydraulic Specialist Required: No Beliefs That Will Affect Care: None marital status: Single Current Living Situation: Spouse current occupational status: retired Feels Safe at Home: Yes Diet: regular Physical Activity Frequency: Does not Exercise Seatbelt Use: always Assistive Devices: None Allergies Allergies Allergy/AdvReac Type Severity Reaction Status Date / Time nitrofurantoin Allergy Hives Verified 01/15/24 10:37 [From Macrobid] sulfamethoxazole AdvReac RENETTA Verified 01/15/24 10:37 [From Bactrim] trimethoprim [From Bactrim] AdvReac RENETTA Verified 01/15/24 10:37 Home Meds Home Medications Medication Instructions Recorded Confirmed aspirin 81 mg chewable tablet 81 mg PO DAILY 01/04/23 02/19/24 biotin 1 mg tablet 1 mg PO DAILY 01/04/23 02/19/24 cinnamon bark 500 mg capsule 500 mg PO DAILY 01/04/23 02/19/24 (Cinnamon) coenzyme Q10 100 mg capsule 100 mg PO DAILY 01/04/23 02/19/24 (CoQ-10) cyanocobalamin (vitamin B-12) 1,000 mcg PO DAILY 01/04/23 02/19/24 1,000 mcg tablet (Vitamin B-12) faricimab-svoa 6 mg/0.05 mL 6 mg intravitreal DIRECTED PRN 01/04/23 02/19/24 intravitreal solution Macular Edema insulin glargine 100 unit/mL (3 42 unit subcut QAM 01/04/23 02/19/24 mL) subcutaneous pen (Basaglar KwikPen U-100 Insulin) milk thistle 175 mg tablet 175 mg PO DAILY 01/04/23 02/19/24 prednisone 5 mg tablet 2.5 mg PO DAILY 01/04/23 02/19/24 vit C 250 mg-vit E 90 mg-zinc 40 1 tab PO DAILY 01/04/23 02/19/24 mg-copper 1 [id number] capsule (PreserVision AREDS-2) cholecalciferol (vitamin D3) 10 20 mcg PO DAILY 11/20/23 02/19/24 mcg (400 unit) tablet (Vitamin D3) insulin aspart U-100 100 unit/mL 6 unit subcut TID 01/11/24 02/19/24 subcutaneous solution (Novolog U-100 Insulin aspart) apixaban 5 mg tablet (Eliquis) 5 mg PO BID 01/15/24 02/19/24 atorvastatin 40 mg tablet 80 mg PO DAILY 01/15/24 02/19/24 Previous Rx's Medication Instructions Recorded blood-glucose sensor (FreeStyle #1 ea 11/28/23 Enrique 3 Sensor device) amlodipine 10 mg tablet 10 mg PO DAILY #90 tabs 12/11/23 furosemide 20 mg tablet 20 mg PO Q OTHER DAY #45 tabs 01/11/24 lisinopril 30 mg tablet 30 mg PO DAILY #90 tabs 01/11/24 calcitriol 0.25 mcg capsule 0.25 mcg PO .COMPLEX #24 caps 01/15/24 isosorbide mononitrate 30 mg 30 mg PO DAILY #30 tabs 01/15/24 tablet,extended release 24 hr Results & Data (ED) Vital Signs Vital Signs - 24 hr 02/19/24 13:23 02/19/24 13:34 02/19/24 13:34 Temperature 36.8 C Temperature Source Oral Pulse Rate 52 L Pulse Rate [Apical] 53 L Respiratory Rate 18 17 Blood Pressure 130/67 Blood Pressure [Left Arm] 130/67 Blood Pressure Mean 88 Blood Pressure Mean [Left Arm] 88 Blood Pressure Position Lying Pulse Oximetry 94 94 94 Oxygen Delivery Method Room Air Room Air Room Air Sepsis Recent Fever Within 48 Hours No Sepsis New/Unexplained Change in Mental Status No Sepsis Action Taken by Nursing No Action Required 02/19/24 14:02 02/19/24 15:00 Temperature Temperature Source Pulse Rate 51 L Pulse Rate [Apical] 44 L Respiratory Rate 20 Blood Pressure Blood Pressure [Left Arm] 119/52 L Blood Pressure Mean Blood Pressure Mean [Left Arm] 74 Blood Pressure Position Pulse Oximetry 94 Oxygen Delivery Method Room Air Sepsis Recent Fever Within 48 Hours Sepsis New/Unexplained Change in Mental Status Sepsis Action Taken by [facility] Medications Current Medication List: was personally reviewed by me Laboratory Data Attestation: I reviewed the patient's lab results. 02/19/24 13:26 02/19/24 13:26 Lab Results 02/19/24 Range/Units 13:26 WBC 6.17 (4.8-10.8) K/ul RBC 3.52 L (4.20-5.40) M/uL Hgb 9.2 L (12.0-16.0) g/dl Hct 28.9 L (37.0-47.0) % MCV 82.1 (80.0-100.0) fL MCH 26.1 (25.0-34.0) pg MCHC 31.8 L (32.0-36.0) g/dL RDW Std Deviation 42.0 (36.4-46.3) fL RDW Coeff of Samson 13.9 (11.5-14.5) % Plt Count 189 (130-400) K/uL MPV 10.6 (9.4-12.4) fL Immature Gran % (Auto) 0.3 % Neut % (Auto) 72.5 % Lymph % (Auto) 18.3 % Houghton % (Auto) 6.3 % Eos % (Auto) 1.8 % Baso % (Auto) 0.8 % Neut # (Auto) 4.47 (1.40-6.50) K/uL Lymph # (Auto) 1.13 L (1.20-3.40) K/uL Houghton # (Auto) 0.39 (0.11-0.59) K/uL Eos # (Auto) 0.11 (0.00-0.50) K/uL Baso # (Auto) 0.05 (0.00-0.20) K/uL Immature Gran # (Auto) 0.02 (0.01-0.20) K/uL PT 11.9 (9.0-12.0) Seconds INR 1.1 (0.9-1.1) APTT 26 (21-31) Seconds PTT Ratio 1.0 Sodium 138 (136-145) mmol/L Potassium 5.7 H (3.5-5.1) mmol/L Chloride 110 H (98-107) mmol/L Carbon Dioxide 24 (21-32) mmol/L Anion Gap 4 (3-11) BUN 40 H (6-23) mg/dl Creatinine 2.40 H (0.6-1.2) mg/dl Est Cr Clr Drug Dosing 20.5 ml/min eGFR 20.42 BUN/Creatinine Ratio 16.7 (10-20) Glucose 232 H (70-99(Fasting)) mg/dl Calcium 8.3 L (8.6-10.3) mg/dl Total Bilirubin 0.3 (0.2-1.0) mg/dl AST 17 (13-39) U/L ALT 18 (7-52) U/L Alkaline Phosphatase 83 (34-104) U/L Total Protein 5.9 L (6.0-8.3) gm/dl Albumin 3.1 L (3.4-5.0) gm/dl Globulin 2.8 (2.5-4.0) gm/dl Albumin/Globulin Ratio 1.1 (0.9-2) Administered Medications Sodium Chloride (Nss) 1,000 mls @ 60 mls/hr IV .[id number] ADELA Stop: 02/20/24 08:09 Last Admin: 02/19/24 15:54 Dose: 60 mls/hr Documented By: NRBrandi Discontinued Medications Dextrose (Dextrose 50% 50 Ml Syringe) 50 ml IV NOW STA Stop: 02/19/24 15:26 Last Admin: 02/19/24 15:54 Dose: 50 ml Documented By: NRBrandi Calcium Chloride 500 mg/ (Dextrose) 55 mls @ 240 mls/hr IV ONCE STA Stop: 02/19/24 15:38 Last Infusion: 02/19/24 16:21 Dose: Infused Documented By: Admin: 02/19/24 15:56 Dose: 240 mls/hr Documented By: TRINITY Insulin Human Regular 10 units (/ Syringe) 9.9 mls @ 3 mls/sec IV ONE STA Stop: 02/19/24 15:32 Last Admin: 02/19/24 15:55 Dose: 3 mls/sec Documented By: TRINITY Co-signed By: Imaging Data Radiologist's Impression: Chest X-Ray 02/19/24 13:24 XR chest 1V portable HISTORY: 78 years-old Female weakness COMPARISON: 11/26/2023 TECHNIQUE: AP view of the chest FINDINGS: Cardiac silhouette is enlarged. Median sternotomy with surgical clips within the mediastinum. Atherosclerosis of the aorta. There is no pneumothorax, pleural effusion or overt pulmonary edema. Mild chronic interstitial coarsening. Bones appear grossly intact. IMPRESSION: Cardiomegaly without acute process. ACT 112: Negative or not required by law. The above report was generated using voice recognition software. It may contain grammatical, syntax or spelling errors. Electronically signed by: Andrew Bran M.D. 02/19/2024 1:52 PM Discharge Plan Visit Data Chief Complaint: Syncope ED Provider: Emiliano Beyer Discharge Problem: Syncope, Junctional escape rhythm, CKD (chronic kidney disease) requiring chronic dialysis, Hyperkalemia Patient Disposition: Admitted As Inpatient Discharge Instructions Interventions: ED Discharge Assessment Last Done: 02/19/24 18:26 Discharge Problem: Syncope Qualifiers: Syncope type: unspecified Qualified Code(s): R55 - Syncope and collapse
[2024-02-19 14:04] LABS: Albumin Globulin Ratio 1.1 (0.9-2); Albumin Level 3.1 gm/dl (3.4-5.0); BUN Creatinine Ratio 16.7 (10-20); Bilirubin,Total 0.3 mg/dl (0.2-1.0); Calcium 8.3 mg/dl (8.6-10.3); Creatinine Clr Calc Pharmacy 20.5 ml/min; Globulin 2.8 gm/dl (2.5-4.0); Potassium 5.7 mmol/L (3.5-5.1); Total Protein 5.9 gm/dl (6.0-8.3)
[2024-02-19 14:16] LABS: INR 1.1 (0.9-1.1); Partial Thromboplastin Time 26 Seconds (21-31); Prothrombin Time 11.9 Seconds (9.0-12.0)
--- NOTE | 2024-02-19 14:45 | History & Physical Report ---
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 Patient was shopping at [facility] earlier when she suddenly passed out and fell to the floor. She was shopping by herself and EMS was called by staff at [facility]. Patient's heart rate was in the 20s per EMS. She received atropine en route to the ED. Patient was recently admitted under our service (11/26/2023-12/01/2023) with an embolic stroke. Patient reports that she had been feeling well since being discharged up until today. She was discharged on carvedilol 3.125mg BID and lis inopril 20mg daily due to uncontrolled blood pressure. Patient reports that she was taking carvedilol 3.125mg BID up until about a week and a half ago when she ran out of this prescription. She mentions that she found an old prescription bottle of carvedilol that she had previously taken and subsequently started taking that. However, this carvedilol prescription was for 25mg BID. Patient was unaware of this dose difference. I spoke with her , Clayton, over the phone and he reports that she has been feeling somewhat lightheaded since starting this old dose of carvedilol. Syncope & Collapse, Bradycardia: EKG reviewed, syncope likely secondary to above --> junctional escape rhythm. CXR negative. Limited echo pending. Cardiology consulted [patient follows w/ [facility]] - appreciate their recommendations/input moving forward. CT head negative. Hold all home BP medications, including carvedilol. Hold Eliquis for now, NPO after midnight. External pacer pads, routine EKG tomorrow AM. Hyperkalemia: K+ 5.7 on presentation. IV insulin dextrose + IV calcium chloride given. K+ improved to 5.0 at 20:24 this evening. Continue to monitor her electrolytes closely and treat PRN. CKD Stage IV: Cr 2.4 on admission, baseline Cr ~1.9-2.4 per nephrology's most recent office visit note. Patient follows with [facility]. 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 Avoid nephrotoxic medications when able. Monitor renal function closely and renally dose medications when able. DM Type II: Hold home agents, basal/bolus regimen while inpatient. On chronic steroid therapy. BSG checks ACHS. Most recent Hgb A1c was 8.4% on 01/10/2024. Glycemic pharmacy, celeste vnicent educator consulted. Other Chronic Medical Conditions: Rheumatoid arthritis, HLD --> Can continue home medications for these specific conditions, including ASA given recent CVA in November of this year. 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 Code Status: FULL CODE PCP: Aiyana Peck PA-C Disposition: Admit to PCU/Telemetry Patient seen in collaboration with Dr. Soriano. Please see addendum. I spent a total of 65 minutes coordinating, documenting, and providing care for this patient excluding time spent in the performance of separately billed services. This included personally reviewing all current laboratories and imaging studies, medical reconciliation, outpatient chart review and discussion with specialists. This chart was completed in part utilizing Speech Voice Recognition Software. Grammatical errors, random word insertions, pronoun errors, and incomplete sentences are an occasional consequence of this system due to software limitations, ambient noise, and hardware issues. Any formal questions or concerns about the content, text, or information contained within the body of this dictation should be directly addressed to the provider for clarification. 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 History obtained from patient and associated chart review. Patient was shopping at [facility] earlier when she suddenly passed out and fell to the floor. She was shopping by herself and EMS was called by staff at [facility]. Patient's heart rate was in the 20s per EMS. She received atropine en route to the ED. Patient's heart rate was holding steady in the mid 40s when seen in the ED. She mentions that she remembers feeling rather lightheaded/dizzy prior to passing out and then waking up in the ambulance. She does not recall striking her head. Patient was recently admitted under our service (11/26/2023-12/01/2023) with an embolic stroke involving the left anterior cerebral artery. Patient reports that she had been feeling well since being discharged up until today. She was discharged on carvedilol 3.125mg BID and lisinopril 20mg daily due to uncontrolled blood pressure. Patient reports that she was taking carvedilol 3.125mg BID up until about a week and a half ago when she ran out of this prescription. She mentions that she found an old prescription bottle of carvedilol that she had previously taken and subsequently started taking that. However, this carvedilol prescription was for 25mg BID. Patient was unaware of this dose difference. I spoke with her , Clayton, over the phone and he reports that she has been feeling somewhat lightheaded since starting this old dose of carvedilol. Allergies Allergy/AdvReac Type Severity Reaction Status Date / Time nitrofurantoin Allergy Hives Verified 01/15/24 10:37 [From Macrobid] sulfamethoxazole AdvReac RENETTA Verified 01/15/24 10:37 [From Bactrim] trimethoprim [From Bactrim] AdvReac RENETTA Verified 01/15/24 10:37 Home Medications Medication Instructions Recorded Confirmed Type aspirin 81 mg chewable tablet 81 mg PO DAILY 01/04/23 02/19/24 History biotin 1 mg tablet 1 mg PO DAILY 01/04/23 02/19/24 History cinnamon bark 500 mg capsule 500 mg PO DAILY 01/04/23 02/19/24 History (Cinnamon) coenzyme Q10 100 mg capsule 100 mg PO DAILY 01/04/23 02/19/24 History (CoQ-10) cyanocobalamin (vitamin B-12) 1,000 mcg PO DAILY 01/04/23 02/19/24 History 1,000 mcg tablet (Vitamin B-12) faricimab-svoa 6 mg/0.05 mL 6 mg intravitreal DIRECTED PRN 01/04/23 02/19/24 History intravitreal solution Macular Edema insulin glargine 100 unit/mL (3 42 unit subcut QAM 01/04/23 02/19/24 History mL) subcutaneous pen (Basaglar KwikPen U-100 Insulin) milk thistle 175 mg tablet 175 mg PO DAILY 01/04/23 02/19/24 History prednisone 5 mg tablet 2.5 mg PO DAILY 01/04/23 02/19/24 History vit C 250 mg-vit E 90 mg-zinc 40 1 tab PO DAILY 01/04/23 02/19/24 History mg-copper 1 [id number] capsule (PreserVision AREDS-2) cholecalciferol (vitamin D3) 10 20 mcg PO DAILY 11/20/23 02/19/24 History mcg (400 unit) tablet (Vitamin D3) blood-glucose sensor (FreeStyle #1 ea 11/28/23 02/19/24 Rx Enrique 3 Sensor device) amlodipine 10 mg tablet 10 mg PO DAILY #90 tabs 12/11/23 02/19/24 Rx furosemide 20 mg tablet 20 mg PO Q OTHER DAY #45 tabs 01/11/24 02/19/24 Rx insulin aspart U-100 100 unit/mL 6 unit subcut TID 01/11/24 02/19/24 History subcutaneous solution (Novolog U-100 Insulin aspart) lisinopril 30 mg tablet 30 mg PO DAILY #90 tabs 01/11/24 02/19/24 Rx apixaban 5 mg tablet (Eliquis) 5 mg PO BID 01/15/24 02/19/24 History atorvastatin 40 mg tablet 80 mg PO DAILY 01/15/24 02/19/24 History calcitriol 0.25 mcg capsule 0.25 mcg PO .COMPLEX #24 caps 01/15/24 02/19/24 Rx isosorbide mononitrate 30 mg 30 mg PO DAILY #30 tabs 01/15/24 02/19/24 Rx tablet,extended release 24 hr Past Med/Surg History Problem List Hyperkalemia (Acute) CKD (chronic kidney disease) requiring chronic dialysis (Acute) Junctional escape rhythm (Acute) Syncope (Acute) Syncope and collapse Mitral annular calcification Embolic stroke involving left anterior cerebral artery Embolic stroke Vegetation of heart valve Hypertension, uncontrolled CKD stage 4 due to type 2 diabetes mellitus Uncontrolled diabetes mellitus with hyperglycemia, with long-term current use of insulin Hypertensive urgency (Acute) Elevated troponin (Acute) Word finding difficulty (Acute) Acute alteration in mental status (Acute) Elevated troponin Abnormal urinalysis Altered mental status Premature supraventricular beats Frequent ventricular premature beats Right bundle branch block First degree AV block Presence of drug-eluting stent in left circumflex coronary artery Atrial fibrillation CKD (chronic kidney disease), stage III Hypertension Dyslipidemia (Chronic) Hx of CABG (Chronic) 2012 at [facility] [place]: CHEN- LAD;SVG-OM; SVG - PDA/PL BR. Subsequent documentation of occlusion of vein graft to marginal December 2011 . Subsequent drug-eluting stent left circumflex marginal. CAD (coronary artery disease) (Chronic) Diabetes mellitus, type II (Chronic) Medical History Rheumatoid arthritis Thyroid nodule PCP MONITORS "SMALL" Retinopathy RECIEVES SHOTS TO TREAT Myocardial Infarction 10 YEARS AGO Hyperlipidemia History of COVID-19 04/2021>CONGESTION/FATIGUE *RESOLVED Left radial head fracture Acute kidney injury Rheumatoid arthritis Surgical History History of ankle surgery RT History of colonoscopy History of tooth extraction History of heart artery stent 5 MONTHS AFTER CABG>HEART CATH WITH 1 STENT PLACED History of cardiac cath NO STENTS/BEFORE CABG Family History Grandmother (Maternal) Family history of diabetes mellitus Other No family history of adverse response to anesthesia Social History Smoking Status: Never smoker Second Hand Exposure: Yes (childhood); Do You Dip or Chew Tobacco: No; Hx Alcohol Use: No Hx Substance Use: No Preferred Language: Turkmen Communication Ability: Effective Communication Ability Comment: change mental status, slurred speach Visual Impairment: No Limitations Hearing Ability: Normal Airport Screener Required: No Beliefs That Will Affect Care: None marital status: Single Current Living Situation: Spouse and Other Current Living Situation Comment: 3 children current occupational status: retired Feels Safe at Home: Yes Diet: regular Physical Activity Frequency: Does not Exercise Seatbelt Use: always Assistive Devices: Hearing Aid - Bilateral Review of Systems Review of Systems: At least ten systems reviewed and negative, except as noted in the HPI. Physical Exam Physical Exam: General: WD/WN, vitals as above, NAD, sitting up in bed, very pleasant, conve rsing appropriately. A+Ox3, euthymic affect. HEENT: Normocephalic, atraumatic. PERRL, conjunctivae normal, anicteric sclerae. External ear and nose normal, oropharynx normal. Respiratory: Normal respiratory effort, lungs clear to auscultation, no wheeze, rales, rhonchi. No accessory muscle use. Cardiovascular: Bradycardic, regular rhythm, no murmur, normal peripheral pulses, no BLE edema. Vessels: No JVD. Abdomen/GI: Normal bowel sounds, soft, nontender, no hepatosplenomegaly. Extremities/Musculoskeletal: No cyanosis or clubbing, extremities motor strength intact, moves all extremities. Neurologic: EOMI, chronic right-sided lip drooping at baseline, CN's II-XI not formally tested but appear grossly intact bilaterally. Skin: No rashes, normal color, warm/dry. Results & Data Results & Data Vital Signs (Past 12 Hours) Vital Signs Temp Pulse Pulse Resp BP BP Pulse Ox 02/19/24 14:02 51 L 02/19/24 13:34 53 L 17 130/67 94 02/19/24 13:34 94 02/19/24 13:23 36.8 C 52 L 18 130/67 94 O2 Del Method 02/19/24 14:02 02/19/24 13:34 Room Air 02/19/24 13:34 Room Air 02/19/24 13:23 Room Air Laboratory Results Short CBC 02/19/24 Range/Units 13:26 WBC 6.17 (4.8-10.8) K/ul Hgb 9.2 L (12.0-16.0) g/dl Hct 28.9 L (37.0-47.0) % Plt Count 189 (130-400) K/uL BMP 02/19/24 13:26 Sodium 138 Potassium 5.7 H Chloride 110 H Carbon Dioxide 24 BUN 40 H Creatinine 2.40 H Glucose 232 H Calcium 8.3 L Liver Function 02/19/24 Range/Units 13:26 Total Bilirubin 0.3 (0.2-1.0) mg/dl AST 17 (13-39) U/L ALT 18 (7-52) U/L Alkaline Phosphatase 83 (34-104) U/L Albumin 3.1 L (3.4-5.0) gm/dl Diagnostic Findings Chest X-Ray 02/19/24 13:24 XR chest 1V portable HISTORY: 78 years-old Female weakness COMPARISON: 11/26/2023 TECHNIQUE: AP view of the chest FINDINGS: Cardiac silhouette is enlarged. Median sternotomy with surgical clips within the mediastinum. Atherosclerosis of the aorta. There is no pneumothorax, pleural effusion or overt pulmonary edema. Mild chronic interstitial coarsening. Bones appear grossly intact. IMPRESSION: Cardiomegaly without acute process. ACT 112: Negative or not required by law. The above report was generated using voice recognition software. It may contain grammatical, syntax or spelling errors. Electronically signed by: Andrew Bran M.D. 02/19/2024 1:52 PM Code Status & VTE Plan Code Status FULL CODE Supervising Physician Co-Signing Physician Notes Attending addendum: The patient was seen and examined in emergency room She was brought in with syncopal episode while shopping She can remember the event on the phone and she did not have any warning symptoms before the episode She denies any symptoms in the emergency room specially with she does not have any chest pain, shortness of breath or palpitation to my understanding She denies any ear pain headache and/or visual symptoms, no dysarthria and no numbness or tingling in the extremities and no weakness On examination Lying in bed without any apparent distress Afebrile with bradycardia otherwise hemodynamically stable Chestclear to auscultate bilaterally HeartS1-S2, bradycardia without any murmur Abdomenbenign Extremitiesno edema CNSalert, awake and oriented x 3 and no focal sensory and/or motor deficit appreciated Her admission labs, EKG and imaging studies noted Has RENETTA with hyperkalemia and also junctional bradycardia. She will have CT of the head to rule out possibility of any injury secondary to fall Her syncopal episode could be secondary to bradycardia arrhythmia Cardiology is consulted Agree with assessment and plan as outlined above by the cameron Alejandro PA-C and take the full responsibility of the care Dr Shaun Soriano
[2024-02-19] MEDS: DEXTROSE 50% 50 ML SYRINGE IV STA (15:54)
[2024-02-19] MEDS: SODIUM CHLORIDE 0.9% 1,000 ML IV SCH (15:54)
[2024-02-19] MEDS: INSULIN HUMAN REGULAR PER UNIT 10 UNITS in SYRINGE 9.9 ML IV STA (15:55)
[2024-02-19] MEDS: CALCIUM CHLORIDE 10% 500 MG in DEXTROSE 5% 50 ML IV STA (15:56)
--- NOTE | 2024-02-19 17:12 | Cardiology Consultation ---
Date of Consultation February 19, 2024 Assessment & Plan (1) Syncope and collapse: (2) Right bundle branch block: (3) Atrial fibrillation: (4) Bradycardia: (5) CAD (coronary artery disease): Plan 1. Syncope: Most likely related to her conduction disease and associated bradyc ardia. Fortunately, no injury. 2. Bradycardia: Initial evaluation suggested a junctional rhythm as it was quite regular. Recently she has been having a more irregular rhythm. Difficult to discern P waves. This appears very similar to her presentation in December 2022. At that time she was diagnosed with atrial fibrillation and a slow ventricular response. Carvedilol was discontinued at that time and she converted back to a sinus rhythm. It is very possible that this rhythm is atrial fibrillation with a slow ventricular response. She was recently restarted on systemic anticoagulation which seems reasonable given this context. It seems that she may have been taking some carvedilol at home recently and this could account for the associated bradycardia. Given her hemodynamic stabi lity I think we will simply monitor the rhythm overnight. I did discuss the potential for a pacemaker depending on how things progress over the next 24 hours. Will hold her apixaban in anticipation of device tomorrow. 3. Atrial fibrillation: She did have an EKG consistent with atrial fibrillation in 2022. She was on systemic anticoagulation afterwards. This was stopped at some point. This was also resumed at her time of her last admission. 4. Mitral regurgitation: Mild to moderate in November of this year. 5. Coronary artery disease: Postsurgical and percutaneous revascularization. N o believe her current symptoms are likely related to an acute ischemic event. She did not report symptoms consistent with coronary insufficiency or angina. She should continue aggressive secondary prevention with aspirin and high-dose atorvastatin. History of Present Illness Reason for Consultation: Bradycardia, syncope Requesting Physician: Catie History of Present Illness The patient is a 78-year-old woman with an extensive history of cardiac disease to include coronary disease and both surgical and percutaneous revascularization. She also has reported history of atrial fibrillation and associated bradycardia. She was evaluated for this problem in December 2022. More recently the patient was admitted for symptoms consistent with a cerebrovascular event. According to the patient her initial symptoms were quite severe over that time she was discharged her symptoms had resolved entirely. She cannot recall any current residual effects from this event which occurred nearly 3 months ago. Today the patient was brought to the emergency room after suffering an episode of syncope. This occurred while she was shopping. The patient states that for most of the day leading up to her event she did not feel well. She states that this involved a sensation of dizziness and lightheadedness. Minimal dyspnea. Initially the patient rested and felt better but upon resuming activity apparently developed an episode of syncope. She did not report any exertional chest pain. She has not been aware of any palpitations. At the time my interview in the emergency room she claims to be feeling well. No particular injury. No pain no breathing difficulty. No sense of palpitation. No dizziness. Allergies Allergy/AdvReac Type Severity Reaction Status Date / Time nitrofurantoin Allergy Hives Verified 01/15/24 10:37 [From Macrobid] sulfamethoxazole AdvReac RENETTA Verified 01/15/24 10:37 [From Bactrim] trimethoprim [From Bactrim] AdvReac RENETTA Verified 01/15/24 10:37 Home Medications Medication Instructions Recorded Confirmed Type aspirin 81 mg chewable tablet 81 mg PO DAILY 01/04/23 02/19/24 History biotin 1 mg tablet 1 mg PO DAILY 01/04/23 02/19/24 History cinnamon bark 500 mg capsule 500 mg PO DAILY 01/04/23 02/19/24 History (Cinnamon) coenzyme Q10 100 mg capsule 100 mg PO DAILY 01/04/23 02/19/24 History (CoQ-10) cyanocobalamin (vitamin B-12) 1,000 mcg PO DAILY 01/04/23 02/19/24 History 1,000 mcg tablet (Vitamin B-12) faricimab-svoa 6 mg/0.05 mL 6 mg intravitreal DIRECTED PRN 01/04/23 02/19/24 History intravitreal solution Macular Edema insulin glargine 100 unit/mL (3 42 unit subcut QAM 01/04/23 02/19/24 History mL) subcutaneous pen (Basaglar KwikPen U-100 Insulin) milk thistle 175 mg tablet 175 mg PO DAILY 01/04/23 02/19/24 History prednisone 5 mg tablet 2.5 mg PO DAILY 01/04/23 02/19/24 History vit C 250 mg-vit E 90 mg-zinc 40 1 tab PO DAILY 01/04/23 02/19/24 History mg-copper 1 gu-xibxat-owgioe capsule (PreserVision AREDS-2) cholecalciferol (vitamin D3) 10 20 mcg PO DAILY 11/20/23 02/19/24 History mcg (400 unit) tablet (Vitamin D3) blood-glucose sensor (FreeStyle #1 ea 11/28/23 02/19/24 Rx Enrique 3 Sensor device) amlodipine 10 mg tablet 10 mg PO DAILY #90 tabs 12/11/23 02/19/24 Rx furosemide 20 mg tablet 20 mg PO Q OTHER DAY #45 tabs 01/11/24 02/19/24 Rx insulin aspart U-100 100 unit/mL 6 unit subcut TID 01/11/24 02/19/24 History subcutaneous solution (Novolog U-100 Insulin aspart) lisinopril 30 mg tablet 30 mg PO DAILY #90 tabs 01/11/24 02/19/24 Rx apixaban 5 mg tablet (Eliquis) 5 mg PO BID 01/15/24 02/19/24 History atorvastatin 40 mg tablet 80 mg PO DAILY 01/15/24 02/19/24 History calcitriol 0.25 mcg capsule 0.25 mcg PO .COMPLEX #24 caps 01/15/24 02/19/24 Rx isosorbide mononitrate 30 mg 30 mg PO DAILY #30 tabs 01/15/24 02/19/24 Rx tablet,extended release 24 hr Patient History Medical History Rheumatoid arthritis Thyroid nodule PCP MONITORS "SMALL" Retinopathy RECIEVES SHOTS TO TREAT Myocardial Infarction 10 YEARS AGO Hyperlipidemia History of COVID-19 04/2021>CONGESTION/FATIGUE *RESOLVED Left radial head fracture Acute kidney injury Rheumatoid arthritis Surgical History History of ankle surgery RT History of colonoscopy History of tooth extraction History of heart artery stent 5 MONTHS AFTER CABG>HEART CATH WITH 1 STENT PLACED History of cardiac cath NO STENTS/BEFORE CABG Family History Grandmother (Maternal) Family history of diabetes mellitus Other No family history of adverse response to anesthesia Social History Smoking Status: Never smoker Second Hand Exposure: Yes (childhood); Do You Dip or Chew Tobacco: No; Hx Alcohol Use: No Hx Substance Use: No Preferred Language: [place] Island[place] Communication Ability: Effective Communication Ability Comment: change mental status, slurred speach Visual Impairment: No Limitations Hearing Ability: Normal Die Polisher Required: No Beliefs That Will Affect Care: None marital status: Single Current Living Situation: Spouse current occupational status: retired Feels Safe at Home: Yes Diet: regular Physical Activity Frequency: Does not Exercise Seatbelt Use: always Assistive Devices: None Review of Systems Review of Systems: Per HPI Physical Exam Physical Exam: She is alert and oriented x3. Mood affect appear normal. She answered all questions appropriately. Obese HEENT: Sclerae are anicteric. Pupils are equal and reactive to light and accommodation. Extraocular movements were intact. Neuro: Cranial nerves intact Lungs: Lungs are clear to auscultation bilaterally. There are no rales wheezes or rhonchi. She has normal respiratory effort without use of accessory muscles. There is normal pulmonary excursion. Cardiac: The rhythm was irregular. S1 and S2 were normal. Systolic murmur. The PMI was not markedly displaced on palpation. Extremities: Patient has bilateral radial pulses that are equal in intensity. There is no evidence cyanosis or clubbing. There was no evidence of significant peripheral edema bilaterally. Skin: There are no rashes noted on examination today. Results & Data Vital Signs (Past 12 Hours) Vital Signs Temp Pulse Pulse Resp BP BP Pulse Ox 02/19/24 15:00 44 L 20 119/52 L 94 02/19/24 14:02 51 L 02/19/24 13:34 53 L 17 130/67 94 02/19/24 13:34 94 02/19/24 13:23 36.8 C 52 L 18 130/67 94 O2 Del Method 02/19/24 15:00 Room Air 02/19/24 14:02 02/19/24 13:34 Room Air 02/19/24 13:34 Room Air 02/19/24 13:23 Room Air Laboratory Results Abnormal Lab Results 02/19/24 13:26 WBC 6.17 RBC 3.52 L Hgb 9.2 L Hct 28.9 L MCV 82.1 MCH 26.1 MCHC 31.8 L RDW Std Deviation 42.0 RDW Coeff of Samson 13.9 Plt Count 189 MPV 10.6 Immature Gran % (Auto) 0.3 Neut % (Auto) 72.5 Lymph % (Auto) 18.3 [place] % (Auto) 6.3 Eos % (Auto) 1.8 Baso % (Auto) 0.8 Neut # (Auto) 4.47 Lymph # (Auto) 1.13 L [place] # (Auto) 0.39 Eos # (Auto) 0.11 Baso # (Auto) 0.05 Immature Gran # (Auto) 0.02 PT 11.9 INR 1.1 APTT 26 PTT Ratio 1.0 Sodium 138 Potassium 5.7 H Chloride 110 H Carbon Dioxide 24 Anion Gap 4 BUN 40 H Creatinine 2.40 H Est Cr Clr Drug Dosing 20.5 eGFR 20.42 BUN/Creatinine Ratio 16.7 Glucose 232 H Calcium 8.3 L Total Bilirubin 0.3 AST 17 ALT 18 Alkaline Phosphatase 83 Total Protein 5.9 L Albumin 3.1 L Globulin 2.8 Albumin/Globulin Ratio 1.1 Diagnostic Findings Echocardiogram 11/27/2023: Normal LV systolic function with ejection fraction of 55 to 60%. Severe mitral annular calcification with mild to moderate mitral regurgitation. Mobile echodensity on the ventricular aspect of the mitral valve. ECG Additional Comments: EKG at the time admission revealed a junctional escape rhythm with a right bundle branch block. PG Care Time/CCT Total # of Minutes Spent Total Time Spent with Patient: Total time spent is greater than 50% in coordination of care (as documented) at patient's floor/unit and/or counseling patient: Coding Level of Care Code 22709 INT INP/OBS CARE 3/75MIN Diagnoses Syncope and collapse R55 Right bundle branch block I45.10 Paroxysmal atrial fibrillation I48.0 Atrial fibrillation type: paroxysmal Bradycardia R00.1 CAD (coronary artery disease) I25.10 (3) Atrial fibrillation Atrial fibrillation type: paroxysmal Qualified Code(s): I48.0 - Paroxysmal atrial fibrillation
--- NOTE | 2024-02-19 17:13 | CT Scan Report ---
CT head/brain wo con CLINICAL HISTORY: Syncope Technique: Contiguous axial CT images of the head were acquired from the base of the skull to the julio cayden without intravenous contrast administration. Images were viewed in brain, subdural and [facility]. Automated dose lowering techniques and/or adjustment according to patient size were utilized for this exam. Comparison: Comparison is made to CT head 11/29/2023 Findings: Areas of decreased attenuation are present in the periventricular and subcortical white matter bilate rally consistent with small vessel ischemic disease. Generalized cerebral atrophy with commensurate e nlargement of the ventricles, sulci, and cisterns is also present. There is no acute intracranial hem orrhage or evidence of acute territorial infarction. No shift of the midline structures, mass effect, or extra-axial abnormalities are shown. Atherosclerotic calcifications are present in the intracran ial segments of the internal carotid arteries. Imaged portions of the paranasal sinuses and mastoid air cells are clear. The orbits appear normal. There are no acute fractures of the calvaria or scalp swelling. Impression: No acute intracranial hemorrhage, no evidence of acute territorial infarction or other acute intracra nial disease process. ACT 112: Negative or not required by law. Electronically signed by: Tadeo Carpenter M.D. 02/19/2024 5:12 PM
--- NOTE | 2024-02-19 17:21 | Electrocardiogram Report ---
Test Reason : Blood Pressure : */* mmHG Vent. Rate : 52 BPM Atrial Rate : * BPM P-R Int : * ms QRS Dur : 138 ms QT Int : 492 ms P-R-T Axes : * -25 1 degrees QTcB Int : 457 ms Junctional rhythm Right bundle branch block Abnormal ECG When compared with ECG of 27-Nov-2023 20:32, Junctional rhythm has replaced Sinus rhythm Vent. rate has decreased by 35 bpm Confirmed by Toby Vallejo ([id number]) on 02/19/2024 5:21:00 PM Referred By: REFERRED SELF Confirmed By: Toby Vallejo
[2024-02-19] MEDS ORDERED: GLUCOSE 10 TAB/TUBE PO PRN (19:20)
[2024-02-19] MEDS ORDERED: ACETAMINOPHEN 325 MG TAB PO PRN (19:20)
[2024-02-19] MEDS ORDERED: GLUCOSE 40% GEL 15 GM TUBE PO PRN (19:20)
[2024-02-19] MEDS ORDERED: MAGNESIUM HYDROXIDE SUSP 30 ML UDC PO PRN (19:20)
[2024-02-19] MEDS ORDERED: GLUCAGON FOR INJ 1 MG VIAL SQ PRN (19:20)
[2024-02-19] MEDS ORDERED: ALUMINUM/MAGNESIUM SUSP 30 ML UDC PO PRN (19:20)
[2024-02-19] MEDS ORDERED: DEXTROSE 50% 50 ML SYRINGE IV PRN (19:20)
[2024-02-19] MEDS ORDERED: POLYETHYLENE (MIRALAX) 17 GM PACK PO PRN (19:20)
[2024-02-19] MEDS ORDERED: ONDANSETRON INJ 2 MG/ML 2 ML VIAL IV PRN (19:20)
[2024-02-19] MEDS ORDERED: CARBOHYDRATES FOR HYPOGLYCEMIA PO PRN (19:20)
[2024-02-19] MEDS ORDERED: PHARMACY GLYCEMIC MGMT CONSULT PRN (19:20)
[2024-02-19] MEDS: INSULIN ASPART PER UNIT CHARGE SC SCH (20:15)
[2024-02-19] MEDS: LANTUS PER UNIT CHARGE SQ SCH (20:24)
--- OUTSIDE RECORDS SUMMARY | 2024-02-19 20:41 | External Medical Summary | Summary of Care ---
Author Name Unknown Organization [facility] Address [address] [place] [address] Phone [phone] Care Team Providers Care Head Waiter/Waitress Name Role Phone Aiyana Peck PA-C Primary Care Provider [phone] Reason for Visit * Reason Onset Date Comments Health Maintenance 02/06/2024 Encounter Details Date Type Department Care Team ([facility] st Contact Info) Description 02/06/2024 Telephone Family Practice [facility] [address] [place] [address] Aiyana Peck PA-C [address] [facility] [place] [id number] Health Maintenance Allergies Active Allergy Reactions Criticality Noted Date Comments Sulfamethoxazole-Trimethop rim Other (Please comment) 01/12/2023 Acute kidney injury- avoid per nephro Nitrofurantoin Hives 06/13/2022 Sulfamethoxazole 03/02/2023 Other Reaction(s): RENETTA Trimethoprim 03/02/2023 Other Reaction(s): RENETTA documented as of this encounter (statuses as of 02/06/2024) Medications Medication Sig Dispensed Refills Start Date End Date Status CINNAMON 500 MG PO CAPS Take 1 mg by mouth in the morning. Active MILK THISTLE POWD 1 capsule daily Ac tive ASPIRIN 81 MG PO CHEWIndications:Men opause 1 Tab Oral Daily 90 Tab 3 12/30/2011 Active Biotin 1 MG Capsule Take 1 Capsule by mouth in the morning. Active Coenzyme Q10 (CO Q 10) 100 MG CAPS Take 1 Capsule by mouth in the morning. 1 daily . Active Multiple Vitamins-Minerals (PRESERVISION AREDS 2+MULTI VIT) CAPS Take 1 Capsule by mouth in the morning. Active Vitamin D3 10 MCG (400 UNIT) Oral Capsule Take 1 Capsule by mouth in the morning. Active predniSONE 5 MG Oral Tablet (Deltasone) TAKE 1/2 TABLET BY MOUTH EVERY DAY 45 Tablet 3 02/09/2023 Active Dexcom G7 SensorIndications:T ype 2 diabetes mellitus with hemoglobin A1c goal of less than 8.0% (HCC) Use 1 Unit(s) Not Specified as directed as needed for Hyperglycemia (high sugar). 1 Each 5 03/01/2023 Active ProAir HFA 108 (90 Base) MCG/ACT Inhalation Aerosol SolutionIndications :Bronchitis, complicated Inhale 2 Puffs by mouth in the morning and 2 Puffs at noon and 2 Puffs in the evening and 2 Puffs before bedtime. 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 10/05/2023 Active Magnesium 400 MG Oral Tablet Take by mouth. Active Insulin Pen Needle 31G X 6 MMIndications:Diabe berenice mellitus with background retinopathy (HCC) As directed 5 times daily 500 Each 3 12/19/2023 Active Insulin Glargine Solostar 100 UNIT/ML Subcutaneous Solution Pen-injector (Basdandy Chu)Indications :Type 2 diabetes mellitus with hemoglobin A1c goal of less than 8.0% (HCC) Inject 44 Units under the skin in the morning. 30 mL 3 12/19/2023 Active amLODIPine Besylate 5 MG Oral Tablet (Norvasc) TAKE 1 & 1/2 TABLETS BY MOUTH AT BEDTIME 12/01/2023 Active Eliquis 5 MG Oral Tablet Take 1 Tablet by mouth in the morning and 1 Tablet before bedtime. 12/01/2023 Active Calcitriol 0.25 MCG Oral Capsule (Rocaltrol) TAKE 1 CAPSULE BY MOUTH EVERY MONDAY AND Monday11/20/2023 Active Carvedilol 3.125 MG Oral Tablet (Coreg) Take 1 Tablet by mouth in the morning and 1 Tablet before bedtime. 12/04/2023 Active Insulin Aspart FlexPen 100 UNIT/ML Subcutaneous Solution Pen-injector Inject 8 Units under the skin 3 times a day. With meals 30 mL 5 01/09/2024 Active Furosemide 20 MG Oral Tablet (Lasix) Take 1 Tablet by mouth in the morning. 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, unspecified whether longterm insulin use (HCC) 6 mg IZ PRN 03/03/2023 03/02/2024 Active documented as of this encounter (statuses as of 02/06/2024) Active Problems Problem Noted Date Diagnosed Date 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 05/02/2023 Persistent atrial fibrillation 01/27/2023 Bradycardia 01/06/2023 Acute hyperkalemia 01/05/2023 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 05/31/2022 Chronic kidney disease, stage 3a 05/31/2022 Chronic kidney disease, stage 3b 04/04/2022 Overview: Per CKD protocol Thyroid nodule 07/09/2021 Overview: Recheck 07/14 History of 2019 novel coronavirus disease (COVID -19) 06/17/2021 HTN, goal below 140/90 01/25/2021 History of [place] (myocardial infarction) 01/22/2019 Type 2 diabetes mellitus wit h hemoglobin A1c goal of less than 8.0% 08/07/2017 Encounter for long-term (current) use of medicat ions 09/26/2016 [facility] current use of systemic steroids 09/26 Rheumatoid arthritis involvi ng multiple sites with positive rheumatoid factor 01/04/2016 Diabetes mellitus with background retinopathy Overview: 10/12/15 Mild, Dejon Paulino, OD B12 deficiency 10/20/2013 CAD (coronary artery disease) of artery bypass g raft 02/06/2012 S/P angioplasty with stent 01/27/2012 Dyslipidemia, goal LDL below 100 01/09/2012 Hx of CABG 11/11/2011 CAD (coronary artery disease), [place] coronary a rtery 10/19/2011 Overview: Cardiac cath [facility], 3 vessel disease: LAD, left circumflex and RCA No advance directive on file 09/15/2004 Overview: No, Advance Directive brochure given to patient. documented as of this encounter (statuses as of 02/06/2024) Resolved Problems Problem Noted Date Diagnosed Date Resolved Date Heart failure 01/27/2023 05/02/2023 Acute renal failure 01/04/2023 05/02/19 24 Other forms of angina pectoris 06/17/2021 10/04/2022 Coronary artery disease invo lving coronary bypass graft of [place] heart with unstable angina pectoris 12/03/2020 05/02/2023 Chronic kidney disease, stage 3a 10/06/2020 04/07/2022 Overview: Per CKD protocol Type 2 diabetes mellitus wit h stage 3a chronic kidney disease, with long-term current use of insulin 07/09/2020 09/03/2020 Type 2 diabetes mellitus wit h stage 3 chronic kidney disease, with long-term current use of insulin 06/03/2019 09/03/2020 Kidney disease, chronic, sta ge III (GFR 30-59 ml/min) 04/01/2019 06/05/2019 Overview: Per CKD protocol NSTEMI (non-ST elevated myoc ardial infarction) 11/02/2018 01/22/2019 Overview: Hx added to PL HTN, goal below 130/80 09/05/201701/25 CAD (coronary artery disease) 01/27/2012 09/15/2015 [employer] Other*[id number] 01/26/2012 05/31/2016 Overview: Study Titile: Gen[employer] Markers for Patients with Cardiovascular Disease Project # [id number] PI: Melyssa Shipley MD Please call [phone] with study related questions Stable angina 01/09/2012 02/06/2012 NSTEMI (non-ST elevated myoc ardial infarction) 10/19/2011 06/13/2017 Herniated intervertebral disc 10/18/2011 09/15/2015 Type 2 diabetes mellitus wit h hemoglobin A1c goal of less than 7.0% 02/05/2009 08/07/2017 Overview: Needs hepatitis B vaccine Arthritis, rheumatoid 04/30/20072015 Overview: Treated with MTX and prednisone DM type 2, not at goal 10/30/200102/05 Overview: Modified per Diabetes protocol #14. Menopause 03/06/2019 Overview: age 52 Rheumatoid arthritis 018 documented as of this encounter (statuses as of 02/06/2024) Immunizations Name Administration Dates Next Due COVID-19 mRNA, LNP-s, No Pre serve, 2-Dose Series (Moderna) 06/22/2020,05/25/2020 Pneumococcal Conjugate Vacc, 13 Valent (Prevnar) 03/12/2015 Pneumococcal Polysaccharide PPV23 (Pneumovax) 06/13/2017,07/11/2012(Deferred: Patient Refused - does not want),02/24/2006 Seasonal Influenza Vac., MDV , IM, 0.5 mL (Fluzone) 02/18/2019,01/17/2014,03/13/2013,07/11(Deferred: Patient Refused - does not want),01/20/2009,04/02/2008,04/30/2007 ,02/24/2006 Seasonal Influenza Virus Vac cine, Unspecified Formulation 02/18/2019,06/13/2017,01/17/2014,03/13,01/20/2009,04/02/2008,04/30/2007 ,02/24/2006 Seasonal Influenza, High Dos e, Trivalent, PF, IM (Fluzone HD) 02/18/2019 Seasonal Influenza, PF, 6 M & above, IM , (FluLaval or Fluzone) 06/13/2017 Seasonal Influenza, Quadriva lent Hd (Fluzone Hd) 02/16/2023,01/25/2021 Seasonal Influenza, Quadriva lent, No Preserve, IM 03/12/2015 TD, Preservative Free 06/13/2017 TDAP, Age 7 and older, IM (Adacel) 04/02/2008 Tetanus Toxid Adsorbed 06/13/2017,03/17/1997 documented as of this encounter Social History Tobacco Use Types Packs/Day Years Used Date Smoking Tobacco: Never Smokeless Tobacco: Never Alcohol Use Standard Drinks/Week Comments Yes 0 (1 standard drink = 0.6 oz pur e alcohol) rarely PHQ-2 Answer Date Recorded PHQ Adult Total Score 0 11/03/2020 Hunger Vital Sign Answer Date Recorded Within the past 12 months, y ou worried that your food would run out before you got the money to buy more. Never true 01/10/20 23 Within the past 12 months, t he food you bought just didn't last and you didn't have money to get more. Never true 01/09/2023 Childcare Answer Date Recorded Do you feel overwhelmed with taking care of a child, family member or friend? No 01/09/2023 Does your family need help f inding childcare? (Household - for ages 0-17 years) Not on file 01/09/2023 Clothing Answer Date Recorded Have you been unable to get clothing when it was really needed? No 01/09/2023 Is your family able to get c lothes or diapers when needed? (Household - for ages 0-17 years) Not on file 01/09/2023 Personal Safety Answer Date Recorded Do you feel unsafe or have concerns for your saf ety? No 01/09/2023 Do you have concerns for you r family's safety? (Household - for ages 0-17 years) Not on file 01/09/2023 Utilities Answer Date Recorded Do you have trouble paying y our heating, water, or electric bill? (Adult - for ages 18 years and over) Not on file 01/10/2024 Is your family able to pay t he heat, water, or electric bill? (Household - for ages 0-17 years) Not on file 01/10/2024 Does your family have access to good internet? (Household - for ages 0-17 years) Not on file 01/10/2024 Employment Status Answer Date Recorded Are you unemployed or without regular income? No 01/09/2023 Does the household have a re gular source of income? (Household - for ages 0-17 years) Not on file 01/09/2023 Social Connections Answer Date Recorded How often do you feel lonely or isolated from those around you? (Adult - for ages 18 years and over) Not on file 01/10/2024 Financial Resource Strain Answer Date R ecorded Do you have any trouble payi ng for your medications, or do you think you might in the future? No 01/09/2023 Does your family have troubl e paying for medicine? (Household - for ages 0-17 years) Not on file 01/09/2023 Transportation Needs Answer Date Record ed READ ONLY Do you have troubl e getting a ride to medical visits or work? Never True 01/09/2023 Does your family have a hard time getting a ride to doctors visits? (Household - for ages 0-17 years) Not on file 01/09/2023 Has lack of transportation k ept you from medical appointments, meetings, work, or from getting things needed for daily living? Check all that apply. (Adult - for ages 18 years and over) Not on file 01/09/2023 Do you (or your family) have trouble finding or paying for a ride (transportation)? (Household - for ages 0-17 years) Not on file 01/09/2023 Housing Stability Answer Date Recorded Do you currently live in a s helter or have no steady place to sleep at night? No 01/09/2023 READ ONLY Do you think you a re at risk of becoming homeless? No 01/09/2023 Does your family worry about paying for your home or becoming homeless? (Household - for ages 0-17 years) Not on file 0 01/09/2023 Are you homeless or worried that you might be in the future? (Adult - for ages 18 years and over) Not on file 3 Are you (or your family) nahum eless or worried that you might be in the future? (Household - for ages 0-17 years) Not on file Food Insecurity Answer Date Recorded Do you need food for this week? No 01/09/2023 Are you able to get enough f ood for your family? (Household - for ages 0-17 years) Not on file 01/09/2023 Does your family need food t his week? (Household - for ages 0-17 years) Not on file 01/09/2023 Do you always have enough fo od for your family? (Household - for ages 0-17 years) Not on file 01/09/2023 Sex and Gender Information Value Date Recorded Sex Assigned at Female 11/22/2019 11:07 AM EDT Gender Identity Female 11/22/2019 11:07 AM EDT Sexual Orientation Straight 11/22/2019 11 :07 AM EDT Job Start Date Occupation Industry Not on file Not on file Not on file documented as of this encounter Functional Status Functional Status Response Date of Assess ment Do you have serious difficul ty walking or climbing stairs? (5 years old or older) No 01/05/2023 documented as of this encounter Miscellaneous Notes * Telephone Encounter - Dali Mariscal LPN - 02/06/2024 8:35 AM EDT Care Gaps Comprehensive Care Outreach Last Office/Telemedicine Visit: 01/10/2024 (in office), Visit date not found (telemedicine) Next Office Visit: Visit date not found Hemoglobin AIC Results: Lab Results Component Value Date/Time HEMOGLOBIN A1C - [facility] 8.4 (H) 01/10/2024 12:13 PM HEMOGLOBIN A1C - [facility] 9.8 (H) 09/11/2023 10:47 AM HEMOGLOBIN A1C - [facility] 8.0 (H) 01/05/2023 01:18 AM HEMOGLOBIN A1C - [facility] 8.8 (H) 03/25/2020 07:43 AM HEMOGLOBIN A1C - [facility] 8.6 (H) 08/01/2019 08:36 AM HEMOGLOBIN A1C - [facility] 9.9 (H) 03/06/2019 09:26 AM BP Readings from Last 1 Encounters: 01/10/24 136/60 Reviewed Health Maintenance below: Health Maintenance Topic Date Due Depression Screening 11/03/2021 Adult Wellness Visit 11/03/2021 Influenza Vaccine (FLU shot) (1) 12/24/2023 Diabetic Foot Exam 01/13/2024 Albumin/Creatinine Ratio 02/01/2024 Diabetic Eye Exam 04/06/2024 CKD PHOS USE SMARTSET 49279 06/14/2024 HbA1c 07/09/2024 GFR 07/09/2024 Ov june 6 months scheduled Eye dec cessna Labs june ordered and scheduled Care Gap Outreach Action Taken: Spoke to patient documented in this encounter Plan of Treatment Upcoming Encounters Date Type Department Care Team (Late st Contact Info) Description 02/20/2024 2:45 PM EDT Office Visit Ophthalmology, [facility] [address] [place] [address] Toby Caceres DO [address] [place] [address] 07/03/2024 9:00 AM EDT [facility] [place] [address] [place] [phone] Patricia Choi [address] [facility] [place] [address] 07/10/2024 10:20 AM EDT Office Visit Family Practice [facility] [place] [address] [place] [address] Aiyana Peck PA-C [address] [facility] [place] [address] Scheduled Orders Name Type Priority Associated Diagnoses Orde r Schedule ALBUMIN / CREATININE RATIO, URINE Lab Routine Screening for nephropathy Expected: 06/22/2024, Expires: 02/05/2025 HEMOGLOBIN A1C Lab Routine Diabetes mellitus (HCC) Expected: 06/22/2024, Expires: 02/05/2025 COMPREHENSIVE METABOLIC PANEL Lab Routine Chronic kidney disease, unspecified CKD stage Expected: 09/05/2024, Expires: 02/05/2025 PHOSPHORUS Lab Routine Chronic kidney disease, unspecified CKD stage Expected: 09/05/2024, Expires: 02/05/2025 Health Maintenance Due Date Last Done Comments Adult Wellness Visit 11/03/2021 11/03/2020 Depression Screening 11/03/2021 11/03/2020 Influenza Vaccine (FLU shot) (#1) 2023 02/16/2023, 01/25/2021, 02/18/2019, Additional history exists Diabetic Foot Exam 01/13/2024 01/12/2023, 1 , 03/05/2020, Additional history exists Albumin/Creatinine Ratio 02/01/2024 023, 03/15/2022, 06/17/2021, Additional history exists Diabetic Eye Exam 04/06/2024 04/06/2023, , 04/06/2023, Additional history exists CKD PHOS USE SMARTSET 60121 06/14/202405/26, 04/05/2023, 01/31/2023, Additional history exists GFR 07/09/2024 01/10/2024, 2 , 06/14/2023, Additional history exists HbA1c 07/09/2024 01/10/2024, 08/23, 01/05/2023, Additional history exists CKD HGB USE SMARTSET 54295 01/09/202501/09, 04/05/2023, 04/05/2023, Additional history exists Mammogram 03/02/2025 03/02/2023, 12/2022, 01/21/2021, Additional history exists DTap/Tdap Vaccines (3 - Td or Tdap) 06/13/2027 06/13/2017, 06/13/2017, 04/02/2008, Additional history exists DXA Scan 01/07/2031 01/08/2024, 12/23, 01/03/2022, Additional history exists Pneumococcal Vaccine: 65+ Years Completed 06/13/2017, 03/12/2015, 02/24/2006 COVID-19 Vaccine Discontinued 06/22/2020, 05/25/2020 Colonoscopy Discontinued 09/03/2021, 08/22, 12/16/2014, Additional history exists Colorectal Cancer Screening Discontinued Cologuard Discontinued Fecal Occult Blood Test Discontinued HPV (Gardasil) Vaccine Aged Out No lo nger eligible based on patient's age to complete this topic Hepatitis B Vaccine Aged Out No longe r eligible based on patient's age to complete this topic MENINGOCOCCAL (MENACTRA/MENVEO) Aged Out No longer eligible based on patient's age to complete this topic Sigmoidoscopy Discontinued Zoster Vaccines Discontinued documented as of this encounter Medical Devices Implanted Type Area Solar System Designer Device Identifier Shelf Expiration Date Model / Serial / Lot Sut Steel 6 [id number] - [id number] Implanted:Qty: 6 on 10/21/2011 at OR [facility] N/A: Chest DO NOT USE 05/24/2016 [id number] / / [id number] Marker Coronary Am-Sd - [id number] Implanted:Qty: 2 on 10/21/2011 at OR [facility] [facility] N/A: Heart [employer] 08/21/2014 AM-SD / / [id number] Lens [id number] 12.5mm+29.50 - [id number] - [id number] Implanted:Qty: 1 on 07/19/2023 by Kedar Rainey DO at OR [facility] Right: Eye [employer] 01/21/2026 [id number] / [id number] / [id number] Lens [id number] 12.5mm+24.50 - [id number] - [id number] Implanted:Qty: 1 on 08/16/2023 by Kedar Rainey DO at OR [facility] Left: Eye [employer] 07/22/2025 [id number] / [id number] documented as of this encounter Visit Diagnoses Diagnosis Diabetes mellitus (HCC)- Primary Type II or unspecified type diabetes mellitus without mention of complication, not stated as uncontrolled Screening for nephropathy Chronic kidney disease, unspecified CKD stage documented in this encounter Advance Directives * Full Code (Latest Code Status on File) Date Activated Date Inactivated Comments 08/16/2023 11:19 AM 08/16/2023 6:58 PM Question Answer Comments Discussion of Advance Direct arcenio occurred with: Not Discussed due to patient's condition * Full Code Date Activated Date Inactivated Comments 07/19/2023 12:03 PM 07/19/2023 6:15 PM Question Answer Comments Discussion of Advance Direct arcenio occurred with: Not Discussed due to patient's condition * Full Code Date Activated Date Inactivated Comments 01/05/2023 12:38 AM 01/07/2023 6:53 PM This order reflects the patients wishes and were consensually agreed upon. Question Answer Comments Discussion of Advance Direct arcenio occurred with: Not Discussed due to patient's condition * Full Code Date Activated Date Inactivated Comments 01/26/2012 12:37 PM 01/27/2012 1:09 PM This order reflects the patients wishes and were consensually agreed upon. Question Answer Comments Discussion of Advance Directives occurred with: Not Discussed Does the patient have a Living Will? No Does the patient have Health Care Power of Attor carine? No * Full Code Date Activated Date Inactivated Comments 10/21/2011 12:15 PM 10/25/2011 3:44 PM This order r eflects the patients wishes and were consensually agreed upon. Care Teams Head Waiter/Waitress Relationship Specialty Start Date End Date Liv July MELANI Pedraza [address] [place] [id number] PCP - General Physician [place] 04/29/21 documented as of this encounter
--- OUTSIDE RECORDS SUMMARY | 2024-02-19 20:41 | External Medical Summary | Summary of Care ---
Author Name Unknown Organization [facility] Address [address] [place] [address] Phone [phone] Care Team Providers Care Engineering Intern Name Role Phone Aiyana Peck PA-C Primary Care Provider Reason for Visit * Reason Onset Date Comments Appointment 02/07/2024 Encounter Details Date Type Department Care Team ([facility] Contact Info) Description 02/07/2024 Telephone Ophthalmology, [facility] [address] [place] [address] Toby Caceres DO [address] [place] [id number] Appointment Allergies Active Allergy Reactions Criticality Noted Date Comments Sulfamethoxazole-Trimethop rim Other (Please comment) 01/12/2023 Acute kidney injury- avoid per nephro Nitrofurantoin Hives 06/13/2022 Sulfamethoxazole 03/02/2023 Other Reaction(s): RENETTA Trimethoprim 03/02/2023 Other Reaction(s): RENETTA documented as of this encounter (statuses as of 02/07/2024) Medications Medication Sig Dispensed Refills Start Date [...] 24 Hour (Imdur)Indications: Coronary artery disease involving grand ronde tribes coronary artery with angina pectoris, unspecified whether grand ronde tribes or transplanted heart (HCC) TAKE 1 TABLET [...] Glargine Solostar 100 UNIT/ML Subcutaneous Solution Pen-injector (Basaglar Kimberley)Indications :Type 2 diabetes mellitus with hemoglobin A1c [...] edema, unspecified whether longterm insulin use (HCC) 1.5 mg PERINEURAL PRN 03/03/2023 03/02/2024 Active Faricimab-svoa (Vabysmo) intravitreal inj 6 mgIndications:Type 2 diabetes mellitus with 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, unspecified whether 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 exterminator insulin use (HCC) 6 mg IZ PRN 03/03/2023 03/02/2024 Active documented as of this encounter (statuses as of 02/07/2024) Active Problems Problem Noted Date Diagnosed Date Atherosclerosis of grand ronde tribes co ronary artery with angina pectoris 05/02/2023 [...] HTN, goal below 140/90 01/25/2021 History of AR (myocardial infarction) 01/22/2019 Type 2 diabetes mellitus wit h hemoglobin A1c goal of less than 8.0% 08/07/2017 Encounter for long-term (current) use of medicat ions 09/26/2016 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 09/26 Rheumatoid arthritis involvi ng multiple sites with positive rheumatoid factor 01/04/2016 Diabetes mellitus with background retinopathy Overview: 10/12/15 Anastasiya, Dejon Paulino, OD B12 deficiency 10/20/2013 CAD (coronary artery disease) of artery bypass g raft 02/06/2012 S/P angioplasty with stent 01/27/2012 Dyslipidemia, goal LDL below 100 01/09/2012 Hx of CABG 11/11/2011 CAD (coronary artery disease), grand ronde tribes coronary a rtery 10/19/2011 Overview: Cardiac cath [facility], 3 vessel disease: LAD, left circumflex and RCA No advance directive on file 09/15/2004 Overview: No, Advance Directive brochure given to patient. documented as of this encounter (statuses as of 02/07/2024) Resolved Problems Problem Noted Date Diagnosed Date Resolved Date Heart failure 01/27/2023 05/02/2023 Acute renal failure 01/04/2023 05/02/19 24 Other forms of angina pectoris 06/17/2021 10/04/2022 Coronary artery disease invo lving coronary bypass graft of grand ronde tribes heart with unstable angina pectoris 12/03/2020 05/02/2023 [...] artery disease) 01/27/2012 09/15/2015 [employer] Other*[id number] 01/26/2012 05/31/2016 Overview: Study Titile: Genomics Markers for Patients with Cardiovascular Disease Project # [id number] PI: Melyssa Shipley MD Please call [phone] with study related questions Stable angina 01/09/2012 [...] as of this encounter (statuses as of 02/07/2024) Immunizations Name Administration Dates Next Due COVID-19 [...] 18 years and over) Not on file Are you (or your family) nahum eless [...] encounter Miscellaneous Notes * Telephone Encounter - Mary Mora MED ASSIST - 02/07/2024 3:06 PM EDT Called and spoke with pt and scheduled for 02/21 at 1045 * Telephone Encounter - Yasemin Mcwilliams OSA - 02/07/2024 2:07 PM EDT Who is patient being scheduled with? Nicki- Karla What is the reason the patient needs to be seen sooner? Cancelling Inj for Jan When is the next available appointment? Apr 03 [facility]: NOTIFY PATIENT: PLEASE ALLOW US UP TO 48 HOURS FOR A RESPONSE Retinal injections should not be scheduled further out than a week or two. Any appointment related messages , [place] [id number] If appointment needed 6 weeks or less, pallavi as high priority. [facility]: NOTIFY PATIENT: DEPARTMENT WILL BE CALLING YOU SOON THEY REVIEW THE MESSAGE. PLEASE NOTE THIS COULD BE UP TO A WEEK Any appointment related messages ,[place] [id number] [place] [place]: NOTIFY PATIENT: PLEASE ALLOW US UP TO 48 HOURS FOR A RESPONSE Appointment related concerns: Create and Send Telephone Encounter to P [phone] documented in this encounter Plan of Treatment Upcoming Encounters Date Type Department Care Team (Late st Contact Info) Description 02/22/2024 10:45 AM EDT Office Visit Ophthalmology, [facility] [address] [place] [address] Toby Caceres DO [address] [place] [address] 07/03/2024 9:00 AM EDT Laboratory Laboratory [facility] [place] [address] [place] [address] Steph [facility] [address] [facility] [place] [address] 07/10/2024 10:20 AM EDT Office Visit Family Practice [facility] [place] [address] [facility] [place] [address] Aiyana Peck PA-C [address] [facility] [address] [facility] [place] [address] Health Maintenance Due Date Last Done Comments Adult Wellness Visit 11/03/2021 11/03/2020 Depression Screening 11/03/2021 11/03/2020 Influenza Vaccine (FLU shot) (#1) 2023 02/16/2023, 01/25/2021, 02/18/2019, Additional history exists Diabetic Foot Exam 01/13/2024 01/12/2023, 1 , 03/05/2020, Additional history exists Albumin/Creatinine Ratio 02/01/2024 023, 03/15/2022, 06/17/2021, Additional history exists Diabetic Eye Exam 04/06/2024 04/06/2023, , 04/06/2023, Additional history exists CKD PHOS USE SMARTSET 55601 06/14/202405/26, 04/05/2023, 01/31/2023, Additional history exists GFR 07/09/2024 01/10/2024, 08/23, 06/14/2023, Additional history exists HbA1c 07/09/2024 01/10/2024, 08/23, 01/05/2023, Additional history exists CKD HGB USE SMARTSET 90039 01/09/202501/09, 04/05/2023, 04/05/2023, Additional history exists Mammogram 03/02/2025 03/02/2023, 11/12/2022, 01/21/2021, Additional history exists DTap/Tdap Vaccines (3 [...] this encounter Medical Devices Implanted Type Area Tire Specialist Device Identifier Shelf Expiration Date Model / Serial / Lot Sut Steel 6 [id number] - [id number] Implanted:Qty: 6 on 10/21/2011 at [place] [facility] [place] [place] N/A: Chest DO NOT USE 05/24/2016 [id number] / / [id number] Marker Coronary [facility] - [id number] Implanted:Qty: 2 on 10/21/2011 at OR [facility] [place] [place] N/A: Heart [employer] 08/21/2014 [facility] / / [id number] Lens [id number] 12.5mm+29.50 - [id number] - [id number] Implanted:Qty: 1 on 07/19/2023 by Kedar Rainey DO at OR [facility] Right: Eye [employer] 01/21/2026 [id number] / [id number] / [id number] Lens [id number] 12.5mm+24.50 - [id number] - [id number] Implanted:Qty: 1 on 08/16/2023 by Kedar Rainey DO at OR [facility] Left: Eye [employer] 07/22/2025 [id number] / [id number] / [id number] documented as of this encounter Advance Directives * Full Code [...] and were consensually agreed upon. Care Teams Engineering Intern Relationship Specialty Start Date End Date LivJuly MELANI Pedraza [address] [place] [address] PCP - General Physician [employer] 04/29/21 documented as of this encounter
[2024-02-19 20:54] LABS: BUN Creatinine Ratio 16.5 (10-20); Calcium 9.4 mg/dl (8.6-10.3); Creatinine Clr Calc Pharmacy 18.5 ml/min
[2024-02-20] MEDS: PERFLUTREN LIPID MICROSPHERE (DEFINITY) IV ONE (07:06)
[2024-02-20 07:24] LABS: Hematocrit (blood only) 30.5 % (37.0-47.0); Hemoglobin 9.6 g/dl (12.0-16.0); Mean Corpuscular Hemoglobin 25.9 pg (25.0-34.0); Mean Corpuscular Hgb Conc 31.5 g/dL (32.0-36.0); Mean Corpuscular Volume 82.4 fL (80.0-100.0); Mean Platelet Volume 10.8 fL (9.4-12.4); Platelet Count 195 K/uL (130-400); RDW Coefficient of Variation 14.2 % (11.5-14.5); White Blood Count 7.24 K/ul (4.8-10.8)
[2024-02-20 07:43] LABS: Albumin Globulin Ratio 1.2 (0.9-2); Albumin Level 3.2 gm/dl (3.4-5.0); BUN Creatinine Ratio 16.1 (10-20); Bilirubin,Total 0.4 mg/dl (0.2-1.0); Creatinine Clr Calc Pharmacy 20.3 ml/min; Globulin 2.7 gm/dl (2.5-4.0); Magnesium 1.8 mg/dl (1.7-2.4); Phosphorus 3.7 mg/dl (2.5-4.9); Potassium 4.6 mmol/L (3.5-5.1); Total Protein 5.9 gm/dl (6.0-8.3)
[2024-02-20 07:59] VITALS: RESP 18
[2024-02-20] MEDS: ATORVASTATIN 40 MG TAB PO SCH (08:13)
[2024-02-20] MEDS: CYANOCOBALAMIN (B-12) 500 MCG TABLET PO SCH (08:14)
[2024-02-20] MEDS: CHOLECALCIFEROL 10 MCG (400 UNITS) TAB PO SCH (08:14)
[2024-02-20] MEDS: predniSONE 2.5 MG TAB PO SCH (08:15)
[2024-02-20] MEDS: ASPIRIN 81 MG CHEW PO SCH (08:18)
[2024-02-20 08:22] LABS: Estimated Average Glucose 252 mg/dl; Hemoglobin A1C 10.4 % (4.5-5.6)
[2024-02-20] MEDS ORDERED: Nursing to Pharmacy Communication SCH ×2 (08:30→10:45)
[2024-02-20] MEDS ORDERED: NON-FORMULARY MEDICATION (Biotin 1 mg Tablet) PO SCH (09:00)
--- NOTE | 2024-02-20 10:52 | XCELERA ---
[id number] \\[id number]
--- NOTE | 2024-02-20 11:24 | Electrocardiogram Report ---
Test Reason : Blood Pressure : */* mmHG Vent. Rate : 59 BPM Atrial Rate : 59 BPM P-R Int : 280 ms QRS Dur : 136 ms QT Int : 446 ms P-R-T Axes : 71 -19 -8 degrees QTcB Int : 441 ms Sinus bradycardia with 1st degree A-V block with Premature atrial complexes Right bundle branch block Abnormal ECG When compared with ECG of 19-Feb-2024 13:23, Sinus rhythm has replaced atrial fibrillation Confirmed by Toby Vallejo ([id number]) on 02/20/2024 11:24:14 AM Referred By: REFERRED SELF Confirmed By: Toby Vallejo
[2024-02-20 11:37] VITALS: BP 154/77; TEMP 99; O2SAT 91
--- NOTE | 2024-02-20 11:52 | Discharge Summary ---
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 History obtained from patient and associated chart review. Patient was shopping at [facility] earlier when she suddenly passed out and fell to the floor. She was shopping by herself and EMS was called by staff at [facility]. Patient's heart rate was in the 20s per EMS. She received atropine en route to the ED. Patient's heart rate was holding steady in the mid 40s when seen in the ED. She mentions that she remembers feeling rather lightheaded/dizzy prior to passing out and then waking up in the ambulance. She does not recall striking her head. Patient was recently admitted under our service (11/26/2023-12/01/2023) with an embolic stroke involving the left anterior cerebral artery. Patient reports that she had been feeling well since being discharged up until today. She was discharged on carvedilol 3.125mg BID and lisinopril 20mg daily due to uncontrolled blood pressure. Patient reports that she was taking carvedilol 3.125mg BID up until about a week and a half ago when she ran out of this prescription. She mentions that she found an old prescription bottle of carvedilol that she had previously taken and subsequently started taking that. However, this carvedilol prescription was for 25mg BID. Patient was unaware of this dose difference. I spoke with her , Clayton, over the phone and he reports that she has been feeling somewhat lightheaded since starting this old dose of carvedilol. Admission Exam Per Admitting Provider General: NAD, sitting up in bed, very pleasant, conversing appropriately. A+Ox3, euthymic affect. HEENT: Normocephalic, atraumatic. PERRL, conjunctivae normal, anicteric sclerae. External ear and nose normal, oropharynx normal. Respiratory: Normal respiratory effort, lungs clear to auscultation, no wheeze, rales, rhonchi. No accessory muscle use. Cardiovascular: Bradycardic, regular rhythm, no murmur, normal peripheral pulses, no BLE edema. Vessels: No JVD. Abdomen/GI: Normal bowel sounds, soft, nontender, no hepatosplenomegaly. Extremities/Musculoskeletal: No cyanosis or clubbing, extremities motor strength intact, moves all extremities. Neurologic: EOMI, chronic right-sided lip drooping at baseline, CN's II-XI not formally tested but appear grossly intact bilaterally. Skin: No rashes, normal color, warm/dry. Principal Diagnosis Syncope due to bradycardia Discharge Exam Constitutional + well hydrated; no acute distress Eyes PERRL, conjunctivae normal, anicteric sclerae ENMT external ear and nose normal, oropharynx normal Respiratory normal respiratory effort, lungs clear to auscultation Cardiovascular Rate/Rhythm: regular rate and regular rhythm Gastrointestinal (Abdomen) normal bowel sounds, soft, nontender, no hepatosplenomegaly Musculoskeletal No pedal edema Neurologic EOMI, chronic right sided lip droop. Psychiatric A+Ox3, euthymic affect Discharge Data Allergies Allergy/AdvReac Type Severity Reaction Status Date / Time nitrofurantoin Allergy Hives Verified 02/20/24 14:30 [From Macrobid] sulfamethoxazole AdvReac RENETTA Verified 02/20/24 14:30 [From Bactrim] trimethoprim [From Bactrim] AdvReac RENETTA Verified 02/20/24 14:30 Consultations 02/19/24 14:47 ED Decision to Admit Stat 02/19/24 15:07 Consult Cardiology Routine Ordered Studies 02/19/24 16:[address] [CT head/brain wo con] Stat Hospital Course (1) Syncope and collapse: Plan 78 year old woman with PMHx significant for insulin-dependent DM type II, 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 Syncope & Collapse, Bradycardia: She was noted to bradycardic with HR in 20s per EMS and got atropine en route to the ED. Patient reported that she started taking an old prescription of carvedilol which was 25mg BID compared to 3.125mg BID she was discharged on in 12/15 without realizing the dose differences EKG showed bradycardia CXR negative. Limited echo today noted normal LVSF, mod to severe mitral calcification, mod MR Patient was monitored on tele off any BB HR improved. Currently running 55-60s this AM I discussed with Geodetic Survey Director Dr Vallejo this AM. He recommends stopping all carvedilol and discharge home to follow up outpatient. Patient and counseled to discontinue all carvedilol and appropriately dispose old meds with her pharm Hyperkalemia: K+ 5.7 on presentation. Patient got IV insulin dextrose + IV calcium chloride on admission Kis 4.6 today CKD Stage IV: Cr 2.4 on admission, baseline Cr ~1.9-2.4 per nephrology's most recent office visit note. Patient follows with [facility]. 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 Stable DM Type II: Continue home antidiabetic regimen Most recent Hgb A1c was 8.4% on 01/10/2024. Other Chronic Medical Conditions: Rheumatoid arthritis, HLD --> Can continue home medications for these specific conditions, including ASA given recent CVA in November of this year. Total Time Total Time Spent Total Time Spent (In Minutes): 45 Total Time Includes: Examination of the Patient, Discharge Planning, Medication Reconciliation and Communication With Other Providers Discharge Plan Discharge Items Patient Disposition: Home - Self-Care Reason For Visit: SYNCOPE AND COLLAPSE Discharge Diagnosis: Syncope due to bradycardia Activity: Resume your previous activity Non-emergency contact: Primary Care Provider and Geodetic Survey Director Call non-emergency contact if: you have any medication questions Follow-up/Referrals: Jake Nguyen Jr, MD, FACC [Physician] - Aiyana Peck PA-C [Primary Care Provider] - (Date & Time 02/26/2024 10:00 AM Provider Namita Jarquin MD [facility] ) Diet: Carb Consistent or DM2 and Heart Healthy Addtl Attending Provider Instructions: Mrs Samuel Faith were brought to the hospital after passing out and was noted to have very low heart rate. This was due to your mistakenly taking an old prescription of higher dose carvedilol. Please stop taking carvedilol at this time. Please ensure follow up with your Primary Doctor and Cardiology. It was a pleasure taking care of you. Pending Studies at Discharge: No Stand-Alone Forms: My [facility], Smoking Cessation Medications and DC Order Prescriptions: Continued calcitriol 0.25 mcg capsule 0.25 mcg PO .COMPLEX Qty: 24 2RF Rx Instructions: 0.25 mcg orally every Monday and Monday per [facility]. insulin aspart U-100 [Novolog U-100 Insulin aspart] 100 unit/mL solution 6 unit subcut TID Patient Comments: ON HOLD- NOT COVERED BY INSURANCE PER [facility] 01/11/24 Rx Instructions: Inject 6 Units under the skin in the morning and 8 Units at noon and 8 Units in the evening. Inject with meals. Eliquis 5 mg tablet 5 mg PO BID isosorbide mononitrate 30 mg tablet extended release 24 hr 30 mg PO DAILY Qty: 30 2RF cholecalciferol (vitamin D3) [Vitamin D3] 10 mcg (400 unit) tablet 20 mcg PO DAILY lisinopril 30 mg tablet 30 mg PO DAILY Qty: 90 3RF furosemide 20 mg tablet 20 mg PO Q OTHER DAY Qty: 45 3RF atorvastatin 40 mg tablet 80 mg PO DAILY amlodipine 10 mg tablet 10 mg PO DAILY Qty: 90 3RF prednisone 5 mg tablet 2.5 mg PO DAILY insulin glargine [Basaglar KwikPen U-100 Insulin] 100 unit/mL (3 mL) insulin pen 42 unit SUBCUT QAM Patient Comments: last filled 12/19/23 per pharmacy Rx Instructions: Inject 44 Units under the skin in the morning. milk thistle 175 mg Tablet 175 mg PO DAILY cyanocobalamin (vitamin B-12) [Vitamin B-12] 1,000 mcg Tablet 1,000 mcg PO DAILY aspirin 81 mg Tablet,Chewable 81 mg PO DAILY coenzyme Q10 [CoQ-10] 100 mg Capsule 100 mg PO DAILY cinnamon bark [Cinnamon] 500 mg Capsule 500 mg PO DAILY biotin 1 mg Tablet 1 mg PO DAILY PreserVision AREDS-2 250-90-40-1 mg Capsule 1 tab PO DAILY faricimab-svoa 6 mg/0.05 mL Solution 6 mg INTRAVITREAL DIRECTED PRN (Reason: Macular Edema) Rx Instructions: Patient gets Vabysmo intravitreal injections PRN - she follows with [facility]. (DME) FreeStBrandBacker Enrique 3 Sensor Device See Rx Instructions .Route Qty: 1 0RF Rx Instructions: As directed Discharge Orders: Discharge Order (Routine); Ordered 02/20/24 Ordered By: Christel Carver Admission Data Admit Date/Time: 02/19/24 15:04 Attending Provider: Christel Carver I. Admit Provider: Cy Soriano Primary Care Provider: Aiyana Peck Other Providers: Cy Soriano; Toby Vallejo Other Interventions: Discharge Summary Assessment (RN) Last Done: 02/20/24 12:51
[2024-02-20] MEDS ORDERED: INSULIN ASPART PER UNIT CHARGE SC SCH ×2 (12:00→16:30)
[2024-02-20] MEDS: LANTUS PER UNIT CHARGE SC SCH (12:00)
[2024-02-20] MEDS: INSULIN ASPART PER UNIT CHARGE SC ONE (12:01)
[2024-02-20 13:03] VITALS: PULSE 63
--- NOTE | 2024-02-20 13:18 | Communication Note ---
Date of Service: February 20, 2024 Code 44 attestation. Francie Baker is a 78 years old female was admitted with syncopal episode and was managed appropriately by the furniture designer and attending physician. By CMS guidelines, a determination that the admission or continued stay is not medically necessary has been made by a member of the UR committee and a physician for this hospital stay, therefore a Code 44 will be completed and the Inpatient admission will be changed to outpatient. Dr. Steve Soriano Member UR committee
[2024-02-23] MEDS ORDERED: CALCITRIOL 0.25 MCG CAPSULE PO SCH (09:00)
== END 2024-02-20 13:11 | disposition home or self-care (01) ==
LOC: ED 13:17 → SUATTDRO 15:04 → 2S 15:04 → INTOOBSV 15:04 → 2S 18:26